=== PATIENT | female | born 1965 | race Hispanic/Latino ===

== ENCOUNTER 2021-05-11 13:05 | Inpatient (IN) | payer SELFPAY ==
[2021-05-11] MEDS ORDERED: SODIUM CHLORIDE 0.9% 1000 ML IV SOLN IV ONE (14:22)
[2021-05-11] MEDS ORDERED: dexAMETHasone 20 MG/5 ML VIAL IV ONE (14:23)
--- NOTE | 2021-05-11 15:07 | XRay Report ---
CHEST 1 VIEW INDICATION / CLINICAL INFORMATION: resp distress. COMPARISON: None available. FINDINGS: SUPPORT DEVICES: None. HEART / MEDIASTINUM: No significant abnormality. LUNGS / PLEURA: Diffuse airspace opacities bilaterally. No significant effusion. No pneumothorax. ADDITIONAL FINDINGS: No significant additional findings. IMPRESSION: Severe multilobar pneumonia. Signer Name: Lg Banks MD Signed: 05/11/2021 3:03 PM Workstation Name: [id number]
--- NOTE | 2021-05-11 15:13 | Emergency Department Report ---
ED Shortness of Breath HPI - General Chief Complaint: Dyspnea/Respdistress Stated Complaint: SOB Time Seen by Provider: 05/11/21 14:13 Source: patient Mode of arrival: Wheelchair Limitations: No Limitations - History of Present Illness Initial Comments: Patient is a 55-year-old female who was previously nonvaccinated against COVID-19 who is presenting in respiratory distress. Patient states that over the last week she has developed cough congestion mild nausea with occasional diarrhea. Patient has shortness of breath especially with exertion in the beginning however shortness of breath was constant throughout the last 2 days. Patient also complaining of body aches and subjective fevers and chills. Patient has had a decrease in her taste and smell as well. Patient denies any neck stiffness or significant headache or sore throat - Related Data Allergies Allergy/AdvReac Type Severity Reaction Status Date / Time azithromycin Allergy Unknown Verified 05/11/21 13:44 morphine Allergy Unknown Verified 05/11/21 13:44 Penicillins Allergy Unknown Verified 05/11/21 13:44 tetracycline Allergy Unknown Verified 05/11/21 13:44 ED Review of Systems ROS: Stated complaint: SOB Other details as noted in HPI Comment: All other systems reviewed and negative ED Past Medical Hx - Past Medical History Previous Medical History?: Yes Hx Hypertension: Yes Hx Asthma: Yes Additional medical history: pos covid - Surgical History Past Surgical History?: No ED Physical Exam - General Limitations: No Limitations General appearance: alert, in no apparent distress - Head Head exam: Present: atraumatic, normocephalic - Eye Eye exam: Present: normal appearance - ENT ENT exam: Present: mucous membranes moist - Neck Neck exam: Present: normal inspection - Respiratory Respiratory exam: Present: respiratory distress, rhonchi. Absent: normal lung sounds bilaterally, wheezes, rales, stridor - Cardiovascular Cardiovascular Exam: Present: regular rate, normal rhythm, normal heart sounds. Absent: systolic murmur, diastolic murmur, rubs, gallop - GI/Abdominal GI/Abdominal exam: Present: soft, normal bowel sounds. Absent: distended, tenderness, guarding, rebound - Extremities Exam Extremities exam: Present: normal inspection - Back Exam Back exam: Present: normal inspection - Neurological Exam Neurological exam: Present: alert, oriented X3 - Psychiatric Psychiatric exam: Present: normal affect, normal mood - Skin Skin exam: Present: warm, dry, intact, normal color. Absent: rash ED Course Vital Signs 05/11/21 13:40 Temperature 98 F Pulse Rate 104 H Respiratory 16 Rate Blood Pressure 137/81 [Left] O2 Sat by Pulse 65 L Oximetry ED Medical Decision Making - Lab Data Result diagrams: 05/11/21 14:33 05/11/21 14:33 Lab Results 05/11/21 05/11/21 05/11/21 Range/Units 14:33 14:33 14:33 WBC 7.8 (4.5-11.0) K/mm3 RBC 4.90 (3.65-5.03) M/mm3 Hgb 14.8 H (10.1-14.3) gm/dl Hct 42.6 (30.3-42.9) % MCV 87 (79-97) fl MCH 30 (28-32) pg MCHC 35 H (30-34) % RDW 12.9 L (13.2-15.2) % Plt Count 235 (140-440) K/mm3 Lymph % (Auto) 8.7 L (13.4-35.0) % Braxton % (Auto) 7.3 (0.0-7.3) % Eos % (Auto) 0.1 (0.0-4.3) % Baso % (Auto) 0.2 (0.0-1.8) % Lymph # (Auto) 0.7 L (1.2-5.4) K/mm3 Braxton # (Auto) 0.6 (0.0-0.8) K/mm3 Eos # (Auto) 0.0 (0.0-0.4) K/mm3 Baso # (Auto) 0.0 (0.0-0.1) K/mm3 Seg Neutrophils % 83.7 H (40.0-70.0) % Seg Neutrophils # 6.5 (1.8-7.7) K/mm3 D-Dimer (0-234) ng/mlDDU Sodium 137 (137-145) mmol/L Potassium 5.2 H (3.6-5.0) mmol/L Chloride 95.0 L (98-107) mmol/L Carbon Dioxide 27 (22-30) mmol/L Anion Gap 20 mmol/L BUN 11 (7-17) mg/dL Creatinine 0.7 (0.6-1.2) mg/dL Estimated GFR > 60 ml/min BUN/Creatinine Ratio 16 % Glucose 125 H (65-100) mg/dL Lactic Acid 1.50 (0.7-2.0) mmol/L Calcium 8.5 (8.4-10.2) mg/dL Ferritin (10.0-200.0) ng/mL Total Bilirubin 0.40 (0.1-1.2) mg/dL AST 38 (5-40) units/L ALT 30 (7-56) units/L Alkaline Phosphatase 64 (35-129) units/L Lactate Dehydrogenase (91-180) units/L C-Reactive Protein (0.00-1.30) mg/dL Total Protein 7.0 (6.3-8.2) g/dL Albumin 3.3 L (3.9-5) g/dL Albumin/Globulin Ratio 0.9 % 05/11/21 05/11/21 05/11/21 Range/Units 15:00 15:00 15:00 WBC (4.5-11.0) K/mm3 RBC (3.65-5.03) M/mm3 Hgb (10.1-14.3) gm/dl Hct (30.3-42.9) % MCV (79-97) fl MCH (28-32) pg MCHC (30-34) % RDW (13.2-15.2) % Plt Count (140-440) K/mm3 Lymph % (Auto) (13.4-35.0) % Braxton % (Auto) (0.0-7.3) % Eos % (Auto) (0.0-4.3) % Baso % (Auto) (0.0-1.8) % Lymph # (Auto) (1.2-5.4) K/mm3 Braxton # (Auto) (0.0-0.8) K/mm3 Eos # (Auto) (0.0-0.4) K/mm3 Baso # (Auto) (0.0-0.1) K/mm3 Seg Neutrophils % (40.0-70.0) % Seg Neutrophils # (1.8-7.7) K/mm3 D-Dimer 331.70 H (0-234) ng/mlDDU Sodium (137-145) mmol/L Potassium (3.6-5.0) mmol/L Chloride (98-107) mmol/L Carbon Dioxide (22-30) mmol/L Anion Gap mmol/L BUN (7-17) mg/dL Creatinine (0.6-1.2) mg/dL Estimated GFR ml/min BUN/Creatinine Ratio % Glucose (65-100) mg/dL Lactic Acid (0.7-2.0) mmol/L Calcium (8.4-10.2) mg/dL Ferritin 471.5 H (10.0-200.0) ng/mL Total Bilirubin (0.1-1.2) mg/dL AST (5-40) units/L ALT (7-56) units/L Alkaline Phosphatase (35-129) units/L Lactate Dehydrogenase 579 H (91-180) units/L C-Reactive Protein 15.80 H (0.00-1.30) mg/dL Total Protein (6.3-8.2) g/dL Albumin (3.9-5) g/dL Albumin/Globulin Ratio % - Radiology Data [facility] [address] [place] [address] XRay Report Signed Patient: JESSIKA NOVOA MR#: [id number] : 1965 Acct:[id number] Age/Sex: 55 / F ADM Date: 05/11/21 Loc: ED Attending Dr: Ordering Physician: TANIKA SCHWARTZ MD Date of Service: 05/11/21 Procedure(s): XR chest 1V ap Accession Number(s): [id number] cc: TANIKA SCHWARTZ MD Fluoro Time In Minutes: CHEST 1 VIEW INDICATION / CLINICAL INFORMATION: resp distress. COMPARISON: None available. FINDINGS: SUPPORT DEVICES: None. HEART / MEDIASTINUM: No significant abnormality. LUNGS / PLEURA: Diffuse airspace opacities bilaterally. No significant effusion. No pneumothorax. ADDITIONAL FINDINGS: No significant additional findings. IMPRESSION: Severe multilobar pneumonia. Signer Name: Lg Banks MD Signed: 05/11/2021 3:03 PM Workstation Name: [id number] - Medical Decision Making On arrival the patient's O2 saturation was in the 60s. She was placed on high flow oxygen and has improved. O2 sats on high flow oxygen are in the low 90s. Patient appears more comfortable. She is able to speak in full sentences. Chest x-ray consistent with multi lobar pneumonia consistent with COVID-19 infection. Patient started on Rocephin azithromycin and given a dose of Decadron. Patient admitted to the hospital service. Critical Care Time: Yes Critical care attestation.: If time is entered above; I have spent that time in minutes in the direct care of this critically ill patient, excluding procedure time. ED Disposition Clinical Impression: Hypoxia, Acute respiratory distress, Multilobar lung infiltrate, Suspected COVID-19 virus infection Disposition: ADMITTED INPATIENT Is pt being admited?: Yes Does the pt Need Aspirin: No Condition: Stable Time of Disposition: 16:25
[2021-05-11 15:19] LABS: Basophils % (Auto) 0.2 % (0.0-1.8); Eosinophils % (Auto) 0.1 % (0.0-4.3); Hematocrit 42.6 % (30.3-42.9); Hemoglobin 14.8 gm/dl (10.1-14.3); Lymphocytes # (Auto) 0.7 K/mm3 (1.2-5.4); Lymphocytes % (Auto) 8.7 % (13.4-35.0); Mean Corpuscular HGB Conc 35 % (30-34); Mean Corpuscular Volume 87 fl (79-97); Monocytes # (Auto) 0.6 K/mm3 (0.0-0.8); Monocytes % (Auto) 7.3 % (0.0-7.3); Platelet Count 235 K/mm3 (140-440); Red Cell Distribution Width 12.9 % (13.2-15.2)
--- NOTE | 2021-05-11 15:21 | History and Physical Report ---
History of Present Illness Chief complaint: It is hard to breathe History of present illness: 55 YO Female with HTN, Mild Intermittent Asthma, Obesity Hypoventilation Syndrome, Coronavirus Infection diagnosed 1 week ago presents to ED for evaluation. Patient reports "it is hard to breathe". Patient states that she h ad experienced shortness of breath, dry cough, fatigue, malaise, subjective fever, body aches, loss of sense of smell, loss of sense of taste, decreased exercise tolerance over the past 1 week with worsening symptoms over the past 2 days. Patient transported to [facility] via private vehicle for further care and evaluation of the aforementioned symptoms. The patient was seen and evaluated in the emergency department. All lab and imaging studies reviewed. Patient was found to have a pulse oximetry of 86% on room air which is consistent with acute hypoxemic respiratory failure. Patient chest x-ray revealed bilateral pneumonia. Patient initiated on high flow supplemental oxygen with mild improve ment in symptoms. Patient admitted to medical floor due to increased risk of worsening symptoms. Patient initiated on pneumonia protocol, coronavirus protocol. Patient denies fever, chills but denies chest pain, palpitation, skin rash, unilateral leg swelling, calf pain, prolonged travel/immobility, individual/family history of DVT/PE/bleeding/blood clotting disorders. No prior admission for review. No medication listed at time of admission for reconciliation. Advanced care planning conducted in ED. Past History Past Medical History: hypertension, other (See HPI) Past Surgical History: No surgical history, Other (Reviewed) Social history: single. denies: smoking, alcohol abuse, prescription drug abuse Family history: hypertension Medications and Allergies Allergies Allergy/AdvReac Type Severity Reaction Status Date / Time azithromycin Allergy Unknown Verified 05/11/21 13:44 morphine Allergy Unknown Verified 05/11/21 13:44 Penicillins Allergy Unknown Verified 05/11/21 13:44 tetracycline Allergy Unknown Verified 05/11/21 13:44 Review of Systems Constitutional: fever, weakness, malaise, lethargy Ears, nose, mouth and throat: other (Loss of sense of smell, loss of sense of taste), no ear pain, no ear discharge, no decreased hearing, no nose pain, no nasal congestion, no sinus pressure Cardiovascular: no chest pain, no orthopnea, no palpitations Respiratory: cough, cough with sputum, shortness of breath, no congestion, no pain on inspiration Gastrointestinal: no abdominal pain, no nausea, no vomiting, no diarrhea, no constipation, no change in bowel habits Genitourinary Female: no pelvic pain, no flank pain, no dysuria, no urinary frequency, no urgency Rectal: no pain, no incontinence, no bleeding Musculoskeletal: no neck stiffness, no shooting arm pain, no low back pain, no shooting leg pain, no leg numbness/tingling Integumentary: no rash, no pruritis, no redness, no sores, no wounds Neurological: no paralysis, no weakness, no parathesias, no numbness, no tingling, no seizures Psychiatric: no anxiety, no memory loss, no change in sleep habits, no insomnia, no change in appetite, no suicidal ideation Endocrine: no cold intolerance, no heat intolerance, no polyphagia, no polyuria, no excessive sweating Hematologic/Lymphatic: no easy bruising, no easy bleeding Allergic/Immunologic: no urticaria, no wheezing Exam - Constitutional Vitals: Temp Pulse Resp BP Pulse Ox 98 F 104 H 16 137/81 65 L 05/11/21 13:40 05/11/21 13:40 05/11/21 13:40 05/11/21 13:40 05/11/21 13:40 General appearance: Present: mild distress, obese - EENT Eyes: Present: PERRL ENT: hearing intact, clear oral mucosa - Neck Neck: Present: supple, normal ROM - Respiratory Respiratory effort: labored, accessory muscle use, stridor Respiratory: bilateral: diminished, rhonchi - Cardiovascular Heart Sounds: Present: S1 & S2. Absent: rub, click - Extremities Extremities: pulses symmetrical, No edema Peripheral Pulses: within normal limits - Abdominal General gastrointestinal: Present: soft, non-tender, non-distended, normal bowel sounds Female genitourinary: Present: normal - Integumentary Integumentary: Present: clear, warm, dry - Musculoskeletal Musculoskeletal: gait normal, strength equal bilaterally - Psychiatric Psychiatric: appropriate mood/affect, intact judgment & insight - Neurologic Neurologic: CNII-XII intact, moves all extremities Results - Labs CBC & Chem 7: 05/11/21 14:33 05/11/21 14:33 Labs: Abnormal lab results 05/11/21 Range/Units 14:33 Hgb 14.8 H (10.1-14.3) gm/dl MCHC 35 H (30-34) % RDW 12.9 L (13.2-15.2) % Lymph % (Auto) 8.7 L (13.4-35.0) % Lymph # (Auto) 0.7 L (1.2-5.4) K/mm3 Seg Neutrophils % 83.7 H (40.0-70.0) % Assessment and Plan - Patient Problems (1) Acute hypoxemic respiratory failure Current Visit: Yes Status: Acute Plan to address problem: Supplemental oxygen, pulse oximetry, nebulizer therapy, high flow supplemental oxygen at this time, will consider noninvasive positive pressure ventilation if patient is unable to main pulse oximetry on high flow supplemental oxygen. Pulmonary toilet, early ambulation. (2) Coronavirus infection Current Visit: Yes Status: Acute Plan to address problem: Coronavirus protocol: IV antibiotic therapy, IV steroid therapy, supplemental oxygen, high flow supplemental oxygen, noninvasive positive pressure ventilation as clinically indicated, proposition while in bed, vitamin C therapy, vitamin D therapy, zinc therapy, prophylactic anticoagulation (3) Pneumonia Current Visit: Yes Status: Acute Plan to address problem: Pneumonia protocol: Chest x-ray, CBC, CMP, supplemental oxygen, pulse oximetry, nebulizer therapy, pulmonary toilet, blood culture. (4) Obesity hypoventilation syndrome Current Visit: Yes Status: Acute Plan to address problem: Balanced diet, increase physical activity discharge, outpatient pulmonary follow-up for sleep study. (5) DVT prophylaxis Current Visit: Yes Status: Acute Plan to address problem: SCD to bilateral lower extremities while in bed, prophylactic anticoagulation (6) Advance care planning Current Visit: Yes Status: Acute Plan to address problem: Disease education conducted, care plan discussed, diagnoses discussed, patient is full code, patient knowledges understanding and agreement with care plan, +20 minutes. (7) COVID-19 vaccination not done Current Visit: Yes Status: Acute Plan to address problem: Patient counseled,
[2021-05-11 15:39] LABS: Alanine Aminotransferase 30 units/L (7-56); Albumin 3.3 g/dL (3.9-5); Blood Urea Nitrogen 11 mg/dL (7-17); Calcium 8.5 mg/dL (8.4-10.2); Hemolysis Index 14
[2021-05-11 15:42] LABS: BUN/Creatinine Ratio 16
[2021-05-11 16:01] LABS: C-Reactive Protein 15.8 mg/dL (0.00-1.30)
[2021-05-12] MEDS ORDERED: NALOXONE 0.4 MG/1 ML INJ IV PRN (09:00)
[2021-05-12] MEDS ORDERED: DEXTROSE 50% IN WATER (25GM) 50 ML SYRINGE IV PRN (09:30)
[2021-05-12 09:47] LABS: C-Reactive Protein 18.4 mg/dL (0.00-1.30)
[2021-05-12] MEDS: ENOXAPARIN 100 MG/1 ML INJ SUB-Q SCH ×2 (11:20→22:12)
[2021-05-12] MEDS: FAMOTIDINE 20 MG TAB PO SCH ×2 (11:21→22:08)
[2021-05-12] MEDS: methylPREDNISolone Sod Succinate 125 MG/2 ML INJ IV SCH ×3 (11:21→22:11)
[2021-05-12] MEDS: FUROSEMIDE 40 MG/4 ML INJ IV SCH (11:21)
[2021-05-12] MEDS: SENNOSIDES 8.6 MG TAB PO SCH ×2 (11:21→22:10)
[2021-05-12] MEDS: INSULIN LISPRO 100 UNIT/ML SUB-Q SCH ×3 (11:41→22:12)
--- NOTE | 2021-05-12 13:30 | Progress Note ---
Assessment and Plan Assessment and plan: 55 YO Female with HTN, Mild Intermittent Asthma, Obesity Hypoventilation Syndrome, Coronavirus Infection diagnosed 1 week ago presents to ED for evaluation. Patient reports "it is hard to breathe". Patient states that she had experienced shortness of breath, dry cough, fatigue, malaise, subjective fever, body aches, loss of sense of smell, loss of sense of taste, decreased exercise tolerance over the past 1 week with worsening symptoms over the past 2 days. Patient transported to [facility] via private vehicle for further care and evaluation of the aforementioned symptoms. The patient was seen and evaluated in the emergency department. All lab and imaging studies reviewed. Patient was found to have a pulse oximetry of 86% on room air which is consistent with acute hypoxemic respiratory failure. Patient chest x-ray revealed bilateral pneumonia. Patient initiated on high flow supplemental oxygen with mild improvement in symptoms. Patient admitted to medical floor due to increased risk of worsening symptoms. Patient initiated on pneumonia protocol, coronavirus protocol. Patient denies fever, chills but denies chest pain, palpitation, skin rash, unilateral leg swelling, calf pain, prolonged travel/immobility, individual/family history of DVT/PE/bleeding/blood clotting disorders. No prior admission for review. No medication listed at time of admission for reconciliation. Advanced care planning conducted in ED. 05/12: Patient currently severely hypoxic on full nonrebreather and also high flow 100%. We will go ahead and consult pulmonary we will start patient on steroids. We will also consult infectious disease anticipate that the patient should be started on remdesivir. Awaiting repeat Covid 19 diagnosis although patient states that she was diagnosed a week ago. She unfortunately is not vaccinated. Condition is pretty guarded. Will also start on Diuresis and Full anticoagulation Encouraged proning Monitor inflammatory markers Patients emergency contacts: Kristen [phone] and Demetria [phone]. I have called both and left a message (1) Acute hypoxemic respiratory failure Current Visit: Yes Status: Acute Plan to address problem: Supplemental oxygen, pulse oximetry, nebulizer therapy, high flow supplemental oxygen at this time, will consider noninvasive positive pressure ventilation if patient is unable to main pulse oximetry on high flow supplemental oxygen. Pulmonary toilet, early ambulation. (2) Coronavirus infection Current Visit: Yes Status: Acute Plan to address problem: Coronavirus protocol: IV antibiotic therapy, IV steroid therapy, supplemental oxygen, high flow supplemental oxygen, noninvasive positive pressure ventilation as clinically indicated, proposition while in bed, vitamin C therapy, vitamin D therapy, zinc therapy, prophylactic anticoagulation (3) Pneumonia Current Visit: Yes Status: Acute Plan to address problem: Pneumonia protocol: Chest x-ray, CBC, CMP, supplemental oxygen, pulse oximetry, nebulizer therapy, pulmonary toilet, blood culture. (4) Obesity hypoventilation syndrome Current Visit: Yes Status: Acute Plan to address problem: Balanced diet, increase physical activity discharge, outpatient pulmonary follow-up for sleep study. (5) DVT prophylaxis Current Visit: Yes Status: Acute Plan to address problem: SCD to bilateral lower extremities while in bed, prophylactic anticoagulation (6) Advance care planning Current Visit: Yes Status: Acute Plan to address problem: Disease education conducted, care plan discussed, diagnoses discussed, patient is full code, patient knowledges understanding and agreement with care plan, +20 minutes. (7) COVID-19 vaccination not done Current Visit: Yes Status: Acute Plan to address problem: Patient counseled, cct 35 mins History Interval history: Patient seen and examined remains in acute respiratory distress. Fortunately did not appear to have gotten medications through the night. This has been rectified Hospitalist Physical - Physical exam Narrative exam: VITAL SIGNS: Reviewed. GENERAL: The patient appears normally developed, morbidly obese vital signs as documented. HEAD: No signs of head trauma. EYES: Pupils are equal. Extraocular motions intact. EARS: Hearing grossly intact. MOUTH: Oropharynx is normal. NECK: No adenopathy, no JVD. CHEST: Chest with diminished breath sounds bilaterally. No wheezes, rales, or rhonchi. CARDIAC: Regular rate and rhythm. S1 and S2, without murmurs, gallops, or rubs. VASCULAR: No Edema. Peripheral pulses normal and equal in all extremities. ABDOMEN: Soft, non tender and non distended. No rebound or guarding, and no masses palpated. Bowel Sounds normal. MUSCULOSKELETAL: Good range of motion of all major joints. Extremities without clubbing, cyanosis or edema. NEUROLOGIC EXAM: Alert and oriented x 3 No focal sensory or strength deficits. Speech normal. Follows commands. PSYCHIATRIC: Mood normal. SKIN: detail exam as documented in skin assessment - Constitutional Vitals: Temp Pulse Resp BP Pulse Ox 97.7 F 101 H 31 H 142/85 86 05/12/21 11:30 05/12/21 11:30 05/12/21 11:30 05/12/21 11:30 05/12/21 11:42 General appearance: Present: mild distress, obese Results - Labs CBC & Chem 7: 05/11/21 14:33 05/12/21 08:46 Labs: Laboratory Last Values WBC 7.8 K/mm3 (4.5-11.0) 05/11/21 14:33 RBC 4.90 M/mm3 (3.65-5.03) 05/11/21 14:33 Hgb 14.8 gm/dl (10.1-14.3) H 05/11/21 14:33 Hct 42.6 % (30.3-42.9) 05/11/21 14:33 MCV 87 fl (79-97) 05/11/21 14:33 MCH 30 pg (28-32) 05/11/21 14:33 MCHC 35 % (30-34) H 05/11/21 14:33 RDW 12.9 % (13.2-15.2) L 05/11/21 14:33 Plt Count 235 K/mm3 (140-440) 05/11/21 14:33 Lymph % (Auto) 8.7 % (13.4-35.0) L 05/11/21 14:33 [place] % (Auto) 7.3 % (0.0-7.3) 05/11/21 14:33 Eos % (Auto) 0.1 % (0.0-4.3) 05/11/21 14:33 Baso % (Auto) 0.2 % (0.0-1.8) 05/11/21 14:33 Lymph # (Auto) 0.7 K/mm3 (1.2-5.4) L 05/11/21 14:33 [place] # (Auto) 0.6 K/mm3 (0.0-0.8) 05/11/21 14:33 Eos # (Auto) 0.0 K/mm3 (0.0-0.4) 05/11/21 14:33 Baso # (Auto) 0.0 K/mm3 (0.0-0.1) 05/11/21 14:33 Seg Neutrophils % 83.7 % (40.0-70.0) H 05/11/21 14:33 Seg Neutrophils # 6.5 K/mm3 (1.8-7.7) 05/11/21 14:33 D-Dimer 345.30 ng/mlDDU (0-234) H 05/12/21 08:46 Sodium 137 mmol/L (137-145) 05/11/21 14:33 Potassium 5.2 mmol/L (3.6-5.0) H 05/11/21 14:33 Chloride 95.0 mmol/L (98-107) L 05/11/21 14:33 Carbon Dioxide 27 mmol/L (22-30) 05/11/21 14:33 Anion Gap 20 mmol/L 05/11/21 14:33 BUN 11 mg/dL (7-17) 05/11/21 14:33 Creatinine 0.7 mg/dL (0.6-1.2) 05/11/21 14:33 Estimated GFR > 60 ml/min 05/11/21 14:33 BUN/Creatinine Ratio 16 % 05/11/21 14:33 Glucose 149 mg/dL (65-100) H 05/12/21 08:46 POC Glucose 141 mg/dL (70-105) H 05/12/21 11:40 Lactic Acid 1.10 mmol/L (0.7-2.0) 05/11/21 18:12 Calcium 8.5 mg/dL (8.4-10.2) 05/11/21 14:33 Ferritin 465.6 ng/mL (10.0-200.0) H 05/12/21 08:46 Total Bilirubin 0.40 mg/dL (0.1-1.2) 05/11/21 14:33 AST 38 units/L (5-40) 05/11/21 14:33 ALT 30 units/L (7-56) 05/11/21 14:33 Alkaline Phosphatase 64 units/L (35-129) 05/11/21 14:33 Lactate Dehydrogenase 574 units/L (91-180) H 05/12/21 08:46 C-Reactive Protein 18.40 mg/dL (0.00-1.30) H 05/12/21 08:46 Total Protein 7.0 g/dL (6.3-8.2) 05/11/21 14:33 Albumin 3.3 g/dL (3.9-5) L 05/11/21 14:33 Albumin/Globulin Ratio 0.9 % 05/11/21 14:33 Procalcitonin 0.06 ng/mL (<0.15) 05/12/21 08:46 Microbiology: Microbiology 05/11/21 15:00 Peripheral/Venous Blood Culture - Preliminary Culture in Progress 05/11/21 15:00 Peripheral/Venous Blood Culture - Preliminary Culture in Progress Active Medications - Current Medications Current Medications: Generic Name Dose Route Start Last Admin Trade Name Freq PRN Reason Stop Dose Admin Acetaminophen 650 mg 05/12/21 10:00 Acetaminophen 325 Mg Tab PO Q4H PRN Pain MILD(1-3)/Fever >100.5/LUX Dextrose 50 ml 05/12/21 09:30 Dextrose 50% In Water (25gm) 50 Ml Syringe IV Q30MIN PRN Hypoglycemia Protocol Enoxaparin Sodium 100 mg 05/12/21 10:00 05/12/21 11:20 Enoxaparin 100 Mg/1 Ml Inj 1 mg/kg (100 mg) 100 mg SUB-Q Administration Q12HR [facility] Protocol Famotidine 20 mg 05/12/21 10:00 05/12/21 11:21 Famotidine 20 Mg Tab PO 20 mg BID YOHANNES Administration Furosemide 40 mg 05/12/21 10:00 05/12/21 11:21 Furosemide 40 Mg/4 Ml Inj IV 05/14/21 10:01 40 mg QDAY YOHANNES Administration Insulin Human Lispro 0 unit 05/12/21 11:30 05/12/21 11:41 Insulin Lispro 100 Unit/Ml SUB-Q Not Given ACHS [facility] Protocol Methylprednisolone Sodium Succinate 80 mg 05/12/21 10:00 05/12/21 11:21 Methylprednisolone Sod Succinate 125 Mg/2 Ml Inj IV 80 mg Q8HR YOHANNES Administration Naloxone HCl 0.1 mg 05/12/21 09:00 Naloxone 0.4 Mg/1 Ml Inj IV Q2MIN PRN Res Rate </= 8 or 02 SAT < 92% Ondansetron HCl 4 mg 05/12/21 10:00 Ondansetron 4 Mg/2 Ml Inj IV Q4H PRN Nausea And Vomiting Oxycodone/Acetaminophen 1 tab 05/12/21 10:00 Oxycodone /Acetaminophen 5-325mg Tab PO Q6H PRN Pain, Moderate (4-6) Senna 8.6 mg 05/12/21 10:00 05/12/21 11:21 Sennosides 8.6 Mg Tab PO 8.6 mg Q12HR YOHANNES Administration Sodium Chloride 10 ml 05/12/21 10:00 05/12/21 11:35 Sodium Chloride 0.9% 10 Ml Flush Syringe IV 10 ml BID YOHANNES Administration Sodium Chloride 10 ml 05/12/21 10:00 Sodium Chloride 0.9% 10 Ml Flush Syringe IV PRN PRN LINE FLUSH Nutrition/Malnutrition Assess - Dietary Evaluation Nutrition/Malnutrition Findings: Nutrition Notes Start: 05/12/21 11:38 Freq: Status: Active Protocol: Document 05/12/21 11:38 ROSANA (Rec: 05/12/21 11:41 ROSANA [id number]) Nutrition Notes Need for Assessment generated from: MD Order,Education Initial or Follow up Brief Note Current Diagnosis Hypertension,Respiratory Failure Other Pertinent Diagnosis COVID-19 (+), pneu Current Diet Consistent CHO Subjective/Other Information RD consulted for diet education. Pt in ED at this time. Minimum of two criteria No Nutrition Intervention Follow-Up By: 05/17/21 Additional Comments F/U: transfer to medical floor ; diet education needs, need for full assessment
--- NOTE | 2021-05-12 13:45 | Consultation ---
History of Present Illness Consult date: 05/12/21 Reason for consult: dyspnea History of present illness: t is hard to breathe History of present illness: 55 YO Female with HTN, Mild Intermittent Asthma, Obesity Hypoventilation Syndrome, Coronavirus Infection diagnosed 1 week ago presents to ED for evaluation. Patient reports "it is hard to breathe". Patient states that she had experienced shortness of breath, dry cough, fatigue, malaise, subjective fever, body aches, loss of sense of smell, loss of sense of taste, decreased exercise tolerance over the past 1 week with worsening symptoms over the past 2 days. Patient transported to [facility] via private vehicle for further care and evaluation of the aforementioned symptoms. The patient was seen and evaluated in the emergency department. All lab and imaging studies reviewed. Patient was found to have a pulse oximetry of 86% on room air which is consistent with acute hypoxemic respiratory failure. Patient chest x-ray revealed bilateral pneumonia. Patient initiated on high flow supplemental oxygen with mild improvement in symptoms. Patient admitted to medical floor due to increased risk of worsening symptoms. Patient initiated on pneumonia protocol, coronavirus protocol. Patient denies fever, chills but denies chest pain, palpitation, skin rash, unilateral leg swelling, calf pain, prolonged zain el/immobility, individual/family history of DVT/PE/bleeding/blood clotting disorders. No prior admission for review. No medication listed at time of admission for reconciliation. Patient reports cough along with shortness of breath but no chest pains. She reports she has been suspected to have obstructive sleep apnea however have not had any sleep studies. Past History Past Medical History: hypertension, other (See HPI) Past Surgical History: No surgical history, Other (Reviewed) Social history: single. denies: smoking, alcohol abuse, prescription drug abuse Family history: hypertension Medications and Allergies Allergies Allergy/AdvReac Type Severity Reaction Status Date / Time azithromycin Allergy Unknown Verified 05/11/21 13:44 morphine Allergy Unknown Verified 05/11/21 13:44 Penicillins Allergy Unknown Verified 05/11/21 13:44 tetracycline Allergy Unknown Verified 05/11/21 13:44 Home Medications Medication Instructions Recorded Confirmed Last Taken Type No Known Home Medications [No 05/11/21 05/11/21 Unknown History Reported Home Medications] Active Meds: Active Medications Acetaminophen (Acetaminophen 325 Mg Tab) 650 mg PO Q4H PRN PRN Reason: Pain MILD(1-3)/Fever >100.5/LUX Ascorbic Acid (Ascorbic Acid 500 Mg Tab) 1,000 mg PO BID [facility] Cholecalciferol (Cholecalciferol (Vit D3) 5,000 Unit Tab) 5,000 unit PO DAILY [facility] Dextrose (Dextrose 50% In Water (25gm) 50 Ml Syringe) 50 ml IV Q30MIN PRN; Protocol PRN Reason: Hypoglycemia Enoxaparin Sodium (Enoxaparin 100 Mg/1 Ml Inj) 100 mg 1 mg/kg (100 mg) SUB-Q Q12HR [facility]; Protocol Last Admin: 05/12/21 11:20 Dose: 100 mg Documented by: Famotidine (Famotidine 20 Mg Tab) 20 mg PO BID [facility] Last Admin: 05/12/21 11:21 Dose: 20 mg Documented by: Furosemide (Furosemide 40 Mg/4 Ml Inj) 40 mg IV QDAY [facility] Stop: 05/14/21 10:01 Last Admin: 05/12/21 11:21 Dose: 40 mg Documented by: REMDESIVIR 200 mg/ Sodium (Chloride) 250 mls @ 500 mls/hr IV ONCE ONE Stop: 05/12/21 14:04 REMDESIVIR 100 mg/ Sodium (Chloride) 250 mls @ 500 mls/hr IV Q24HR@2100 [facility] Stop: 05/16/21 21:29 Insulin Human Lispro (Insulin Lispro 100 Unit/Ml) 0 unit SUB-Q ACHS [facility]; Protocol Last Admin: 05/12/21 11:41 Dose: Not Given Documented by: Methylprednisolone Sodium Succinate (Methylprednisolone Sod Succinate 125 Mg/2 Ml Inj) 80 mg IV Q8HR [facility] Last Admin: 05/12/21 11:21 Dose: 80 mg Documented by: Naloxone HCl (Naloxone 0.4 Mg/1 Ml Inj) 0.1 mg IV Q2MIN PRN PRN Reason: Res Rate </= 8 or 02 SAT < 92% Ondansetron HCl (Ondansetron 4 Mg/2 Ml Inj) 4 mg IV Q4H PRN PRN Reason: Nausea And Vomiting Oxycodone/Acetaminophen (Oxycodone /Acetaminophen 5-325mg Tab) 1 tab PO Q6H PRN PRN Reason: Pain, Moderate (4-6) Senna (Sennosides 8.6 Mg Tab) 8.6 mg PO Q12HR [facility] Last Admin: 05/12/21 11:21 Dose: 8.6 mg Documented by: Sodium Chloride (Sodium Chloride 0.9% 10 Ml Flush Syringe) 10 ml IV BID [facility] Last Admin: 05/12/21 11:35 Dose: 10 ml Documented by: Sodium Chloride (Sodium Chloride 0.9% 10 Ml Flush Syringe) 10 ml IV PRN PRN PRN Reason: LINE FLUSH Sodium Chloride (Sodium Chloride 0.9% 50 Ml Ivpb) 50 ml IV Q24HR@2100 [facility] Stop: 05/16/21 21:01 Zinc Sulfate (Zinc Sulfate 220 Mg Cap) 220 mg PO QDAY [facility] Review of Systems All systems: negative Constitutional: chills, sweats, weakness, malaise Ears, nose, mouth and throat: other (Loss of taste and smell) Breasts: deferred Cardiovascular: shortness of breath Respiratory: cough with sputum Integumentary: deferred Physical Examination Vital signs: Vital Signs Temp Pulse Resp BP Pulse Ox 98 F 104 H 16 137/81 65 L 05/11/21 13:40 05/11/21 13:40 05/11/21 13:40 05/11/21 13:40 05/11/21 13:40 General appearance: appears uncomfortable, other (Dyspneic at rest with oxygen) Eyes: non-icteric ENT: oropharynx dry, other (Crowded oropharynx) Neck: supple, no JVD Effort: mildly labored Ascultation: Bilateral: rhonchi Cardiovascular: regular rate and rhythm Gastrointestinal: normoactive bowel sounds, soft, non-tender, other (Obese) Integumentary: normal Extremities: no cyanosis, no edema, pink and warm Musculoskeletal: no deformities Gait: other (Not examined) normal mental status, non-focal exam mood appropriate Results - Laboratory Findings CBC and BMP: 05/11/21 14:33 05/12/21 08:46 PT/INR, D-dimer D-Dimer 345.30 ng/mlDDU (0-234) H 05/12/21 08:46 Abnormal lab findings: Abnormal Labs 05/11/21 05/11/21 05/11/21 14:33 14:33 15:00 Hgb 14.8 H MCHC 35 H RDW 12.9 L Lymph % (Auto) 8.7 L Lymph # (Auto) 0.7 L Seg Neutrophils % 83.7 H D-Dimer 331.70 H Potassium 5.2 H Chloride 95.0 L Glucose 125 H POC Glucose Ferritin Lactate Dehydrogenase C-Reactive Protein Albumin 3.3 L 05/11/21 05/11/21 05/12/21 15:00 15:00 08:46 Hgb MCHC RDW Lymph % (Auto) Lymph # (Auto) Seg Neutrophils % D-Dimer 345.30 H Potassium Chloride Glucose POC Glucose Ferritin 471.5 H Lactate Dehydrogenase 579 H C-Reactive Protein 15.80 H Albumin 05/12/21 05/12/21 05/12/21 08:46 08:46 11:40 Hgb MCHC RDW Lymph % (Auto) Lymph # (Auto) Seg Neutrophils % D-Dimer Potassium Chloride Glucose 149 H POC Glucose 141 H Ferritin 465.6 H Lactate Dehydrogenase 574 H C-Reactive Protein 18.40 H Albumin - Diagnostic Findings Chest x-ray: image reviewed (Bilateral patchy infiltrate) Assessment and Plan Impression: Acute hypoxic respiratory failure Bilateral COVID-19 pneumonia Morbid obesity Suspect underlying obstructive sleep apnea Hypertension. Recommendations: Continue with the supplemental oxygen currently on high flow. Continue with IV steroids Consider remdesivir for Covid pneumonia. Agree with DVT and GI prophylaxis. Consider sleep study as outpatient when recovered from Covid pneumonia Given obesity, underlying health problems and extensive pneumonia with severe hypoxemia, consider prognosis to be guarded
[2021-05-12] MEDS ORDERED: REMDESIVIR 200 MG in SODIUM CHLORIDE 0.9% 250ML 250 ML IV ONE (14:35)
[2021-05-12] MEDS: ZINC SULFATE 220 MG CAP PO SCH (15:34)
[2021-05-12] MEDS: SODIUM CHLORIDE 0.9% 50 ML IVPB IV SCH (16:25)
--- NOTE | 2021-05-12 17:15 | Vascular Lab Report ---
DUPLEX DOPPLER LOWER EXTREMITY VEINS, BILATERAL INDICATION / CLINICAL INFORMATION: DVT. TECHNIQUE: Duplex doppler imaging was performed through the veins of both lower extremities using ba ous compression and other maneuvers. COMPARISON: None available. FINDINGS: RIGHT COMMON FEMORAL VEIN: Negative. RIGHT FEMORAL VEIN: Negative. RIGHT POPLITEAL VEIN: Negative. RIGHT CALF VEINS: Negative. LEFT COMMON FEMORAL VEIN: Negative. LEFT FEMORAL VEIN: Negative. LEFT POPLITEAL VEIN: Negative. LEFT CALF VEINS: Negative. ADDITIONAL FINDINGS: None. IMPRESSION: 1. No sonographic evidence for DVT in either lower extremity. Signer Name: Moreno Roberson MD Signed: 05/12/2021 5:11 PM Workstation Name: [id number]
[2021-05-12] MEDS: CHOLECALCIFEROL (VIT D3) 5,000 UNIT TAB PO SCH (17:53)
[2021-05-12] MEDS: ASCORBIC ACID 500 MG TAB PO SCH (22:09)
[2021-05-13 04:57] LABS: Basophils % (Auto) 0.3 % (0.0-1.8); Hematocrit 42.8 % (30.3-42.9); Hemoglobin 14.6 gm/dl (10.1-14.3); Lymphocytes # (Auto) 0.5 K/mm3 (1.2-5.4); Lymphocytes % (Auto) 3.5 % (13.4-35.0); Mean Corpuscular HGB Conc 34 % (30-34); Mean Corpuscular Volume 88 fl (79-97); Monocytes # (Auto) 0.9 K/mm3 (0.0-0.8); Monocytes % (Auto) 6.8 % (0.0-7.3); Platelet Count 366 K/mm3 (140-440); Red Blood Count 4.85 M/mm3 (3.65-5.03); Red Cell Distribution Width 12.9 % (13.2-15.2)
[2021-05-13 05:16] LABS: Alanine Aminotransferase 23 units/L (7-56); Albumin 3.2 g/dL (3.9-5); BUN/Creatinine Ratio 39; Blood Urea Nitrogen 31 mg/dL (7-17); Calcium 8.7 mg/dL (8.4-10.2); Hemolysis Index 7
[2021-05-13] MEDS: methylPREDNISolone Sod Succinate 125 MG/2 ML INJ IV SCH ×3 (06:22→23:31)
[2021-05-13] MEDS: INSULIN LISPRO 100 UNIT/ML SUB-Q SCH ×4 (07:48→23:30)
--- NOTE | 2021-05-13 10:46 | Progress Note ---
Assessment and Plan Assessment and plan: 55 YO Female with HTN, Mild Intermittent Asthma, Obesity Hypoventilation Syndrome, Coronavirus Infection diagnosed 1 week ago presents to ED for evaluation. Patient reports "it is hard to breathe". Patient states that she had experienced shortness of breath, dry cough, fatigue, malaise, subjective fever, body aches, loss of sense of smell, loss of sense of taste, decreased exercise tolerance over the past 1 week with worsening symptoms over the past 2 days. Patient transported to [facility] via private vehicle for further care and evaluation of the aforementioned symptoms. The patient was seen and evaluated in the emergency department. All lab and imaging studies reviewed. Patient was found to have a pulse oximetry of 86% on room air which is consistent with acute hypoxemic respiratory failure. Patient chest x-ray revealed bilateral pneumonia. Patient initiated on high flow supplemental oxygen with mild improvement in symptoms. Patient admitted to medical floor due to increased risk of worsening symptoms. Patient initiated on pneumonia protocol, coronavirus protocol. Patient denies fever, chills but denies chest pain, palpitation, skin rash, unilateral leg swelling, calf pain, prolonged travel/immobility, individual/family history of DVT/PE/bleeding/blood clotting disorders. No prior admission for review. No medication listed at time of admission for reconciliation. Advanced care planning conducted in ED. 05/12: Patient currently severely hypoxic on full nonrebreather and also high flow 100%. We will go ahead and consult pulmonary we will start patient on steroids. We will also consult infectious disease anticipate that the patient should be started on remdesivir. Awaiting repeat Covid 19 diagnosis although patient states that she was diagnosed a week ago. She unfortunately is not vaccinated. Condition is pretty guarded. Will also start on Diuresis and Full anticoagulation Encouraged proning Monitor inflammatory markers Patients emergency contacts: Kristen [phone] and Demetria [phone]. I have called both and left a message 05/13: Patient seen and examined, continue supportive care, continue oxygen therapy, PRONE TOLERATED. Continue anticoagulation and lasix, including Remdesivir. (1) Acute hypoxemic respiratory failure Current Visit: Yes Status: Acute Plan to address problem: Supplemental oxygen, pulse oximetry, nebulizer therapy, high flow supplemental oxygen at this time, will consider noninvasive positive pressure ventilation if patient is unable to main pulse oximetry on high flow supplemental oxygen. Pulmonary toilet, early ambulation. (2) Coronavirus infection Current Visit: Yes Status: Acute Plan to address problem: Coronavirus protocol: IV antibiotic therapy, IV steroid therapy, supplemental oxygen, high flow supplemental oxygen, noninvasive positive pressure ventilation as clinically indicated, proposition while in bed, vitamin C therapy, vitamin D therapy, zinc therapy, prophylactic anticoagulation (3) Pneumonia Current Visit: Yes Status: Acute Plan to address problem: Pneumonia protocol: Chest x-ray, CBC, CMP, supplemental oxygen, pulse oximetry, nebulizer therapy, pulmonary toilet, blood culture. (4) Obesity hypoventilation syndrome Current Visit: Yes Status: Acute Plan to address problem: Balanced diet, increase physical activity discharge, outpatient pulmonary follow-up for sleep study. (5) DVT prophylaxis Current Visit: Yes Status: Acute Plan to address problem: SCD to bilateral lower extremities while in bed, prophylactic anticoagulation (6) Advance care planning Current Visit: Yes Status: Acute Plan to address problem: Disease education conducted, care plan discussed, diagnoses discussed, patient is full code, patient knowledges understanding and agreement with care plan, +20 minutes. (7) COVID-19 vaccination not done Current Visit: Yes Status: Acute Plan to address problem: Patient counseled, cct 35 mins History Interval history: Patient seen and examined remains in acute respiratory distress. Continue supportive care Hospitalist Physical - Physical exam Narrative exam: VITAL SIGNS: Reviewed. GENERAL: The patient appears normally developed, still in acute distress on NRM and HIFLO morbidly obese, vital signs as documented. HEAD: No signs of head trauma. EYES: Pupils are equal. Extraocular motions intact. EARS: Hearing grossly intact. MOUTH: Oropharynx is normal. NECK: No adenopathy, no JVD. CHEST: Chest with diminished breath sounds bilaterally. No wheezes, rales, or rhonchi. CARDIAC: Regular rate and rhythm. S1 and S2, without murmurs, gallops, or rubs. VASCULAR: No Edema. Peripheral pulses normal and equal in all extremities. ABDOMEN: Soft, non tender and non distended. No rebound or guarding, and no masses palpated. Bowel Sounds normal. MUSCULOSKELETAL: Good range of motion of all major joints. Extremities without clubbing, cyanosis or edema. NEUROLOGIC EXAM: Alert and oriented x 3 No focal sensory or strength deficits. Speech normal. Follows commands. PSYCHIATRIC: Mood normal. SKIN: detail exam as documented in skin assessment - Constitutional Vitals: Temp Pulse Resp BP Pulse Ox 99.0 F 96 H 24 149/91 91 05/12/21 20:20 05/13/21 07:45 05/13/21 07:45 05/13/21 07:45 05/13/21 08:00 General appearance: Present: mild distress, obese Results - Labs CBC & Chem 7: 05/13/21 03:51 05/13/21 03:51 Labs: Laboratory Last Values WBC 13.6 K/mm3 (4.5-11.0) H 05/13/21 03:51 RBC 4.85 M/mm3 (3.65-5.03) 05/13/21 03:51 Hgb 14.6 gm/dl (10.1-14.3) H 05/13/21 03:51 Hct 42.8 % (30.3-42.9) 05/13/21 03:51 MCV 88 fl (79-97) 05/13/21 03:51 MCH 30 pg (28-32) 05/13/21 03:51 MCHC 34 % (30-34) 05/13/21 03:51 RDW 12.9 % (13.2-15.2) L 05/13/21 03:51 Plt Count 366 K/mm3 (140-440) 05/13/21 03:51 Lymph % (Auto) 3.5 % (13.4-35.0) L 05/13/21 03:51 [place] % (Auto) 6.8 % (0.0-7.3) 05/13/21 03:51 Eos % (Auto) 0.0 % (0.0-4.3) 05/13/21 03:51 Baso % (Auto) 0.3 % (0.0-1.8) 05/13/21 03:51 Lymph # (Auto) 0.5 K/mm3 (1.2-5.4) L 05/13/21 03:51 [place] # (Auto) 0.9 K/mm3 (0.0-0.8) H 05/13/21 03:51 Eos # (Auto) 0.0 K/mm3 (0.0-0.4) 05/13/21 03:51 Baso # (Auto) 0.0 K/mm3 (0.0-0.1) 05/13/21 03:51 Seg Neutrophils % 89.4 % (40.0-70.0) H 05/13/21 03:51 Seg Neutrophils # 12.1 K/mm3 (1.8-7.7) H 05/13/21 03:51 D-Dimer 345.30 ng/mlDDU (0-234) H 05/12/21 08:46 Sodium 140 mmol/L (137-145) 05/13/21 03:51 Potassium 4.4 mmol/L (3.6-5.0) 05/13/21 03:51 Chloride 98.9 mmol/L (98-107) 05/13/21 03:51 Carbon Dioxide 28 mmol/L (22-30) 05/13/21 03:51 Anion Gap 18 mmol/L 05/13/21 03:51 BUN 31 mg/dL (7-17) H 05/13/21 03:51 Creatinine 0.8 mg/dL (0.6-1.2) 05/13/21 03:51 Estimated GFR > 60 ml/min 05/13/21 03:51 BUN/Creatinine Ratio 39 % 05/13/21 03:51 Glucose 152 mg/dL (65-100) H 05/13/21 03:51 POC Glucose 160 mg/dL (70-105) H 05/13/21 07:32 Lactic Acid 1.10 mmol/L (0.7-2.0) 05/11/21 18:12 Calcium 8.7 mg/dL (8.4-10.2) 05/13/21 03:51 Ferritin 465.6 ng/mL (10.0-200.0) H 05/12/21 08:46 Total Bilirubin 0.30 mg/dL (0.1-1.2) 05/13/21 03:51 AST 20 units/L (5-40) 05/13/21 03:51 ALT 23 units/L (7-56) 05/13/21 03:51 Alkaline Phosphatase 67 units/L (35-129) 05/13/21 03:51 Lactate Dehydrogenase 574 units/L (91-180) H 05/12/21 08:46 C-Reactive Protein 18.40 mg/dL (0.00-1.30) H 05/12/21 08:46 Total Protein 6.9 g/dL (6.3-8.2) 05/13/21 03:51 Albumin 3.2 g/dL (3.9-5) L 05/13/21 03:51 Albumin/Globulin Ratio 0.9 % 05/13/21 03:51 Procalcitonin 0.06 ng/mL (<0.15) 05/12/21 08:46 Coronavirus (PCR) Positive (Negative) A 05/12/21 09:00 Microbiology: Microbiology 05/11/21 15:00 Peripheral/Venous Blood Culture - Preliminary NO GROWTH AFTER 24 HOURS 05/11/21 15:00 Peripheral/Venous Blood Culture - Preliminary NO GROWTH AFTER 24 HOURS Active Medications - Current Medications Current Medications: Generic Name Dose Route Start Last Admin Trade Name Freq PRN Reason Stop Dose Admin Acetaminophen 650 mg 05/12/21 10:00 Acetaminophen 325 Mg Tab PO Q4H PRN Pain MILD(1-3)/Fever >100.5/LUX Ascorbic Acid 1,000 mg 05/12/21 22:00 05/12/21 22:09 Ascorbic Acid 500 Mg Tab PO 1,000 mg BID [facility] Administration Cholecalciferol 5,000 unit 05/12/21 14:00 05/12/21 17:53 Cholecalciferol (Vit D3) 5,000 Unit Tab PO Not Given DAILY [facility] Dextrose 50 ml 05/12/21 09:30 Dextrose 50% In Water (25gm) 50 Ml Syringe IV Q30MIN PRN Hypoglycemia Protocol Enoxaparin Sodium 100 mg 05/12/21 10:00 05/12/21 22:12 Enoxaparin 100 Mg/1 Ml Inj 1 mg/kg (100 mg) 100 mg SUB-Q Administration Q12HR [facility] Protocol Famotidine 20 mg 05/12/21 10:00 05/12/21 22:08 Famotidine 20 Mg Tab PO 20 mg BID [facility] Administration Furosemide 40 mg 05/12/21 10:00 05/12/21 11:21 Furosemide 40 Mg/4 Ml Inj IV 05/14/21 10:01 40 mg QDAY [facility] Administration REMDESIVIR 100 mg/ Sodium 250 mls @ 500 mls/hr 05/13/21 21:00 Chloride IV 05/16/21 21:29 Q24HR@2100 [facility] Insulin Human Lispro 0 unit 05/12/21 11:30 05/13/21 07:48 Insulin Lispro 100 Unit/Ml SUB-Q Not Given ACHS [facility] Protocol Methylprednisolone Sodium Succinate 80 mg 05/12/21 10:00 05/13/21 06:22 Methylprednisolone Sod Succinate 125 Mg/2 Ml Inj IV 80 mg Q8HR [facility] Administration Naloxone HCl 0.1 mg 05/12/21 09:00 Naloxone 0.4 Mg/1 Ml Inj IV Q2MIN PRN Res Rate </= 8 or 02 SAT < 92% Ondansetron HCl 4 mg 05/12/21 10:00 Ondansetron 4 Mg/2 Ml Inj IV Q4H PRN Nausea And Vomiting Oxycodone/Acetaminophen 1 tab 05/12/21 10:00 Oxycodone /Acetaminophen 5-325mg Tab PO Q6H PRN Pain, Moderate (4-6) Senna 8.6 mg 05/12/21 10:00 05/12/21 22:10 Sennosides 8.6 Mg Tab PO 8.6 mg Q12HR [facility] Administration Sodium Chloride 10 ml 05/12/21 10:00 05/12/21 22:18 Sodium Chloride 0.9% 10 Ml Flush Syringe IV 10 ml BID [facility] Administration Sodium Chloride 10 ml 05/12/21 10:00 Sodium Chloride 0.9% 10 Ml Flush Syringe IV PRN PRN LINE FLUSH Sodium Chloride 50 ml 05/12/21 15:00 05/12/21 16:25 Sodium Chloride 0.9% 50 Ml Ivpb IV 05/16/21 21:01 50 ml Q24HR@2100 [facility] Administration Zinc Sulfate 220 mg 05/12/21 14:00 05/12/21 15:34 Zinc Sulfate 220 Mg Cap PO 220 mg QDAY [facility] Administration Nutrition/Malnutrition Assess - Dietary Evaluation Nutrition/Malnutrition Findings: Nutrition Notes Start: 05/12/21 11:38 Freq: Status: Active Protocol: Document 05/12/21 11:38 ROSANA (Rec: 05/12/21 11:41 ROSANA [id number]) Nutrition Notes Need for Assessment generated from: MD Order,Education Initial or Follow up Brief Note Current Diagnosis Hypertension,Respiratory Failure Other Pertinent Diagnosis COVID-19 (+), pneu Current Diet Consistent CHO Subjective/Other Information RD consulted for diet education. Pt in ED at this time. Minimum of two criteria No Nutrition Intervention Follow-Up By: 05/17/21 Additional Comments F/U: transfer to medical floor ; diet education needs, need for full assessment
[2021-05-13] MEDS: FAMOTIDINE 20 MG TAB PO SCH ×2 (10:50→23:31)
[2021-05-13] MEDS: ZINC SULFATE 220 MG CAP PO SCH (10:50)
[2021-05-13] MEDS: SENNOSIDES 8.6 MG TAB PO SCH ×2 (10:50→23:31)
[2021-05-13] MEDS: ASCORBIC ACID 500 MG TAB PO SCH ×2 (10:50→23:31)
[2021-05-13] MEDS: FUROSEMIDE 40 MG/4 ML INJ IV SCH (10:50)
[2021-05-13] MEDS: ENOXAPARIN 100 MG/1 ML INJ SUB-Q SCH ×2 (11:04→23:30)
--- NOTE | 2021-05-13 14:02 | Progress Note ---
Assessment and Plan Impression: Acute hypoxic respiratory failure Bilateral COVID-19 pneumonia Morbid obesity Suspect underlying obstructive sleep apnea Hypertension. Recommendations: Continue with the supplemental oxygen currently on high flow. Continue with IV steroids Cont. remdesivir for Covid pneumonia. Agree with DVT and GI prophylaxis. Consider sleep study as outpatient when recovered from Covid pneumonia Given obesity, underlying health problems and extensive pneumonia with severe hypoxemia, consider prognosis to be guarded Subjective Date of service: 05/13/21 Interval history: Patient remained mildly short of breath. Remain hypoxic. 100% high flow nasal cannula and nonrebreather mask saturation in mid 90s. Voices no new complaints Objective - Exam Narrative Exam: VITAL SIGNS: Reviewed. GENERAL: The patient appears normally developed, still in acute distress on NRM and HIFLO morbidly obese, vital signs as documented. HEAD: No signs of head trauma. EYES: Pupils are equal. Extraocular motions intact. EARS: Hearing grossly intact. MOUTH: Oropharynx is normal. NECK: No adenopathy, no JVD. CHEST: Chest with diminished breath sounds bilaterally. No wheezes, rales, or rhonchi. CARDIAC: Regular rate and rhythm. S1 and S2, without murmurs, gallops, or rubs. VASCULAR: No Edema. Peripheral pulses normal and equal in all extremities. ABDOMEN: Soft, non tender and non distended. No rebound or guarding, and no masses palpated. Bowel Sounds normal. MUSCULOSKELETAL: Good range of motion of all major joints. Extremities without clubbing, cyanosis or edema. NEUROLOGIC EXAM: Alert and oriented x 3 No focal sensory or strength deficits. Speech normal. Follows commands. PSYCHIATRIC: Mood normal. SKIN: detail exam as documented in skin assessment Vital Signs - 12hr 05/13/21 05/13/21 05/13/21 02:01 03:05 03:31 Temperature Pulse Rate 92 H 98 H Respiratory 33 H 33 H Rate Blood Pressure 141/81 131/85 Blood Pressure [Left] O2 Sat by Pulse 91 91 92 Oximetry 05/13/21 05/13/21 05/13/21 04:01 04:31 05:01 Temperature Pulse Rate 94 H 92 H 89 Respiratory 23 33 H 32 H Rate Blood Pressure 140/90 140/90 117/69 Blood Pressure [Left] O2 Sat by Pulse 94 89 87 Oximetry 05/13/21 05/13/21 05/13/21 05:31 06:01 07:45 Temperature Pulse Rate 97 H 97 H 96 H Respiratory 26 H 29 H 24 Rate Blood Pressure 117/69 132/85 Blood Pressure 149/91 [Left] O2 Sat by Pulse 91 90 92 Oximetry 05/13/21 05/13/21 05/13/21 08:00 09:00 10:00 Temperature 98.1 F Pulse Rate 94 H 99 H Respiratory 24 24 Rate Blood Pressure Blood Pressure 131/81 139/93 [Left] O2 Sat by Pulse 91 100 92 Oximetry 05/13/21 05/13/21 05/13/21 11:00 13:04 13:23 Temperature Pulse Rate 103 H 100 H Respiratory 25 H 32 H Rate Blood Pressure Blood Pressure 126/84 145/89 [Left] O2 Sat by Pulse 92 90 Oximetry Constitutional: appears uncomfortable, other (Dyspneic at rest with oxygen) Eyes: non-icteric ENT: oropharynx dry, other (Crowded oropharynx) Neck: supple, no JVD Effort: mildly labored Ascultation: Bilateral: rhonchi Cardiovascular: regular rate and rhythm Gastrointestinal: normoactive bowel sounds, soft, non-tender, other (Obese) Integumentary: normal Extremities: no cyanosis, no edema, pink and warm Neurologic: normal mental status, non-focal exam Psychiatric: mood appropriate CBC and BMP: 05/13/21 03:51 05/13/21 03:51 ABG, PT/INR, D-dimer: PT/INR, D-dimer D-Dimer 345.30 ng/mlDDU (0-234) H 05/12/21 08:46 Abnormal lab findings: Abnormal Labs 05/11/21 05/11/21 05/11/21 14:33 14:33 15:00 WBC Hgb 14.8 H MCHC 35 H RDW 12.9 L Lymph % (Auto) 8.7 L Lymph # (Auto) 0.7 L [place] # (Auto) Seg Neutrophils % 83.7 H Seg Neutrophils # D-Dimer 331.70 H Potassium 5.2 H Chloride 95.0 L BUN Glucose 125 H POC Glucose Ferritin Lactate Dehydrogenase C-Reactive Protein Albumin 3.3 L Coronavirus (PCR) 05/11/21 05/11/21 05/12/21 15:00 15:00 08:46 WBC Hgb MCHC RDW Lymph % (Auto) Lymph # (Auto) [place] # (Auto) Seg Neutrophils % Seg Neutrophils # D-Dimer 345.30 H Potassium Chloride BUN Glucose POC Glucose Ferritin 471.5 H Lactate Dehydrogenase 579 H C-Reactive Protein 15.80 H Albumin Coronavirus (PCR) 05/12/21 05/12/21 05/12/21 08:46 08:46 09:00 WBC Hgb MCHC RDW Lymph % (Auto) Lymph # (Auto) [place] # (Auto) Seg Neutrophils % Seg Neutrophils # D-Dimer Potassium Chloride BUN Glucose 149 H POC Glucose Ferritin 465.6 H Lactate Dehydrogenase 574 H C-Reactive Protein 18.40 H Albumin Coronavirus (PCR) Positive A 05/12/21 05/12/21 05/12/21 11:40 16:14 18:01 WBC Hgb MCHC RDW Lymph % (Auto) Lymph # (Auto) [place] # (Auto) Seg Neutrophils % Seg Neutrophils # D-Dimer Potassium Chloride BUN Glucose POC Glucose 141 H 140 H 159 H Ferritin Lactate Dehydrogenase C-Reactive Protein Albumin Coronavirus (PCR) 05/12/21 05/13/21 05/13/21 22:01 03:51 03:51 WBC 13.6 H Hgb 14.6 H MCHC RDW 12.9 L Lymph % (Auto) 3.5 L Lymph # (Auto) 0.5 L [place] # (Auto) 0.9 H Seg Neutrophils % 89.4 H Seg Neutrophils # 12.1 H D-Dimer Potassium Chloride BUN 31 H Glucose 152 H POC Glucose 152 H Ferritin Lactate Dehydrogenase C-Reactive Protein Albumin 3.2 L Coronavirus (PCR) 05/13/21 07:32 WBC Hgb MCHC RDW Lymph % (Auto) Lymph # (Auto) [place] # (Auto) Seg Neutrophils % Seg Neutrophils # D-Dimer Potassium Chloride BUN Glucose POC Glucose 160 H Ferritin Lactate Dehydrogenase C-Reactive Protein Albumin Coronavirus (PCR)
[2021-05-13] MEDS: CHOLECALCIFEROL (VIT D3) 5,000 UNIT TAB PO SCH (15:26)
--- NOTE | 2021-05-13 16:31 | Consultation ---
History of Present Illness - Reason for Consult Consult date: 05/13/21 - History of Present Illness 55-year-old female past medical history hypertension, asthma, obesity, obesity hypoventilation presented to hospital complaining shortness of breath. Of note she was diagnosed with COVID-19 approximately 1 week prior to admission. Her symptoms have progressed since onset. She also notes associated cough, fatigue, myalgias. Afebrile since admission with a white count of 13.6. Covid positive. Normal renal function. Procalcitonin normal. Elevated CRP. Currently on methylprednisolone and remdesivir. Requiring high flow nasal cannula. Imaging personally reviewed: Chest x-ray: Severe multi lobar pneumonia. Review of systems: Deferred to reduce to the risk of transmission of COVID-19 Past History Past Medical History: hypertension, other (See HPI) Past Surgical History: No surgical history, Other (Reviewed) Social history: single. denies: smoking, alcohol abuse, prescription drug abuse Family history: hypertension Medications and Allergies Allergies Allergy/AdvReac Type Severity Reaction Status Date / Time azithromycin Allergy Unknown Verified 05/11/21 13:44 morphine Allergy Unknown Verified 05/11/21 13:44 Penicillins Allergy Unknown Verified 05/11/21 13:44 tetracycline Allergy Unknown Verified 05/11/21 13:44 Home Medications Medication Instructions Recorded Confirmed Last Taken Type No Known Home Medications [No 05/11/21 05/11/21 Unknown History Reported Home Medications] Active Meds: Active Medications Acetaminophen (Acetaminophen 325 Mg Tab) 650 mg PO Q4H PRN PRN Reason: Pain MILD(1-3)/Fever >100.5/LUX Ascorbic Acid (Ascorbic Acid 500 Mg Tab) 1,000 mg PO BID YOHANNES Last Admin: 05/13/21 10:50 Dose: 1,000 mg Documented by: Cholecalciferol (Cholecalciferol (Vit D3) 5,000 Unit Tab) 5,000 unit PO DAILY YOHANNES Last Admin: 05/13/21 15:26 Dose: Not Given Documented by: Dextrose (Dextrose 50% In Water (25gm) 50 Ml Syringe) 50 ml IV Q30MIN PRN; Protocol PRN Reason: Hypoglycemia Enoxaparin Sodium (Enoxaparin 100 Mg/1 Ml Inj) 100 mg 1 mg/kg (100 mg) SUB-Q Q12HR YOHANNES; Protocol Last Admin: 05/13/21 11:04 Dose: 100 mg Documented by: Famotidine (Famotidine 20 Mg Tab) 20 mg PO BID [facility] Last Admin: 05/13/21 10:50 Dose: 20 mg Documented by: Furosemide (Furosemide 40 Mg/4 Ml Inj) 40 mg IV QDAY [facility] Stop: 05/14/21 10:01 Last Admin: 05/13/21 10:50 Dose: 40 mg Documented by: REMDESIVIR 100 mg/ Sodium (Chloride) 250 mls @ 500 mls/hr IV Q24HR@2100 [facility] Stop: 05/16/21 21:29 Insulin Human Lispro (Insulin Lispro 100 Unit/Ml) 0 unit SUB-Q ACHS [facility]; Protocol Last Admin: 05/13/21 16:10 Dose: Not Given Documented by: Methylprednisolone Sodium Succinate (Methylprednisolone Sod Succinate 125 Mg/2 M l Inj) 80 mg IV Q8HR [facility] Last Admin: 05/13/21 14:44 Dose: 80 mg Documented by: Naloxone HCl (Naloxone 0.4 Mg/1 Ml Inj) 0.1 mg IV Q2MIN PRN PRN Reason: Res Rate </= 8 or 02 SAT < 92% Ondansetron HCl (Ondansetron 4 Mg/2 Ml Inj) 4 mg IV Q4H PRN PRN Reason: Nausea And Vomiting Oxycodone/Acetaminophen (Oxycodone /Acetaminophen 5-325mg Tab) 1 tab PO Q6H PRN PRN Reason: Pain, Moderate (4-6) Senna (Sennosides 8.6 Mg Tab) 8.6 mg PO Q12HR [facility] Last Admin: 05/13/21 10:50 Dose: 8.6 mg Documented by: Sodium Chloride (Sodium Chloride 0.9% 10 Ml Flush Syringe) 10 ml IV BID [facility] Last Admin: 05/13/21 10:50 Dose: 10 ml Documented by: Sodium Chloride (Sodium Chloride 0.9% 10 Ml Flush Syringe) 10 ml IV PRN PRN PRN Reason: LINE FLUSH Sodium Chloride (Sodium Chloride 0.9% 50 Ml Ivpb) 50 ml IV Q24HR@2100 [facility] Stop: 05/16/21 21:01 Last Admin: 05/12/21 16:25 Dose: 50 ml Documented by: Zinc Sulfate (Zinc Sulfate 220 Mg Cap) 220 mg PO QDAY [facility] Last Admin: 05/13/21 10:50 Dose: 220 mg Documented by: Physical Examination - Physical Exam Narrative exam: Physical exam deferred to reduce risk of transmission of COVID-19. Please refer to primary team's note. - Constitutional Vitals: Vital Signs Temp Pulse Resp BP Pulse Ox 98.1 F 94 H 16 130/82 94 05/13/21 09:00 05/13/21 16:21 05/13/21 16:21 05/13/21 16:21 05/13/21 16:21 Temperature -Last 24 Hours Temperature 98.1 F Temperature 99.0 F Temperature 97.5 F Temperature 98.7 F Results - Labs CBC & Chem 7: 05/13/21 03:51 05/13/21 03:51 Labs: Abnormal lab results 05/12/21 05/12/21 05/13/21 Range/Units 18:01 22:01 03:51 WBC 13.6 H (4.5-11.0) K/mm3 Hgb 14.6 H (10.1-14.3) gm/dl RDW 12.9 L (13.2-15.2) % Lymph % (Auto) 3.5 L (13.4-35.0) % Lymph # (Auto) 0.5 L (1.2-5.4) K/mm3 [place] # (Auto) 0.9 H (0.0-0.8) K/mm3 Seg Neutrophils % 89.4 H (40.0-70.0) % Seg Neutrophils # 12.1 H (1.8-7.7) K/mm3 BUN (7-17) mg/dL Glucose (65-100) mg/dL POC Glucose 159 H 152 H (70-105) mg/dL Albumin (3.9-5) g/dL 05/13/21 05/13/21 05/13/21 Range/Units 03:51 07:32 16:04 WBC (4.5-11.0) K/mm3 Hgb (10.1-14.3) gm/dl RDW (13.2-15.2) % Lymph % (Auto) (13.4-35.0) % Lymph # (Auto) (1.2-5.4) K/mm3 [place] # (Auto) (0.0-0.8) K/mm3 Seg Neutrophils % (40.0-70.0) % Seg Neutrophils # (1.8-7.7) K/mm3 BUN 31 H (7-17) mg/dL Glucose 152 H (65-100) mg/dL POC Glucose 160 H 146 H (70-105) mg/dL Albumin 3.2 L (3.9-5) g/dL Assessment and Plan Cultures: Blood culture no growth so far Covid PCR: Positive A/P: 55-year-old female past medical history obesity admitted with Covid pneumonia #Severe COVID-19 pneumonia: Patient presented with a week of symptoms, chest x- ray with diffuse bilateral infiltrates. Inflammatory markers elevated #Acute hypoxemic respiratory failure: Likely secondary to COVID-19 infection. Currently on HFNC #Obesity Recommendations: -Steroids per pulmonary for 10 days -Remdesivir 200 mg IV q day x 1 followed by 100 mg IV q day x 4 days -Obtain q48-72h inflammatory markers - ferritin, Ddimer, CRP, LDH -No need for antibiotics due to normal procalcitonin. -On HFNC and CRP greater than 7.5, patient is candidate for Actemra. Will order today 800 mg. -Anticoagulation per hospital protocol -Proning as able Thank you for the consult, we will continue to follow. MD Shanda [facility]arr[facility] ([facility] O: [phone] F: [phone]
[2021-05-13] MEDS ORDERED: TOCILIZUMAB 800 MG in SODIUM CHLORIDE 0.9% 100 ML IV ONE (17:20)
[2021-05-13] MEDS: SODIUM CHLORIDE 0.9% 50 ML IVPB IV SCH (21:15)
[2021-05-13] MEDS: REMDESIVIR 100 MG in SODIUM CHLORIDE 0.9% 250ML 250 ML IV SCH (21:15)
[2021-05-14 05:53] LABS: Alanine Aminotransferase 20 units/L (7-56); Albumin 3.4 g/dL (3.9-5); BUN/Creatinine Ratio 51; Blood Urea Nitrogen 41 mg/dL (7-17); Calcium 8.4 mg/dL (8.4-10.2); Hemolysis Index 4
[2021-05-14] MEDS: methylPREDNISolone Sod Succinate 40 MG/1 ML INJ IV SCH ×3 (06:38→21:56)
[2021-05-14] MEDS: INSULIN LISPRO 100 UNIT/ML SUB-Q SCH ×4 (08:09→22:38)
[2021-05-14] MEDS: ENOXAPARIN 100 MG/1 ML INJ SUB-Q SCH ×2 (10:29→21:57)
[2021-05-14] MEDS: SENNOSIDES 8.6 MG TAB PO SCH ×2 (10:29→21:56)
[2021-05-14] MEDS: FAMOTIDINE 20 MG TAB PO SCH ×2 (10:29→21:56)
[2021-05-14] MEDS: FUROSEMIDE 40 MG/4 ML INJ IV SCH (10:29)
[2021-05-14] MEDS: CHOLECALCIFEROL (VIT D3) 5,000 UNIT TAB PO SCH (10:30)
[2021-05-14] MEDS: ASCORBIC ACID 500 MG TAB PO SCH ×2 (10:30→21:55)
[2021-05-14] MEDS: ZINC SULFATE 220 MG CAP PO SCH (10:31)
--- NOTE | 2021-05-14 11:48 | Progress Note ---
Assessment and Plan Cultures: Blood culture no growth COVID-19 PCR: Positive A/P: 55-year-old female past medical history obesity admitted with COVID-19 pneumonia #Severe COVID-19 pneumonia: Patient presented with a week of symptoms, chest x- ray with diffuse bilateral infiltrates. Inflammatory markers elevated #Acute hypoxemic respiratory failure: Likely secondary to COVID-19 infection. Currently on HFNC. #Obesity Recommendations: -Steroids per pulmonary for 10 days -Complete 5 days of remdesivir -Received Actemra on 05/13/2021, confirmed with pharmacy -Obtain q48-72h inflammatory markers - Ddimer, CRP -No need for antibiotics due to normal procalcitonin. -Anticoagulation per hospital protocol Phan Bianchi MD, FACP [facility] ([facility] O: [phone] F: [phone] Subjective Date of service: 05/14/21 Interval history: No fever. Remains on HFNC/NRB. Objective - Exam Narrative Exam: Physical Exam (reviewed in chart to minimize risk of transmission) Constitutional: deferred Head, Ears, Nose: deferred Eyes: deferred Neck: deferred Oral: deferred Cardiovascular: deferred Respiratory: deferred GI: deferred Musculoskeletal: deferred Skin: deferred Hem/Lymphatic: deferred Psych: deferred Neurological: deferred - Constitutional Vitals: Vital Signs Temp Pulse Resp BP Pulse Ox 98.1 F 93 H 28 H 143/86 85 05/13/21 09:00 05/14/21 10:00 05/14/21 10:00 05/14/21 10:31 05/14/21 10:31 - Labs CBC & Chem 7: 05/13/21 03:51 05/14/21 04:49 Labs: Abnormal lab results 05/13/21 05/13/21 05/14/21 Range/Units 16:04 22:48 04:49 BUN 41 H (7-17) mg/dL Glucose 169 H (65-100) mg/dL POC Glucose 146 H 175 H (70-105) mg/dL Albumin 3.4 L (3.9-5) g/dL 05/14/21 Range/Units 07:18 BUN (7-17) mg/dL Glucose (65-100) mg/dL POC Glucose 160 H (70-105) mg/dL Albumin (3.9-5) g/dL
--- NOTE | 2021-05-14 12:01 | Progress Note ---
Assessment and Plan 55 y/o female, obese, with acute respiratory failure secondary to COVID pneumonia 1. lasix 40mg IV today 2. Remedsivir 3. Agree with High dose steroids 4. Prone 5. Guarded prognosis. Subjective Date of service: 05/14/21 Interval history: No acute events. Still on HFNC and NRB. BP elevated. Objective Vital Signs - 12hr 05/14/21 05/14/21 05/14/21 00:01 01:01 02:01 Pulse Rate 99 H 102 H 93 H Respiratory 18 32 H 21 Rate Blood Pressure 141/90 150/95 134/72 O2 Sat by Pulse 92 89 91 Oximetry 05/14/21 05/14/21 05/14/21 03:01 04:01 05:01 Pulse Rate 89 92 H 92 H Respiratory 24 23 17 Rate Blood Pressure 149/90 149/90 132/84 O2 Sat by Pulse 89 92 94 Oximetry 05/14/21 05/14/21 05/14/21 05:11 06:01 06:31 Pulse Rate Respiratory Rate Blood Pressure 132/84 132/84 O2 Sat by Pulse 94 95 93 Oximetry 05/14/21 05/14/21 05/14/21 07:01 07:31 08:01 Pulse Rate 89 85 Respiratory 28 H 20 Rate Blood Pressure 127/71 136/77 131/81 O2 Sat by Pulse 94 94 92 Oximetry 05/14/21 05/14/21 05/14/21 08:10 08:31 09:01 Pulse Rate 97 H 89 Respiratory 26 H 24 Rate Blood Pressure 148/94 124/85 O2 Sat by Pulse 95 89 90 Oximetry 05/14/21 05/14/21 05/14/21 09:31 10:00 10:31 Pulse Rate 93 H 93 H Respiratory 31 H 28 H Rate Blood Pressure 143/94 143/94 143/86 O2 Sat by Pulse 87 91 85 Oximetry Constitutional: appears uncomfortable, other (Dyspneic at rest with oxygen) Eyes: non-icteric ENT: oropharynx dry, other (Crowded oropharynx) Neck: supple, no JVD Effort: mildly labored Ascultation: Bilateral: rhonchi Cardiovascular: regular rate and rhythm Gastrointestinal: normoactive bowel sounds, soft, non-tender, other (Obese) Integumentary: normal Extremities: no cyanosis, no edema, pink and warm Neurologic: normal mental status, non-focal exam Psychiatric: mood appropriate CBC and BMP: 05/13/21 03:51 05/14/21 04:49 ABG, PT/INR, D-dimer: PT/INR, D-dimer D-Dimer 345.30 ng/mlDDU (0-234) H 05/12/21 08:46 Abnormal lab findings: Abnormal Labs 05/11/21 05/11/21 05/11/21 14:33 14:33 15:00 WBC Hgb 14.8 H MCHC 35 H RDW 12.9 L Lymph % (Auto) 8.7 L Lymph # (Auto) 0.7 L [place] # (Auto) Seg Neutrophils % 83.7 H Seg Neutrophils # D-Dimer 331.70 H Potassium 5.2 H Chloride 95.0 L BUN Glucose 125 H POC Glucose Ferritin Lactate Dehydrogenase C-Reactive Protein Albumin 3.3 L Coronavirus (PCR) 05/11/21 05/11/21 05/12/21 15:00 15:00 08:46 WBC Hgb MCHC RDW Lymph % (Auto) Lymph # (Auto) [place] # (Auto) Seg Neutrophils % Seg Neutrophils # D-Dimer 345.30 H Potassium Chloride BUN Glucose POC Glucose Ferritin 471.5 H Lactate Dehydrogenase 579 H C-Reactive Protein 15.80 H Albumin Coronavirus (PCR) 05/12/21 05/12/21 05/12/21 08:46 08:46 09:00 WBC Hgb MCHC RDW Lymph % (Auto) Lymph # (Auto) [place] # (Auto) Seg Neutrophils % Seg Neutrophils # D-Dimer Potassium Chloride BUN Glucose 149 H POC Glucose Ferritin 465.6 H Lactate Dehydrogenase 574 H C-Reactive Protein 18.40 H Albumin Coronavirus (PCR) Positive A 05/12/21 05/12/21 05/12/21 11:40 16:14 18:01 WBC Hgb MCHC RDW Lymph % (Auto) Lymph # (Auto) [place] # (Auto) Seg Neutrophils % Seg Neutrophils # D-Dimer Potassium Chloride BUN Glucose POC Glucose 141 H 140 H 159 H Ferritin Lactate Dehydrogenase C-Reactive Protein Albumin Coronavirus (PCR) 05/12/21 05/13/21 05/13/21 22:01 03:51 03:51 WBC 13.6 H Hgb 14.6 H MCHC RDW 12.9 L Lymph % (Auto) 3.5 L Lymph # (Auto) 0.5 L [place] # (Auto) 0.9 H Seg Neutrophils % 89.4 H Seg Neutrophils # 12.1 H D-Dimer Potassium Chloride BUN 31 H Glucose 152 H POC Glucose 152 H Ferritin Lactate Dehydrogenase C-Reactive Protein Albumin 3.2 L Coronavirus (PCR) 05/13/21 05/13/21 05/13/21 07:32 16:04 22:48 WBC Hgb MCHC RDW Lymph % (Auto) Lymph # (Auto) [place] # (Auto) Seg Neutrophils % Seg Neutrophils # D-Dimer Potassium Chloride BUN Glucose POC Glucose 160 H 146 H 175 H Ferritin Lactate Dehydrogenase C-Reactive Protein Albumin Coronavirus (PCR) 05/14/21 05/14/21 04:49 07:18 WBC Hgb MCHC RDW Lymph % (Auto) Lymph # (Auto) [place] # (Auto) Seg Neutrophils % Seg Neutrophils # D-Dimer Potassium Chloride BUN 41 H Glucose 169 H POC Glucose 160 H Ferritin Lactate Dehydrogenase C-Reactive Protein Albumin 3.4 L Coronavirus (PCR)
[2021-05-14] MEDS ORDERED: FUROSEMIDE 40 MG/4 ML INJ IV SCH (12:45)
--- NOTE | 2021-05-14 14:04 | Progress Note ---
Assessment and Plan Assessment and plan: 55 YO Female with HTN, Mild Intermittent Asthma, Obesity Hypoventilation Syndrome, Coronavirus Infection diagnosed 1 week ago presents to ED for evaluation. Patient reports "it is hard to breathe". Patient states that she had experienced shortness of breath, dry cough, fatigue, malaise, subjective fever, body aches, loss of sense of smell, loss of sense of taste, decreased exercise tolerance over the past 1 week with worsening symptoms over the past 2 days. Patient transported to [facility] via private vehicle for further care and evaluation of the aforementioned symptoms. The patient was seen and evaluated in the emergency department. All lab and imaging studies reviewed. Patient was found to have a pulse oximetry of 86% on room air which is consistent with acute hypoxemic respiratory failure. Patient chest x-ray revealed bilateral pneumonia. Patient initiated on high flow supplemental oxygen with mild improvement in symptoms. Patient admitted to medical floor due to increased risk of worsening symptoms. Patient initiated on pneumonia protocol, coronavirus protocol. Patient denies fever, chills but denies chest pain, palpitation, skin rash, unilateral leg swelling, calf pain, prolonged travel/immobility, individual/family history of DVT/PE/bleeding/blood clotting disorders. No prior admission for review. No medication listed at time of admission for reconciliation. Advanced care planning conducted in ED. 05/12: Patient currently severely hypoxic on full nonrebreather and also high flow 100%. We will go ahead and consult pulmonary we will start patient on steroids. We will also consult infectious disease anticipate that the patient should be started on remdesivir. Awaiting repeat Covid 19 diagnosis although patient states that she was diagnosed a week ago. She unfortunately is not vaccinated. Condition is pretty guarded. Will also start on Diuresis and Full anticoagulation Encouraged proning Monitor inflammatory markers Patients emergency contacts: Kristen [phone] and Demetria [phone]. I have called both and left a message 05/13: Patient seen and examined, continue supportive care, continue oxygen therapy, PRONE TOLERATED. Continue anticoagulation and lasix, including Remdesivir. 05/14: Patient remains on full dose anticoagulation with, Remedesivir and Steroids. Continue to encourage proning. Continue lasix for negative fluid balance. REMAINS CRITICALLY ILL. (1) Acute hypoxemic respiratory failure Current Visit: Yes Status: Acute Plan to address problem: Supplemental oxygen, pulse oximetry, nebulizer therapy, high flow supplemental oxygen at this time, will consider noninvasive positive pressure ventilation if patient is unable to main pulse oximetry on high flow supplemental oxygen. Pulmonary toilet, early ambulation. (2) Coronavirus infection Current Visit: Yes Status: Acute Plan to address problem: Coronavirus protocol: IV antibiotic therapy, IV steroid therapy, supplemental oxygen, high flow supplemental oxygen, noninvasive positive pressure ventilation as clinically indicated, proposition while in bed, vitamin C therapy, vitamin D therapy, zinc therapy, prophylactic anticoagulation (3) Pneumonia Current Visit: Yes Status: Acute Plan to address problem: Pneumonia protocol: Chest x-ray, CBC, CMP, supplemental oxygen, pulse oximetry, nebulizer therapy, pulmonary toilet, blood culture. (4) Obesity hypoventilation syndrome Current Visit: Yes Status: Acute Plan to address problem: Balanced diet, increase physical activity discharge, outpatient pulmonary follow-up for sleep study. (5) DVT prophylaxis Current Visit: Yes Status: Acute Plan to address problem: SCD to bilateral lower extremities while in bed, prophylactic anticoagulation (6) Advance care planning Current Visit: Yes Status: Acute Plan to address problem: Disease education conducted, care plan discussed, diagnoses discussed, patient is full code, patient knowledges understanding and agreement with care plan, +20 minutes. (7) COVID-19 vaccination not done Current Visit: Yes Status: Acute Plan to address problem: Patient counseled, cct 35 mins History Interval history: Patient seen and examined remains in acute respiratory distress. Continue supportive care, did not prone overnight, continue to encourage Prone Hospitalist Physical - Physical exam Narrative exam: VITAL SIGNS: Reviewed. GENERAL: The patient appears normally developed, still in acute distress on NRM and HIFLO morbidly obese, vital signs as documented. HEAD: No signs of head trauma. EYES: Pupils are equal. Extraocular motions intact. EARS: Hearing grossly intact. MOUTH: Oropharynx is normal. NECK: No adenopathy, no JVD. CHEST: Chest with diminished breath sounds bilaterally. No wheezes, rales, or rhonchi. CARDIAC: Regular rate and rhythm. S1 and S2, without murmurs, gallops, or rubs. VASCULAR: No Edema. Peripheral pulses normal and equal in all extremities. ABDOMEN: Soft, non tender and non distended. No rebound or guarding, and no masses palpated. Bowel Sounds normal. MUSCULOSKELETAL: Good range of motion of all major joints. Extremities without clubbing, cyanosis or edema. NEUROLOGIC EXAM: Alert and oriented x 3 No focal sensory or strength deficits. Speech normal. Follows commands. PSYCHIATRIC: Mood normal. SKIN: detail exam as documented in skin assessment - Constitutional Vitals: Temp Pulse Resp BP Pulse Ox 98.1 F 93 H 28 H 143/86 94 05/13/21 09:00 05/14/21 10:00 05/14/21 10:00 05/14/21 10:31 05/14/21 12:10 General appearance: Present: mild distress, obese Results - Labs CBC & Chem 7: 05/13/21 03:51 05/14/21 04:49 Labs: Laboratory Last Values WBC 13.6 K/mm3 (4.5-11.0) H 05/13/21 03:51 RBC 4.85 M/mm3 (3.65-5.03) 05/13/21 03:51 Hgb 14.6 gm/dl (10.1-14.3) H 05/13/21 03:51 Hct 42.8 % (30.3-42.9) 05/13/21 03:51 MCV 88 fl (79-97) 05/13/21 03:51 MCH 30 pg (28-32) 05/13/21 03:51 MCHC 34 % (30-34) 05/13/21 03:51 RDW 12.9 % (13.2-15.2) L 05/13/21 03:51 Plt Count 366 K/mm3 (140-440) 05/13/21 03:51 Lymph % (Auto) 3.5 % (13.4-35.0) L 05/13/21 03:51 Branch % (Auto) 6.8 % (0.0-7.3) 05/13/21 03:51 Eos % (Auto) 0.0 % (0.0-4.3) 05/13/21 03:51 Baso % (Auto) 0.3 % (0.0-1.8) 05/13/21 03:51 Lymph # (Auto) 0.5 K/mm3 (1.2-5.4) L 05/13/21 03:51 [place] # (Auto) 0.9 K/mm3 (0.0-0.8) H 05/13/21 03:51 Eos # (Auto) 0.0 K/mm3 (0.0-0.4) 05/13/21 03:51 Baso # (Auto) 0.0 K/mm3 (0.0-0.1) 05/13/21 03:51 Seg Neutrophils % 89.4 % (40.0-70.0) H 05/13/21 03:51 Seg Neutrophils # 12.1 K/mm3 (1.8-7.7) H 05/13/21 03:51 D-Dimer 345.30 ng/mlDDU (0-234) H 05/12/21 08:46 Sodium 145 mmol/L (137-145) 05/14/21 04:49 Potassium 4.3 mmol/L (3.6-5.0) 05/14/21 04:49 Chloride 102.5 mmol/L (98-107) 05/14/21 04:49 Carbon Dioxide 29 mmol/L (22-30) 05/14/21 04:49 Anion Gap 18 mmol/L 05/14/21 04:49 BUN 41 mg/dL (7-17) H 05/14/21 04:49 Creatinine 0.8 mg/dL (0.6-1.2) 05/14/21 04:49 Estimated GFR > 60 ml/min 05/14/21 04:49 BUN/Creatinine Ratio 51 % 05/14/21 04:49 Glucose 169 mg/dL (65-100) H 05/14/21 04:49 POC Glucose 146 mg/dL (70-105) H 05/14/21 13:24 Lactic Acid 1.10 mmol/L (0.7-2.0) 05/11/21 18:12 Calcium 8.4 mg/dL (8.4-10.2) 05/14/21 04:49 Ferritin 465.6 ng/mL (10.0-200.0) H 05/12/21 08:46 Total Bilirubin 0.30 mg/dL (0.1-1.2) 05/14/21 04:49 AST 14 units/L (5-40) 05/14/21 04:49 ALT 20 units/L (7-56) 05/14/21 04:49 Alkaline Phosphatase 63 units/L (35-129) 05/14/21 04:49 Lactate Dehydrogenase 574 units/L (91-180) H 05/12/21 08:46 C-Reactive Protein 18.40 mg/dL (0.00-1.30) H 05/12/21 08:46 Total Protein 7.0 g/dL (6.3-8.2) 05/14/21 04:49 Albumin 3.4 g/dL (3.9-5) L 05/14/21 04:49 Albumin/Globulin Ratio 0.9 % 05/14/21 04:49 Procalcitonin 0.06 ng/mL (<0.15) 05/12/21 08:46 Coronavirus (PCR) Positive (Negative) A 05/12/21 09:00 Microbiology: Microbiology 05/11/21 15:00 Peripheral/Venous Blood Culture - Preliminary NO GROWTH AFTER 48 HOURS 05/11/21 15:00 Peripheral/Venous Blood Culture - Preliminary NO GROWTH AFTER 48 HOURS Active Medications - Current Medications Current Medications: Generic Name Dose Route Start Last Admin Trade Name Freq PRN Reason Stop Dose Admin Acetaminophen 650 mg 05/12/21 10:00 Acetaminophen 325 Mg Tab PO Q4H PRN Pain MILD(1-3)/Fever >100.5/LUX Ascorbic Acid 1,000 mg 05/12/21 22:00 05/14/21 10:30 Ascorbic Acid 500 Mg Tab PO 1,000 mg BID YOHANNES Administration Cholecalciferol 5,000 unit 05/12/21 14:00 05/14/21 10:30 Cholecalciferol (Vit D3) 5,000 Unit Tab PO 5,000 unit DAILY YOHANNES Administration Dextrose 50 ml 05/12/21 09:30 Dextrose 50% In Water (25gm) 50 Ml Syringe IV Q30MIN PRN Hypoglycemia Protocol Enoxaparin Sodium 100 mg 05/12/21 10:00 05/14/21 10:29 Enoxaparin 100 Mg/1 Ml Inj 1 mg/kg (100 mg) 100 mg SUB-Q Administration Q12HR YOHANNES Protocol Famotidine 20 mg 05/12/21 10:00 05/14/21 10:29 Famotidine 20 Mg Tab PO 20 mg BID YOHANNES Administration Furosemide 40 mg 05/14/21 12:45 Furosemide 40 Mg/4 Ml Inj IV 05/14/21 16:45 ONCE@1245 YOHANNES REMDESIVIR 100 mg/ Sodium 250 mls @ 500 mls/hr 05/13/21 21:00 05/13/21 21:15 Chloride IV 05/16/21 21:29 500 mls/hr Q24HR@2100 YOHANNES Administration Insulin Human Lispro 0 unit 05/12/21 11:30 05/14/21 08:09 Insulin Lispro 100 Unit/Ml SUB-Q 1 unit ACHS YOHANNES Administration Protocol Methylprednisolone Sodium Succinate 80 mg 05/14/21 06:00 05/14/21 06:38 Methylprednisolone Sod Succinate 40 Mg/1 Ml Inj IV 05/23/21 22:01 80 mg Q8HR YOHANNES Administration Naloxone HCl 0.1 mg 05/12/21 09:00 Naloxone 0.4 Mg/1 Ml Inj IV Q2MIN PRN Res Rate </= 8 or 02 SAT < 92% Ondansetron HCl 4 mg 05/12/21 10:00 Ondansetron 4 Mg/2 Ml Inj IV Q4H PRN Nausea And Vomiting Oxycodone/Acetaminophen 1 tab 05/12/21 10:00 Oxycodone /Acetaminophen 5-325mg Tab PO Q6H PRN Pain, Moderate (4-6) Senna 8.6 mg 05/12/21 10:00 05/14/21 10:29 Sennosides 8.6 Mg Tab PO 8.6 mg Q12HR YOHANNES Administration Sodium Chloride 10 ml 05/12/21 10:00 05/14/21 10:30 Sodium Chloride 0.9% 10 Ml Flush Syringe IV 10 ml BID YOHANNES Administration Sodium Chloride 10 ml 05/12/21 10:00 Sodium Chloride 0.9% 10 Ml Flush Syringe IV PRN PRN LINE FLUSH Sodium Chloride 50 ml 05/12/21 15:00 05/13/21 21:15 Sodium Chloride 0.9% 50 Ml Ivpb IV 05/16/21 21:01 50 ml Q24HR@2100 YOHANNES Administration Zinc Sulfate 220 mg 05/12/21 14:00 05/14/21 10:31 Zinc Sulfate 220 Mg Cap PO 220 mg QDAY YOHANNES Administration Nutrition/Malnutrition Assess - Dietary Evaluation Nutrition/Malnutrition Findings: Nutrition Notes Start: 05/12/21 11:38 Freq: Status: Active Protocol: Document 05/12/21 11:38 ROSANA (Rec: 05/12/21 11:41 ROSANA [email or web address]) Nutrition Notes Need for Assessment generated from: MD Order,Education Initial or Follow up Brief Note Current Diagnosis Hypertension,Respiratory Failure Other Pertinent Diagnosis COVID-19 (+), pneu Current Diet Consistent CHO Subjective/Other Information RD consulted for diet education. Pt in ED at this time. Minimum of two criteria No Nutrition Intervention Follow-Up By: 05/17/21 Additional Comments F/U: transfer to medical floor ; diet education needs, need for full assessment
[2021-05-14] MEDS: REMDESIVIR 100 MG in SODIUM CHLORIDE 0.9% 250ML 250 ML IV SCH (21:55)
[2021-05-14] MEDS: SODIUM CHLORIDE 0.9% 50 ML IVPB IV SCH (22:38)
[2021-05-15 05:04] LABS: Alanine Aminotransferase 22 units/L (7-56); Albumin 3.3 g/dL (3.9-5); BUN/Creatinine Ratio 56; Blood Urea Nitrogen 45 mg/dL (7-17); Calcium 8.9 mg/dL (8.4-10.2); Hemolysis Index 24
[2021-05-15] MEDS: methylPREDNISolone Sod Succinate 40 MG/1 ML INJ IV SCH ×3 (05:51→21:43)
[2021-05-15] MEDS: INSULIN LISPRO 100 UNIT/ML SUB-Q SCH ×4 (07:43→21:44)
[2021-05-15] MEDS: ENOXAPARIN 100 MG/1 ML INJ SUB-Q SCH ×2 (09:54→21:44)
[2021-05-15] MEDS: SENNOSIDES 8.6 MG TAB PO SCH ×2 (09:54→21:45)
[2021-05-15] MEDS: FAMOTIDINE 20 MG TAB PO SCH ×2 (09:55→21:44)
[2021-05-15] MEDS: ASCORBIC ACID 500 MG TAB PO SCH ×2 (09:55→21:45)
[2021-05-15] MEDS: ZINC SULFATE 220 MG CAP PO SCH (09:55)
--- NOTE | 2021-05-15 11:04 | Progress Note ---
Assessment and Plan 55 y/o female, obese, with acute respiratory failure secondary to COVID pneumonia 05/15/21: Hold on lasix today. Continue remdesivir and high dose steroids. Prone as tolerated for as long as possible. Guarded prognosis. 1. lasix 40mg IV today 2. Remedsivir 3. Agree with High dose steroids 4. Prone 5. Guarded prognosis. Subjective Date of service: 05/15/21 Interval history: Lasix given yesterday but no output documented so unknown response. Clinically does not appear to have helped as patient is still on 40/100% Objective Vital Signs - 12hr 05/15/21 05/15/21 05/15/21 00:01 00:31 00:45 Pulse Rate 75 73 80 Respiratory 23 23 20 Rate Blood Pressure 134/66 125/75 125/75 Blood Pressure [Left] O2 Sat by Pulse 93 87 85 Oximetry 05/15/21 05/15/21 05/15/21 01:01 01:15 01:31 Pulse Rate 75 70 74 Respiratory 21 24 23 Rate Blood Pressure 133/79 133/79 113/67 Blood Pressure [Left] O2 Sat by Pulse 88 88 86 Oximetry 05/15/21 05/15/21 05/15/21 01:45 02:01 02:15 Pulse Rate 82 65 65 Respiratory 20 24 24 Rate Blood Pressure 133/79 108/61 108/61 Blood Pressure [Left] O2 Sat by Pulse 92 99 98 Oximetry 05/15/21 05/15/21 05/15/21 02:31 02:45 03:01 Pulse Rate 66 80 80 Respiratory 22 27 H 30 H Rate Blood Pressure 119/60 119/60 117/73 Blood Pressure [Left] O2 Sat by Pulse 95 91 96 Oximetry 05/15/21 05/15/21 05/15/21 03:15 03:31 03:46 Pulse Rate 76 79 87 Respiratory 26 H 27 H 30 H Rate Blood Pressure 117/73 117/57 117/73 Blood Pressure [Left] O2 Sat by Pulse 98 88 95 Oximetry 05/15/21 05/15/21 05/15/21 04:00 04:16 04:19 Pulse Rate 82 80 Respiratory 21 22 Rate Blood Pressure 117/73 117/57 Blood Pressure [Left] O2 Sat by Pulse 96 95 93 Oximetry 05/15/21 05/15/21 05/15/21 04:30 04:46 05:00 Pulse Rate 86 80 82 Respiratory 22 31 H 26 H Rate Blood Pressure 125/60 125/60 138/83 Blood Pressure [Left] O2 Sat by Pulse 94 94 95 Oximetry 05/15/21 05/15/21 05/15/21 05:16 05:30 05:46 Pulse Rate 82 87 81 Respiratory 33 H 21 17 Rate Blood Pressure 138/83 137/82 137/82 Blood Pressure [Left] O2 Sat by Pulse 92 91 93 Oximetry 05/15/21 05/15/21 05/15/21 06:00 06:30 06:46 Pulse Rate 76 73 88 Respiratory 32 H 31 H 16 Rate Blood Pressure 137/82 138/84 138/84 Blood Pressure [Left] O2 Sat by Pulse 95 92 93 Oximetry 05/15/21 05/15/21 05/15/21 07:30 07:56 08:00 Pulse Rate 79 82 Respiratory 17 24 Rate Blood Pressure 140/93 137/77 Blood Pressure [Left] O2 Sat by Pulse 96 94 94 Oximetry 05/15/21 05/15/21 09:30 09:59 Pulse Rate 97 H 85 Respiratory 15 28 H Rate Blood Pressure 151/97 Blood Pressure 118/53 [Left] O2 Sat by Pulse 96 96 Oximetry Constitutional: appears uncomfortable, other (Dyspneic at rest with oxygen) Eyes: non-icteric ENT: oropharynx dry, other (Crowded oropharynx) Neck: supple, no JVD Effort: mildly labored Ascultation: Bilateral: rhonchi Cardiovascular: regular rate and rhythm Gastrointestinal: normoactive bowel sounds, soft, non-tender, other (Obese) Integumentary: normal Extremities: no cyanosis, no edema, pink and warm Neurologic: normal mental status, non-focal exam Psychiatric: mood appropriate CBC and BMP: 05/13/21 03:51 05/15/21 04:05 ABG, PT/INR, D-dimer: PT/INR, D-dimer D-Dimer 345.30 ng/mlDDU (0-234) H 05/12/21 08:46 Abnormal lab findings: Abnormal Labs 05/11/21 05/11/21 05/11/21 14:33 14:33 15:00 WBC Hgb 14.8 H MCHC 35 H RDW 12.9 L Lymph % (Auto) 8.7 L Lymph # (Auto) 0.7 L [place] # (Auto) Seg Neutrophils % 83.7 H Seg Neutrophils # D-Dimer 331.70 H Potassium 5.2 H Chloride 95.0 L Carbon Dioxide BUN Glucose 125 H POC Glucose Ferritin Lactate Dehydrogenase C-Reactive Protein Albumin 3.3 L Coronavirus (PCR) 05/11/21 05/11/21 05/12/21 15:00 15:00 08:46 WBC Hgb MCHC RDW Lymph % (Auto) Lymph # (Auto) [place] # (Auto) Seg Neutrophils % Seg Neutrophils # D-Dimer 345.30 H Potassium Chloride Carbon Dioxide BUN Glucose POC Glucose Ferritin 471.5 H Lactate Dehydrogenase 579 H C-Reactive Protein 15.80 H Albumin Coronavirus (PCR) 05/12/21 05/12/21 05/12/21 08:46 08:46 09:00 WBC Hgb MCHC RDW Lymph % (Auto) Lymph # (Auto) [place] # (Auto) Seg Neutrophils % Seg Neutrophils # D-Dimer Potassium Chloride Carbon Dioxide BUN Glucose 149 H POC Glucose Ferritin 465.6 H Lactate Dehydrogenase 574 H C-Reactive Protein 18.40 H Albumin Coronavirus (PCR) Positive A 05/12/21 05/12/21 05/12/21 11:40 16:14 18:01 WBC Hgb MCHC RDW Lymph % (Auto) Lymph # (Auto) [place] # (Auto) Seg Neutrophils % Seg Neutrophils # D-Dimer Potassium Chloride Carbon Dioxide BUN Glucose POC Glucose 141 H 140 H 159 H Ferritin Lactate Dehydrogenase C-Reactive Protein Albumin Coronavirus (PCR) 05/12/21 05/13/21 05/13/21 22:01 03:51 03:51 WBC 13.6 H Hgb 14.6 H MCHC RDW 12.9 L Lymph % (Auto) 3.5 L Lymph # (Auto) 0.5 L [place] # (Auto) 0.9 H Seg Neutrophils % 89.4 H Seg Neutrophils # 12.1 H D-Dimer Potassium Chloride Carbon Dioxide BUN 31 H Glucose 152 H POC Glucose 152 H Ferritin Lactate Dehydrogenase C-Reactive Protein Albumin 3.2 L Coronavirus (PCR) 05/13/21 05/13/21 05/13/21 07:32 16:04 22:48 WBC Hgb MCHC RDW Lymph % (Auto) Lymph # (Auto) [place] # (Auto) Seg Neutrophils % Seg Neutrophils # D-Dimer Potassium Chloride Carbon Dioxide BUN Glucose POC Glucose 160 H 146 H 175 H Ferritin Lactate Dehydrogenase C-Reactive Protein Albumin Coronavirus (PCR) 05/14/21 05/14/21 05/14/21 04:49 07:18 13:24 WBC Hgb MCHC RDW Lymph % (Auto) Lymph # (Auto) [place] # (Auto) Seg Neutrophils % Seg Neutrophils # D-Dimer Potassium Chloride Carbon Dioxide BUN 41 H Glucose 169 H POC Glucose 160 H 146 H Ferritin Lactate Dehydrogenase C-Reactive Protein Albumin 3.4 L Coronavirus (PCR) 05/14/21 05/14/21 05/15/21 17:36 21:54 04:05 WBC Hgb MCHC RDW Lymph % (Auto) Lymph # (Auto) [place] # (Auto) Seg Neutrophils % Seg Neutrophils # D-Dimer Potassium Chloride Carbon Dioxide 33 H BUN 45 H Glucose 177 H POC Glucose 181 H 169 H Ferritin Lactate Dehydrogenase C-Reactive Protein Albumin 3.3 L Coronavirus (PCR) 05/15/21 07:18 WBC Hgb MCHC RDW Lymph % (Auto) Lymph # (Auto) [place] # (Auto) Seg Neutrophils % Seg Neutrophils # D-Dimer Potassium Chloride Carbon Dioxide BUN Glucose POC Glucose 166 H Ferritin Lactate Dehydrogenase C-Reactive Protein Albumin Coronavirus (PCR)
--- NOTE | 2021-05-15 12:37 | Progress Note ---
Assessment and Plan Cultures: Blood culture no growth COVID-19 PCR: Positive A/P: 55-year-old female past medical history obesity admitted with COVID-19 pneumonia #Severe COVID-19 pneumonia: Patient presented with a week of symptoms, chest x- ray with diffuse bilateral infiltrates. Inflammatory markers elevated. No need for antibiotics due to normal procalcitonin. #Acute hypoxemic respiratory failure: Likely secondary to COVID-19 infection. Currently on HFNC. #Obesity Recommendations: -Steroids per pulmonary for 10 days -Complete 5 days of remdesivir -s/p Actemra on 05/13/2021 -ordered for AM: Ddimer, CRP -Anticoagulation per hospital protocol based on d-dimer Phan Bianchi MD, FACP [facility] ([facility] O: [phone] F: [phone] Subjective Date of service: 05/15/21 Interval history: No fever. Remains on HFNC. Objective - Exam Narrative Exam: Physical Exam (reviewed in chart to minimize risk of transmission) Constitutional: deferred Head, Ears, Nose: deferred Eyes: deferred Neck: deferred Oral: deferred Cardiovascular: deferred Respiratory: deferred GI: deferred Musculoskeletal: deferred Skin: deferred Hem/Lymphatic: deferred Psych: deferred Neurological: deferred - Constitutional Vitals: Vital Signs Temp Pulse Resp BP Pulse Ox 97.9 F 87 29 H 119/98 94 05/14/21 19:50 05/15/21 10:00 05/15/21 10:00 05/15/21 11:00 05/15/21 11:00 Temperature -Last 24 Hours Temperature 97.9 F - Labs CBC & Chem 7: 05/13/21 03:51 05/15/21 04:05 Labs: Abnormal lab results 05/14/21 05/14/21 05/14/21 Range/Units 13:24 17:36 21:54 Carbon Dioxide (22-30) mmol/L BUN (7-17) mg/dL Glucose (65-100) mg/dL POC Glucose 146 H 181 H 169 H (70-105) mg/dL Albumin (3.9-5) g/dL 05/15/21 05/15/21 05/15/21 Range/Units 04:05 07:18 12:09 Carbon Dioxide 33 H (22-30) mmol/L BUN 45 H (7-17) mg/dL Glucose 177 H (65-100) mg/dL POC Glucose 166 H 160 H (70-105) mg/dL Albumin 3.3 L (3.9-5) g/dL
--- NOTE | 2021-05-15 13:34 | Progress Note ---
Assessment and Plan Assessment and plan: -- Acute hypoxemic respiratory failure Current Visit: Yes Status: Acute Plan to address problem: Supplemental oxygen, pulse oximetry, nebulizer therapy, high flow supplemental oxygen at this time, will consider noninvasive positive pressure ventilation if patient is unable to main pulse oximetry on high flow supplemental oxygen. Pulmonary toilet, early ambulation. --Coronavirus infection Current Visit: Yes Status: Acute Plan to address problem: Coronavirus protocol: IV antibiotic therapy, IV steroid therapy, supplemental oxygen, high flow supplemental oxygen, noninvasive positive pressure ventilation as clinically indicated, proposition while in bed, vitamin C therapy, vitamin D therapy, zinc therapy, prophylactic anticoagulation --Pneumonia Current Visit: Yes Status: Acute Plan to address problem: Pneumonia protocol: Chest x-ray, CBC, CMP, supplemental oxygen, pulse oximetry, nebulizer therapy, pulmonary toilet, blood culture. --Obesity hypoventilation syndrome Current Visit: Yes Status: Acute Plan to address problem: Balanced diet, increase physical activity discharge, outpatient pulmonary follow-up for sleep study. --moderate malnutrition; hypoalbuminemia Current Visit: Yes Status: Chronic Nutrition supplements, supportive care, nutrition consult -- DVT prophylaxis Current Visit: Yes Status: Acute Plan to address problem: SCD to bilateral lower extremities while in bed, prophylactic anticoagulation --Advance care planning Current Visit: Yes Status: Acute Plan to address problem: Disease education conducted, care plan discussed, diagnoses discussed, patient is full code, patient knowledges understanding and agreement with care plan, +20 minutes. --COVID-19 vaccination not done Current Visit: Yes Status: Acute Plan to address problem: Patient counseled, cct 35 mins 55 YO Female with HTN, Mild Intermittent Asthma, Obesity Hypoventilation Syndrome, Coronavirus Infection diagnosed 1 week ago presents to ED for evaluation. Patient reports "it is hard to breathe". Patient states that she had experienced shortness of breath, dry cough, fatigue, malaise, subjective fever, body aches, loss of sense of smell, loss of sense of taste, decreased exercise tolerance over the past 1 week with worsening symptoms over the past 2 days. Patient transported to [facility] via private vehicle for further care and evaluation of the aforementioned symptoms. The patient was seen and evaluated in the emergency department. All lab and imaging studies reviewed. Patient was found to have a pulse oximetry of 86% on room air which is consistent with acute hypoxemic respiratory failure. Patient chest x-ray revealed bilateral pneumonia. Patient initiated on high flow supplemental oxygen with mild improvement in symptoms. Patient admitted to medical floor due to increased risk of worsening symptoms. Patient initiated on pneumonia protocol, coronavirus protocol. Patient denies fever, chills but denies chest pain, palpitation, skin rash, unilateral leg swelling, calf pain, prolonged travel/immobility, individual/family history of DVT/PE/bleeding/blood clotting disorders. No prior admission for review. No medication listed at time of admission for reconciliation. Advanced care planning conducted in ED. 05/12: Patient currently severely hypoxic on full nonrebreather and also high flow 100%. We will go ahead and consult pulmonary we will start patient on steroids. We will also consult infectious disease anticipate that the patient should be started on remdesivir. Awaiting repeat Covid 19 diagnosis although patient states that she was diagnosed a week ago. She unfortunately is not vaccinated. Condition is pretty guarded. Will also start on Diuresis and Full anticoagulation Encouraged proning Monitor inflammatory markers Patients emergency contacts: Kristen [phone] and Demetria [phone]. I have called both and left a message 05/13: Patient seen and examined, continue supportive care, continue oxygen therapy, PRONE TOLERATED. Continue anticoagulation and lasix, including Remdesivir. 05/14: Patient remains on full dose anticoagulation with, Remedesivir and Steroids. Continue to encourage proning. Continue lasix for negative fluid balance. REMAINS CRITICALLY ILL. 05/15/2021; patient remains on high flow nasal cannula oxygen 40 L/100%/93% History Interval history: I seen and examined the patient at the bedside in ER awaiting bed assignment Patient's chart and medications reviewed Patient remains on high flow nasal cannula oxygen 40 L/100% 93% O2 sats, in mild distress Complains of severe cough with expectoration Denies chest pain or shortness of breath Hospitalist Physical - Constitutional Vitals: Temp Pulse Resp BP Pulse Ox 97.9 F 87 29 H 119/98 94 05/14/21 19:50 05/15/21 10:00 05/15/21 10:00 05/15/21 11:00 05/15/21 11:00 General appearance: Present: mild distress, well-nourished, obese, disheveled - EENT Eyes: Present: PERRL, EOM intact - Neck Neck: Present: supple, normal ROM - Respiratory Respiratory effort: normal Respiratory: bilateral: diminished, rhonchi, negative: rales, wheezing - Cardiovascular Rhythm: regular Heart Sounds: Present: S1 & S2 (Tachycardia) - Extremities Extremities: no ischemia, No edema - Abdominal General gastrointestinal: soft, non-tender, non-distended, normal bowel sounds - Integumentary Integumentary: Present: clear, warm - Psychiatric Psychiatric: appropriate mood/affect, cooperative - Neurologic Neurologic: CNII-XII intact, moves all extremities Results - Labs CBC & Chem 7: 05/13/21 03:51 05/15/21 04:05 Labs: Laboratory Last Values WBC 13.6 K/mm3 (4.5-11.0) H 05/13/21 03:51 RBC 4.85 M/mm3 (3.65-5.03) 05/13/21 03:51 Hgb 14.6 gm/dl (10.1-14.3) H 05/13/21 03:51 Hct 42.8 % (30.3-42.9) 05/13/21 03:51 MCV 88 fl (79-97) 05/13/21 03:51 MCH 30 pg (28-32) 05/13/21 03:51 MCHC 34 % (30-34) 05/13/21 03:51 RDW 12.9 % (13.2-15.2) L 05/13/21 03:51 Plt Count 366 K/mm3 (140-440) 05/13/21 03:51 Lymph % (Auto) 3.5 % (13.4-35.0) L 05/13/21 03:51 [place] % (Auto) 6.8 % (0.0-7.3) 05/13/21 03:51 Eos % (Auto) 0.0 % (0.0-4.3) 05/13/21 03:51 Baso % (Auto) 0.3 % (0.0-1.8) 05/13/21 03:51 Lymph # (Auto) 0.5 K/mm3 (1.2-5.4) L 05/13/21 03:51 [place] # (Auto) 0.9 K/mm3 (0.0-0.8) H 05/13/21 03:51 Eos # (Auto) 0.0 K/mm3 (0.0-0.4) 05/13/21 03:51 Baso # (Auto) 0.0 K/mm3 (0.0-0.1) 05/13/21 03:51 Seg Neutrophils % 89.4 % (40.0-70.0) H 05/13/21 03:51 Seg Neutrophils # 12.1 K/mm3 (1.8-7.7) H 05/13/21 03:51 D-Dimer 345.30 ng/mlDDU (0-234) H 05/12/21 08:46 Sodium 143 mmol/L (137-145) 05/15/21 04:05 Potassium 4.8 mmol/L (3.6-5.0) 05/15/21 04:05 Chloride 100.4 mmol/L (98-107) 05/15/21 04:05 Carbon Dioxide 33 mmol/L (22-30) H 05/15/21 04:05 Anion Gap 14 mmol/L 05/15/21 04:05 BUN 45 mg/dL (7-17) H 05/15/21 04:05 Creatinine 0.8 mg/dL (0.6-1.2) 05/15/21 04:05 Estimated GFR > 60 ml/min 05/15/21 04:05 BUN/Creatinine Ratio 56 % 05/15/21 04:05 Glucose 177 mg/dL (65-100) H 05/15/21 04:05 POC Glucose 160 mg/dL (70-105) H 05/15/21 12:09 Lactic Acid 1.10 mmol/L (0.7-2.0) 05/11/21 18:12 Calcium 8.9 mg/dL (8.4-10.2) 05/15/21 04:05 Ferritin 465.6 ng/mL (10.0-200.0) H 05/12/21 08:46 Total Bilirubin 0.40 mg/dL (0.1-1.2) 05/15/21 04:05 AST 20 units/L (5-40) 05/15/21 04:05 ALT 22 units/L (7-56) 05/15/21 04:05 Alkaline Phosphatase 61 units/L (35-129) 05/15/21 04:05 Lactate Dehydrogenase 574 units/L (91-180) H 05/12/21 08:46 C-Reactive Protein 18.40 mg/dL (0.00-1.30) H 05/12/21 08:46 Total Protein 6.7 g/dL (6.3-8.2) 05/15/21 04:05 Albumin 3.3 g/dL (3.9-5) L 05/15/21 04:05 Albumin/Globulin Ratio 1.0 % 05/15/21 04:05 Procalcitonin 0.06 ng/mL (<0.15) 05/12/21 08:46 Coronavirus (PCR) Positive (Negative) A 05/12/21 09:00 Microbiology: Microbiology 05/11/21 15:00 Peripheral/Venous Blood Culture - Preliminary NO GROWTH AFTER 72 HOURS 05/11/21 15:00 Peripheral/Venous Blood Culture - Preliminary NO GROWTH AFTER 72 HOURS Active Medications - Current Medications Current Medications: Generic Name Dose Route Start Last Admin Trade Name Freq PRN Reason Stop Dose Admin Acetaminophen 650 mg 05/12/21 10:00 Acetaminophen 325 Mg Tab PO Q4H PRN Pain MILD(1-3)/Fever >100.5/LUX Ascorbic Acid 1,000 mg 05/12/21 22:00 05/15/21 09:55 Ascorbic Acid 500 Mg Tab PO 1,000 mg BID YOHANNES Administration Cholecalciferol 5,000 unit 05/12/21 14:00 05/14/21 10:30 Cholecalciferol (Vit D3) 5,000 Unit Tab PO 5,000 unit DAILY YOHANNES Administration Dextrose 50 ml 05/12/21 09:30 Dextrose 50% In Water (25gm) 50 Ml Syringe IV Q30MIN PRN Hypoglycemia Protocol Enoxaparin Sodium 100 mg 05/12/21 10:00 05/15/21 09:54 Enoxaparin 100 Mg/1 Ml Inj 1 mg/kg (100 mg) 100 mg SUB-Q Administration Q12HR [facility] Protocol Famotidine 20 mg 05/12/21 10:00 05/15/21 09:55 Famotidine 20 Mg Tab PO 20 mg BID YOHANNES Administration REMDESIVIR 100 mg/ Sodium 250 mls @ 500 mls/hr 05/13/21 21:00 05/14/21 21:55 Chloride IV 05/16/21 21:29 500 mls/hr Q24HR@2100 YOHANNES Administration Insulin Human Lispro 0 unit 05/12/21 11:30 05/15/21 12:13 Insulin Lispro 100 Unit/Ml SUB-Q 1 unit ACHS YOHANNES Administration Protocol Methylprednisolone Sodium Succinate 80 mg 05/14/21 06:00 05/15/21 05:51 Methylprednisolone Sod Succinate 40 Mg/1 Ml Inj IV 05/23/21 22:01 80 mg Q8HR YOHANNES Administration Naloxone HCl 0.1 mg 05/12/21 09:00 Naloxone 0.4 Mg/1 Ml Inj IV Q2MIN PRN Res Rate </= 8 or 02 SAT < 92% Ondansetron HCl 4 mg 05/12/21 10:00 Ondansetron 4 Mg/2 Ml Inj IV Q4H PRN Nausea And Vomiting Oxycodone/Acetaminophen 1 tab 05/12/21 10:00 Oxycodone /Acetaminophen 5-325mg Tab PO Q6H PRN Pain, Moderate (4-6) Senna 8.6 mg 05/12/21 10:00 05/15/21 09:54 Sennosides 8.6 Mg Tab PO 8.6 mg Q12HR YOHANNES Administration Sodium Chloride 10 ml 05/12/21 10:00 05/15/21 09:55 Sodium Chloride 0.9% 10 Ml Flush Syringe IV 10 ml BID YOHANNES Administration Sodium Chloride 10 ml 05/12/21 10:00 Sodium Chloride 0.9% 10 Ml Flush Syringe IV PRN PRN LINE FLUSH Sodium Chloride 50 ml 05/12/21 15:00 05/14/21 22:38 Sodium Chloride 0.9% 50 Ml Ivpb IV 05/16/21 21:01 50 ml Q24HR@2100 YOHANNES Administration Zinc Sulfate 220 mg 05/12/21 14:00 05/15/21 09:55 Zinc Sulfate 220 Mg Cap PO 220 mg QDAY YOHANNES Administration Nutrition/Malnutrition Assess - Dietary Evaluation Nutrition/Malnutrition Findings: Nutrition Notes Start: 05/12/21 11:38 Freq: Status: Active Protocol: Document 05/12/21 11:38 ROSANA (Rec: 05/12/21 11:41 ROSANA [id number]) Nutrition Notes Need for Assessment generated from: MD Order,Education Initial or Follow up Brief Note Current Diagnosis Hypertension,Respiratory Failure Other Pertinent Diagnosis COVID-19 (+), pneu Current Diet Consistent CHO Subjective/Other Information RD consulted for diet education. Pt in ED at this time. Minimum of two criteria No Nutrition Intervention Follow-Up By: 05/17/21 Additional Comments F/U: transfer to medical floor ; diet education needs, need for full assessment
[2021-05-15] MEDS: CHOLECALCIFEROL (VIT D3) 5,000 UNIT TAB PO SCH (15:06)
[2021-05-15] MEDS: REMDESIVIR 100 MG in SODIUM CHLORIDE 0.9% 250ML 250 ML IV SCH (22:08)
[2021-05-15] MEDS: SODIUM CHLORIDE 0.9% 50 ML IVPB IV SCH (23:22)
[2021-05-16 05:40] LABS: Basophils # (Auto) 0.1 K/mm3 (0.0-0.1); Basophils % (Auto) 0.4 % (0.0-1.8); Hematocrit 47.4 % (30.3-42.9); Hemoglobin 14.9 gm/dl (10.1-14.3); Lymphocytes # (Auto) 0.5 K/mm3 (1.2-5.4); Lymphocytes % (Auto) 3.8 % (13.4-35.0); Mean Corpuscular HGB Conc 32 % (30-34); Mean Corpuscular Volume 88 fl (79-97); Monocytes # (Auto) 0.8 K/mm3 (0.0-0.8); Monocytes % (Auto) 6.4 % (0.0-7.3); Platelet Count 356 K/mm3 (140-440); Red Blood Count 5.39 M/mm3 (3.65-5.03); Red Cell Distribution Width 12.7 % (13.2-15.2)
[2021-05-16] MEDS: methylPREDNISolone Sod Succinate 40 MG/1 ML INJ IV SCH ×3 (07:04→22:31)
[2021-05-16] MEDS: ZINC SULFATE 220 MG CAP PO SCH (10:12)
[2021-05-16] MEDS: INSULIN LISPRO 100 UNIT/ML SUB-Q SCH ×4 (10:13→22:31)
[2021-05-16] MEDS: SENNOSIDES 8.6 MG TAB PO SCH ×2 (10:13→22:40)
[2021-05-16] MEDS: ASCORBIC ACID 500 MG TAB PO SCH ×2 (10:13→22:30)
[2021-05-16] MEDS: FAMOTIDINE 20 MG TAB PO SCH ×2 (10:13→22:31)
[2021-05-16] MEDS: ENOXAPARIN 100 MG/1 ML INJ SUB-Q SCH ×2 (10:13→22:30)
[2021-05-16] MEDS: CHOLECALCIFEROL (VIT D3) 5,000 UNIT TAB PO SCH (10:13)
--- NOTE | 2021-05-16 12:14 | Progress Note ---
Assessment and Plan Assessment and plan: -- Acute hypoxemic respiratory failure Current Visit: Yes Status: Acute On high flow nasal cannula oxygen Wean as tolerated, supportive care --Coronavirus infection Current Visit: Yes Status: Acute Solu-Medrol 80 mg IV every 8 hr total 10 days per pulmonary Complete 5 days of remdesivir / today s/p Actemra on 05/13/2021 ordered for AM: Ddimer, CRP Check inflammatory markers Home O2 evaluation at discharge Isolation precautions --Pneumonia Current Visit: Yes Status: Acute Empiric antibiotics discontinued as procalcitonin is normal --Obesity hypoventilation syndrome Current Visit: Yes Status: Acute Balanced diet, increase physical activity discharge, outpatient pulmonary follow-up for sleep study. --moderate malnutrition; hypoalbuminemia Current Visit: Yes Status: Chronic Diet modification exercise as tolerated and weight reduction When medically stable -- DVT prophylaxis Current Visit: Yes Status: Acute SCD to bilateral lower extremities while in bed, prophylactic anticoagulation --Advance care planning Current Visit: Yes Status: Acute Disease education conducted, care plan discussed, diagnoses discussed, patient is full code, patient knowledges understanding and agreement with care plan, +20 minutes. --COVID-19 vaccination not done Current Visit: Yes Status: Acute Patient counseled, Critical care time 40 minutes The high probability of a clinically significant, sudden or life threatening deterioration of the system(s) required my full and direct attention, intervention and personal management. The aggregate critical care time was [40] minutes. This time is in addition to time spent performing reported procedures but includes the following: [x] Data Review and interpretation [x] Patient assessment and monitoring of vital signs [x] Documentation [x] Medication orders and management Brief history and Hospital course; 55 YO Female with HTN, Mild Intermittent Asthma, Obesity Hypoventilation Syndrome, Coronavirus Infection diagnosed 1 week ago presents to ED for evaluation. Patient reports "it is hard to breathe". Patient states that she had experienced shortness of breath, dry cough, fatigue, malaise, subjective fever, body aches, loss of sense of smell, loss of sense of taste, decreased exercise tolerance over the past 1 week with worsening symptoms over the past 2 days. Work-up in the emergency room is consistent with PUI/high suspicion for COVID-19, hypoxia requiring supplemental oxygen and pneumonia Admitted PCR test was positive for COVID-19, is in isolation evaluated by ID and pulmonary patient required high flow nasal cannula oxygen times intermittent BiPAP patient is critically ill admitted to [facility], continues to be on high flow nasal cannula oxygen at 40 L/100% nonrebreather/93% O2 , 05/12: Patient currently severely hypoxic on full nonrebreather and also high flow 100%. We will go ahead and consult pulmonary we will start patient on steroids. We will also consult infectious disease anticipate that the patient should be started on remdesivir. Awaiting repeat Covid 19 diagnosis although patient states that she was diagnosed a week ago. She unfortunately is not vaccinated. Condition is pretty guarded. Will also start on Diuresis and Full anticoagulation Encouraged proning Monitor inflammatory markers Patients emergency contacts: Kristen [phone] and Demetria [phone]. I have called both and left a message 05/13: Patient seen and examined, continue supportive care, continue oxygen therapy, PRONE TOLERATED. Continue anticoagulation and lasix, including Remdesivir. 05/14: Patient remains on full dose anticoagulation with, Remedesivir and Steroids. Continue to encourage proning. Continue lasix for negative fluid balance. REMAINS CRITICALLY ILL. 05/15/2021; patient remains on high flow nasal cannula oxygen 40 L/100%/93% 05/16/2021; patient remains on high flow oxygen 40 L/100% FiO2/95% O2 sat Unable to wean, very poor prognosis History Interval history: Patient remains on high flow nasal cannula oxygen 40 L/100% FiO2/95% O2 sats In mild distress, complains of mild shortness of breath Hospitalist Physical - Constitutional Vitals: Temp Pulse Resp BP Pulse Ox 97.5 F L 77 26 H 165/96 95 05/16/21 07:00 05/16/21 00:00 05/16/21 03:54 05/16/21 00:00 05/16/21 08:33 General appearance: Present: mild distress, well-nourished, obese, disheveled, other (On high flow nasal cannula oxygen) - EENT Eyes: Present: PERRL, EOM intact - Neck Neck: Present: supple, normal ROM - Respiratory Respiratory effort: normal Respiratory: bilateral: diminished, rhonchi, negative: rales, wheezing - Cardiovascular Rhythm: regular Heart Sounds: Present: S1 & S2 - Extremities Extremities: no ischemia, No edema - Abdominal General gastrointestinal: soft, non-tender, non-distended, normal bowel sounds - Integumentary Integumentary: Present: clear, warm - Psychiatric Psychiatric: appropriate mood/affect, cooperative - Neurologic Neurologic: moves all extremities Results - Labs CBC & Chem 7: 05/16/21 05:00 05/15/21 04:05 Labs: Laboratory Last Values WBC 12.5 K/mm3 (4.5-11.0) H 05/16/21 05:00 RBC 5.39 M/mm3 (3.65-5.03) H 05/16/21 05:00 Hgb 14.9 gm/dl (10.1-14.3) H 05/16/21 05:00 Hct 47.4 % (30.3-42.9) H 05/16/21 05:00 MCV 88 fl (79-97) 05/16/21 05:00 MCH 28 pg (28-32) 05/16/21 05:00 MCHC 32 % (30-34) 05/16/21 05:00 RDW 12.7 % (13.2-15.2) L 05/16/21 05:00 Plt Count 356 K/mm3 (140-440) 05/16/21 05:00 Lymph % (Auto) 3.8 % (13.4-35.0) L 05/16/21 05:00 [place] % (Auto) 6.4 % (0.0-7.3) 05/16/21 05:00 Eos % (Auto) 0.0 % (0.0-4.3) 05/16/21 05:00 Baso % (Auto) 0.4 % (0.0-1.8) 05/16/21 05:00 Lymph # (Auto) 0.5 K/mm3 (1.2-5.4) L 05/16/21 05:00 [place] # (Auto) 0.8 K/mm3 (0.0-0.8) 05/16/21 05:00 Eos # (Auto) 0.0 K/mm3 (0.0-0.4) 05/16/21 05:00 Baso # (Auto) 0.1 K/mm3 (0.0-0.1) 05/16/21 05:00 Seg Neutrophils % 89.4 % (40.0-70.0) H 05/16/21 05:00 Seg Neutrophils # 11.2 K/mm3 (1.8-7.7) H 05/16/21 05:00 D-Dimer 452.36 ng/mlDDU (0-234) H 05/16/21 05:00 Sodium 143 mmol/L (137-145) 05/15/21 04:05 Potassium 4.8 mmol/L (3.6-5.0) 05/15/21 04:05 Chloride 100.4 mmol/L (98-107) 05/15/21 04:05 Carbon Dioxide 33 mmol/L (22-30) H 05/15/21 04:05 Anion Gap 14 mmol/L 05/15/21 04:05 BUN 45 mg/dL (7-17) H 05/15/21 04:05 Creatinine 0.8 mg/dL (0.6-1.2) 05/15/21 04:05 Estimated GFR > 60 ml/min 05/15/21 04:05 BUN/Creatinine Ratio 56 % 05/15/21 04:05 Glucose 177 mg/dL (65-100) H 05/15/21 04:05 POC Glucose 148 mg/dL (70-105) H 05/16/21 11:40 Lactic Acid 1.10 mmol/L (0.7-2.0) 05/11/21 18:12 Calcium 8.9 mg/dL (8.4-10.2) 05/15/21 04:05 Ferritin 465.6 ng/mL (10.0-200.0) H 05/12/21 08:46 Total Bilirubin 0.40 mg/dL (0.1-1.2) 05/15/21 04:05 AST 20 units/L (5-40) 05/15/21 04:05 ALT 22 units/L (7-56) 05/15/21 04:05 Alkaline Phosphatase 61 units/L (35-129) 05/15/21 04:05 Lactate Dehydrogenase 574 units/L (91-180) H 05/12/21 08:46 C-Reactive Protein 0.90 mg/dL (0.00-1.30) 05/16/21 05:00 Total Protein 6.7 g/dL (6.3-8.2) 05/15/21 04:05 Albumin 3.3 g/dL (3.9-5) L 05/15/21 04:05 Albumin/Globulin Ratio 1.0 % 05/15/21 04:05 Procalcitonin 0.06 ng/mL (<0.15) 05/12/21 08:46 Coronavirus (PCR) Positive (Negative) A 05/12/21 09:00 Microbiology: Microbiology 05/11/21 15:00 Peripheral/Venous Blood Culture - Preliminary NO GROWTH AFTER 4 DAYS 05/11/21 15:00 Peripheral/Venous Blood Culture - Preliminary NO GROWTH AFTER 4 DAYS Active Medications - Current Medications Current Medications: Generic Name Dose Route Start Last Admin Trade Name Freq PRN Reason Stop Dose Admin Acetaminophen 650 mg 05/12/21 10:00 Acetaminophen 325 Mg Tab PO Q4H PRN Pain MILD(1-3)/Fever >100.5/LUX Ascorbic Acid 1,000 mg 05/12/21 22:00 05/16/21 10:13 Ascorbic Acid 500 Mg Tab PO 1,000 mg BID YOHANNES Administration Cholecalciferol 5,000 unit 05/12/21 14:00 05/16/21 10:13 Cholecalciferol (Vit D3) 5,000 Unit Tab PO 5,000 unit DAILY YOHANNES Administration Dextrose 50 ml 05/12/21 09:30 Dextrose 50% In Water (25gm) 50 Ml Syringe IV Q30MIN PRN Hypoglycemia Protocol Enoxaparin Sodium 100 mg 05/12/21 10:00 05/16/21 10:13 Enoxaparin 100 Mg/1 Ml Inj 1 mg/kg (100 mg) 100 mg SUB-Q Administration Q12HR [facility] Protocol Famotidine 20 mg 05/12/21 10:00 05/16/21 10:13 Famotidine 20 Mg Tab PO 20 mg BID YOHANNES Administration REMDESIVIR 100 mg/ Sodium 250 mls @ 500 mls/hr 05/13/21 21:00 05/15/21 22:08 Chloride IV 05/16/21 21:29 500 mls/hr Q24HR@2100 YOHANNES Administration Insulin Human Lispro 0 unit 05/12/21 11:30 05/16/21 12:09 Insulin Lispro 100 Unit/Ml SUB-Q 1 unit ACHS YOHANNES Administration Protocol Methylprednisolone Sodium Succinate 80 mg 05/14/21 06:00 05/16/21 07:04 Methylprednisolone Sod Succinate 40 Mg/1 Ml Inj IV 05/23/21 22:01 80 mg Q8HR YOHANNES Administration Naloxone HCl 0.1 mg 05/12/21 09:00 Naloxone 0.4 Mg/1 Ml Inj IV Q2MIN PRN Res Rate </= 8 or 02 SAT < 92% Ondansetron HCl 4 mg 05/12/21 10:00 Ondansetron 4 Mg/2 Ml Inj IV Q4H PRN Nausea And Vomiting Oxycodone/Acetaminophen 1 tab 05/12/21 10:00 Oxycodone /Acetaminophen 5-325mg Tab PO Q6H PRN Pain, Moderate (4-6) Pseudoephedrine/Acetam/Chlorphenir 10 ml 05/15/21 14:03 Guaifenesin/Codeine 100-10mg Oral Liqd 5 Ml PO Q4H PRN Cough Senna 8.6 mg 05/12/21 10:00 05/16/21 10:13 Sennosides 8.6 Mg Tab PO 8.6 mg Q12HR YOHANNES Administration Sodium Chloride 10 ml 05/12/21 10:00 05/16/21 10:13 Sodium Chloride 0.9% 10 Ml Flush Syringe IV 10 ml BID YOHANNES Administration Sodium Chloride 10 ml 05/12/21 10:00 Sodium Chloride 0.9% 10 Ml Flush Syringe IV PRN PRN LINE FLUSH Sodium Chloride 50 ml 05/12/21 15:00 05/15/21 23:22 Sodium Chloride 0.9% 50 Ml Ivpb IV 05/16/21 21:01 50 ml Q24HR@2100 YOHANNES Administration Zinc Sulfate 220 mg 05/12/21 14:00 05/16/21 10:12 Zinc Sulfate 220 Mg Cap PO 220 mg QDAY YOHANNES Administration Nutrition/Malnutrition Assess - Dietary Evaluation Nutrition/Malnutrition Findings: Nutrition Notes Start: 05/12/21 11:38 Freq: Status: Active Protocol: Document 05/12/21 11:38 ROSANA (Rec: 05/12/21 11:41 ROSANA [id number]) Nutrition Notes Need for Assessment generated from: MD Order,Education Initial or Follow up Brief Note Current Diagnosis Hypertension,Respiratory Failure Other Pertinent Diagnosis COVID-19 (+), pneu Current Diet Consistent CHO Subjective/Other Information RD consulted for diet education. Pt in ED at this time. Minimum of two criteria No Nutrition Intervention Follow-Up By: 05/17/21 Additional Comments F/U: transfer to medical floor ; diet education needs, need for full assessment
--- NOTE | 2021-05-16 12:31 | Progress Note ---
Assessment and Plan Cultures: Blood culture no growth COVID-19 PCR: Positive A/P: 55-year-old female past medical history obesity admitted with COVID-19 pneumonia #Severe COVID-19 pneumonia: Patient presented with a week of symptoms, chest x- ray with diffuse bilateral infiltrates. Inflammatory markers elevated. No need for antibiotics due to normal procalcitonin. #Acute hypoxemic respiratory failure: Likely secondary to COVID-19 infection. On HFNC. #Obesity Recommendations: -Steroids per pulmonary for 10 days -Complete 5 days of remdesivir -s/p Actemra on 05/13/2021 -D-dimer stable, CRP normal -Anticoagulation per hospital protocol based on d-dimer Phan Bianchi MD, FACP [facility] ([facility] O: [phone] F: [phone] Subjective Date of service: 05/16/21 Interval history: No fever. Remains on HFNC. Objective - Exam Narrative Exam: Physical Exam (reviewed in chart to minimize risk of transmission) Constitutional: deferred Head, Ears, Nose: deferred Eyes: deferred Neck: deferred Oral: deferred Cardiovascular: deferred Respiratory: deferred GI: deferred Musculoskeletal: deferred Skin: deferred Hem/Lymphatic: deferred Psych: deferred Neurological: deferred - Constitutional Vitals: Vital Signs Temp Pulse Resp BP Pulse Ox 98.2 F 77 26 H 165/96 95 05/16/21 12:00 05/16/21 00:00 05/16/21 03:54 05/16/21 00:00 05/16/21 08:33 Temperature -Last 24 Hours Temperature 98.2 F Temperature 97.5 F Temperature 98.6 F Temperature 98.1 F Temperature 97.9 F - Labs CBC & Chem 7: 05/16/21 05:00 05/15/21 04:05 Labs: Abnormal lab results 05/15/21 05/15/21 05/16/21 Range/Units 17:16 21:17 01:17 WBC (4.5-11.0) K/mm3 RBC (3.65-5.03) M/mm3 Hgb (10.1-14.3) gm/dl Hct (30.3-42.9) % RDW (13.2-15.2) % Lymph % (Auto) (13.4-35.0) % Lymph # (Auto) (1.2-5.4) K/mm3 Seg Neutrophils % (40.0-70.0) % Seg Neutrophils # (1.8-7.7) K/mm3 D-Dimer (0-234) ng/mlDDU POC Glucose 127 H 161 H 161 H (70-105) mg/dL 05/16/21 05/16/21 05/16/21 Range/Units 05:00 05:00 08:06 WBC 12.5 H (4.5-11.0) K/mm3 RBC 5.39 H (3.65-5.03) M/mm3 Hgb 14.9 H (10.1-14.3) gm/dl Hct 47.4 H (30.3-42.9) % RDW 12.7 L (13.2-15.2) % Lymph % (Auto) 3.8 L (13.4-35.0) % Lymph # (Auto) 0.5 L (1.2-5.4) K/mm3 Seg Neutrophils % 89.4 H (40.0-70.0) % Seg Neutrophils # 11.2 H (1.8-7.7) K/mm3 D-Dimer 452.36 H (0-234) ng/mlDDU POC Glucose 140 H (70-105) mg/dL 05/16/21 Range/Units 11:40 WBC (4.5-11.0) K/mm3 RBC (3.65-5.03) M/mm3 Hgb (10.1-14.3) gm/dl Hct (30.3-42.9) % RDW (13.2-15.2) % Lymph % (Auto) (13.4-35.0) % Lymph # (Auto) (1.2-5.4) K/mm3 Seg Neutrophils % (40.0-70.0) % Seg Neutrophils # (1.8-7.7) K/mm3 D-Dimer (0-234) ng/mlDDU POC Glucose 148 H (70-105) mg/dL
--- NOTE | 2021-05-16 12:57 | Progress Note ---
Assessment and Plan 55 y/o female, obese, with acute respiratory failure secondary to COVID pneumonia 05/16/21: Will give lasix today. needs to prone more. Remdesivir and steroids. Guarded prognosis. 05/15/21: Hold on lasix today. Continue remdesivir and high dose steroids. Prone as tolerated for as long as possible. Guarded prognosis. 1. lasix 40mg IV today 2. Remedsivir 3. Agree with High dose steroids 4. Prone 5. Guarded prognosis. Subjective Date of service: 05/16/21 Interval history: No acute events. STill on HFNC at 40and 100. Sitting up in bed on her phone. Objective Vital Signs - 12hr 05/16/21 05/16/21 05/16/21 01:05 01:32 02:05 Temperature 98.1 F Respiratory 24 Rate O2 Sat by Pulse 93 95 Oximetry 05/16/21 05/16/21 05/16/21 03:45 03:54 07:00 Temperature 98.6 F 97.5 F L Respiratory 26 H Rate O2 Sat by Pulse 95 Oximetry 05/16/21 05/16/21 08:33 12:00 Temperature 98.2 F Respiratory Rate O2 Sat by Pulse 95 Oximetry Constitutional: appears uncomfortable, other (Dyspneic at rest with oxygen) Eyes: non-icteric ENT: oropharynx dry, other (Crowded oropharynx) Neck: supple, no JVD Effort: mildly labored Ascultation: Bilateral: rhonchi Cardiovascular: regular rate and rhythm Gastrointestinal: normoactive bowel sounds, soft, non-tender, other (Obese) Integumentary: normal Extremities: no cyanosis, no edema, pink and warm Neurologic: normal mental status, non-focal exam Psychiatric: mood appropriate CBC and BMP: 05/16/21 05:00 05/15/21 04:05 ABG, PT/INR, D-dimer: PT/INR, D-dimer D-Dimer 452.36 ng/mlDDU (0-234) H 05/16/21 05:00 Abnormal lab findings: Abnormal Labs 05/11/21 05/11/21 05/11/21 14:33 14:33 15:00 WBC RBC Hgb 14.8 H Hct MCHC 35 H RDW 12.9 L Lymph % (Auto) 8.7 L Lymph # (Auto) 0.7 L [place] # (Auto) Seg Neutrophils % 83.7 H Seg Neutrophils # D-Dimer 331.70 H Potassium 5.2 H Chloride 95.0 L Carbon Dioxide BUN Glucose 125 H POC Glucose Ferritin Lactate Dehydrogenase C-Reactive Protein Albumin 3.3 L Coronavirus (PCR) 05/11/21 05/11/21 05/12/21 15:00 15:00 08:46 WBC RBC Hgb Hct MCHC RDW Lymph % (Auto) Lymph # (Auto) [place] # (Auto) Seg Neutrophils % Seg Neutrophils # D-Dimer 345.30 H Potassium Chloride Carbon Dioxide BUN Glucose POC Glucose Ferritin 471.5 H Lactate Dehydrogenase 579 H C-Reactive Protein 15.80 H Albumin Coronavirus (PCR) 05/12/21 05/12/21 05/12/21 08:46 08:46 09:00 WBC RBC Hgb Hct MCHC RDW Lymph % (Auto) Lymph # (Auto) [place] # (Auto) Seg Neutrophils % Seg Neutrophils # D-Dimer Potassium Chloride Carbon Dioxide BUN Glucose 149 H POC Glucose Ferritin 465.6 H Lactate Dehydrogenase 574 H C-Reactive Protein 18.40 H Albumin Coronavirus (PCR) Positive A 05/12/21 05/12/21 05/12/21 11:40 16:14 18:01 WBC RBC Hgb Hct MCHC RDW Lymph % (Auto) Lymph # (Auto) [place] # (Auto) Seg Neutrophils % Seg Neutrophils # D-Dimer Potassium Chloride Carbon Dioxide BUN Glucose POC Glucose 141 H 140 H 159 H Ferritin Lactate Dehydrogenase C-Reactive Protein Albumin Coronavirus (PCR) 05/12/21 05/13/21 05/13/21 22:01 03:51 03:51 WBC 13.6 H RBC Hgb 14.6 H Hct MCHC RDW 12.9 L Lymph % (Auto) 3.5 L Lymph # (Auto) 0.5 L [place] # (Auto) 0.9 H Seg Neutrophils % 89.4 H Seg Neutrophils # 12.1 H D-Dimer Potassium Chloride Carbon Dioxide BUN 31 H Glucose 152 H POC Glucose 152 H Ferritin Lactate Dehydrogenase C-Reactive Protein Albumin 3.2 L Coronavirus (PCR) 05/13/21 05/13/21 05/13/21 07:32 16:04 22:48 WBC RBC Hgb Hct MCHC RDW Lymph % (Auto) Lymph # (Auto) [place] # (Auto) Seg Neutrophils % Seg Neutrophils # D-Dimer Potassium Chloride Carbon Dioxide BUN Glucose POC Glucose 160 H 146 H 175 H Ferritin Lactate Dehydrogenase C-Reactive Protein Albumin Coronavirus (PCR) 05/14/21 05/14/21 05/14/21 04:49 07:18 13:24 WBC RBC Hgb Hct MCHC RDW Lymph % (Auto) Lymph # (Auto) [place] # (Auto) Seg Neutrophils % Seg Neutrophils # D-Dimer Potassium Chloride Carbon Dioxide BUN 41 H Glucose 169 H POC Glucose 160 H 146 H Ferritin Lactate Dehydrogenase C-Reactive Protein Albumin 3.4 L Coronavirus (PCR) 05/14/21 05/14/21 05/15/21 17:36 21:54 04:05 WBC RBC Hgb Hct MCHC RDW Lymph % (Auto) Lymph # (Auto) [place] # (Auto) Seg Neutrophils % Seg Neutrophils # D-Dimer Potassium Chloride Carbon Dioxide 33 H BUN 45 H Glucose 177 H POC Glucose 181 H 169 H Ferritin Lactate Dehydrogenase C-Reactive Protein Albumin 3.3 L Coronavirus (PCR) 05/15/21 05/15/21 05/15/21 07:18 12:09 17:16 WBC RBC Hgb Hct MCHC RDW Lymph % (Auto) Lymph # (Auto) [place] # (Auto) Seg Neutrophils % Seg Neutrophils # D-Dimer Potassium Chloride Carbon Dioxide BUN Glucose POC Glucose 166 H 160 H 127 H Ferritin Lactate Dehydrogenase C-Reactive Protein Albumin Coronavirus (PCR) 05/15/21 05/16/21 05/16/21 21:17 01:17 05:00 WBC RBC Hgb Hct MCHC RDW Lymph % (Auto) Lymph # (Auto) [place] # (Auto) Seg Neutrophils % Seg Neutrophils # D-Dimer 452.36 H Potassium Chloride Carbon Dioxide BUN Glucose POC Glucose 161 H 161 H Ferritin Lactate Dehydrogenase C-Reactive Protein Albumin Coronavirus (PCR) 05/16/21 05/16/21 05/16/21 05:00 08:06 11:40 WBC 12.5 H RBC 5.39 H Hgb 14.9 H Hct 47.4 H MCHC RDW 12.7 L Lymph % (Auto) 3.8 L Lymph # (Auto) 0.5 L [place] # (Auto) Seg Neutrophils % 89.4 H Seg Neutrophils # 11.2 H D-Dimer Potassium Chloride Carbon Dioxide BUN Glucose POC Glucose 140 H 148 H Ferritin Lactate Dehydrogenase C-Reactive Protein Albumin Coronavirus (PCR)
[2021-05-16] MEDS: SODIUM CHLORIDE 0.9% 50 ML IVPB IV SCH (22:02)
[2021-05-16] MEDS: REMDESIVIR 100 MG in SODIUM CHLORIDE 0.9% 250ML 250 ML IV SCH (22:02)
--- NOTE | 2021-05-17 06:24 | Progress Note ---
Assessment and Plan Assessment and plan: Patient continues to require high flow nasal cannula oxygen 35 L 80% FiO2 94% O2 sats patient is in mild distress complains of tiredness -- Acute hypoxemic respiratory failure Current Visit: Yes Status: Acute On high flow nasal cannula oxygen Wean as tolerated, supportive care --Coronavirus infection Current Visit: Yes Status: Acute Solu-Medrol 80 mg IV every 8 hr total 10 days per pulmonary Completed 5 days of remdesivir s/p Actemra on 05/13/2021 ordered for AM: Ddimer, CRP Check inflammatory markers Home O2 evaluation at discharge Isolation precautions --Pneumonia Current Visit: Yes Status: Acute Empiric antibiotics discontinued as procalcitonin is normal --Obesity hypoventilation syndrome Current Visit: Yes Status: Acute Balanced diet, increase physical activity discharge, outpatient pulmonary follow-up for sleep study. --moderate malnutrition; hypoalbuminemia Current Visit: Yes Status: Chronic Diet modification exercise as tolerated and weight reduction When medically stable -- DVT prophylaxis Current Visit: Yes Status: Acute SCD to bilateral lower extremities while in bed, prophylactic anticoagulation --Advance care planning Current Visit: Yes Status: Acute Disease education conducted, care plan discussed, diagnoses discussed, patient is full code, patient knowledges understanding and agreement with care plan, +20 minutes. --COVID-19 vaccination not done Current Visit: Yes Status: Acute Patient counseled, Critical care time 42 minutes The high probability of a clinically significant, sudden or life threatening deterioration of the system(s) required my full and direct attention, intervention and personal management. The aggregate critical care time was [42] minutes. This time is in addition to time spent performing reported procedures but includes the following: [x] Data Review and interpretation [x] Patient assessment and monitoring of vital signs [x] Documentation [x] Medication orders and management Brief history and Hospital course; 55 YO Female with HTN, Mild Intermittent Asthma, Obesity Hypoventilation Syndrome, Coronavirus Infection diagnosed 1 week ago presents to ED for evaluation. Patient reports "it is hard to breathe". Patient states that she had experienced shortness of breath, dry cough, fatigue, malaise, subjective fever, body aches, loss of sense of smell, loss of sense of taste, decreased exercise tolerance over the past 1 week with worsening symptoms over the past 2 days. Work-up in the emergency room is consistent with PUI/high suspicion for COVID-19, hypoxia requiring supplemental oxygen and pneumonia Admitted PCR test was positive for COVID-19, is in isolation evaluated by ID and pulmonary patient required high flow nasal cannula oxygen times intermittent BiPAP patient is critically ill admitted to [facility], continues to be on high flow nasal cannula oxygen at 40 L/100% nonrebreather/93% O2 , 05/12: Patient currently severely hypoxic on full nonrebreather and also high flow 100%. We will go ahead and consult pulmonary we will start patient on steroids. We will also consult infectious disease anticipate that the patient should be started on remdesivir. Awaiting repeat Covid 19 diagnosis although patient states that she was diagnosed a week ago. She unfortunately is not vaccinated. Condition is pretty guarded. Will also start on Diuresis and Full anticoagulation Encouraged proning Monitor inflammatory markers Patients emergency contacts: Kristen [phone] and Demetria [phone]. I have called both and left a message 05/13: Patient seen and examined, continue supportive care, continue oxygen therapy, PRONE TOLERATED. Continue anticoagulation and lasix, including Remdesivir. 05/14: Patient remains on full dose anticoagulation with, Remedesivir and Steroids. Continue to encourage proning. Continue lasix for negative fluid balance. REMAINS CRITICALLY ILL. 05/15: Severely hypoxemic on high flow nasal cannula oxygen, encouraged prone positioning as tolerated 05/16/2021; patient remains on high flow nasal cannula oxygen, will wean as tolerated Poor prognosis 05/15/2021; patient remains on high flow nasal cannula oxygen 40 L/100%/93% 05/16/2021; patient remains on high flow oxygen 40 L/100% FiO2/95% O2 sat Unable to wean, very poor prognosis 05/17/2021: On high flow nasal cannula oxygen Patient remains on high flow nasal cannula oxygen 30 L 80% FiO2 90% O2 sats patient is in mild distress complains of tiredn Stable to be discharged out of [facility] to medical floor History Interval history: I have seen and examined the patient at the bedside this morning [facility] Patient is sitting in the chair, on 35 L high flow nasal cannula last night, improved to 30 L this morning Patient has no new complaints Hospitalist Physical - Constitutional Vitals: Temp Pulse Resp BP Pulse Ox 97.1 F L 82 28 H 127/84 93 05/17/21 04:00 05/17/21 04:00 05/17/21 04:00 05/17/21 04:00 05/17/21 04:00 General appearance: Present: no acute distress, well-nourished, obese, other (On high flow nasal cannula oxygen) - EENT Eyes: Present: PERRL, EOM intact - Neck Neck: Present: supple, normal ROM - Respiratory Respiratory effort: normal Respiratory: bilateral: diminished, rhonchi, negative: rales, wheezing - Cardiovascular Rhythm: regular Heart Sounds: Present: S1 & S2 - Extremities Extremities: no ischemia, No edema - Abdominal General gastrointestinal: soft, non-tender, non-distended, normal bowel sounds - Integumentary Integumentary: Present: clear, warm - Psychiatric Psychiatric: appropriate mood/affect, cooperative - Neurologic Neurologic: CNII-XII intact, moves all extremities Results - Labs CBC & Chem 7: 05/16/21 05:00 05/15/21 04:05 Labs: Laboratory Last Values WBC 12.5 K/mm3 (4.5-11.0) H 05/16/21 05:00 RBC 5.39 M/mm3 (3.65-5.03) H 05/16/21 05:00 Hgb 14.9 gm/dl (10.1-14.3) H 05/16/21 05:00 Hct 47.4 % (30.3-42.9) H 05/16/21 05:00 MCV 88 fl (79-97) 05/16/21 05:00 MCH 28 pg (28-32) 05/16/21 05:00 MCHC 32 % (30-34) 05/16/21 05:00 RDW 12.7 % (13.2-15.2) L 05/16/21 05:00 Plt Count 356 K/mm3 (140-440) 05/16/21 05:00 Lymph % (Auto) 3.8 % (13.4-35.0) L 05/16/21 05:00 [place] % (Auto) 6.4 % (0.0-7.3) 05/16/21 05:00 Eos % (Auto) 0.0 % (0.0-4.3) 05/16/21 05:00 Baso % (Auto) 0.4 % (0.0-1.8) 05/16/21 05:00 Lymph # (Auto) 0.5 K/mm3 (1.2-5.4) L 05/16/21 05:00 [place] # (Auto) 0.8 K/mm3 (0.0-0.8) 05/16/21 05:00 Eos # (Auto) 0.0 K/mm3 (0.0-0.4) 05/16/21 05:00 Baso # (Auto) 0.1 K/mm3 (0.0-0.1) 05/16/21 05:00 Seg Neutrophils % 89.4 % (40.0-70.0) H 05/16/21 05:00 Seg Neutrophils # 11.2 K/mm3 (1.8-7.7) H 05/16/21 05:00 D-Dimer 452.36 ng/mlDDU (0-234) H 05/16/21 05:00 Sodium 143 mmol/L (137-145) 05/15/21 04:05 Potassium 4.8 mmol/L (3.6-5.0) 05/15/21 04:05 Chloride 100.4 mmol/L (98-107) 05/15/21 04:05 Carbon Dioxide 33 mmol/L (22-30) H 05/15/21 04:05 Anion Gap 14 mmol/L 05/15/21 04:05 BUN 45 mg/dL (7-17) H 05/15/21 04:05 Creatinine 0.8 mg/dL (0.6-1.2) 05/15/21 04:05 Estimated GFR > 60 ml/min 05/15/21 04:05 BUN/Creatinine Ratio 56 % 05/15/21 04:05 Glucose 177 mg/dL (65-100) H 05/15/21 04:05 POC Glucose 176 mg/dL (70-105) H 05/16/21 21:38 Lactic Acid 1.10 mmol/L (0.7-2.0) 05/11/21 18:12 Calcium 8.9 mg/dL (8.4-10.2) 05/15/21 04:05 Ferritin 465.6 ng/mL (10.0-200.0) H 05/12/21 08:46 Total Bilirubin 0.40 mg/dL (0.1-1.2) 05/15/21 04:05 AST 20 units/L (5-40) 05/15/21 04:05 ALT 22 units/L (7-56) 05/15/21 04:05 Alkaline Phosphatase 61 units/L (35-129) 05/15/21 04:05 Lactate Dehydrogenase 574 units/L (91-180) H 05/12/21 08:46 C-Reactive Protein 0.90 mg/dL (0.00-1.30) 05/16/21 05:00 Total Protein 6.7 g/dL (6.3-8.2) 05/15/21 04:05 Albumin 3.3 g/dL (3.9-5) L 05/15/21 04:05 Albumin/Globulin Ratio 1.0 % 05/15/21 04:05 Procalcitonin 0.06 ng/mL (<0.15) 05/12/21 08:46 Coronavirus (PCR) Positive (Negative) A 05/12/21 09:00 Microbiology: Microbiology 05/11/21 15:00 Peripheral/Venous Blood Culture - Final NO GROWTH AFTER 5 DAYS 05/11/21 15:00 Peripheral/Venous Blood Culture - Final NO GROWTH AFTER 5 DAYS Active Medications - Current Medications Current Medications: Generic Name Dose Route Start Last Admin Trade Name Freq PRN Reason Stop Dose Admin Acetaminophen 650 mg 05/12/21 10:00 Acetaminophen 325 Mg Tab PO Q4H PRN Pain MILD(1-3)/Fever >100.5/LUX Ascorbic Acid 1,000 mg 05/12/21 22:00 05/16/21 22:30 Ascorbic Acid 500 Mg Tab PO 1,000 mg BID YOHANNES Administration Cholecalciferol 5,000 unit 05/12/21 14:00 05/16/21 10:13 Cholecalciferol (Vit D3) 5,000 Unit Tab PO 5,000 unit DAILY YOHANNES Administration Dextrose 50 ml 05/12/21 09:30 Dextrose 50% In Water (25gm) 50 Ml Syringe IV Q30MIN PRN Hypoglycemia Protocol Enoxaparin Sodium 100 mg 05/12/21 10:00 05/16/21 22:30 Enoxaparin 100 Mg/1 Ml Inj 1 mg/kg (100 mg) 100 mg SUB-Q Administration Q12HR YOHANNES Protocol Famotidine 20 mg 05/12/21 10:00 05/16/21 22:31 Famotidine 20 Mg Tab PO 20 mg BID YOHANNES Administration Insulin Human Lispro 0 unit 05/12/21 11:30 05/16/21 22:31 Insulin Lispro 100 Unit/Ml SUB-Q 1 unit ACHS YOHANNES Administration Protocol Methylprednisolone Sodium Succinate 80 mg 05/14/21 06:00 05/16/21 22:31 Methylprednisolone Sod Succinate 40 Mg/1 Ml Inj IV 05/23/21 22:01 80 mg Q8HR YOHANNES Administration Naloxone HCl 0.1 mg 05/12/21 09:00 Naloxone 0.4 Mg/1 Ml Inj IV Q2MIN PRN Res Rate </= 8 or 02 SAT < 92% Ondansetron HCl 4 mg 05/12/21 10:00 Ondansetron 4 Mg/2 Ml Inj IV Q4H PRN Nausea And Vomiting Oxycodone/Acetaminophen 1 tab 05/12/21 10:00 Oxycodone /Acetaminophen 5-325mg Tab PO Q6H PRN Pain, Moderate (4-6) Pseudoephedrine/Acetam/Chlorphenir 10 ml 05/15/21 14:03 Guaifenesin/Codeine 100-10mg Oral Liqd 5 Ml PO Q4H PRN Cough Senna 8.6 mg 05/12/21 10:00 05/16/21 22:40 Sennosides 8.6 Mg Tab PO 8.6 mg Q12HR YOHANNES Administration Sodium Chloride 10 ml 05/12/21 10:00 05/16/21 22:40 Sodium Chloride 0.9% 10 Ml Flush Syringe IV 10 ml BID YOHANNES Administration Sodium Chloride 10 ml 05/12/21 10:00 Sodium Chloride 0.9% 10 Ml Flush Syringe IV PRN PRN LINE FLUSH Zinc Sulfate 220 mg 05/12/21 14:00 05/16/21 10:12 Zinc Sulfate 220 Mg Cap PO 220 mg QDAY YOHANNES Administration Nutrition/Malnutrition Assess - Dietary Evaluation Nutrition/Malnutrition Findings: Nutrition Notes Start: 05/12/21 11:38 Freq: Status: Active Protocol: Document 05/16/21 15:31 GB (Rec: 05/16/21 15:49 GB [id number]) Nutrition Notes Need for Assessment generated from: admissions rn Initial or Follow up Assessment Current Diagnosis Hypertension,Respiratory Failure Other Pertinent Diagnosis COVID-19 (+), pneu Current Diet Consistent CHO Labs/Tests 05/15: BUN 45, glucose 177 Pertinent Medications Vit C, Vit D3, Remdesivir/NaCl , Zn Sulfate Height 5 ft 8 in Weight 113 kg [place] Body Weight (kg) 63.63 BMI 37.8 Weight change and time frame 05/11: 99.79kg 05/16: 113kg change of +13.21kg for +13.2% gain possibly r/t IV fluids Weight Status Obese 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 pt to receive lasix today PO: unable to assess, no intakes reported, just meal tray provided to pt. No records of poor intake or decrease in appetite. Percent of energy/protein needs met: unable to assess. Burn Absent Trauma Absent GI Symptoms None Skin Integrity/Comment No skin complications reported Current % PO Other Minimum of two criteria No #1 Nutrition Diagnosis Predicted suboptimal energy intake Comments: Expect decreased PO r/t difficulty of breathing Recommend starting nutritional supplement beverage BID Etiology COVID+ As Evidenced by Signs and Symptoms on high flow nasal cannula ( non-rebreather), unable to wean Is patient on ventilator? No Is Patient Ambulatory and/or Out of Bed Yes REE-([facility]-ambulatory/OOB) [ 2318.550 [id number]] Kcal/Kg value to use for calculation 17 Approximate Energy Requirements Using 1921 kcal/Kg Calculation Used for Recommendations Kcal/kg Additional Notes Protein 0.8-1g/kg @ 113k- 113g Fluids: 1ml/kcal or per MD Nutrition Intervention Change Diet Order: continue consistent carbohydrate Nutrition Support: n/a Add Supplement/Snack (indicate name/kcal ensure enlive BID /protein ) Provides kCal: 700 Provides Protein (gm) 40 Goal #1 PO intake of meals to be 50% or greater daily for LOS Goal #2 PO intake of nutritional supplement beverage to be 50% or greater BID daily for LOS Follow-Up By: 05/22/21 Additional Comments f/u: po intake meals and supplements, HFNC status
[2021-05-17] MEDS: methylPREDNISolone Sod Succinate 40 MG/1 ML INJ IV SCH ×3 (06:45→22:04)
[2021-05-17] MEDS: ASCORBIC ACID 500 MG TAB PO SCH ×2 (09:28→22:03)
[2021-05-17] MEDS: CHOLECALCIFEROL (VIT D3) 5,000 UNIT TAB PO SCH (09:28)
[2021-05-17] MEDS: SENNOSIDES 8.6 MG TAB PO SCH ×2 (09:28→22:04)
[2021-05-17] MEDS: FAMOTIDINE 20 MG TAB PO SCH ×2 (09:28→22:03)
[2021-05-17] MEDS: ZINC SULFATE 220 MG CAP PO SCH (09:28)
[2021-05-17] MEDS: ENOXAPARIN 100 MG/1 ML INJ SUB-Q SCH ×2 (09:29→22:03)
[2021-05-17] MEDS: INSULIN LISPRO 100 UNIT/ML SUB-Q SCH ×4 (09:29→22:04)
--- NOTE | 2021-05-17 11:44 | Progress Note ---
Assessment and Plan 55 y/o female, obese, with acute respiratory failure secondary to COVID pneumonia 05/17/21: Prone. Continue steroids and remdesivir. No lasix today. Guarded prognosis. Consider floor transfer. 05/16/21: Will give lasix today. needs to prone more. Remdesivir and steroids. Guarded prognosis. 05/15/21: Hold on lasix today. Continue remdesivir and high dose steroids. Prone as tolerated for as long as possible. Guarded prognosis. 1. lasix 40mg IV today 2. Remedsivir 3. Agree with High dose steroids 4. Prone 5. Guarded prognosis. Subjective Date of service: 05/17/21 Interval history: No acute events. on 30 and 80. Sat last documented was 89. Objective Vital Signs - 12hr 05/17/21 05/17/21 05/17/21 00:00 01:00 02:00 Temperature 97.6 F Pulse Rate 85 76 Pulse Rate [ From Monitor] Pulse Rate [ 77 None] Respiratory 21 29 H 22 Rate Blood Pressure 136/93 135/94 127/73 O2 Sat by Pulse 91 90 91 Oximetry 05/17/21 05/17/21 05/17/21 02:10 03:00 04:00 Temperature 97.1 F L Pulse Rate 73 82 Pulse Rate [ 76 From Monitor] Pulse Rate [ None] Respiratory 22 28 H Rate Blood Pressure 131/75 127/84 O2 Sat by Pulse 94 90 93 Oximetry 05/17/21 05/17/21 05/17/21 05:00 06:00 07:20 Temperature 99.7 F H Pulse Rate 78 71 Pulse Rate [ From Monitor] Pulse Rate [ None] Respiratory 22 24 Rate Blood Pressure 119/81 131/80 O2 Sat by Pulse 92 91 Oximetry 05/17/21 08:00 Temperature Pulse Rate Pulse Rate [ From Monitor] Pulse Rate [ None] Respiratory Rate Blood Pressure O2 Sat by Pulse 89 Oximetry Constitutional: appears uncomfortable, other (Dyspneic at rest with oxygen) Eyes: non-icteric ENT: oropharynx dry, other (Crowded oropharynx) Neck: supple, no JVD Effort: mildly labored Ascultation: Bilateral: rhonchi Cardiovascular: regular rate and rhythm Gastrointestinal: normoactive bowel sounds, soft, non-tender, other (Obese) Integumentary: normal Extremities: no cyanosis, no edema, pink and warm Neurologic: normal mental status, non-focal exam Psychiatric: mood appropriate CBC and BMP: 05/16/21 05:00 05/15/21 04:05 ABG, PT/INR, D-dimer: PT/INR, D-dimer D-Dimer 452.36 ng/mlDDU (0-234) H 05/16/21 05:00 Abnormal lab findings: Abnormal Labs 05/11/21 05/11/21 05/11/21 14:33 14:33 15:00 WBC RBC Hgb 14.8 H Hct MCHC 35 H RDW 12.9 L Lymph % (Auto) 8.7 L Lymph # (Auto) 0.7 L [place] # (Auto) Seg Neutrophils % 83.7 H Seg Neutrophils # D-Dimer 331.70 H Potassium 5.2 H Chloride 95.0 L Carbon Dioxide BUN Glucose 125 H POC Glucose Ferritin Lactate Dehydrogenase C-Reactive Protein Albumin 3.3 L Coronavirus (PCR) 05/11/21 05/11/21 05/12/21 15:00 15:00 08:46 WBC RBC Hgb Hct MCHC RDW Lymph % (Auto) Lymph # (Auto) [place] # (Auto) Seg Neutrophils % Seg Neutrophils # D-Dimer 345.30 H Potassium Chloride Carbon Dioxide BUN Glucose POC Glucose Ferritin 471.5 H Lactate Dehydrogenase 579 H C-Reactive Protein 15.80 H Albumin Coronavirus (PCR) 05/12/21 05/12/21 05/12/21 08:46 08:46 09:00 WBC RBC Hgb Hct MCHC RDW Lymph % (Auto) Lymph # (Auto) [place] # (Auto) Seg Neutrophils % Seg Neutrophils # D-Dimer Potassium Chloride Carbon Dioxide BUN Glucose 149 H POC Glucose Ferritin 465.6 H Lactate Dehydrogenase 574 H C-Reactive Protein 18.40 H Albumin Coronavirus (PCR) Positive A 05/12/21 05/12/21 05/12/21 11:40 16:14 18:01 WBC RBC Hgb Hct MCHC RDW Lymph % (Auto) Lymph # (Auto) [place] # (Auto) Seg Neutrophils % Seg Neutrophils # D-Dimer Potassium Chloride Carbon Dioxide BUN Glucose POC Glucose 141 H 140 H 159 H Ferritin Lactate Dehydrogenase C-Reactive Protein Albumin Coronavirus (PCR) 05/12/21 05/13/21 05/13/21 22:01 03:51 03:51 WBC 13.6 H RBC Hgb 14.6 H Hct MCHC RDW 12.9 L Lymph % (Auto) 3.5 L Lymph # (Auto) 0.5 L [place] # (Auto) 0.9 H Seg Neutrophils % 89.4 H Seg Neutrophils # 12.1 H D-Dimer Potassium Chloride Carbon Dioxide BUN 31 H Glucose 152 H POC Glucose 152 H Ferritin Lactate Dehydrogenase C-Reactive Protein Albumin 3.2 L Coronavirus (PCR) 05/13/21 05/13/21 05/13/21 07:32 16:04 22:48 WBC RBC Hgb Hct MCHC RDW Lymph % (Auto) Lymph # (Auto) [place] # (Auto) Seg Neutrophils % Seg Neutrophils # D-Dimer Potassium Chloride Carbon Dioxide BUN Glucose POC Glucose 160 H 146 H 175 H Ferritin Lactate Dehydrogenase C-Reactive Protein Albumin Coronavirus (PCR) 05/14/21 05/14/21 05/14/21 04:49 07:18 13:24 WBC RBC Hgb Hct MCHC RDW Lymph % (Auto) Lymph # (Auto) [place] # (Auto) Seg Neutrophils % Seg Neutrophils # D-Dimer Potassium Chloride Carbon Dioxide BUN 41 H Glucose 169 H POC Glucose 160 H 146 H Ferritin Lactate Dehydrogenase C-Reactive Protein Albumin 3.4 L Coronavirus (PCR) 05/14/21 05/14/21 05/15/21 17:36 21:54 04:05 WBC RBC Hgb Hct MCHC RDW Lymph % (Auto) Lymph # (Auto) [place] # (Auto) Seg Neutrophils % Seg Neutrophils # D-Dimer Potassium Chloride Carbon Dioxide 33 H BUN 45 H Glucose 177 H POC Glucose 181 H 169 H Ferritin Lactate Dehydrogenase C-Reactive Protein Albumin 3.3 L Coronavirus (PCR) 05/15/21 05/15/21 05/15/21 07:18 12:09 17:16 WBC RBC Hgb Hct MCHC RDW Lymph % (Auto) Lymph # (Auto) [place] # (Auto) Seg Neutrophils % Seg Neutrophils # D-Dimer Potassium Chloride Carbon Dioxide BUN Glucose POC Glucose 166 H 160 H 127 H Ferritin Lactate Dehydrogenase C-Reactive Protein Albumin Coronavirus (PCR) 05/15/21 05/16/21 05/16/21 21:17 01:17 05:00 WBC RBC Hgb Hct MCHC RDW Lymph % (Auto) Lymph # (Auto) [place] # (Auto) Seg Neutrophils % Seg Neutrophils # D-Dimer 452.36 H Potassium Chloride Carbon Dioxide BUN Glucose POC Glucose 161 H 161 H Ferritin Lactate Dehydrogenase C-Reactive Protein Albumin Coronavirus (PCR) 05/16/21 05/16/21 05/16/21 05:00 08:06 11:40 WBC 12.5 H RBC 5.39 H Hgb 14.9 H Hct 47.4 H MCHC RDW 12.7 L Lymph % (Auto) 3.8 L Lymph # (Auto) 0.5 L [place] # (Auto) Seg Neutrophils % 89.4 H Seg Neutrophils # 11.2 H D-Dimer Potassium Chloride Carbon Dioxide BUN Glucose POC Glucose 140 H 148 H Ferritin Lactate Dehydrogenase C-Reactive Protein Albumin Coronavirus (PCR) 05/16/21 05/16/21 05/17/21 15:44 21:38 07:08 WBC RBC Hgb Hct MCHC RDW Lymph % (Auto) Lymph # (Auto) [place] # (Auto) Seg Neutrophils % Seg Neutrophils # D-Dimer Potassium Chloride Carbon Dioxide BUN Glucose POC Glucose 127 H 176 H 166 H Ferritin Lactate Dehydrogenase C-Reactive Protein Albumin Coronavirus (PCR)
--- NOTE | 2021-05-17 11:58 | Progress Note ---
Assessment and Plan Cultures: Blood culture no growth COVID-19 PCR: Positive A/P: 55-year-old female past medical history obesity admitted with COVID-19 pneumonia #Severe COVID-19 pneumonia: Patient presented with a week of symptoms, chest x- ray with diffuse bilateral infiltrates. Inflammatory markers elevated. No need for antibiotics due to normal procalcitonin. #Acute hypoxemic respiratory failure: Likely secondary to COVID-19 infection. On HFNC. #Obesity Recommendations: -Steroids per pulmonary for 10 days -Completed 5 days of remdesivir -s/p Actemra on 05/13/2021 -Anticoagulation per hospital protocol based on d-dimer -guarded prognosis Phan Bianchi MD, FACP [facility] ([facility] O: [phone] F: [phone] Subjective Date of service: 05/17/21 Interval history: No fever. Remains on high flow nasal cannula. Objective - Exam Narrative Exam: Physical Exam (reviewed in chart to minimize risk of transmission) Constitutional: deferred Head, Ears, Nose: deferred Eyes: deferred Neck: deferred Oral: deferred Cardiovascular: deferred Respiratory: deferred GI: deferred Musculoskeletal: deferred Skin: deferred Hem/Lymphatic: deferred Psych: deferred Neurological: deferred - Constitutional Vitals: Vital Signs Temp Pulse Resp BP Pulse Ox 99.7 F H 71 24 131/80 89 05/17/21 07:20 05/17/21 06:00 05/17/21 06:00 05/17/21 06:00 05/17/21 08:00 Temperature -Last 24 Hours Temperature 99.7 F Temperature 97.1 F Temperature 97.6 F Temperature 97.8 F Temperature 98.0 F Temperature 98.2 F - Labs CBC & Chem 7: 05/16/21 05:00 05/15/21 04:05 Labs: Abnormal lab results 05/16/21 05/16/21 05/17/21 Range/Units 15:44 21:38 07:08 POC Glucose 127 H 176 H 166 H (70-105) mg/dL 05/17/21 Range/Units 11:48 POC Glucose 138 H (70-105) mg/dL
[2021-05-18] MEDS: methylPREDNISolone Sod Succinate 40 MG/1 ML INJ IV SCH ×3 (05:49→22:52)
[2021-05-18] MEDS: ENOXAPARIN 100 MG/1 ML INJ SUB-Q SCH ×2 (09:21→22:52)
[2021-05-18] MEDS: SENNOSIDES 8.6 MG TAB PO SCH ×2 (09:21→22:53)
[2021-05-18] MEDS: ASCORBIC ACID 500 MG TAB PO SCH ×2 (09:22→22:53)
[2021-05-18] MEDS: CHOLECALCIFEROL (VIT D3) 5,000 UNIT TAB PO SCH (09:22)
[2021-05-18] MEDS: FAMOTIDINE 20 MG TAB PO SCH ×2 (09:22→22:52)
[2021-05-18] MEDS: ZINC SULFATE 220 MG CAP PO SCH (09:22)
[2021-05-18] MEDS: INSULIN LISPRO 100 UNIT/ML SUB-Q SCH ×4 (09:24→23:00)
--- NOTE | 2021-05-18 11:01 | Progress Note ---
Subjective Date of service: 05/18/21 Objective Vital Signs - 12hr 05/18/21 05/18/21 02:00 05:55 Temperature 98.6 F Pulse Rate 86 Respiratory 20 Rate Blood Pressure 134/92 O2 Sat by Pulse 94 93 Oximetry Constitutional: appears uncomfortable, other (Dyspneic at rest with oxygen) Eyes: non-icteric ENT: oropharynx dry, other (Crowded oropharynx) Neck: supple, no JVD Effort: mildly labored Ascultation: Bilateral: rhonchi Cardiovascular: regular rate and rhythm Gastrointestinal: normoactive bowel sounds, soft, non-tender, other (Obese) Integumentary: normal Extremities: no cyanosis, no edema, pink and warm Neurologic: normal mental status, non-focal exam Psychiatric: mood appropriate CBC and BMP: 05/16/21 05:00 05/15/21 04:05 ABG, PT/INR, D-dimer: PT/INR, D-dimer D-Dimer 452.36 ng/mlDDU (0-234) H 05/16/21 05:00 Abnormal lab findings: Abnormal Labs 05/11/21 05/11/21 05/11/21 14:33 14:33 15:00 WBC RBC Hgb 14.8 H Hct MCHC 35 H RDW 12.9 L Lymph % (Auto) 8.7 L Lymph # (Auto) 0.7 L [place] # (Auto) Seg Neutrophils % 83.7 H Seg Neutrophils # D-Dimer 331.70 H Potassium 5.2 H Chloride 95.0 L Carbon Dioxide BUN Glucose 125 H POC Glucose Ferritin Lactate Dehydrogenase C-Reactive Protein Albumin 3.3 L Coronavirus (PCR) 05/11/21 05/11/21 05/12/21 15:00 15:00 08:46 WBC RBC Hgb Hct MCHC RDW Lymph % (Auto) Lymph # (Auto) [place] # (Auto) Seg Neutrophils % Seg Neutrophils # D-Dimer 345.30 H Potassium Chloride Carbon Dioxide BUN Glucose POC Glucose Ferritin 471.5 H Lactate Dehydrogenase 579 H C-Reactive Protein 15.80 H Albumin Coronavirus (PCR) 05/12/21 05/12/21 05/12/21 08:46 08:46 09:00 WBC RBC Hgb Hct MCHC RDW Lymph % (Auto) Lymph # (Auto) [place] # (Auto) Seg Neutrophils % Seg Neutrophils # D-Dimer Potassium Chloride Carbon Dioxide BUN Glucose 149 H POC Glucose Ferritin 465.6 H Lactate Dehydrogenase 574 H C-Reactive Protein 18.40 H Albumin Coronavirus (PCR) Positive A 05/12/21 05/12/21 05/12/21 11:40 16:14 18:01 WBC RBC Hgb Hct MCHC RDW Lymph % (Auto) Lymph # (Auto) [place] # (Auto) Seg Neutrophils % Seg Neutrophils # D-Dimer Potassium Chloride Carbon Dioxide BUN Glucose POC Glucose 141 H 140 H 159 H Ferritin Lactate Dehydrogenase C-Reactive Protein Albumin Coronavirus (PCR) 05/12/21 05/13/21 05/13/21 22:01 03:51 03:51 WBC 13.6 H RBC Hgb 14.6 H Hct MCHC RDW 12.9 L Lymph % (Auto) 3.5 L Lymph # (Auto) 0.5 L [place] # (Auto) 0.9 H Seg Neutrophils % 89.4 H Seg Neutrophils # 12.1 H D-Dimer Potassium Chloride Carbon Dioxide BUN 31 H Glucose 152 H POC Glucose 152 H Ferritin Lactate Dehydrogenase C-Reactive Protein Albumin 3.2 L Coronavirus (PCR) 05/13/21 05/13/21 05/13/21 07:32 16:04 22:48 WBC RBC Hgb Hct MCHC RDW Lymph % (Auto) Lymph # (Auto) [place] # (Auto) Seg Neutrophils % Seg Neutrophils # D-Dimer Potassium Chloride Carbon Dioxide BUN Glucose POC Glucose 160 H 146 H 175 H Ferritin Lactate Dehydrogenase C-Reactive Protein Albumin Coronavirus (PCR) 05/14/21 05/14/21 05/14/21 04:49 07:18 13:24 WBC RBC Hgb Hct MCHC RDW Lymph % (Auto) Lymph # (Auto) [place] # (Auto) Seg Neutrophils % Seg Neutrophils # D-Dimer Potassium Chloride Carbon Dioxide BUN 41 H Glucose 169 H POC Glucose 160 H 146 H Ferritin Lactate Dehydrogenase C-Reactive Protein Albumin 3.4 L Coronavirus (PCR) 05/14/21 05/14/21 05/15/21 17:36 21:54 04:05 WBC RBC Hgb Hct MCHC RDW Lymph % (Auto) Lymph # (Auto) [place] # (Auto) Seg Neutrophils % Seg Neutrophils # D-Dimer Potassium Chloride Carbon Dioxide 33 H BUN 45 H Glucose 177 H POC Glucose 181 H 169 H Ferritin Lactate Dehydrogenase C-Reactive Protein Albumin 3.3 L Coronavirus (PCR) 05/15/21 05/15/21 05/15/21 07:18 12:09 17:16 WBC RBC Hgb Hct MCHC RDW Lymph % (Auto) Lymph # (Auto) [place] # (Auto) Seg Neutrophils % Seg Neutrophils # D-Dimer Potassium Chloride Carbon Dioxide BUN Glucose POC Glucose 166 H 160 H 127 H Ferritin Lactate Dehydrogenase C-Reactive Protein Albumin Coronavirus (PCR) 05/15/21 05/16/21 05/16/21 21:17 01:17 05:00 WBC RBC Hgb Hct MCHC RDW Lymph % (Auto) Lymph # (Auto) [place] # (Auto) Seg Neutrophils % Seg Neutrophils # D-Dimer 452.36 H Potassium Chloride Carbon Dioxide BUN Glucose POC Glucose 161 H 161 H Ferritin Lactate Dehydrogenase C-Reactive Protein Albumin Coronavirus (PCR) 05/16/21 05/16/21 05/16/21 05:00 08:06 11:40 WBC 12.5 H RBC 5.39 H Hgb 14.9 H Hct 47.4 H MCHC RDW 12.7 L Lymph % (Auto) 3.8 L Lymph # (Auto) 0.5 L [place] # (Auto) Seg Neutrophils % 89.4 H Seg Neutrophils # 11.2 H D-Dimer Potassium Chloride Carbon Dioxide BUN Glucose POC Glucose 140 H 148 H Ferritin Lactate Dehydrogenase C-Reactive Protein Albumin Coronavirus (PCR) 05/16/21 05/16/21 05/17/21 15:44 21:38 07:08 WBC RBC Hgb Hct MCHC RDW Lymph % (Auto) Lymph # (Auto) [place] # (Auto) Seg Neutrophils % Seg Neutrophils # D-Dimer Potassium Chloride Carbon Dioxide BUN Glucose POC Glucose 127 H 176 H 166 H Ferritin Lactate Dehydrogenase C-Reactive Protein Albumin Coronavirus (PCR) 05/17/21 05/17/21 05/17/21 11:48 16:29 21:12 WBC RBC Hgb Hct MCHC RDW Lymph % (Auto) Lymph # (Auto) [place] # (Auto) Seg Neutrophils % Seg Neutrophils # D-Dimer Potassium Chloride Carbon Dioxide BUN Glucose POC Glucose 138 H 149 H 178 H Ferritin Lactate Dehydrogenase C-Reactive Protein Albumin Coronavirus (PCR) 05/18/21 07:49 WBC RBC Hgb Hct MCHC RDW Lymph % (Auto) Lymph # (Auto) [place] # (Auto) Seg Neutrophils % Seg Neutrophils # D-Dimer Potassium Chloride Carbon Dioxide BUN Glucose POC Glucose 176 H Ferritin Lactate Dehydrogenase C-Reactive Protein Albumin Coronavirus (PCR)
--- NOTE | 2021-05-18 11:08 | Progress Note ---
Assessment and Plan Cultures: Blood culture no growth COVID-19 PCR: Positive A/P: 55-year-old female past medical history obesity admitted with COVID-19 pneumonia #Severe COVID-19 pneumonia: Patient presented with a week of symptoms, chest x- ray with diffuse bilateral infiltrates. Inflammatory markers elevated. No need for antibiotics due to normal procalcitonin. #Acute hypoxemic respiratory failure: Likely secondary to COVID-19 infection. On HFNC. #Obesity Recommendations: -Steroids per pulmonary for 10 days -Completed 5 days of remdesivir -s/p Actemra on 05/13/2021 -Anticoagulation per hospital protocol based on d-dimer ID will sign off. Please reconsult as needed. Phan Bianchi MD, FACP [facility] ([facility] O: [phone] F: [phone] Subjective Date of service: 05/18/21 Interval history: No fever. Remains on high flow nasal cannula. Objective - Exam Narrative Exam: Physical Exam (reviewed in chart to minimize risk of transmission) Constitutional: deferred Head, Ears, Nose: deferred Eyes: deferred Neck: deferred Oral: deferred Cardiovascular: deferred Respiratory: deferred GI: deferred Musculoskeletal: deferred Skin: deferred Hem/Lymphatic: deferred Psych: deferred Neurological: deferred - Constitutional Vitals: Vital Signs Temp Pulse Resp BP Pulse Ox 98.6 F 86 20 134/92 93 05/18/21 05:55 05/18/21 05:55 05/18/21 05:55 05/18/21 05:55 05/18/21 05:55 Temperature -Last 24 Hours Temperature 98.6 F Temperature 99.0 F Temperature 99.5 F Temperature 98.1 F Temperature 98.8 F - Labs CBC & Chem 7: 05/16/21 05:00 05/15/21 04:05 Labs: Abnormal lab results 05/17/21 05/17/21 05/17/21 Range/Units 11:48 16:29 21:12 POC Glucose 138 H 149 H 178 H (70-105) mg/dL 05/18/21 Range/Units 07:49 POC Glucose 176 H (70-105) mg/dL
--- NOTE | 2021-05-18 11:41 | Progress Note ---
Assessment and Plan 55 y/o female, obese, with acute respiratory failure secondary to COVID pneumonia 05/18/21: Continue to prone at night and during the day as tolerated if possible. Will give some lasix today. Continue steroids and remdesivir 05/17/21: Prone. Continue steroids and remdesivir. No lasix today. Guarded prognosis. Consider floor transfer. 05/16/21: Will give lasix today. needs to prone more. Remdesivir and steroids. Guarded prognosis. 05/15/21: Hold on lasix today. Continue remdesivir and high dose steroids. Prone as tolerated for as long as possible. Guarded prognosis. 1. lasix 40mg IV today 2. Remedsivir 3. Agree with High dose steroids 4. Prone 5. Guarded prognosis. Subjective Date of service: 05/18/21 Interval history: Patient slept prone last night. Still on HFNC. Objective Vital Signs - 12hr 05/18/21 05/18/21 02:00 05:55 Temperature 98.6 F Pulse Rate 86 Respiratory 20 Rate Blood Pressure 134/92 O2 Sat by Pulse 94 93 Oximetry Constitutional: appears uncomfortable, other (Dyspneic at rest with oxygen) Eyes: non-icteric ENT: oropharynx dry, other (Crowded oropharynx) Neck: supple, no JVD Effort: mildly labored Ascultation: Bilateral: rhonchi Cardiovascular: regular rate and rhythm Gastrointestinal: normoactive bowel sounds, soft, non-tender, other (Obese) Integumentary: normal Extremities: no cyanosis, no edema, pink and warm Neurologic: normal mental status, non-focal exam Psychiatric: mood appropriate CBC and BMP: 05/16/21 05:00 05/15/21 04:05 ABG, PT/INR, D-dimer: PT/INR, D-dimer D-Dimer 452.36 ng/mlDDU (0-234) H 05/16/21 05:00 Abnormal lab findings: Abnormal Labs 05/11/21 05/11/21 05/11/21 14:33 14:33 15:00 WBC RBC Hgb 14.8 H Hct MCHC 35 H RDW 12.9 L Lymph % (Auto) 8.7 L Lymph # (Auto) 0.7 L [place] # (Auto) Seg Neutrophils % 83.7 H Seg Neutrophils # D-Dimer 331.70 H Potassium 5.2 H Chloride 95.0 L Carbon Dioxide BUN Glucose 125 H POC Glucose Ferritin Lactate Dehydrogenase C-Reactive Protein Albumin 3.3 L Coronavirus (PCR) 05/11/21 05/11/21 05/12/21 15:00 15:00 08:46 WBC RBC Hgb Hct MCHC RDW Lymph % (Auto) Lymph # (Auto) [place] # (Auto) Seg Neutrophils % Seg Neutrophils # D-Dimer 345.30 H Potassium Chloride Carbon Dioxide BUN Glucose POC Glucose Ferritin 471.5 H Lactate Dehydrogenase 579 H C-Reactive Protein 15.80 H Albumin Coronavirus (PCR) 05/12/21 05/12/21 05/12/21 08:46 08:46 09:00 WBC RBC Hgb Hct MCHC RDW Lymph % (Auto) Lymph # (Auto) [place] # (Auto) Seg Neutrophils % Seg Neutrophils # D-Dimer Potassium Chloride Carbon Dioxide BUN Glucose 149 H POC Glucose Ferritin 465.6 H Lactate Dehydrogenase 574 H C-Reactive Protein 18.40 H Albumin Coronavirus (PCR) Positive A 05/12/21 05/12/21 05/12/21 11:40 16:14 18:01 WBC RBC Hgb Hct MCHC RDW Lymph % (Auto) Lymph # (Auto) [place] # (Auto) Seg Neutrophils % Seg Neutrophils # D-Dimer Potassium Chloride Carbon Dioxide BUN Glucose POC Glucose 141 H 140 H 159 H Ferritin Lactate Dehydrogenase C-Reactive Protein Albumin Coronavirus (PCR) 05/12/21 05/13/21 05/13/21 22:01 03:51 03:51 WBC 13.6 H RBC Hgb 14.6 H Hct MCHC RDW 12.9 L Lymph % (Auto) 3.5 L Lymph # (Auto) 0.5 L [place] # (Auto) 0.9 H Seg Neutrophils % 89.4 H Seg Neutrophils # 12.1 H D-Dimer Potassium Chloride Carbon Dioxide BUN 31 H Glucose 152 H POC Glucose 152 H Ferritin Lactate Dehydrogenase C-Reactive Protein Albumin 3.2 L Coronavirus (PCR) 05/13/21 05/13/21 05/13/21 07:32 16:04 22:48 WBC RBC Hgb Hct MCHC RDW Lymph % (Auto) Lymph # (Auto) [place] # (Auto) Seg Neutrophils % Seg Neutrophils # D-Dimer Potassium Chloride Carbon Dioxide BUN Glucose POC Glucose 160 H 146 H 175 H Ferritin Lactate Dehydrogenase C-Reactive Protein Albumin Coronavirus (PCR) 05/14/21 05/14/21 05/14/21 04:49 07:18 13:24 WBC RBC Hgb Hct MCHC RDW Lymph % (Auto) Lymph # (Auto) [place] # (Auto) Seg Neutrophils % Seg Neutrophils # D-Dimer Potassium Chloride Carbon Dioxide BUN 41 H Glucose 169 H POC Glucose 160 H 146 H Ferritin Lactate Dehydrogenase C-Reactive Protein Albumin 3.4 L Coronavirus (PCR) 05/14/21 05/14/21 05/15/21 17:36 21:54 04:05 WBC RBC Hgb Hct MCHC RDW Lymph % (Auto) Lymph # (Auto) [place] # (Auto) Seg Neutrophils % Seg Neutrophils # D-Dimer Potassium Chloride Carbon Dioxide 33 H BUN 45 H Glucose 177 H POC Glucose 181 H 169 H Ferritin Lactate Dehydrogenase C-Reactive Protein Albumin 3.3 L Coronavirus (PCR) 05/15/21 05/15/21 05/15/21 07:18 12:09 17:16 WBC RBC Hgb Hct MCHC RDW Lymph % (Auto) Lymph # (Auto) [place] # (Auto) Seg Neutrophils % Seg Neutrophils # D-Dimer Potassium Chloride Carbon Dioxide BUN Glucose POC Glucose 166 H 160 H 127 H Ferritin Lactate Dehydrogenase C-Reactive Protein Albumin Coronavirus (PCR) 05/15/21 05/16/21 05/16/21 21:17 01:17 05:00 WBC RBC Hgb Hct MCHC RDW Lymph % (Auto) Lymph # (Auto) [place] # (Auto) Seg Neutrophils % Seg Neutrophils # D-Dimer 452.36 H Potassium Chloride Carbon Dioxide BUN Glucose POC Glucose 161 H 161 H Ferritin Lactate Dehydrogenase C-Reactive Protein Albumin Coronavirus (PCR) 05/16/21 05/16/21 05/16/21 05:00 08:06 11:40 WBC 12.5 H RBC 5.39 H Hgb 14.9 H Hct 47.4 H MCHC RDW 12.7 L Lymph % (Auto) 3.8 L Lymph # (Auto) 0.5 L [place] # (Auto) Seg Neutrophils % 89.4 H Seg Neutrophils # 11.2 H D-Dimer Potassium Chloride Carbon Dioxide BUN Glucose POC Glucose 140 H 148 H Ferritin Lactate Dehydrogenase C-Reactive Protein Albumin Coronavirus (PCR) 05/16/21 05/16/21 05/17/21 15:44 21:38 07:08 WBC RBC Hgb Hct MCHC RDW Lymph % (Auto) Lymph # (Auto) [place] # (Auto) Seg Neutrophils % Seg Neutrophils # D-Dimer Potassium Chloride Carbon Dioxide BUN Glucose POC Glucose 127 H 176 H 166 H Ferritin Lactate Dehydrogenase C-Reactive Protein Albumin Coronavirus (PCR) 05/17/21 05/17/21 05/17/21 11:48 16:29 21:12 WBC RBC Hgb Hct MCHC RDW Lymph % (Auto) Lymph # (Auto) [place] # (Auto) Seg Neutrophils % Seg Neutrophils # D-Dimer Potassium Chloride Carbon Dioxide BUN Glucose POC Glucose 138 H 149 H 178 H Ferritin Lactate Dehydrogenase C-Reactive Protein Albumin Coronavirus (PCR) 05/18/21 07:49 WBC RBC Hgb Hct MCHC RDW Lymph % (Auto) Lymph # (Auto) [place] # (Auto) Seg Neutrophils % Seg Neutrophils # D-Dimer Potassium Chloride Carbon Dioxide BUN Glucose POC Glucose 176 H Ferritin Lactate Dehydrogenase C-Reactive Protein Albumin Coronavirus (PCR)
[2021-05-18] MEDS ORDERED: FUROSEMIDE 20 MG/2 ML INJ IV NR (12:00)
--- NOTE | 2021-05-18 14:44 | Progress Note ---
Assessment and Plan Assessment and plan: Patient continues to require high flow nasal cannula oxygen 35 L 80% FiO2 94% O2 sats patient is in mild distress complains of tiredness -- Acute hypoxemic respiratory failure Current Visit: Yes Status: Acute On high flow nasal cannula oxygen Wean as tolerated, supportive care --Coronavirus infection Current Visit: Yes Status: Acute Solu-Medrol 80 mg IV every 8 hr total 10 days per pulmonary Completed 5 days of remdesivir s/p Actemra on 05/13/2021 ordered for AM: Ddimer, CRP Check inflammatory markers Home O2 evaluation at discharge Isolation precautions --Pneumonia Current Visit: Yes Status: Acute Empiric antibiotics discontinued as procalcitonin is normal --Obesity hypoventilation syndrome Current Visit: Yes Status: Acute Balanced diet, increase physical activity discharge, outpatient pulmonary follow-up for sleep study. --moderate malnutrition; hypoalbuminemia Current Visit: Yes Status: Chronic Diet modification exercise as tolerated and weight reduction When medically stable -- DVT prophylaxis Current Visit: Yes Status: Acute SCD to bilateral lower extremities while in bed, prophylactic anticoagulation --Advance care planning Current Visit: Yes Status: Acute Disease education conducted, care plan discussed, diagnoses discussed, patient is full code, patient knowledges understanding and agreement with care plan, +20 minutes. --COVID-19 vaccination not done Current Visit: Yes Status: Acute Patient counseled, Critical care time 42 minutes The high probability of a clinically significant, sudden or life threatening deterioration of the system(s) required my full and direct attention, intervention and personal management. The aggregate critical care time was [42] minutes. This time is in addition to time spent performing reported procedures but includes the following: [x] Data Review and interpretation [x] Patient assessment and monitoring of vital signs [x] Documentation [x] Medication orders and management Brief history and Hospital course; 55 YO Female with HTN, Mild Intermittent Asthma, Obesity Hypoventilation Syndrome, Coronavirus Infection diagnosed 1 week ago presents to ED for evaluation. Patient reports "it is hard to breathe". Patient states that she had experienced shortness of breath, dry cough, fatigue, malaise, subjective fever, body aches, loss of sense of smell, loss of sense of taste, decreased exercise tolerance over the past 1 week with worsening symptoms over the past 2 days. Work-up in the emergency room is consistent with PUI/high suspicion for COVID-19, hypoxia requiring supplemental oxygen and pneumonia Admitted PCR test was positive for COVID-19, is in isolation evaluated by ID and pulmonary patient required high flow nasal cannula oxygen times intermittent BiPAP patient is critically ill admitted to [facility], continues to be on high flow nasal cannula oxygen at 40 L/100% nonrebreather/93% O2 , 05/12: Patient currently severely hypoxic on full nonrebreather and also high flow 100%. We will go ahead and consult pulmonary we will start patient on steroids. We will also consult infectious disease anticipate that the patient should be started on remdesivir. Awaiting repeat Covid 19 diagnosis although patient states that she was diagnosed a week ago. She unfortunately is not vaccinated. Condition is pretty guarded. Will also start on Diuresis and Full anticoagulation Encouraged proning Monitor inflammatory markers Patients emergency contacts: Kristen [phone] and Demetria [phone]. I have called both and left a message 05/13: Patient seen and examined, continue supportive care, continue oxygen therapy, PRONE TOLERATED. Continue anticoagulation and lasix, including Remdesivir. 05/14: Patient remains on full dose anticoagulation with, Remedesivir and Steroids. Continue to encourage proning. Continue lasix for negative fluid balance. REMAINS CRITICALLY ILL. 05/15: Severely hypoxemic on high flow nasal cannula oxygen, encouraged prone positioning as tolerated 05/16/2021; patient remains on high flow nasal cannula oxygen, will wean as tolerated Poor prognosis 05/15/2021; patient remains on high flow nasal cannula oxygen 40 L/100%/93% 05/16/2021; patient remains on high flow oxygen 40 L/100% FiO2/95% O2 sat Unable to wean, very poor prognosis 05/17/2021: On high flow nasal cannula oxygen Patient remains on high flow nasal cannula oxygen 30 L 80% FiO2 90% O2 sats patient is in mild distress complains of tiredn Stable to be discharged out of [facility] to medical floor 05/18/21 Patient with Covid-19 infection with acute resp failure. Transferred to [facility] from [facility]. Cont Oxygen by HFNC 30 l/min History Interval history: Shortness of breath Hospitalist Physical - Physical exam Narrative exam: Gen: Not in acute distress, obese, on HFNC HEENT:Normocephalic,atraumatic Neck:supple, No JVD Lungs: Bilateral rales, no wheeze Heart:S1 and S2 reg, no murmurs, rubs or gallop Abd:soft, non tender, non distended, normal bowel sounds Ext; No edema, no clubbing, no cyanosis Neuro:Awake,alert, moves all ext, - Constitutional Vitals: Temp Pulse Resp BP Pulse Ox 98.6 F 86 24 127/69 95 05/18/21 11:48 05/18/21 11:48 05/18/21 11:48 05/18/21 11:48 05/18/21 11:48 General appearance: Present: no acute distress, well-nourished, obese, other (On high flow nasal cannula oxygen) Results - Labs CBC & Chem 7: 05/16/21 05:00 05/15/21 04:05 Labs: Laboratory Last Values WBC 12.5 K/mm3 (4.5-11.0) H 05/16/21 05:00 RBC 5.39 M/mm3 (3.65-5.03) H 05/16/21 05:00 Hgb 14.9 gm/dl (10.1-14.3) H 05/16/21 05:00 Hct 47.4 % (30.3-42.9) H 05/16/21 05:00 MCV 88 fl (79-97) 05/16/21 05:00 MCH 28 pg (28-32) 05/16/21 05:00 MCHC 32 % (30-34) 05/16/21 05:00 RDW 12.7 % (13.2-15.2) L 05/16/21 05:00 Plt Count 356 K/mm3 (140-440) 05/16/21 05:00 Lymph % (Auto) 3.8 % (13.4-35.0) L 05/16/21 05:00 [place] % (Auto) 6.4 % (0.0-7.3) 05/16/21 05:00 Eos % (Auto) 0.0 % (0.0-4.3) 05/16/21 05:00 Baso % (Auto) 0.4 % (0.0-1.8) 05/16/21 05:00 Lymph # (Auto) 0.5 K/mm3 (1.2-5.4) L 05/16/21 05:00 [place] # (Auto) 0.8 K/mm3 (0.0-0.8) 05/16/21 05:00 Eos # (Auto) 0.0 K/mm3 (0.0-0.4) 05/16/21 05:00 Baso # (Auto) 0.1 K/mm3 (0.0-0.1) 05/16/21 05:00 Seg Neutrophils % 89.4 % (40.0-70.0) H 05/16/21 05:00 Seg Neutrophils # 11.2 K/mm3 (1.8-7.7) H 05/16/21 05:00 D-Dimer 452.36 ng/mlDDU (0-234) H 05/16/21 05:00 Sodium 143 mmol/L (137-145) 05/15/21 04:05 Potassium 4.8 mmol/L (3.6-5.0) 05/15/21 04:05 Chloride 100.4 mmol/L (98-107) 05/15/21 04:05 Carbon Dioxide 33 mmol/L (22-30) H 05/15/21 04:05 Anion Gap 14 mmol/L 05/15/21 04:05 BUN 45 mg/dL (7-17) H 05/15/21 04:05 Creatinine 0.8 mg/dL (0.6-1.2) 05/15/21 04:05 Estimated GFR > 60 ml/min 05/15/21 04:05 BUN/Creatinine Ratio 56 % 05/15/21 04:05 Glucose 177 mg/dL (65-100) H 05/15/21 04:05 POC Glucose 144 mg/dL (70-105) H 05/18/21 11:48 Lactic Acid 1.10 mmol/L (0.7-2.0) 05/11/21 18:12 Calcium 8.9 mg/dL (8.4-10.2) 05/15/21 04:05 Ferritin 465.6 ng/mL (10.0-200.0) H 05/12/21 08:46 Total Bilirubin 0.40 mg/dL (0.1-1.2) 05/15/21 04:05 AST 20 units/L (5-40) 05/15/21 04:05 ALT 22 units/L (7-56) 05/15/21 04:05 Alkaline Phosphatase 61 units/L (35-129) 05/15/21 04:05 Lactate Dehydrogenase 574 units/L (91-180) H 05/12/21 08:46 C-Reactive Protein 0.90 mg/dL (0.00-1.30) 05/16/21 05:00 Total Protein 6.7 g/dL (6.3-8.2) 05/15/21 04:05 Albumin 3.3 g/dL (3.9-5) L 05/15/21 04:05 Albumin/Globulin Ratio 1.0 % 05/15/21 04:05 Procalcitonin 0.06 ng/mL (<0.15) 05/12/21 08:46 Coronavirus (PCR) Positive (Negative) A 05/12/21 09:00 Spann/IV: Voiding Method Toilet Active Medications - Current Medications Current Medications: Generic Name Dose Route Start Last Admin Trade Name Freq PRN Reason Stop Dose Admin Acetaminophen 650 mg 05/12/21 10:00 Acetaminophen 325 Mg Tab PO Q4H PRN Pain MILD(1-3)/Fever >100.5/LUX Ascorbic Acid 1,000 mg 05/12/21 22:00 05/18/21 09:22 Ascorbic Acid 500 Mg Tab PO 1,000 mg BID YOHANNES Administration Cholecalciferol 5,000 unit 05/12/21 14:00 05/18/21 09:22 Cholecalciferol (Vit D3) 5,000 Unit Tab PO 5,000 unit DAILY YOHANNES Administration Dextrose 50 ml 05/12/21 09:30 Dextrose 50% In Water (25gm) 50 Ml Syringe IV Q30MIN PRN Hypoglycemia Protocol Enoxaparin Sodium 100 mg 05/12/21 10:00 05/18/21 09:21 Enoxaparin 100 Mg/1 Ml Inj 1 mg/kg (100 mg) 100 mg SUB-Q Administration Q12HR YOHANNES Protocol Famotidine 20 mg 05/12/21 10:00 05/18/21 09:22 Famotidine 20 Mg Tab PO 20 mg BID YOHANNES Administration Furosemide 20 mg 05/18/21 12:00 05/18/21 12:40 Furosemide 20 Mg/2 Ml Inj IV 05/18/21 15:00 20 mg ONCE@1200 NR Administration Insulin Human Lispro 0 unit 05/12/21 11:30 05/18/21 12:36 Insulin Lispro 100 Unit/Ml SUB-Q Not Given ACHS [facility] Protocol Methylprednisolone Sodium Succinate 80 mg 05/14/21 06:00 05/18/21 13:57 Methylprednisolone Sod Succinate 40 Mg/1 Ml Inj IV 05/23/21 22:01 80 mg Q8HR YOHANNES Administration Naloxone HCl 0.1 mg 05/12/21 09:00 Naloxone 0.4 Mg/1 Ml Inj IV Q2MIN PRN Res Rate </= 8 or 02 SAT < 92% Ondansetron HCl 4 mg 05/12/21 10:00 Ondansetron 4 Mg/2 Ml Inj IV Q4H PRN Nausea And Vomiting Oxycodone/Acetaminophen 1 tab 05/12/21 10:00 Oxycodone /Acetaminophen 5-325mg Tab PO Q6H PRN Pain, Moderate (4-6) Pseudoephedrine/Acetam/Chlorphenir 10 ml 05/15/21 14:03 Guaifenesin/Codeine 100-10mg Oral Liqd 5 Ml PO Q4H PRN Cough Senna 8.6 mg 05/12/21 10:00 05/18/21 09:21 Sennosides 8.6 Mg Tab PO 8.6 mg Q12HR YOHANNES Administration Sodium Chloride 10 ml 05/12/21 10:00 05/18/21 09:23 Sodium Chloride 0.9% 10 Ml Flush Syringe IV 10 ml BID YOHANNES Administration Sodium Chloride 10 ml 05/12/21 10:00 Sodium Chloride 0.9% 10 Ml Flush Syringe IV PRN PRN LINE FLUSH Zinc Sulfate 220 mg 05/12/21 14:00 05/18/21 09:22 Zinc Sulfate 220 Mg Cap PO 220 mg QDAY YOHANNES Administration Nutrition/Malnutrition Assess - Dietary Evaluation Nutrition/Malnutrition Findings: Nutrition Notes Start: 05/12/21 11:38 Freq: Status: Active Protocol: Document 05/16/21 15:31 GB (Rec: 05/16/21 15:49 GB [id number]) Nutrition Notes Need for Assessment generated from: steeple jack Initial or Follow up Assessment Current Diagnosis Hypertension,Respiratory Failure Other Pertinent Diagnosis COVID-19 (+), pneu Current Diet Consistent CHO Labs/Tests 05/15: BUN 45, glucose 177 Pertinent Medications Vit C, Vit D3, Remdesivir/NaCl , Zn Sulfate Height 5 ft 8 in Weight 113 kg [place] Body Weight (kg) 63.63 BMI 37.8 Weight change and time frame 05/11: 99.79kg 05/16: 113kg change of +13.21kg for +13.2% gain possibly r/t IV fluids Weight Status Obese Subjective/Other 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 pt to receive lasix today PO: unable to assess, no intakes reported, just meal tray provided to pt. No records of poor intake or decrease in appetite. Percent of energy/protein needs met: unable to assess. Burn Absent Trauma Absent GI Symptoms None Skin Integrity/Comment No skin complications reported Current % PO Other Minimum of two criteria No #1 Nutrition Diagnosis Predicted suboptimal energy intake Comments: Expect decreased PO r/t difficulty of breathing Recommend starting nutritional supplement beverage BID Etiology COVID+ As Evidenced by Signs and Symptoms on high flow nasal cannula ( non-rebreather), unable to wean Is patient on ventilator? No Is Patient Ambulatory and/or Out of Bed Yes REE-([facility]-ambulatory/OOB) [ 2318.550 [id number]] Kcal/Kg value to use for calculation 17 Approximate Energy Requirements Using 1921 kcal/Kg Calculation Used for Recommendations Kcal/kg Additional Notes Protein 0.8-1g/kg @ 113k- 113g Fluids: 1ml/kcal or per MD Nutrition Intervention Change Diet Order: continue consistent carbohydrate Nutrition Support: n/a Add Supplement/Snack (indicate name/kcal ensure enlive BID /protein ) Provides kCal: 700 Provides Protein (gm) 40 Goal #1 PO intake of meals to be 50% or greater daily for LOS Goal #2 PO intake of nutritional supplement beverage to be 50% or greater BID daily for LOS Follow-Up By: 05/22/21 Additional Comments f/u: po intake meals and supplements, HFNC status
[2021-05-19] MEDS: methylPREDNISolone Sod Succinate 40 MG/1 ML INJ IV SCH ×3 (05:47→21:58)
[2021-05-19 07:41] LABS: Hematocrit 43.6 % (30.3-42.9); Hemoglobin 14.7 gm/dl (10.1-14.3); Mean Corpuscular HGB Conc 34 % (30-34); Mean Corpuscular Volume 86 fl (79-97); Platelet Count 239 K/mm3 (140-440); Red Blood Count 5.09 M/mm3 (3.65-5.03); Red Cell Distribution Width 12.5 % (13.2-15.2)
[2021-05-19 08:01] LABS: Blood Urea Nitrogen 31 mg/dL (7-17); Calcium 8.7 mg/dL (8.4-10.2); Hemolysis Index 19
[2021-05-19 08:08] LABS: BUN/Creatinine Ratio 52
[2021-05-19] MEDS: INSULIN LISPRO 100 UNIT/ML SUB-Q SCH ×4 (08:32→21:59)
--- NOTE | 2021-05-19 09:01 | Progress Note ---
Assessment and Plan 55 y/o female, obese, with acute respiratory failure secondary to COVID pneumonia 05/19/21: Prone as much as possible. More lasix again today. Continue steroids. Finished Remdesivir. Guarded Prognosis. 05/18/21: Continue to prone at night and during the day as tolerated if possible. Will give some lasix today. Continue steroids and remdesivir 05/17/21: Prone. Continue steroids and remdesivir. No lasix today. Guarded prognosis. Consider floor transfer. 05/16/21: Will give lasix today. needs to prone more. Remdesivir and steroids. Guarded prognosis. 05/15/21: Hold on lasix today. Continue remdesivir and high dose steroids. Prone as tolerated for as long as possible. Guarded prognosis. 1. lasix 40mg IV today 2. Remedsivir 3. Agree with High dose steroids 4. Prone 5. Guarded prognosis. Subjective Date of service: 05/19/21 Interval history: No acute events. Still on HFNC. Objective Vital Signs - 12hr 05/18/21 05/18/21 05/19/21 22:00 22:04 02:00 Temperature 98.3 F Pulse Rate 81 Respiratory 18 Rate Blood Pressure 110/62 O2 Sat by Pulse 94 97 98 Oximetry 05/19/21 04:42 Temperature 98.6 F Pulse Rate 67 Respiratory 18 Rate Blood Pressure 123/70 O2 Sat by Pulse 97 Oximetry Constitutional: appears uncomfortable, other (Dyspneic at rest with oxygen) Eyes: non-icteric ENT: oropharynx dry, other (Crowded oropharynx) Neck: supple, no JVD Effort: mildly labored Ascultation: Bilateral: rhonchi Cardiovascular: regular rate and rhythm Gastrointestinal: normoactive bowel sounds, soft, non-tender, other (Obese) Integumentary: normal Extremities: no cyanosis, no edema, pink and warm Neurologic: normal mental status, non-focal exam Psychiatric: mood appropriate CBC and BMP: 05/19/21 06:50 05/19/21 06:50 ABG, PT/INR, D-dimer: PT/INR, D-dimer D-Dimer 452.36 ng/mlDDU (0-234) H 05/16/21 05:00 Abnormal lab findings: Abnormal Labs 05/11/21 05/11/21 05/11/21 14:33 14:33 15:00 WBC RBC Hgb 14.8 H Hct MCHC 35 H RDW 12.9 L Lymph % (Auto) 8.7 L Lymph # (Auto) 0.7 L [place] # (Auto) Seg Neutrophils % 83.7 H Seg Neutrophils # D-Dimer 331.70 H Sodium Potassium 5.2 H Chloride 95.0 L Carbon Dioxide BUN Glucose 125 H POC Glucose Ferritin Lactate Dehydrogenase C-Reactive Protein Albumin 3.3 L Coronavirus (PCR) 05/11/21 05/11/21 05/12/21 15:00 15:00 08:46 WBC RBC Hgb Hct MCHC RDW Lymph % (Auto) Lymph # (Auto) [place] # (Auto) Seg Neutrophils % Seg Neutrophils # D-Dimer 345.30 H Sodium Potassium Chloride Carbon Dioxide BUN Glucose POC Glucose Ferritin 471.5 H Lactate Dehydrogenase 579 H C-Reactive Protein 15.80 H Albumin Coronavirus (PCR) 05/12/21 05/12/21 05/12/21 08:46 08:46 09:00 WBC RBC Hgb Hct MCHC RDW Lymph % (Auto) Lymph # (Auto) [place] # (Auto) Seg Neutrophils % Seg Neutrophils # D-Dimer Sodium Potassium Chloride Carbon Dioxide BUN Glucose 149 H POC Glucose Ferritin 465.6 H Lactate Dehydrogenase 574 H C-Reactive Protein 18.40 H Albumin Coronavirus (PCR) Positive A 05/12/21 05/12/21 05/12/21 11:40 16:14 18:01 WBC RBC Hgb Hct MCHC RDW Lymph % (Auto) Lymph # (Auto) [place] # (Auto) Seg Neutrophils % Seg Neutrophils # D-Dimer Sodium Potassium Chloride Carbon Dioxide BUN Glucose POC Glucose 141 H 140 H 159 H Ferritin Lactate Dehydrogenase C-Reactive Protein Albumin Coronavirus (PCR) 05/12/21 05/13/21 05/13/21 22:01 03:51 03:51 WBC 13.6 H RBC Hgb 14.6 H Hct MCHC RDW 12.9 L Lymph % (Auto) 3.5 L Lymph # (Auto) 0.5 L [place] # (Auto) 0.9 H Seg Neutrophils % 89.4 H Seg Neutrophils # 12.1 H D-Dimer Sodium Potassium Chloride Carbon Dioxide BUN 31 H Glucose 152 H POC Glucose 152 H Ferritin Lactate Dehydrogenase C-Reactive Protein Albumin 3.2 L Coronavirus (PCR) 05/13/21 05/13/21 05/13/21 07:32 16:04 22:48 WBC RBC Hgb Hct MCHC RDW Lymph % (Auto) Lymph # (Auto) [place] # (Auto) Seg Neutrophils % Seg Neutrophils # D-Dimer Sodium Potassium Chloride Carbon Dioxide BUN Glucose POC Glucose 160 H 146 H 175 H Ferritin Lactate Dehydrogenase C-Reactive Protein Albumin Coronavirus (PCR) 05/14/21 05/14/21 05/14/21 04:49 07:18 13:24 WBC RBC Hgb Hct MCHC RDW Lymph % (Auto) Lymph # (Auto) [place] # (Auto) Seg Neutrophils % Seg Neutrophils # D-Dimer Sodium Potassium Chloride Carbon Dioxide BUN 41 H Glucose 169 H POC Glucose 160 H 146 H Ferritin Lactate Dehydrogenase C-Reactive Protein Albumin 3.4 L Coronavirus (PCR) 05/14/21 05/14/21 05/15/21 17:36 21:54 04:05 WBC RBC Hgb Hct MCHC RDW Lymph % (Auto) Lymph # (Auto) [place] # (Auto) Seg Neutrophils % Seg Neutrophils # D-Dimer Sodium Potassium Chloride Carbon Dioxide 33 H BUN 45 H Glucose 177 H POC Glucose 181 H 169 H Ferritin Lactate Dehydrogenase C-Reactive Protein Albumin 3.3 L Coronavirus (PCR) 05/15/21 05/15/21 05/15/21 07:18 12:09 17:16 WBC RBC Hgb Hct MCHC RDW Lymph % (Auto) Lymph # (Auto) [place] # (Auto) Seg Neutrophils % Seg Neutrophils # D-Dimer Sodium Potassium Chloride Carbon Dioxide BUN Glucose POC Glucose 166 H 160 H 127 H Ferritin Lactate Dehydrogenase C-Reactive Protein Albumin Coronavirus (PCR) 05/15/21 05/16/21 05/16/21 21:17 01:17 05:00 WBC RBC Hgb Hct MCHC RDW Lymph % (Auto) Lymph # (Auto) [place] # (Auto) Seg Neutrophils % Seg Neutrophils # D-Dimer 452.36 H Sodium Potassium Chloride Carbon Dioxide BUN Glucose POC Glucose 161 H 161 H Ferritin Lactate Dehydrogenase C-Reactive Protein Albumin Coronavirus (PCR) 05/16/21 05/16/21 05/16/21 05:00 08:06 11:40 WBC 12.5 H RBC 5.39 H Hgb 14.9 H Hct 47.4 H MCHC RDW 12.7 L Lymph % (Auto) 3.8 L Lymph # (Auto) 0.5 L [place] # (Auto) Seg Neutrophils % 89.4 H Seg Neutrophils # 11.2 H D-Dimer Sodium Potassium Chloride Carbon Dioxide BUN Glucose POC Glucose 140 H 148 H Ferritin Lactate Dehydrogenase C-Reactive Protein Albumin Coronavirus (PCR) 05/16/21 05/16/21 05/17/21 15:44 21:38 07:08 WBC RBC Hgb Hct MCHC RDW Lymph % (Auto) Lymph # (Auto) [place] # (Auto) Seg Neutrophils % Seg Neutrophils # D-Dimer Sodium Potassium Chloride Carbon Dioxide BUN Glucose POC Glucose 127 H 176 H 166 H Ferritin Lactate Dehydrogenase C-Reactive Protein Albumin Coronavirus (PCR) 05/17/21 05/17/21 05/17/21 11:48 16:29 21:12 WBC RBC Hgb Hct MCHC RDW Lymph % (Auto) Lymph # (Auto) [place] # (Auto) Seg Neutrophils % Seg Neutrophils # D-Dimer Sodium Potassium Chloride Carbon Dioxide BUN Glucose POC Glucose 138 H 149 H 178 H Ferritin Lactate Dehydrogenase C-Reactive Protein Albumin Coronavirus (PCR) 05/18/21 05/18/21 05/18/21 07:49 11:48 17:26 WBC RBC Hgb Hct MCHC RDW Lymph % (Auto) Lymph # (Auto) [place] # (Auto) Seg Neutrophils % Seg Neutrophils # D-Dimer Sodium Potassium Chloride Carbon Dioxide BUN Glucose POC Glucose 176 H 144 H 151 H Ferritin Lactate Dehydrogenase C-Reactive Protein Albumin Coronavirus (PCR) 05/18/21 05/19/21 05/19/21 22:54 06:50 06:50 WBC 15.6 H RBC 5.09 H Hgb 14.7 H Hct 43.6 H MCHC RDW 12.5 L Lymph % (Auto) Lymph # (Auto) [place] # (Auto) Seg Neutrophils % Seg Neutrophils # D-Dimer Sodium 135 L D Potassium Chloride Carbon Dioxide BUN 31 H Glucose 179 H POC Glucose 212 H Ferritin Lactate Dehydrogenase C-Reactive Protein Albumin Coronavirus (PCR) 05/19/21 07:39 WBC RBC Hgb Hct MCHC RDW Lymph % (Auto) Lymph # (Auto) [place] # (Auto) Seg Neutrophils % Seg Neutrophils # D-Dimer Sodium Potassium Chloride Carbon Dioxide BUN Glucose POC Glucose 203 H Ferritin Lactate Dehydrogenase C-Reactive Protein Albumin Coronavirus (PCR)
[2021-05-19] MEDS: FAMOTIDINE 20 MG TAB PO SCH ×2 (09:15→21:58)
[2021-05-19] MEDS: ASCORBIC ACID 500 MG TAB PO SCH ×2 (09:15→21:58)
[2021-05-19] MEDS: ENOXAPARIN 100 MG/1 ML INJ SUB-Q SCH ×2 (09:15→21:58)
[2021-05-19] MEDS: CHOLECALCIFEROL (VIT D3) 5,000 UNIT TAB PO SCH (09:15)
[2021-05-19] MEDS: ZINC SULFATE 220 MG CAP PO SCH (09:15)
[2021-05-19] MEDS: SENNOSIDES 8.6 MG TAB PO SCH ×2 (09:15→22:01)
[2021-05-19] MEDS ORDERED: FUROSEMIDE 20 MG/2 ML INJ IV ONE (10:00)
--- NOTE | 2021-05-19 10:58 | Progress Note ---
Assessment and Plan Assessment and plan: Patient continues to require high flow nasal cannula oxygen 35 L 80% FiO2 94% O2 sats patient is in mild distress complains of tiredness -- Acute hypoxemic respiratory failure Current Visit: Yes Status: Acute On high flow nasal cannula oxygen Wean as tolerated, supportive care --Coronavirus infection Current Visit: Yes Status: Acute Solu-Medrol 80 mg IV every 8 hr total 10 days per pulmonary Completed 5 days of remdesivir s/p Actemra on 05/13/2021 ordered for AM: Ddimer, CRP Check inflammatory markers Home O2 evaluation at discharge Isolation precautions --Pneumonia Current Visit: Yes Status: Acute Empiric antibiotics discontinued as procalcitonin is normal --Obesity hypoventilation syndrome Current Visit: Yes Status: Acute Balanced diet, increase physical activity discharge, outpatient pulmonary follow-up for sleep study. --moderate malnutrition; hypoalbuminemia Current Visit: Yes Status: Chronic Diet modification exercise as tolerated and weight reduction When medically stable -- DVT prophylaxis Current Visit: Yes Status: Acute SCD to bilateral lower extremities while in bed, prophylactic anticoagulation --Advance care planning Current Visit: Yes Status: Acute Disease education conducted, care plan discussed, diagnoses discussed, patient is full code, patient knowledges understanding and agreement with care plan, +20 minutes. --COVID-19 vaccination not done Current Visit: Yes Status: Acute Patient counseled, Critical care time 42 minutes The high probability of a clinically significant, sudden or life threatening deterioration of the system(s) required my full and direct attention, intervention and personal management. The aggregate critical care time was [42] minutes. This time is in addition to time spent performing reported procedures but includes the following: [x] Data Review and interpretation [x] Patient assessment and monitoring of vital signs [x] Documentation [x] Medication orders and management Brief history and Hospital course; 55 YO Female with HTN, Mild Intermittent Asthma, Obesity Hypoventilation Syndrome, Coronavirus Infection diagnosed 1 week ago presents to ED for evaluation. Patient reports "it is hard to breathe". Patient states that she had experienced shortness of breath, dry cough, fatigue, malaise, subjective fever, body aches, loss of sense of smell, loss of sense of taste, decreased exercise tolerance over the past 1 week with worsening symptoms over the past 2 days. Work-up in the emergency room is consistent with PUI/high suspicion for COVID-19, hypoxia requiring supplemental oxygen and pneumonia Admitted PCR test was positive for COVID-19, is in isolation evaluated by ID and pulmonary patient required high flow nasal cannula oxygen times intermittent BiPAP patient is critically ill admitted to [facility], continues to be on high flow nasal cannula oxygen at 40 L/100% nonrebreather/93% O2 , 05/12: Patient currently severely hypoxic on full nonrebreather and also high flow 100%. We will go ahead and consult pulmonary we will start patient on steroids. We will also consult infectious disease anticipate that the patient should be started on remdesivir. Awaiting repeat Covid 19 diagnosis although patient states that she was diagnosed a week ago. She unfortunately is not vaccinated. Condition is pretty guarded. Will also start on Diuresis and Full anticoagulation Encouraged proning Monitor inflammatory markers Patients emergency contacts: Kristen [phone] and Demetria [phone]. I have called both and left a message 05/13: Patient seen and examined, continue supportive care, continue oxygen therapy, PRONE TOLERATED. Continue anticoagulation and lasix, including Remdesivir. 05/14: Patient remains on full dose anticoagulation with, Remedesivir and Steroids. Continue to encourage proning. Continue lasix for negative fluid balance. REMAINS CRITICALLY ILL. 05/15: Severely hypoxemic on high flow nasal cannula oxygen, encouraged prone positioning as tolerated 05/16/2021; patient remains on high flow nasal cannula oxygen, will wean as tolerated Poor prognosis 05/15/2021; patient remains on high flow nasal cannula oxygen 40 L/100%/93% 05/16/2021; patient remains on high flow oxygen 40 L/100% FiO2/95% O2 sat Unable to wean, very poor prognosis 05/17/2021: On high flow nasal cannula oxygen Patient remains on high flow nasal cannula oxygen 30 L 80% FiO2 90% O2 sats patient is in mild distress complains of tiredn Stable to be discharged out of [facility] to medical floor 05/18/21 Patient with Covid-19 infection with acute resp failure. Transferred to [facility] from [facility]. Cont Oxygen by HFNC 30 l/min 05/19/21 Patient with Covid-19 infection and acute respiratory failure. HFNC weaned down to 25 l/min History Interval history: Shortness of breath Hospitalist Physical - Physical exam Narrative exam: Gen: Not in acute distress, obese, sitting up in chair, on HFNC HEENT:Normocephalic,atraumatic Neck:supple, No JVD Lungs: Bilateral rales, no wheeze Heart:S1 and S2 reg, no murmurs, rubs or gallop Abd:soft, non tender, non distended, normal bowel sounds Ext; No edema, no clubbing, no cyanosis Neuro:Awake,alert, moves all ext, - Constitutional Vitals: Temp Pulse Resp BP Pulse Ox 98.6 F 67 18 123/70 96 05/19/21 04:42 05/19/21 04:42 05/19/21 04:42 05/19/21 04:42 05/19/21 09:33 General appearance: Present: no acute distress, well-nourished, obese, other (On high flow nasal cannula oxygen) Results - Labs CBC & Chem 7: 05/19/21 06:50 05/19/21 06:50 Labs: Laboratory Last Values WBC 15.6 K/mm3 (4.5-11.0) H 05/19/21 06:50 RBC 5.09 M/mm3 (3.65-5.03) H 05/19/21 06:50 Hgb 14.7 gm/dl (10.1-14.3) H 05/19/21 06:50 Hct 43.6 % (30.3-42.9) H 05/19/21 06:50 MCV 86 fl (79-97) 05/19/21 06:50 MCH 29 pg (28-32) 05/19/21 06:50 MCHC 34 % (30-34) 05/19/21 06:50 RDW 12.5 % (13.2-15.2) L 05/19/21 06:50 Plt Count 239 K/mm3 (140-440) 05/19/21 06:50 Lymph % (Auto) 3.8 % (13.4-35.0) L 05/16/21 05:00 [place] % (Auto) 6.4 % (0.0-7.3) 05/16/21 05:00 Eos % (Auto) 0.0 % (0.0-4.3) 05/16/21 05:00 Baso % (Auto) 0.4 % (0.0-1.8) 05/16/21 05:00 Lymph # (Auto) 0.5 K/mm3 (1.2-5.4) L 05/16/21 05:00 [place] # (Auto) 0.8 K/mm3 (0.0-0.8) 05/16/21 05:00 Eos # (Auto) 0.0 K/mm3 (0.0-0.4) 05/16/21 05:00 Baso # (Auto) 0.1 K/mm3 (0.0-0.1) 05/16/21 05:00 Seg Neutrophils % 89.4 % (40.0-70.0) H 05/16/21 05:00 Seg Neutrophils # 11.2 K/mm3 (1.8-7.7) H 05/16/21 05:00 D-Dimer 452.36 ng/mlDDU (0-234) H 05/16/21 05:00 Sodium 135 mmol/L (137-145) L D 05/19/21 06:50 Potassium 5.0 mmol/L (3.6-5.0) 05/19/21 06:50 Chloride 98.1 mmol/L (98-107) 05/19/21 06:50 Carbon Dioxide 25 mmol/L (22-30) D 05/19/21 06:50 Anion Gap 17 mmol/L 05/19/21 06:50 BUN 31 mg/dL (7-17) H 05/19/21 06:50 Creatinine 0.6 mg/dL (0.6-1.2) 05/19/21 06:50 Estimated GFR > 60 ml/min 05/19/21 06:50 BUN/Creatinine Ratio 52 % 05/19/21 06:50 Glucose 179 mg/dL (65-100) H 05/19/21 06:50 POC Glucose 203 mg/dL (70-105) H 05/19/21 07:39 Lactic Acid 1.10 mmol/L (0.7-2.0) 05/11/21 18:12 Calcium 8.7 mg/dL (8.4-10.2) 05/19/21 06:50 Ferritin 465.6 ng/mL (10.0-200.0) H 05/12/21 08:46 Total Bilirubin 0.40 mg/dL (0.1-1.2) 05/15/21 04:05 AST 20 units/L (5-40) 05/15/21 04:05 ALT 22 units/L (7-56) 05/15/21 04:05 Alkaline Phosphatase 61 units/L (35-129) 05/15/21 04:05 Lactate Dehydrogenase 574 units/L (91-180) H 05/12/21 08:46 C-Reactive Protein 0.90 mg/dL (0.00-1.30) 05/16/21 05:00 Total Protein 6.7 g/dL (6.3-8.2) 05/15/21 04:05 Albumin 3.3 g/dL (3.9-5) L 05/15/21 04:05 Albumin/Globulin Ratio 1.0 % 05/15/21 04:05 Procalcitonin 0.06 ng/mL (<0.15) 05/12/21 08:46 Coronavirus (PCR) Positive (Negative) A 05/12/21 09:00 Spann/IV: Voiding Method Toilet Active Medications - Current Medications Current Medications: Generic Name Dose Route Start Last Admin Trade Name Freq PRN Reason Stop Dose Admin Acetaminophen 650 mg 05/12/21 10:00 Acetaminophen 325 Mg Tab PO Q4H PRN Pain MILD(1-3)/Fever >100.5/LUX Ascorbic Acid 1,000 mg 05/12/21 22:00 05/19/21 09:15 Ascorbic Acid 500 Mg Tab PO 1,000 mg BID YOHANNES Administration Cholecalciferol 5,000 unit 05/12/21 14:00 05/19/21 09:15 Cholecalciferol (Vit D3) 5,000 Unit Tab PO 5,000 unit DAILY YOHANNES Administration Dextrose 50 ml 05/12/21 09:30 Dextrose 50% In Water (25gm) 50 Ml Syringe IV Q30MIN PRN Hypoglycemia Protocol Enoxaparin Sodium 100 mg 05/12/21 10:00 05/19/21 09:15 Enoxaparin 100 Mg/1 Ml Inj 1 mg/kg (100 mg) 100 mg SUB-Q Administration Q12HR YOHANNES Protocol Famotidine 20 mg 05/12/21 10:00 05/19/21 09:15 Famotidine 20 Mg Tab PO 20 mg BID YOHANNES Administration Insulin Human Lispro 0 unit 05/12/21 11:30 05/19/21 08:32 Insulin Lispro 100 Unit/Ml SUB-Q 2 unit ACHS YOHANNES Administration Protocol Methylprednisolone Sodium Succinate 80 mg 05/14/21 06:00 05/19/21 05:47 Methylprednisolone Sod Succinate 40 Mg/1 Ml Inj IV 05/23/21 22:01 80 mg Q8HR YOHANNES Administration Naloxone HCl 0.1 mg 05/12/21 09:00 Naloxone 0.4 Mg/1 Ml Inj IV Q2MIN PRN Res Rate </= 8 or 02 SAT < 92% Ondansetron HCl 4 mg 05/12/21 10:00 Ondansetron 4 Mg/2 Ml Inj IV Q4H PRN Nausea And Vomiting Oxycodone/Acetaminophen 1 tab 05/12/21 10:00 Oxycodone /Acetaminophen 5-325mg Tab PO Q6H PRN Pain, Moderate (4-6) Pseudoephedrine/Acetam/Chlorphenir 10 ml 05/15/21 14:03 Guaifenesin/Codeine 100-10mg Oral Liqd 5 Ml PO Q4H PRN Cough Senna 8.6 mg 05/12/21 10:00 05/19/21 09:15 Sennosides 8.6 Mg Tab PO 8.6 mg Q12HR YOHANNES Administration Sodium Chloride 10 ml 05/12/21 10:00 05/19/21 09:15 Sodium Chloride 0.9% 10 Ml Flush Syringe IV 10 ml BID YOHANNES Administration Sodium Chloride 10 ml 05/12/21 10:00 Sodium Chloride 0.9% 10 Ml Flush Syringe IV PRN PRN LINE FLUSH Zinc Sulfate 220 mg 05/12/21 14:00 05/19/21 09:15 Zinc Sulfate 220 Mg Cap PO 220 mg QDAY YOHANNES Administration Nutrition/Malnutrition Assess - Dietary Evaluation Nutrition/Malnutrition Findings: Nutrition Notes Start: 05/12/21 11:38 Freq: Status: Active Protocol: Document 05/16/21 15:31 GB (Rec: 05/16/21 15:49 GB [id number]) Nutrition Notes Need for Assessment generated from: coding analyst Initial or Follow up Assessment Current Diagnosis Hypertension,Respiratory Failure Other Pertinent Diagnosis COVID-19 (+), pneu Current Diet Consistent CHO Labs/Tests 05/15: BUN 45, glucose 177 Pertinent Medications Vit C, Vit D3, Remdesivir/NaCl , Zn Sulfate Height 5 ft 8 in Weight 113 kg [place] Body Weight (kg) 63.63 BMI 37.8 Weight change and time frame 05/11: 99.79kg 05/16: 113kg change of +13.21kg for +13.2% gain possibly r/t IV fluids Weight Status Obese 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 pt to receive lasix today PO: unable to assess, no intakes reported, just meal tray provided to pt. No records of poor intake or decrease in appetite. Percent of energy/protein needs met: unable to assess. Burn Absent Trauma Absent GI Symptoms None Skin Integrity/Comment No skin complications reported Current % PO Other Minimum of two criteria No #1 Nutrition Diagnosis Predicted suboptimal energy intake Comments: Expect decreased PO r/t difficulty of breathing Recommend starting nutritional supplement beverage BID Etiology COVID+ As Evidenced by Signs and Symptoms on high flow nasal cannula ( non-rebreather), unable to wean Is patient on ventilator? No Is Patient Ambulatory and/or Out of Bed Yes REE-([facility]-ambulatory/OOB) [ 2318.550 [id number]] Kcal/Kg value to use for calculation 17 Approximate Energy Requirements Using 1921 kcal/Kg Calculation Used for Recommendations Kcal/kg Additional Notes Protein 0.8-1g/kg @ 113k- 113g Fluids: 1ml/kcal or per MD Nutrition Intervention Change Diet Order: continue consistent carbohydrate Nutrition Support: n/a Add Supplement/Snack (indicate name/kcal ensure enlive BID /protein ) Provides kCal: 700 Provides Protein (gm) 40 Goal #1 PO intake of meals to be 50% or greater daily for LOS Goal #2 PO intake of nutritional supplement beverage to be 50% or greater BID daily for LOS Follow-Up By: 05/22/21 Additional Comments f/u: po intake meals and supplements, HFNC status
[2021-05-20 06:12] LABS: BUN/Creatinine Ratio 45; Blood Urea Nitrogen 27 mg/dL (7-17); Calcium 8.6 mg/dL (8.4-10.2); Hemolysis Index 9
[2021-05-20] MEDS: methylPREDNISolone Sod Succinate 40 MG/1 ML INJ IV SCH ×3 (06:32→22:38)
--- NOTE | 2021-05-20 09:22 | Progress Note ---
Assessment and Plan 55 y/o female, obese, with acute respiratory failure secondary to COVID pneumonia 05/20/21: No new recs for today, please see below 05/19/21: Prone as much as possible. More lasix again today. Continue steroids. Finished Remdesivir. Guarded Prognosis. 05/18/21: Continue to prone at night and during the day as tolerated if pos sible. Will give some lasix today. Continue steroids and remdesivir 05/17/21: Prone. Continue steroids and remdesivir. No lasix today. Guarded prognosis. Consider floor transfer. 05/16/21: Will give lasix today. needs to prone more. Remdesivir and steroids. Guarded prognosis. 05/15/21: Hold on lasix today. Continue remdesivir and high dose steroids. Prone as tolerated for as long as possible. Guarded prognosis. 1. lasix 40mg IV today 2. Remedsivir 3. Agree with High dose steroids 4. Prone 5. Guarded prognosis. Subjective Date of service: 05/20/21 Interval history: No acute events. REmains on HFNC Objective Vital Signs - 12hr 05/19/21 05/19/21 05/20/21: 22:00 02:00 Temperature 98.2 F Pulse Rate 85 85 Respiratory 18 Rate Blood Pressure 125/86 O2 Sat by Pulse 94 94 95 Oximetry 05/20/21 08:32 Temperature Pulse Rate Respiratory Rate Blood Pressure O2 Sat by Pulse 96 Oximetry Constitutional: appears uncomfortable, other (Dyspneic at rest with oxygen) Eyes: non-icteric ENT: oropharynx dry, other (Crowded oropharynx) Neck: supple, no JVD Effort: mildly labored Ascultation: Bilateral: rhonchi Cardiovascular: regular rate and rhythm Gastrointestinal: normoactive bowel sounds, soft, non-tender, other (Obese) Integumentary: normal Extremities: no cyanosis, no edema, pink and warm Neurologic: normal mental status, non-focal exam Psychiatric: mood appropriate CBC and BMP: 05/19/21 06:50 05/20/21 05:00 ABG, PT/INR, D-dimer: PT/INR, D-dimer D-Dimer 452.36 ng/mlDDU (0-234) H 05/16/21 05:00 Abnormal lab findings: Abnormal Labs 05/11/21 05/11/21 05/11/21 14:33 14:33 15:00 WBC RBC Hgb 14.8 H Hct MCHC 35 H RDW 12.9 L Lymph % (Auto) 8.7 L Lymph # (Auto) 0.7 L [place] # (Auto) Seg Neutrophils % 83.7 H Seg Neutrophils # D-Dimer 331.70 H Sodium Potassium 5.2 H Chloride 95.0 L Carbon Dioxide BUN Glucose 125 H POC Glucose Ferritin Lactate Dehydrogenase C-Reactive Protein Albumin 3.3 L Coronavirus (PCR) 05/11/21 05/11/21 05/12/21 15:00 15:00 08:46 WBC RBC Hgb Hct MCHC RDW Lymph % (Auto) Lymph # (Auto) [place] # (Auto) Seg Neutrophils % Seg Neutrophils # D-Dimer 345.30 H Sodium Potassium Chloride Carbon Dioxide BUN Glucose POC Glucose Ferritin 471.5 H Lactate Dehydrogenase 579 H C-Reactive Protein 15.80 H Albumin Coronavirus (PCR) 05/12/21 05/12/21 05/12/21 08:46 08:46 09:00 WBC RBC Hgb Hct MCHC RDW Lymph % (Auto) Lymph # (Auto) [place] # (Auto) Seg Neutrophils % Seg Neutrophils # D-Dimer Sodium Potassium Chloride Carbon Dioxide BUN Glucose 149 H POC Glucose Ferritin 465.6 H Lactate Dehydrogenase 574 H C-Reactive Protein 18.40 H Albumin Coronavirus (PCR) Positive A 05/12/21 05/12/21 05/12/21 11:40 16:14 18:01 WBC RBC Hgb Hct MCHC RDW Lymph % (Auto) Lymph # (Auto) [place] # (Auto) Seg Neutrophils % Seg Neutrophils # D-Dimer Sodium Potassium Chloride Carbon Dioxide BUN Glucose POC Glucose 141 H 140 H 159 H Ferritin Lactate Dehydrogenase C-Reactive Protein Albumin Coronavirus (PCR) 05/12/21 05/13/21 05/13/21 22:01 03:51 03:51 WBC 13.6 H RBC Hgb 14.6 H Hct MCHC RDW 12.9 L Lymph % (Auto) 3.5 L Lymph # (Auto) 0.5 L [place] # (Auto) 0.9 H Seg Neutrophils % 89.4 H Seg Neutrophils # 12.1 H D-Dimer Sodium Potassium Chloride Carbon Dioxide BUN 31 H Glucose 152 H POC Glucose 152 H Ferritin Lactate Dehydrogenase C-Reactive Protein Albumin 3.2 L Coronavirus (PCR) 05/13/21 05/13/21 05/13/21 07:32 16:04 22:48 WBC RBC Hgb Hct MCHC RDW Lymph % (Auto) Lymph # (Auto) [place] # (Auto) Seg Neutrophils % Seg Neutrophils # D-Dimer Sodium Potassium Chloride Carbon Dioxide BUN Glucose POC Glucose 160 H 146 H 175 H Ferritin Lactate Dehydrogenase C-Reactive Protein Albumin Coronavirus (PCR) 05/14/21 05/14/21 05/14/21 04:49 07:18 13:24 WBC RBC Hgb Hct MCHC RDW Lymph % (Auto) Lymph # (Auto) [place] # (Auto) Seg Neutrophils % Seg Neutrophils # D-Dimer Sodium Potassium Chloride Carbon Dioxide BUN 41 H Glucose 169 H POC Glucose 160 H 146 H Ferritin Lactate Dehydrogenase C-Reactive Protein Albumin 3.4 L Coronavirus (PCR) 05/14/21 05/14/21 05/15/21 17:36 21:54 04:05 WBC RBC Hgb Hct MCHC RDW Lymph % (Auto) Lymph # (Auto) [place] # (Auto) Seg Neutrophils % Seg Neutrophils # D-Dimer Sodium Potassium Chloride Carbon Dioxide 33 H BUN 45 H Glucose 177 H POC Glucose 181 H 169 H Ferritin Lactate Dehydrogenase C-Reactive Protein Albumin 3.3 L Coronavirus (PCR) 05/15/21 05/15/21 05/15/21 07:18 12:09 17:16 WBC RBC Hgb Hct MCHC RDW Lymph % (Auto) Lymph # (Auto) [place] # (Auto) Seg Neutrophils % Seg Neutrophils # D-Dimer Sodium Potassium Chloride Carbon Dioxide BUN Glucose POC Glucose 166 H 160 H 127 H Ferritin Lactate Dehydrogenase C-Reactive Protein Albumin Coronavirus (PCR) 05/15/21 05/16/21 05/16/21 21:17 01:17 05:00 WBC RBC Hgb Hct MCHC RDW Lymph % (Auto) Lymph # (Auto) [place] # (Auto) Seg Neutrophils % Seg Neutrophils # D-Dimer 452.36 H Sodium Potassium Chloride Carbon Dioxide BUN Glucose POC Glucose 161 H 161 H Ferritin Lactate Dehydrogenase C-Reactive Protein Albumin Coronavirus (PCR) 05/16/21 05/16/21 05/16/21 05:00 08:06 11:40 WBC 12.5 H RBC 5.39 H Hgb 14.9 H Hct 47.4 H MCHC RDW 12.7 L Lymph % (Auto) 3.8 L Lymph # (Auto) 0.5 L [place] # (Auto) Seg Neutrophils % 89.4 H Seg Neutrophils # 11.2 H D-Dimer Sodium Potassium Chloride Carbon Dioxide BUN Glucose POC Glucose 140 H 148 H Ferritin Lactate Dehydrogenase C-Reactive Protein Albumin Coronavirus (PCR) 05/16/21 05/16/21 05/17/21 15:44 21:38 07:08 WBC RBC Hgb Hct MCHC RDW Lymph % (Auto) Lymph # (Auto) [place] # (Auto) Seg Neutrophils % Seg Neutrophils # D-Dimer Sodium Potassium Chloride Carbon Dioxide BUN Glucose POC Glucose 127 H 176 H 166 H Ferritin Lactate Dehydrogenase C-Reactive Protein Albumin Coronavirus (PCR) 05/17/21 05/17/21 05/17/21 11:48 16:29 21:12 WBC RBC Hgb Hct MCHC RDW Lymph % (Auto) Lymph # (Auto) [place] # (Auto) Seg Neutrophils % Seg Neutrophils # D-Dimer Sodium Potassium Chloride Carbon Dioxide BUN Glucose POC Glucose 138 H 149 H 178 H Ferritin Lactate Dehydrogenase C-Reactive Protein Albumin Coronavirus (PCR) 05/18/21 05/18/21 05/18/21 07:49 11:48 17:26 WBC RBC Hgb Hct MCHC RDW Lymph % (Auto) Lymph # (Auto) [place] # (Auto) Seg Neutrophils % Seg Neutrophils # D-Dimer Sodium Potassium Chloride Carbon Dioxide BUN Glucose POC Glucose 176 H 144 H 151 H Ferritin Lactate Dehydrogenase C-Reactive Protein Albumin Coronavirus (PCR) 05/18/21 05/19/21 05/19/21 22:54 06:50 06:50 WBC 15.6 H RBC 5.09 H Hgb 14.7 H Hct 43.6 H MCHC RDW 12.5 L Lymph % (Auto) Lymph # (Auto) [place] # (Auto) Seg Neutrophils % Seg Neutrophils # D-Dimer Sodium 135 L D Potassium Chloride Carbon Dioxide BUN 31 H Glucose 179 H POC Glucose 212 H Ferritin Lactate Dehydrogenase C-Reactive Protein Albumin Coronavirus (PCR) 05/19/21 05/19/21 05/19/21 07:39 11:35 15:59 WBC RBC Hgb Hct MCHC RDW Lymph % (Auto) Lymph # (Auto) [place] # (Auto) Seg Neutrophils % Seg Neutrophils # D-Dimer Sodium Potassium Chloride Carbon Dioxide BUN Glucose POC Glucose 203 H 177 H 135 H Ferritin Lactate Dehydrogenase C-Reactive Protein Albumin Coronavirus (PCR) 05/19/21 05/20/21 05/20/21 21:23 05:00 07:33 WBC RBC Hgb Hct MCHC RDW Lymph % (Auto) Lymph # (Auto) [place] # (Auto) Seg Neutrophils % Seg Neutrophils # D-Dimer Sodium 134 L Potassium Chloride Carbon Dioxide BUN 27 H Glucose 181 H POC Glucose 143 H 145 H Ferritin Lactate Dehydrogenase C-Reactive Protein Albumin Coronavirus (PCR)
[2021-05-20] MEDS: FAMOTIDINE 20 MG TAB PO SCH ×2 (10:10→22:38)
[2021-05-20] MEDS: CHOLECALCIFEROL (VIT D3) 5,000 UNIT TAB PO SCH (10:10)
[2021-05-20] MEDS: SENNOSIDES 8.6 MG TAB PO SCH ×2 (10:10→22:39)
[2021-05-20] MEDS: ENOXAPARIN 100 MG/1 ML INJ SUB-Q SCH ×2 (10:10→22:40)
[2021-05-20] MEDS: ASCORBIC ACID 500 MG TAB PO SCH ×2 (10:10→22:39)
[2021-05-20] MEDS: ZINC SULFATE 220 MG CAP PO SCH (10:10)
[2021-05-20] MEDS: INSULIN LISPRO 100 UNIT/ML SUB-Q SCH ×4 (10:11→22:40)
--- NOTE | 2021-05-20 10:55 | Progress Note ---
Assessment and Plan Assessment and plan: Patient continues to require high flow nasal cannula oxygen 35 L 80% FiO2 94% O2 sats patient is in mild distress complains of tiredness -- Acute hypoxemic respiratory failure Current Visit: Yes Status: Acute On high flow nasal cannula oxygen Wean as tolerated, supportive care --Coronavirus infection Current Visit: Yes Status: Acute Solu-Medrol 80 mg IV every 8 hr total 10 days per pulmonary Completed 5 days of remdesivir s/p Actemra on 05/13/2021 ordered for AM: Ddimer, CRP Check inflammatory markers Home O2 evaluation at discharge Isolation precautions --Pneumonia Current Visit: Yes Status: Acute Empiric antibiotics discontinued as procalcitonin is normal --Obesity hypoventilation syndrome Current Visit: Yes Status: Acute Balanced diet, increase physical activity discharge, outpatient pulmonary follow-up for sleep study. --moderate malnutrition; hypoalbuminemia Current Visit: Yes Status: Chronic Diet modification exercise as tolerated and weight reduction When medically stable -- DVT prophylaxis Current Visit: Yes Status: Acute SCD to bilateral lower extremities while in bed, prophylactic anticoagulation --Advance care planning Current Visit: Yes Status: Acute Disease education conducted, care plan discussed, diagnoses discussed, patient is full code, patient knowledges understanding and agreement with care plan, +20 minutes. --COVID-19 vaccination not done Current Visit: Yes Status: Acute Patient counseled, Critical care time 42 minutes The high probability of a clinically significant, sudden or life threatening deterioration of the system(s) required my full and direct attention, intervention and personal management. The aggregate critical care time was [42] minutes. This time is in addition to time spent performing reported procedures but includes the following: [x] Data Review and interpretation [x] Patient assessment and monitoring of vital signs [x] Documentation [x] Medication orders and management Brief history and Hospital course; 55 YO Female with HTN, Mild Intermittent Asthma, Obesity Hypoventilation Syndrome, Coronavirus Infection diagnosed 1 week ago presents to ED for evaluation. Patient reports "it is hard to breathe". Patient states that she had experienced shortness of breath, dry cough, fatigue, malaise, subjective fever, body aches, loss of sense of smell, loss of sense of taste, decreased exercise tolerance over the past 1 week with worsening symptoms over the past 2 days. Work-up in the emergency room is consistent with PUI/high suspicion for COVID-19, hypoxia requiring supplemental oxygen and pneumonia Admitted PCR test was positive for COVID-19, is in isolation evaluated by ID and pulmonary patient required high flow nasal cannula oxygen times intermittent BiPAP patient is critically ill admitted to [facility], continues to be on high flow nasal cannula oxygen at 40 L/100% nonrebreather/93% O2 , 05/12: Patient currently severely hypoxic on full nonrebreather and also high flow 100%. We will go ahead and consult pulmonary we will start patient on steroids. We will also consult infectious disease anticipate that the patient should be started on remdesivir. Awaiting repeat Covid 19 diagnosis although patient states that she was diagnosed a week ago. She unfortunately is not vaccinated. Condition is pretty guarded. Will also start on Diuresis and Full anticoagulation Encouraged proning Monitor inflammatory markers Patients emergency contacts: Kristen [phone] and Demetria [phone]. I have called both and left a message 05/13: Patient seen and examined, continue supportive care, continue oxygen therapy, PRONE TOLERATED. Continue anticoagulation and lasix, including Remdesivir. 05/14: Patient remains on full dose anticoagulation with, Remedesivir and Steroids. Continue to encourage proning. Continue lasix for negative fluid balance. REMAINS CRITICALLY ILL. 05/15: Severely hypoxemic on high flow nasal cannula oxygen, encouraged prone positioning as tolerated 05/16/2021; patient remains on high flow nasal cannula oxygen, will wean as tolerated Poor prognosis 05/15/2021; patient remains on high flow nasal cannula oxygen 40 L/100%/93% 05/16/2021; patient remains on high flow oxygen 40 L/100% FiO2/95% O2 sat Unable to wean, very poor prognosis 05/17/2021: On high flow nasal cannula oxygen Patient remains on high flow nasal cannula oxygen 30 L 80% FiO2 90% O2 sats patient is in mild distress complains of tiredn Stable to be discharged out of [facility] to medical floor 05/18/21 Patient with Covid-19 infection with acute resp failure. Transferred to [facility] from [facility]. Cont Oxygen by HFNC 30 l/min 05/19/21 Patient with Covid-19 infection and acute respiratory failure. HFNC weaned down to 25 l/min 05/20/21 Patient with Covid-19 pneumonia with acute resp failure. Still on HFNC at 25 l/min History Interval history: Shortness of breath improving still on high flow Hospitalist Physical - Physical exam Narrative exam: Gen: Not in acute distress, obese, sitting up in chair, on HFNC HEENT:Normocephalic,atraumatic Neck:supple, No JVD Lungs: Bilateral rales, no wheeze Heart:S1 and S2 reg, no murmurs, rubs or gallop Abd:soft, non tender, non distended, normal bowel sounds Ext; No edema, no clubbing, no cyanosis Neuro:Awake,alert, moves all ext, - Constitutional Vitals: Temp Pulse Resp BP Pulse Ox 98.2 F 85 18 125/86 96 05/19/21 21:23 05/19/21 22:00 05/19/21 21:23 05/19/21 21:05/20/21 08:32 General appearance: Present: no acute distress, well-nourished, obese, other (On high flow nasal cannula oxygen) Results - Labs CBC & Chem 7: 05/19/21 06:50 05/20/21 05:00 Labs: Laboratory Last Values WBC 15.6 K/mm3 (4.5-11.0) H 05/19/21 06:50 RBC 5.09 M/mm3 (3.65-5.03) H 05/19/21 06:50 Hgb 14.7 gm/dl (10.1-14.3) H 05/19/21 06:50 Hct 43.6 % (30.3-42.9) H 05/19/21 06:50 MCV 86 fl (79-97) 05/19/21 06:50 MCH 29 pg (28-32) 05/19/21 06:50 MCHC 34 % (30-34) 05/19/21 06:50 RDW 12.5 % (13.2-15.2) L 05/19/21 06:50 Plt Count 239 K/mm3 (140-440) 05/19/21 06:50 Lymph % (Auto) 3.8 % (13.4-35.0) L 05/16/21 05:00 [place] % (Auto) 6.4 % (0.0-7.3) 05/16/21 05:00 Eos % (Auto) 0.0 % (0.0-4.3) 05/16/21 05:00 Baso % (Auto) 0.4 % (0.0-1.8) 05/16/21 05:00 Lymph # (Auto) 0.5 K/mm3 (1.2-5.4) L 05/16/21 05:00 [place] # (Auto) 0.8 K/mm3 (0.0-0.8) 05/16/21 05:00 Eos # (Auto) 0.0 K/mm3 (0.0-0.4) 05/16/21 05:00 Baso # (Auto) 0.1 K/mm3 (0.0-0.1) 05/16/21 05:00 Seg Neutrophils % 89.4 % (40.0-70.0) H 05/16/21 05:00 Seg Neutrophils # 11.2 K/mm3 (1.8-7.7) H 05/16/21 05:00 D-Dimer 452.36 ng/mlDDU (0-234) H 05/16/21 05:00 Sodium 134 mmol/L (137-145) L 05/20/21 05:00 Potassium 4.5 mmol/L (3.6-5.0) 05/20/21 05:00 Chloride 98.3 mmol/L (98-107) 05/20/21 05:00 Carbon Dioxide 26 mmol/L (22-30) 05/20/21 05:00 Anion Gap 14 mmol/L 05/20/21 05:00 BUN 27 mg/dL (7-17) H 05/20/21 05:00 Creatinine 0.6 mg/dL (0.6-1.2) 05/20/21 05:00 Estimated GFR > 60 ml/min 05/20/21 05:00 BUN/Creatinine Ratio 45 % 05/20/21 05:00 Glucose 181 mg/dL (65-100) H 05/20/21 05:00 POC Glucose 145 mg/dL (70-105) H 05/20/21 07:33 Lactic Acid 1.10 mmol/L (0.7-2.0) 05/11/21 18:12 Calcium 8.6 mg/dL (8.4-10.2) 05/20/21 05:00 Ferritin 465.6 ng/mL (10.0-200.0) H 05/12/21 08:46 Total Bilirubin 0.40 mg/dL (0.1-1.2) 05/15/21 04:05 AST 20 units/L (5-40) 05/15/21 04:05 ALT 22 units/L (7-56) 05/15/21 04:05 Alkaline Phosphatase 61 units/L (35-129) 05/15/21 04:05 Lactate Dehydrogenase 574 units/L (91-180) H 05/12/21 08:46 C-Reactive Protein 0.90 mg/dL (0.00-1.30) 05/16/21 05:00 Total Protein 6.7 g/dL (6.3-8.2) 05/15/21 04:05 Albumin 3.3 g/dL (3.9-5) L 05/15/21 04:05 Albumin/Globulin Ratio 1.0 % 05/15/21 04:05 Procalcitonin 0.06 ng/mL (<0.15) 05/12/21 08:46 Coronavirus (PCR) Positive (Negative) A 05/12/21 09:00 Spann/IV: Voiding Method Toilet Active Medications - Current Medications Current Medications: Generic Name Dose Route Start Last Admin Trade Name Freq PRN Reason Stop Dose Admin Acetaminophen 650 mg 05/12/21 10:00 Acetaminophen 325 Mg Tab PO Q4H PRN Pain MILD(1-3)/Fever >100.5/LUX Ascorbic Acid 1,000 mg 05/12/21 22:00 05/20/21 10:10 Ascorbic Acid 500 Mg Tab PO 1,000 mg BID YOHANNES Administration Cholecalciferol 5,000 unit 05/12/21 14:00 05/20/21 10:10 Cholecalciferol (Vit D3) 5,000 Unit Tab PO 5,000 unit DAILY YOHANNES Administration Dextrose 50 ml 05/12/21 09:30 Dextrose 50% In Water (25gm) 50 Ml Syringe IV Q30MIN PRN Hypoglycemia Protocol Enoxaparin Sodium 100 mg 05/12/21 10:00 05/20/21 10:10 Enoxaparin 100 Mg/1 Ml Inj 1 mg/kg (100 mg) 100 mg SUB-Q Administration Q12HR YOHANNES Protocol Famotidine 20 mg 05/12/21 10:00 05/20/21 10:10 Famotidine 20 Mg Tab PO 20 mg BID YOHANNES Administration Insulin Human Lispro 0 unit 05/12/21 11:30 05/20/21 10:11 Insulin Lispro 100 Unit/Ml SUB-Q Not Given ACHS [facility] Protocol Methylprednisolone Sodium Succinate 80 mg 05/14/21 06:00 05/20/21 06:32 Methylprednisolone Sod Succinate 40 Mg/1 Ml Inj IV 05/23/21 22:01 80 mg Q8HR YOHANNES Administration Naloxone HCl 0.1 mg 05/12/21 09:00 Naloxone 0.4 Mg/1 Ml Inj IV Q2MIN PRN Res Rate </= 8 or 02 SAT < 92% Ondansetron HCl 4 mg 05/12/21 10:00 Ondansetron 4 Mg/2 Ml Inj IV Q4H PRN Nausea And Vomiting Oxycodone/Acetaminophen 1 tab 05/12/21 10:00 Oxycodone /Acetaminophen 5-325mg Tab PO Q6H PRN Pain, Moderate (4-6) Pseudoephedrine/Acetam/Chlorphenir 10 ml 05/15/21 14:03 Guaifenesin/Codeine 100-10mg Oral Liqd 5 Ml PO Q4H PRN Cough Senna 8.6 mg 05/12/21 10:00 05/20/21 10:10 Sennosides 8.6 Mg Tab PO 8.6 mg Q12HR YOHANNES Administration Sodium Chloride 10 ml 05/12/21 10:00 05/20/21 10:10 Sodium Chloride 0.9% 10 Ml Flush Syringe IV 10 ml BID YOHANNES Administration Sodium Chloride 10 ml 05/12/21 10:00 Sodium Chloride 0.9% 10 Ml Flush Syringe IV PRN PRN LINE FLUSH Zinc Sulfate 220 mg 05/12/21 14:00 05/20/21 10:10 Zinc Sulfate 220 Mg Cap PO 220 mg QDAY YOHANNES Administration Nutrition/Malnutrition Assess - Dietary Evaluation Nutrition/Malnutrition Findings: Nutrition Notes Start: 05/12/21 11:38 Freq: Status: Active Protocol: Document 05/16/21 15:31 GB (Rec: 05/16/21 15:49 GB [id number]) Nutrition Notes 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 Initial or Follow up Assessment Current Diagnosis Hypertension,Respiratory Failure Other Pertinent Diagnosis COVID-19 (+), pneu Current Diet Consistent CHO Labs/Tests 05/15: BUN 45, glucose 177 Pertinent Medications Vit C, Vit D3, Remdesivir/NaCl , Zn Sulfate Height 5 ft 8 in Weight 113 kg [place] Body Weight (kg) 63.63 BMI 37.8 Weight change and time frame 05/11: 99.79kg 05/16: 113kg change of +13.21kg for +13.2% gain possibly r/t IV fluids Weight Status Obese Subjective/Other Information 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 pt to receive lasix today PO: unable to assess, no intakes reported, just meal tray provided to pt. No records of poor intake or decrease in appetite. Percent of energy/protein needs met: unable to assess. Burn Absent Trauma Absent GI Symptoms None Skin Integrity/Comment No skin complications reported Current % PO Other Minimum of two criteria No #1 Nutrition Diagnosis Predicted suboptimal energy intake Comments: Expect decreased PO r/t difficulty of breathing Recommend starting nutritional supplement beverage BID Etiology COVID+ As Evidenced by Signs and Symptoms on high flow nasal cannula ( non-rebreather), unable to wean Is patient on ventilator? No Is Patient Ambulatory and/or Out of Bed Yes REE-([facility]-ambulatory/OOB) [ 2318.550 [id number]] Kcal/Kg value to use for calculation 17 Approximate Energy Requirements Using 1921 kcal/Kg Calculation Used for Recommendations Kcal/kg Additional Notes Protein 0.8-1g/kg @ 113k- 113g Fluids: 1ml/kcal or per MD Nutrition Intervention Change Diet Order: continue consistent carbohydrate Nutrition Support: n/a Add Supplement/Snack (indicate name/kcal ensure enlive BID /protein ) Provides kCal: 700 Provides Protein (gm) 40 Goal #1 PO intake of meals to be 50% or greater daily for LOS Goal #2 PO intake of nutritional supplement beverage to be 50% or greater BID daily for LOS Follow-Up By: 05/22/21 Additional Comments f/u: po intake meals and supplements, HFNC status
[2021-05-21] MEDS: methylPREDNISolone Sod Succinate 40 MG/1 ML INJ IV SCH ×3 (05:59→22:57)
[2021-05-21 08:37] LABS: Blood Urea Nitrogen 27 mg/dL (7-17); Calcium 8.5 mg/dL (8.4-10.2); Hemolysis Index 19
[2021-05-21 08:38] LABS: BUN/Creatinine Ratio 45
[2021-05-21] MEDS: INSULIN LISPRO 100 UNIT/ML SUB-Q SCH ×4 (08:46→23:09)
[2021-05-21 08:50] LABS: Hematocrit 45.2 % (30.3-42.9); Hemoglobin 15.2 gm/dl (10.1-14.3); Mean Corpuscular HGB Conc 34 % (30-34); Mean Corpuscular Volume 85 fl (79-97); Platelet Count 212 K/mm3 (140-440); Red Blood Count 5.29 M/mm3 (3.65-5.03); Red Cell Distribution Width 12.7 % (13.2-15.2)
--- NOTE | 2021-05-21 09:16 | Progress Note ---
Assessment and Plan 55 y/o female, obese, with acute respiratory failure secondary to COVID pneumonia 05/21/21: Continue to wean FiO2 as tolerated for sats >88%. Continue steroids. Will give lasix today. 05/20/21: No new recs for today, please see below 05/19/21: Prone as much as possible. More lasix again today. Continue steroids. Finished Remdesivir. Guarded Prognosis. 05/18/21: Continue to prone at night and during the day as tolerated if possible. Will give some lasix today. Continue steroids and remdesivir 05/17/21: Prone. Continue steroids and remdesivir. No lasix today. Guarded prognosis. Consider floor transfer. 05/16/21: Will give lasix today. needs to prone more. Remdesivir and steroids. Guarded prognosis. 05/15/21: Hold on lasix today. Continue remdesivir and high dose steroids. Prone as tolerated for as long as possible. Guarded prognosis. 1. lasix 40mg IV today 2. Remedsivir 3. Agree with High dose steroids 4. Prone 5. Guarded prognosis. Subjective Date of service: 05/21/21 Interval history: Down to 20 and 60. Proning. Objective Vital Signs - 12hr 05/20/21 05/20/21 05/21/21 22:00 22:41 02:00 Temperature 98.0 F Pulse Rate 80 80 Respiratory Rate Blood Pressure 122/76 O2 Sat by Pulse 94 95 94 Oximetry 05/21/21 05/21/21 05:19 08:51 Temperature 98.2 F Pulse Rate 83 Respiratory 20 Rate Blood Pressure 122/80 O2 Sat by Pulse 94 99 Oximetry Constitutional: appears uncomfortable, other (Dyspneic at rest with oxygen) Eyes: non-icteric ENT: oropharynx dry, other (Crowded oropharynx) Neck: supple, no JVD Effort: mildly labored Ascultation: Bilateral: rhonchi Cardiovascular: regular rate and rhythm Gastrointestinal: normoactive bowel sounds, soft, non-tender, other (Obese) Integumentary: normal Extremities: no cyanosis, no edema, pink and warm Neurologic: normal mental status, non-focal exam Psychiatric: mood appropriate CBC and BMP: 05/21/21 07:14 05/21/21 07:14 ABG, PT/INR, D-dimer: PT/INR, D-dimer D-Dimer 452.36 ng/mlDDU (0-234) H 05/16/21 05:00 Abnormal lab findings: Abnormal Labs 05/11/21 05/11/21 05/11/21 14:33 14:33 15:00 WBC RBC Hgb 14.8 H Hct MCHC 35 H RDW 12.9 L Lymph % (Auto) 8.7 L Lymph # (Auto) 0.7 L [place] # (Auto) Seg Neutrophils % 83.7 H Seg Neutrophils # D-Dimer 331.70 H Sodium Potassium 5.2 H Chloride 95.0 L Carbon Dioxide BUN Glucose 125 H POC Glucose Ferritin Lactate Dehydrogenase C-Reactive Protein Albumin 3.3 L Coronavirus (PCR) 05/11/21 05/11/21 05/12/21 15:00 15:00 08:46 WBC RBC Hgb Hct MCHC RDW Lymph % (Auto) Lymph # (Auto) [place] # (Auto) Seg Neutrophils % Seg Neutrophils # D-Dimer 345.30 H Sodium Potassium Chloride Carbon Dioxide BUN Glucose POC Glucose Ferritin 471.5 H Lactate Dehydrogenase 579 H C-Reactive Protein 15.80 H Albumin Coronavirus (PCR) 05/12/21 05/12/21 05/12/21 08:46 08:46 09:00 WBC RBC Hgb Hct MCHC RDW Lymph % (Auto) Lymph # (Auto) [place] # (Auto) Seg Neutrophils % Seg Neutrophils # D-Dimer Sodium Potassium Chloride Carbon Dioxide BUN Glucose 149 H POC Glucose Ferritin 465.6 H Lactate Dehydrogenase 574 H C-Reactive Protein 18.40 H Albumin Coronavirus (PCR) Positive A 05/12/21 05/12/21 05/12/21 11:40 16:14 18:01 WBC RBC Hgb Hct MCHC RDW Lymph % (Auto) Lymph # (Auto) [place] # (Auto) Seg Neutrophils % Seg Neutrophils # D-Dimer Sodium Potassium Chloride Carbon Dioxide BUN Glucose POC Glucose 141 H 140 H 159 H Ferritin Lactate Dehydrogenase C-Reactive Protein Albumin Coronavirus (PCR) 05/12/21 05/13/21 05/13/21 22:01 03:51 03:51 WBC 13.6 H RBC Hgb 14.6 H Hct MCHC RDW 12.9 L Lymph % (Auto) 3.5 L Lymph # (Auto) 0.5 L [place] # (Auto) 0.9 H Seg Neutrophils % 89.4 H Seg Neutrophils # 12.1 H D-Dimer Sodium Potassium Chloride Carbon Dioxide BUN 31 H Glucose 152 H POC Glucose 152 H Ferritin Lactate Dehydrogenase C-Reactive Protein Albumin 3.2 L Coronavirus (PCR) 05/13/21 05/13/21 05/13/21 07:32 16:04 22:48 WBC RBC Hgb Hct MCHC RDW Lymph % (Auto) Lymph # (Auto) [place] # (Auto) Seg Neutrophils % Seg Neutrophils # D-Dimer Sodium Potassium Chloride Carbon Dioxide BUN Glucose POC Glucose 160 H 146 H 175 H Ferritin Lactate Dehydrogenase C-Reactive Protein Albumin Coronavirus (PCR) 05/14/21 05/14/21 05/14/21 04:49 07:18 13:24 WBC RBC Hgb Hct MCHC RDW Lymph % (Auto) Lymph # (Auto) [place] # (Auto) Seg Neutrophils % Seg Neutrophils # D-Dimer Sodium Potassium Chloride Carbon Dioxide BUN 41 H Glucose 169 H POC Glucose 160 H 146 H Ferritin Lactate Dehydrogenase C-Reactive Protein Albumin 3.4 L Coronavirus (PCR) 05/14/21 05/14/21 05/15/21 17:36 21:54 04:05 WBC RBC Hgb Hct MCHC RDW Lymph % (Auto) Lymph # (Auto) [place] # (Auto) Seg Neutrophils % Seg Neutrophils # D-Dimer Sodium Potassium Chloride Carbon Dioxide 33 H BUN 45 H Glucose 177 H POC Glucose 181 H 169 H Ferritin Lactate Dehydrogenase C-Reactive Protein Albumin 3.3 L Coronavirus (PCR) 05/15/21 05/15/21 05/15/21 07:18 12:09 17:16 WBC RBC Hgb Hct MCHC RDW Lymph % (Auto) Lymph # (Auto) [place] # (Auto) Seg Neutrophils % Seg Neutrophils # D-Dimer Sodium Potassium Chloride Carbon Dioxide BUN Glucose POC Glucose 166 H 160 H 127 H Ferritin Lactate Dehydrogenase C-Reactive Protein Albumin Coronavirus (PCR) 05/15/21 05/16/21 05/16/21 21:17 01:17 05:00 WBC RBC Hgb Hct MCHC RDW Lymph % (Auto) Lymph # (Auto) [place] # (Auto) Seg Neutrophils % Seg Neutrophils # D-Dimer 452.36 H Sodium Potassium Chloride Carbon Dioxide BUN Glucose POC Glucose 161 H 161 H Ferritin Lactate Dehydrogenase C-Reactive Protein Albumin Coronavirus (PCR) 05/16/21 05/16/21 05/16/21 05:00 08:06 11:40 WBC 12.5 H RBC 5.39 H Hgb 14.9 H Hct 47.4 H MCHC RDW 12.7 L Lymph % (Auto) 3.8 L Lymph # (Auto) 0.5 L [place] # (Auto) Seg Neutrophils % 89.4 H Seg Neutrophils # 11.2 H D-Dimer Sodium Potassium Chloride Carbon Dioxide BUN Glucose POC Glucose 140 H 148 H Ferritin Lactate Dehydrogenase C-Reactive Protein Albumin Coronavirus (PCR) 05/16/21 05/16/21 05/17/21 15:44 21:38 07:08 WBC RBC Hgb Hct MCHC RDW Lymph % (Auto) Lymph # (Auto) [place] # (Auto) Seg Neutrophils % Seg Neutrophils # D-Dimer Sodium Potassium Chloride Carbon Dioxide BUN Glucose POC Glucose 127 H 176 H 166 H Ferritin Lactate Dehydrogenase C-Reactive Protein Albumin Coronavirus (PCR) 05/17/21 05/17/21 05/17/21 11:48 16:29 21:12 WBC RBC Hgb Hct MCHC RDW Lymph % (Auto) Lymph # (Auto) [place] # (Auto) Seg Neutrophils % Seg Neutrophils # D-Dimer Sodium Potassium Chloride Carbon Dioxide BUN Glucose POC Glucose 138 H 149 H 178 H Ferritin Lactate Dehydrogenase C-Reactive Protein Albumin Coronavirus (PCR) 05/18/21 05/18/21 05/18/21 07:49 11:48 17:26 WBC RBC Hgb Hct MCHC RDW Lymph % (Auto) Lymph # (Auto) [place] # (Auto) Seg Neutrophils % Seg Neutrophils # D-Dimer Sodium Potassium Chloride Carbon Dioxide BUN Glucose POC Glucose 176 H 144 H 151 H Ferritin Lactate Dehydrogenase C-Reactive Protein Albumin Coronavirus (PCR) 05/18/21 05/19/21 05/19/21 22:54 06:50 06:50 WBC 15.6 H RBC 5.09 H Hgb 14.7 H Hct 43.6 H MCHC RDW 12.5 L Lymph % (Auto) Lymph # (Auto) [place] # (Auto) Seg Neutrophils % Seg Neutrophils # D-Dimer Sodium 135 L D Potassium Chloride Carbon Dioxide BUN 31 H Glucose 179 H POC Glucose 212 H Ferritin Lactate Dehydrogenase C-Reactive Protein Albumin Coronavirus (PCR) 05/19/21 05/19/21 05/19/21 07:39 11:35 15:59 WBC RBC Hgb Hct MCHC RDW Lymph % (Auto) Lymph # (Auto) [place] # (Auto) Seg Neutrophils % Seg Neutrophils # D-Dimer Sodium Potassium Chloride Carbon Dioxide BUN Glucose POC Glucose 203 H 177 H 135 H Ferritin Lactate Dehydrogenase C-Reactive Protein Albumin Coronavirus (PCR) 05/19/21 05/20/21 05/20/21 21:23 05:00 07:33 WBC RBC Hgb Hct MCHC RDW Lymph % (Auto) Lymph # (Auto) [place] # (Auto) Seg Neutrophils % Seg Neutrophils # D-Dimer Sodium 134 L Potassium Chloride Carbon Dioxide BUN 27 H Glucose 181 H POC Glucose 143 H 145 H Ferritin Lactate Dehydrogenase C-Reactive Protein Albumin Coronavirus (PCR) 05/20/21 05/20/21 05/20/21 11:16 15:09 16:28 WBC RBC Hgb Hct MCHC RDW Lymph % (Auto) Lymph # (Auto) [place] # (Auto) Seg Neutrophils % Seg Neutrophils # D-Dimer Sodium Potassium Chloride Carbon Dioxide BUN Glucose POC Glucose 186 H 130 H 139 H Ferritin Lactate Dehydrogenase C-Reactive Protein Albumin Coronavirus (PCR) 05/20/21 05/21/21 05/21/21 22:40 07:14 07:14 WBC 17.9 H RBC 5.29 H Hgb 15.2 H Hct 45.2 H MCHC RDW 12.7 L Lymph % (Auto) Lymph # (Auto) [place] # (Auto) Seg Neutrophils % Seg Neutrophils # D-Dimer Sodium 136 L Potassium Chloride Carbon Dioxide BUN 27 H Glucose 185 H POC Glucose 151 H Ferritin Lactate Dehydrogenase C-Reactive Protein Albumin Coronavirus (PCR)
--- NOTE | 2021-05-21 09:24 | Progress Note ---
Assessment and Plan Assessment and plan: Patient continues to require high flow nasal cannula oxygen 35 L 80% FiO2 94% O2 sats patient is in mild distress complains of tiredness -- Acute hypoxemic respiratory failure Current Visit: Yes Status: Acute On high flow nasal cannula oxygen Wean as tolerated, supportive care --Coronavirus infection Current Visit: Yes Status: Acute Solu-Medrol 80 mg IV every 8 hr total 10 days per pulmonary Completed 5 days of remdesivir s/p Actemra on 05/13/2021 ordered for AM: Ddimer, CRP Check inflammatory markers Home O2 evaluation at discharge Isolation precautions --Pneumonia Current Visit: Yes Status: Acute Empiric antibiotics discontinued as procalcitonin is normal --Obesity hypoventilation syndrome Current Visit: Yes Status: Acute Balanced diet, increase physical activity discharge, outpatient pulmonary follow-up for sleep study. --moderate malnutrition; hypoalbuminemia Current Visit: Yes Status: Chronic Diet modification exercise as tolerated and weight reduction When medically stable -- DVT prophylaxis Current Visit: Yes Status: Acute SCD to bilateral lower extremities while in bed, prophylactic anticoagulation --Advance care planning Current Visit: Yes Status: Acute Disease education conducted, care plan discussed, diagnoses discussed, patient is full code, patient knowledges understanding and agreement with care plan, +20 minutes. --COVID-19 vaccination not done Current Visit: Yes Status: Acute Patient counseled, Critical care time 42 minutes The high probability of a clinically significant, sudden or life threatening deterioration of the system(s) required my full and direct attention, intervention and personal management. The aggregate critical care time was [42] minutes. This time is in addition to time spent performing reported procedures but includes the following: [x] Data Review and interpretation [x] Patient assessment and monitoring of vital signs [x] Documentation [x] Medication orders and management Brief history and Hospital course; 55 YO Female with HTN, Mild Intermittent Asthma, Obesity Hypoventilation Syndrome, Coronavirus Infection diagnosed 1 week ago presents to ED for evaluation. Patient reports "it is hard to breathe". Patient states that she had experienced shortness of breath, dry cough, fatigue, malaise, subjective fever, body aches, loss of sense of smell, loss of sense of taste, decreased exercise tolerance over the past 1 week with worsening symptoms over the past 2 days. Work-up in the emergency room is consistent with PUI/high suspicion for COVID-19, hypoxia requiring supplemental oxygen and pneumonia Admitted PCR test was positive for COVID-19, is in isolation evaluated by ID and pulmonary patient required high flow nasal cannula oxygen times intermittent BiPAP patient is critically ill admitted to [facility], continues to be on high flow nasal cannula oxygen at 40 L/100% nonrebreather/93% O2 , 05/12: Patient currently severely hypoxic on full nonrebreather and also high flow 100%. We will go ahead and consult pulmonary we will start patient on steroids. We will also consult infectious disease anticipate that the patient should be started on remdesivir. Awaiting repeat Covid 19 diagnosis although patient states that she was diagnosed a week ago. She unfortunately is not vaccinated. Condition is pretty guarded. Will also start on Diuresis and Full anticoagulation Encouraged proning Monitor inflammatory markers Patients emergency contacts: Kristen [phone] and Demetria [phone]. I have called both and left a message 05/13: Patient seen and examined, continue supportive care, continue oxygen therapy, PRONE TOLERATED. Continue anticoagulation and lasix, including Remdesivir. 05/14: Patient remains on full dose anticoagulation with, Remedesivir and Steroids. Continue to encourage proning. Continue lasix for negative fluid balance. REMAINS CRITICALLY ILL. 05/15: Severely hypoxemic on high flow nasal cannula oxygen, encouraged prone positioning as tolerated 05/16/2021; patient remains on high flow nasal cannula oxygen, will wean as tolerated Poor prognosis 05/15/2021; patient remains on high flow nasal cannula oxygen 40 L/100%/93% 05/16/2021; patient remains on high flow oxygen 40 L/100% FiO2/95% O2 sat Unable to wean, very poor prognosis 05/17/2021: On high flow nasal cannula oxygen Patient remains on high flow nasal cannula oxygen 30 L 80% FiO2 90% O2 sats patient is in mild distress complains of tiredn Stable to be discharged out of [facility] to medical floor 05/18/21 Patient with Covid-19 infection with acute resp failure. Transferred to [facility] from [facility]. Cont Oxygen by HFNC 30 l/min 05/19/21 Patient with Covid-19 infection and acute respiratory failure. HFNC weaned down to 25 l/min 05/20/21 Patient with Covid-19 pneumonia with acute resp failure. Still on HFNC at 25 l/min 05/21/21 Patient with Covid-19 pneumonia with acute resp failure. On HFNC, now at 20 l/min. Repeat Chest X ray today. History Interval history: Shortness of breath improving c/o pain lower chest posteriorly still on high flow Hospitalist Physical - Constitutional Vitals: Temp Pulse Resp BP Pulse Ox 98.2 F 83 20 122/80 99 05/21/21 05:19 05/21/21 05:19 05/21/21 05:19 05/21/21 05:19 05/21/21 08:51 General appearance: Present: no acute distress, obese, other (On high flow nasal cannula oxygen) Results - Labs CBC & Chem 7: 05/21/21 07:14 05/21/21 07:14 Labs: Laboratory Last Values WBC 17.9 K/mm3 (4.5-11.0) H 05/21/21 07:14 RBC 5.29 M/mm3 (3.65-5.03) H 05/21/21 07:14 Hgb 15.2 gm/dl (10.1-14.3) H 05/21/21 07:14 Hct 45.2 % (30.3-42.9) H 05/21/21 07:14 MCV 85 fl (79-97) 05/21/21 07:14 MCH 29 pg (28-32) 05/21/21 07:14 MCHC 34 % (30-34) 05/21/21 07:14 RDW 12.7 % (13.2-15.2) L 05/21/21 07:14 Plt Count 212 K/mm3 (140-440) 05/21/21 07:14 Lymph % (Auto) 3.8 % (13.4-35.0) L 05/16/21 05:00 [place] % (Auto) 6.4 % (0.0-7.3) 05/16/21 05:00 Eos % (Auto) 0.0 % (0.0-4.3) 05/16/21 05:00 Baso % (Auto) 0.4 % (0.0-1.8) 05/16/21 05:00 Lymph # (Auto) 0.5 K/mm3 (1.2-5.4) L 05/16/21 05:00 [place] # (Auto) 0.8 K/mm3 (0.0-0.8) 05/16/21 05:00 Eos # (Auto) 0.0 K/mm3 (0.0-0.4) 05/16/21 05:00 Baso # (Auto) 0.1 K/mm3 (0.0-0.1) 05/16/21 05:00 Seg Neutrophils % 89.4 % (40.0-70.0) H 05/16/21 05:00 Seg Neutrophils # 11.2 K/mm3 (1.8-7.7) H 05/16/21 05:00 D-Dimer 452.36 ng/mlDDU (0-234) H 05/16/21 05:00 Sodium 136 mmol/L (137-145) L 05/21/21 07:14 Potassium 4.4 mmol/L (3.6-5.0) 05/21/21 07:14 Chloride 99.1 mmol/L (98-107) 05/21/21 07:14 Carbon Dioxide 24 mmol/L (22-30) 05/21/21 07:14 Anion Gap 17 mmol/L 05/21/21 07:14 BUN 27 mg/dL (7-17) H 05/21/21 07:14 Creatinine 0.6 mg/dL (0.6-1.2) 05/21/21 07:14 Estimated GFR > 60 ml/min 05/21/21 07:14 BUN/Creatinine Ratio 45 % 05/21/21 07:14 Glucose 185 mg/dL (65-100) H 05/21/21 07:14 POC Glucose 151 mg/dL (70-105) H 05/20/21 22:40 Lactic Acid 1.10 mmol/L (0.7-2.0) 05/11/21 18:12 Calcium 8.5 mg/dL (8.4-10.2) 05/21/21 07:14 Ferritin 465.6 ng/mL (10.0-200.0) H 05/12/21 08:46 Total Bilirubin 0.40 mg/dL (0.1-1.2) 05/15/21 04:05 AST 20 units/L (5-40) 05/15/21 04:05 ALT 22 units/L (7-56) 05/15/21 04:05 Alkaline Phosphatase 61 units/L (35-129) 05/15/21 04:05 Lactate Dehydrogenase 574 units/L (91-180) H 05/12/21 08:46 C-Reactive Protein 0.90 mg/dL (0.00-1.30) 05/16/21 05:00 Total Protein 6.7 g/dL (6.3-8.2) 05/15/21 04:05 Albumin 3.3 g/dL (3.9-5) L 05/15/21 04:05 Albumin/Globulin Ratio 1.0 % 05/15/21 04:05 Procalcitonin 0.06 ng/mL (<0.15) 05/12/21 08:46 Coronavirus (PCR) Positive (Negative) A 05/12/21 09:00 Spann/IV: Voiding Method Toilet Active Medications - Current Medications Current Medications: Generic Name Dose Route Start Last Admin Trade Name Freq PRN Reason Stop Dose Admin Acetaminophen 650 mg 05/12/21 10:00 Acetaminophen 325 Mg Tab PO Q4H PRN Pain MILD(1-3)/Fever >100.5/LUX Ascorbic Acid 1,000 mg 05/12/21 22:00 05/20/21 22:39 Ascorbic Acid 500 Mg Tab PO 1,000 mg BID YOHANNES Administration Cholecalciferol 5,000 unit 05/12/21 14:00 05/20/21 10:10 Cholecalciferol (Vit D3) 5,000 Unit Tab PO 5,000 unit DAILY YOHANNES Administration Dextrose 50 ml 05/12/21 09:30 Dextrose 50% In Water (25gm) 50 Ml Syringe IV Q30MIN PRN Hypoglycemia Protocol Enoxaparin Sodium 100 mg 05/12/21 10:00 05/20/21 22:40 Enoxaparin 100 Mg/1 Ml Inj 1 mg/kg (100 mg) 100 mg SUB-Q Administration Q12HR YOHANNES Protocol Famotidine 20 mg 05/12/21 10:00 05/20/21 22:38 Famotidine 20 Mg Tab PO 20 mg BID YOHANNES Administration Insulin Human Lispro 0 unit 05/12/21 11:30 05/21/21 08:46 Insulin Lispro 100 Unit/Ml SUB-Q 1 unit ACHS YOHANNES Administration Protocol Methylprednisolone Sodium Succinate 80 mg 05/14/21 06:00 05/21/21 05:59 Methylprednisolone Sod Succinate 40 Mg/1 Ml Inj IV 05/23/21 22:01 80 mg Q8HR YOHANNES Administration Naloxone HCl 0.1 mg 05/12/21 09:00 Naloxone 0.4 Mg/1 Ml Inj IV Q2MIN PRN Res Rate </= 8 or 02 SAT < 92% Ondansetron HCl 4 mg 05/12/21 10:00 Ondansetron 4 Mg/2 Ml Inj IV Q4H PRN Nausea And Vomiting Oxycodone/Acetaminophen 1 tab 05/12/21 10:00 Oxycodone /Acetaminophen 5-325mg Tab PO Q6H PRN Pain, Moderate (4-6) Pseudoephedrine/Acetam/Chlorphenir 10 ml 05/15/21 14:03 Guaifenesin/Codeine 100-10mg Oral Liqd 5 Ml PO Q4H PRN Cough Senna 8.6 mg 05/12/21 10:00 05/20/21 22:39 Sennosides 8.6 Mg Tab PO 8.6 mg Q12HR YOHANNES Administration Sodium Chloride 10 ml 05/12/21 10:00 05/20/21 22:39 Sodium Chloride 0.9% 10 Ml Flush Syringe IV 10 ml BID YOAHNNES Administration Sodium Chloride 10 ml 05/12/21 10:00 Sodium Chloride 0.9% 10 Ml Flush Syringe IV PRN PRN LINE FLUSH Zinc Sulfate 220 mg 05/12/21 14:00 05/20/21 10:10 Zinc Sulfate 220 Mg Cap PO 220 mg QDAY YOHANNES Administration Nutrition/Malnutrition Assess - Dietary Evaluation Nutrition/Malnutrition Findings: Nutrition Notes Start: 05/12/21 11:38 Freq: Status: Active Protocol: Document 05/16/21 15:31 GB (Rec: 05/16/21 15:49 GB [id number]) Nutrition Notes Need for Assessment generated from: screen printing paster Initial or Follow up Assessment Current Diagnosis Hypertension,Respiratory Failure Other Pertinent Diagnosis COVID-19 (+), pneu Current Diet Consistent CHO Labs/Tests 05/15: BUN 45, glucose 177 Pertinent Medications Vit C, Vit D3, Remdesivir/NaCl , Zn Sulfate Height 5 ft 8 in Weight 113 kg [place] Body Weight (kg) 63.63 BMI 37.8 Weight change and time frame 05/11: 99.79kg 05/16: 113kg change of +13.21kg for +13.2% gain possibly r/t IV fluids Weight Status Obese Subjective/Other Information 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 pt to receive lasix today PO: unable to assess, no intakes reported, just meal tray provided to pt. No records of poor intake or decrease in appetite. Percent of energy/protein needs met: unable to assess. Burn Absent Trauma Absent GI Symptoms None Skin Integrity/Comment No skin complications reported Current % PO Other Minimum of two criteria No #1 Nutrition Diagnosis Predicted suboptimal energy intake Comments: Expect decreased PO r/t difficulty of breathing Recommend starting nutritional supplement beverage BID Etiology COVID+ As Evidenced by Signs and Symptoms on high flow nasal cannula ( non-rebreather), unable to wean Is patient on ventilator? No Is Patient Ambulatory and/or Out of Bed Yes [facility]OOB) [ 2318.550 [id number]] Kcal/Kg value to use for calculation 17 Approximate Energy Requirements Using 1921 kcal/Kg Calculation Used for Recommendations Kcal/kg Additional Notes Protein 0.8-1g/kg @ 113k- 113g Fluids: 1ml/kcal or per MD Nutrition Intervention Change Diet Order: continue consistent carbohydrate Nutrition Support: n/a Add Supplement/Snack (indicate name/kcal ensure enlive BID /protein ) Provides kCal: 700 Provides Protein (gm) 40 Goal #1 PO intake of meals to be 50% or greater daily for LOS Goal #2 PO intake of nutritional supplement beverage to be 50% or greater BID daily for LOS Follow-Up By: 05/22/21 Additional Comments f/u: po intake meals and supplements, HFNC status
[2021-05-21] MEDS: ENOXAPARIN 100 MG/1 ML INJ SUB-Q SCH ×2 (10:33→22:54)
[2021-05-21] MEDS: CHOLECALCIFEROL (VIT D3) 5,000 UNIT TAB PO SCH (10:33)
[2021-05-21] MEDS: FAMOTIDINE 20 MG TAB PO SCH ×2 (10:33→22:55)
[2021-05-21] MEDS: ASCORBIC ACID 500 MG TAB PO SCH ×2 (10:33→22:58)
[2021-05-21] MEDS: SENNOSIDES 8.6 MG TAB PO SCH ×2 (10:33→22:56)
[2021-05-21] MEDS: ZINC SULFATE 220 MG CAP PO SCH (10:33)
--- NOTE | 2021-05-21 15:50 | XRay Report ---
CHEST 1 VIEW INDICATION / CLINICAL INFORMATION: lower chest pain STUDY TIME: 1423 COMPARISON: 05/11/2021 FINDINGS: SUPPORT DEVICES: None HEART / MEDIASTINUM: No significant abnormality. LUNGS / PLEURA: Congestive changes and pulmonary edema/infiltrates have significantly improved. No pn eumothorax. ADDITIONAL FINDINGS: No significant additional findings. Signer Name: Reji Fay MD Signed: 05/21/2021 3:46 PM Workstation Name: [id number]
[2021-05-21] MEDS: oxyCODONE /ACETAMINOPHEN 5-325MG TAB PO PRN (23:05)
[2021-05-22] MEDS: methylPREDNISolone Sod Succinate 40 MG/1 ML INJ IV SCH ×3 (05:02→21:49)
[2021-05-22] MEDS: guaiFENesin/CODEINE 100-10MG ORAL LIQD 5 ML PO PRN (05:03)
[2021-05-22 07:42] LABS: Hematocrit 41.8 % (30.3-42.9); Hemoglobin 13.9 gm/dl (10.1-14.3); Mean Corpuscular HGB Conc 33 % (30-34); Mean Corpuscular Volume 87 fl (79-97); Platelet Count 150 K/mm3 (140-440); Red Blood Count 4.84 M/mm3 (3.65-5.03); Red Cell Distribution Width 12.7 % (13.2-15.2)
[2021-05-22] MEDS: INSULIN LISPRO 100 UNIT/ML SUB-Q SCH ×4 (07:47→22:05)
[2021-05-22 08:07] LABS: Blood Urea Nitrogen 32 mg/dL (7-17); Calcium 8.6 mg/dL (8.4-10.2); Hemolysis Index 6
[2021-05-22 08:10] LABS: BUN/Creatinine Ratio 46
[2021-05-22] MEDS: oxyCODONE /ACETAMINOPHEN 5-325MG TAB PO PRN ×2 (11:42→21:46)
[2021-05-22] MEDS: ZINC SULFATE 220 MG CAP PO SCH (11:46)
[2021-05-22] MEDS: SENNOSIDES 8.6 MG TAB PO SCH ×2 (11:46→21:47)
[2021-05-22] MEDS: CHOLECALCIFEROL (VIT D3) 5,000 UNIT TAB PO SCH (11:46)
--- NOTE | 2021-05-22 11:46 | Progress Note ---
Assessment and Plan 55 y/o female, obese, with acute respiratory failure secondary to COVID pneumonia 05/22/21: Prone. Wean FiO2 for sats >88%. Continue steroids. 05/21/21: Continue to wean FiO2 as tolerated for sats >88%. Continue steroids. Will give lasix today. 05/20/21: No new recs for today, please see below 05/19/21: Prone as much as possible. More lasix again today. Continue steroids. Finished Remdesivir. Guarded Prognosis. 05/18/21: Continue to prone at night and during the day as tolerated if possible. Will give some lasix today. Continue steroids and remdesivir 05/17/21: Prone. Continue steroids and remdesivir. No lasix today. Guarded prognosis. Consider floor transfer. 05/16/21: Will give lasix today. needs to prone more. Remdesivir and steroids. Guarded prognosis. 05/15/21: Hold on lasix today. Continue remdesivir and high dose steroids. Prone as tolerated for as long as possible. Guarded prognosis. 1. lasix 40mg IV today 2. Remedsivir 3. Agree with High dose steroids 4. Prone 5. Guarded prognosis. Subjective Date of service: 05/22/21 Interval history: No acute events. Objective Vital Signs - 12hr 05/22/21 05/22/21 05/22/21 05:22 06:00 08:00 Temperature 97.7 F Pulse Rate 84 Respiratory 22 Rate Blood Pressure 145/90 O2 Sat by Pulse 98 97 96 Oximetry Constitutional: appears uncomfortable, other (Dyspneic at rest with oxygen) Eyes: non-icteric ENT: oropharynx dry, other (Crowded oropharynx) Neck: supple, no JVD Effort: mildly labored Ascultation: Bilateral: rhonchi Cardiovascular: regular rate and rhythm Gastrointestinal: normoactive bowel sounds, soft, non-tender, other (Obese) Integumentary: normal Extremities: no cyanosis, no edema, pink and warm Neurologic: normal mental status, non-focal exam Psychiatric: mood appropriate CBC and BMP: 05/22/21 06:45 05/22/21 06:45 ABG, PT/INR, D-dimer: PT/INR, D-dimer D-Dimer 452.36 ng/mlDDU (0-234) H 05/16/21 05:00 Abnormal lab findings: Abnormal Labs 05/11/21 05/11/21 05/11/21 14:33 14:33 15:00 WBC RBC Hgb 14.8 H Hct MCHC 35 H RDW 12.9 L Lymph % (Auto) 8.7 L Lymph # (Auto) 0.7 L [place] # (Auto) Seg Neutrophils % 83.7 H Seg Neutrophils # D-Dimer 331.70 H Sodium Potassium 5.2 H Chloride 95.0 L Carbon Dioxide BUN Glucose 125 H POC Glucose Ferritin Lactate Dehydrogenase C-Reactive Protein Albumin 3.3 L Coronavirus (PCR) 05/11/21 05/11/21 05/12/21 15:00 15:00 08:46 WBC RBC Hgb Hct MCHC RDW Lymph % (Auto) Lymph # (Auto) [place] # (Auto) Seg Neutrophils % Seg Neutrophils # D-Dimer 345.30 H Sodium Potassium Chloride Carbon Dioxide BUN Glucose POC Glucose Ferritin 471.5 H Lactate Dehydrogenase 579 H C-Reactive Protein 15.80 H Albumin Coronavirus (PCR) 05/12/21 05/12/21 05/12/21 08:46 08:46 09:00 WBC RBC Hgb Hct MCHC RDW Lymph % (Auto) Lymph # (Auto) [place] # (Auto) Seg Neutrophils % Seg Neutrophils # D-Dimer Sodium Potassium Chloride Carbon Dioxide BUN Glucose 149 H POC Glucose Ferritin 465.6 H Lactate Dehydrogenase 574 H C-Reactive Protein 18.40 H Albumin Coronavirus (PCR) Positive A 05/12/21 05/12/21 05/12/21 11:40 16:14 18:01 WBC RBC Hgb Hct MCHC RDW Lymph % (Auto) Lymph # (Auto) [place] # (Auto) Seg Neutrophils % Seg Neutrophils # D-Dimer Sodium Potassium Chloride Carbon Dioxide BUN Glucose POC Glucose 141 H 140 H 159 H Ferritin Lactate Dehydrogenase C-Reactive Protein Albumin Coronavirus (PCR) 05/12/21 05/13/21 05/13/21 22:01 03:51 03:51 WBC 13.6 H RBC Hgb 14.6 H Hct MCHC RDW 12.9 L Lymph % (Auto) 3.5 L Lymph # (Auto) 0.5 L [place] # (Auto) 0.9 H Seg Neutrophils % 89.4 H Seg Neutrophils # 12.1 H D-Dimer Sodium Potassium Chloride Carbon Dioxide BUN 31 H Glucose 152 H POC Glucose 152 H Ferritin Lactate Dehydrogenase C-Reactive Protein Albumin 3.2 L Coronavirus (PCR) 05/13/21 05/13/21 05/13/21 07:32 16:04 22:48 WBC RBC Hgb Hct MCHC RDW Lymph % (Auto) Lymph # (Auto) [place] # (Auto) Seg Neutrophils % Seg Neutrophils # D-Dimer Sodium Potassium Chloride Carbon Dioxide BUN Glucose POC Glucose 160 H 146 H 175 H Ferritin Lactate Dehydrogenase C-Reactive Protein Albumin Coronavirus (PCR) 05/14/21 05/14/21 05/14/21 04:49 07:18 13:24 WBC RBC Hgb Hct MCHC RDW Lymph % (Auto) Lymph # (Auto) [place] # (Auto) Seg Neutrophils % Seg Neutrophils # D-Dimer Sodium Potassium Chloride Carbon Dioxide BUN 41 H Glucose 169 H POC Glucose 160 H 146 H Ferritin Lactate Dehydrogenase C-Reactive Protein Albumin 3.4 L Coronavirus (PCR) 05/14/21 05/14/21 05/15/21 17:36 21:54 04:05 WBC RBC Hgb Hct MCHC RDW Lymph % (Auto) Lymph # (Auto) [place] # (Auto) Seg Neutrophils % Seg Neutrophils # D-Dimer Sodium Potassium Chloride Carbon Dioxide 33 H BUN 45 H Glucose 177 H POC Glucose 181 H 169 H Ferritin Lactate Dehydrogenase C-Reactive Protein Albumin 3.3 L Coronavirus (PCR) 05/15/21 05/15/21 05/15/21 07:18 12:09 17:16 WBC RBC Hgb Hct MCHC RDW Lymph % (Auto) Lymph # (Auto) [place] # (Auto) Seg Neutrophils % Seg Neutrophils # D-Dimer Sodium Potassium Chloride Carbon Dioxide BUN Glucose POC Glucose 166 H 160 H 127 H Ferritin Lactate Dehydrogenase C-Reactive Protein Albumin Coronavirus (PCR) 05/15/21 05/16/21 05/16/21 21:17 01:17 05:00 WBC RBC Hgb Hct MCHC RDW Lymph % (Auto) Lymph # (Auto) [place] # (Auto) Seg Neutrophils % Seg Neutrophils # D-Dimer 452.36 H Sodium Potassium Chloride Carbon Dioxide BUN Glucose POC Glucose 161 H 161 H Ferritin Lactate Dehydrogenase C-Reactive Protein Albumin Coronavirus (PCR) 05/16/21 05/16/21 05/16/21 05:00 08:06 11:40 WBC 12.5 H RBC 5.39 H Hgb 14.9 H Hct 47.4 H MCHC RDW 12.7 L Lymph % (Auto) 3.8 L Lymph # (Auto) 0.5 L [place] # (Auto) Seg Neutrophils % 89.4 H Seg Neutrophils # 11.2 H D-Dimer Sodium Potassium Chloride Carbon Dioxide BUN Glucose POC Glucose 140 H 148 H Ferritin Lactate Dehydrogenase C-Reactive Protein Albumin Coronavirus (PCR) 05/16/21 05/16/21 05/17/21 15:44 21:38 07:08 WBC RBC Hgb Hct MCHC RDW Lymph % (Auto) Lymph # (Auto) [place] # (Auto) Seg Neutrophils % Seg Neutrophils # D-Dimer Sodium Potassium Chloride Carbon Dioxide BUN Glucose POC Glucose 127 H 176 H 166 H Ferritin Lactate Dehydrogenase C-Reactive Protein Albumin Coronavirus (PCR) 05/17/21 05/17/21 05/17/21 11:48 16:29 21:12 WBC RBC Hgb Hct MCHC RDW Lymph % (Auto) Lymph # (Auto) [place] # (Auto) Seg Neutrophils % Seg Neutrophils # D-Dimer Sodium Potassium Chloride Carbon Dioxide BUN Glucose POC Glucose 138 H 149 H 178 H Ferritin Lactate Dehydrogenase C-Reactive Protein Albumin Coronavirus (PCR) 05/18/21 05/18/21 05/18/21 07:49 11:48 17:26 WBC RBC Hgb Hct MCHC RDW Lymph % (Auto) Lymph # (Auto) [place] # (Auto) Seg Neutrophils % Seg Neutrophils # D-Dimer Sodium Potassium Chloride Carbon Dioxide BUN Glucose POC Glucose 176 H 144 H 151 H Ferritin Lactate Dehydrogenase C-Reactive Protein Albumin Coronavirus (PCR) 05/18/21 05/19/21 05/19/21 22:54 06:50 06:50 WBC 15.6 H RBC 5.09 H Hgb 14.7 H Hct 43.6 H MCHC RDW 12.5 L Lymph % (Auto) Lymph # (Auto) [place] # (Auto) Seg Neutrophils % Seg Neutrophils # D-Dimer Sodium 135 L D Potassium Chloride Carbon Dioxide BUN 31 H Glucose 179 H POC Glucose 212 H Ferritin Lactate Dehydrogenase C-Reactive Protein Albumin Coronavirus (PCR) 05/19/21 05/19/21 05/19/21 07:39 11:35 15:59 WBC RBC Hgb Hct MCHC RDW Lymph % (Auto) Lymph # (Auto) [place] # (Auto) Seg Neutrophils % Seg Neutrophils # D-Dimer Sodium Potassium Chloride Carbon Dioxide BUN Glucose POC Glucose 203 H 177 H 135 H Ferritin Lactate Dehydrogenase C-Reactive Protein Albumin Coronavirus (PCR) 05/19/21 05/20/21 05/20/21 21:23 05:00 07:33 WBC RBC Hgb Hct MCHC RDW Lymph % (Auto) Lymph # (Auto) [place] # (Auto) Seg Neutrophils % Seg Neutrophils # D-Dimer Sodium 134 L Potassium Chloride Carbon Dioxide BUN 27 H Glucose 181 H POC Glucose 143 H 145 H Ferritin Lactate Dehydrogenase C-Reactive Protein Albumin Coronavirus (PCR) 05/20/21 05/20/21 05/20/21 11:16 15:09 16:28 WBC RBC Hgb Hct MCHC RDW Lymph % (Auto) Lymph # (Auto) [place] # (Auto) Seg Neutrophils % Seg Neutrophils # D-Dimer Sodium Potassium Chloride Carbon Dioxide BUN Glucose POC Glucose 186 H 130 H 139 H Ferritin Lactate Dehydrogenase C-Reactive Protein Albumin Coronavirus (PCR) 05/20/21 05/21/21 05/21/21 22:40 07:14 07:14 WBC 17.9 H RBC 5.29 H Hgb 15.2 H Hct 45.2 H MCHC RDW 12.7 L Lymph % (Auto) Lymph # (Auto) [place] # (Auto) Seg Neutrophils % Seg Neutrophils # D-Dimer Sodium 136 L Potassium Chloride Carbon Dioxide BUN 27 H Glucose 185 H POC Glucose 151 H Ferritin Lactate Dehydrogenase C-Reactive Protein Albumin Coronavirus (PCR) 05/21/21 05/21/21 05/21/21 11:38 16:05 22:21 WBC RBC Hgb Hct MCHC RDW Lymph % (Auto) Lymph # (Auto) [place] # (Auto) Seg Neutrophils % Seg Neutrophils # D-Dimer Sodium Potassium Chloride Carbon Dioxide BUN Glucose POC Glucose 142 H 179 H 133 H Ferritin Lactate Dehydrogenase C-Reactive Protein Albumin Coronavirus (PCR) 05/22/21 05/22/21 05/22/21 05:59 06:45 06:45 WBC 15.5 H RBC Hgb Hct MCHC RDW 12.7 L Lymph % (Auto) Lymph # (Auto) [place] # (Auto) Seg Neutrophils % Seg Neutrophils # D-Dimer Sodium Potassium Chloride Carbon Dioxide BUN 32 H Glucose 167 H POC Glucose 159 H Ferritin Lactate Dehydrogenase C-Reactive Protein Albumin Coronavirus (PCR) 05/22/21 05/22/21 07:56 11:34 WBC RBC Hgb Hct MCHC RDW Lymph % (Auto) Lymph # (Auto) [place] # (Auto) Seg Neutrophils % Seg Neutrophils # D-Dimer Sodium Potassium Chloride Carbon Dioxide BUN Glucose POC Glucose 155 H 174 H Ferritin Lactate Dehydrogenase C-Reactive Protein Albumin Coronavirus (PCR)
[2021-05-22] MEDS: FAMOTIDINE 20 MG TAB PO SCH ×2 (11:47→21:48)
[2021-05-22] MEDS: ASCORBIC ACID 500 MG TAB PO SCH ×2 (11:47→21:48)
[2021-05-22] MEDS: ENOXAPARIN 100 MG/1 ML INJ SUB-Q SCH ×2 (11:47→22:04)
--- NOTE | 2021-05-22 15:05 | Progress Note ---
Assessment and Plan -- Acute hypoxemic respiratory failure On high flow nasal cannula oxygen Wean as tolerated, supportive care --Coronavirus infection Solu-Medrol 80 mg IV every 8 hr total 10 days per pulmonary Completed 5 days of remdesivir s/p Actemra on 05/13/2021 ordered for AM: Ddimer, CRP Check inflammatory markers Home O2 evaluation at discharge Isolation precautions --Pneumonia Empiric antibiotics discontinued as procalcitonin is normal --Obesity hypoventilation syndrome Balanced diet, increase physical activity discharge, outpatient pulmonary follow-up for sleep study. --Moderate malnutrition; hypoalbuminemia Diet modification exercise as tolerated and weight reduction When medically stable --COVID-19 vaccination not done , Patient counseled, -- DVT prophylaxis SCD to bilateral lower extremities while in bed, prophylactic anticoagulation --Full code status -- Critical care time 42 minutes The high probability of a clinically significant, sudden or life threatening deterioration of the system(s) required my full and direct attention, intervention and personal management. The aggregate critical care time was [42] minutes. This time is in addition to time spent performing reported procedures but includes the following: [x] Data Review and interpretation [x] Patient assessment and monitoring of vital signs [x] Documentation [x] Medication orders and management Brief history 55 YO Female with HTN, Mild Intermittent Asthma, Obesity Hypoventilation Syndrome, Coronavirus Infection diagnosed 1 week ago presents to ED for evaluation. Patient reports "it is hard to breathe". Patient states that she had experienced shortness of breath, dry cough, fatigue, malaise, subjective fever, body aches, loss of sense of smell, loss of sense of taste, decreased exercise tolerance over the past 1 week with worsening symptoms over the past 2 days. Work-up in the emergency room is consistent with PUI/high suspicion for COVID-19, hypoxia requiring supplemental oxygen and pneumonia Admitted PCR test was positive for COVID-19, is in isolation evaluated by ID and pulmonary patient required high flow nasal cannula oxygen times intermittent BiPAP patient is critically ill admitted to [facility], continues to be on high flow nasal cannula oxygen. Daily Hospital course; 05/12: Patient currently severely hypoxic on full nonrebreather and also high flow 100%. We will go ahead and consult pulmonary we will start patient on steroids. We will also consult infectious disease anticipate that the patient should be started on remdesivir. Awaiting repeat Covid 19 diagnosis although patient states that she was diagnosed a week ago. She unfortunately is not vaccinated. Condition is pretty guarded. Will also start on Diuresis and Full anticoagulation. Encouraged proning, Monitor inflammatory markers Patients emergency contacts: Kristen [phone] and Demetria [phone]. I have called both and left a message 05/13: Patient seen and examined, continue supportive care, continue oxygen therapy, PRONE TOLERATED. Continue anticoagulation and lasix, including Remdesivir. 05/14: Patient remains on full dose anticoagulation with, Remedesivir and Steroids. Continue to encourage proning. Continue lasix for negative fluid balance. REMAINS CRITICALLY ILL. 05/15: Severely hypoxemic on high flow nasal cannula oxygen, encouraged prone p ositioning as tolerated 05/16/2021; patient remains on high flow nasal cannula oxygen, will wean as tolerated Poor prognosis 05/15/2021; patient remains on high flow nasal cannula oxygen 40 L/100%/93% 05/16/2021; patient remains on high flow oxygen 40 L/100% FiO2/95% O2 sat Unable to wean, very poor prognosis 05/17/2021: On high flow nasal cannula oxygen Patient remains on high flow nasal cannula oxygen 30 L 80% FiO2 90% O2 sats patient is in mild distress complains of tiredn Stable to be discharged out of [facility] to medical floor 05/18/21 Patient with Covid-19 infection with acute resp failure. Transferred to [facility] from [facility]. Cont Oxygen by HFNC 30 l/min 05/19/21 Patient with Covid-19 infection and acute respiratory failure. HFNC weaned down to 25 l/min 05/20/21 Patient with Covid-19 pneumonia with acute resp failure. Still on HFNC at 25 l/min 05/21/21 Patient with Covid-19 pneumonia with acute resp failure. On HFNC, now at 20 l/min. Repeat Chest X ray today. 05/22/21: Patient remains on 20 L high flow nasal cannula O2. Patient does complains of severe left-sided back pain -ordered IV Dilaudid and lumbar x-ray Subjective Date of service: 05/22/21 Interval history: Patient seen and examined. Medical records and medication list reviewed. No acute event overnight noted by the RN. Patient complains of remaining resting difficulty breathing patient complains of lacking appetite. she also c/o back pain Discussed plan of care at bedside with patient. Objective - Exam Narrative Exam: Limited physical exam due to COVID-19 pandemic to minimize transmission of the disease and to preserve PPE. Vital reviewed and stable. GENERAL: well-developed morbidly obese white female lying on bed appeared to be in no discomfort. HEENT: Normocephalic. Atraumatic. NECK: Supple. CHEST/LUNGS: breathing nonlabored. HEART/CARDIOVASCULAR: Heart rate stable on telemetry ABDOMEN: Visibly not distended but obese SKIN: There is no rash NEURO: No focal motor deficit. Follows command. MUSCULOSKELETAL: No joint effusion EXTRIMITY: No swelling, no cyanosis or clubbing. PSYCH: Cooperative. - Constitutional Vitals: Vital Signs - 12hr 05/22/21 05/22/21 05/22/21 05:22 06:00 08:00 Temperature 97.7 F Pulse Rate 84 Respiratory 22 Rate Blood Pressure 145/90 O2 Sat by Pulse 98 97 96 Oximetry - Labs CBC & Chem 7: 05/22/21 06:45 05/22/21 06:45 Labs: Abnormal lab results 05/21/21 05/21/21 05/22/21 Range/Units 16:05 22:21 05:59 WBC (4.5-11.0) K/mm3 RDW (13.2-15.2) % BUN (7-17) mg/dL Glucose (65-100) mg/dL POC Glucose 179 H 133 H 159 H (70-105) mg/dL 05/22/21 05/22/21 05/22/21 Range/Units 06:45 06:45 07:56 WBC 15.5 H (4.5-11.0) K/mm3 RDW 12.7 L (13.2-15.2) % BUN 32 H (7-17) mg/dL Glucose 167 H (65-100) mg/dL POC Glucose 155 H (70-105) mg/dL 05/22/21 Range/Units 11:34 WBC (4.5-11.0) K/mm3 RDW (13.2-15.2) % BUN (7-17) mg/dL Glucose (65-100) mg/dL POC Glucose 174 H (70-105) mg/dL
[2021-05-22] MEDS: HYDROmorphone 1 MG/1 ML INJ IV PRN ×3 (15:14→23:13)
--- NOTE | 2021-05-22 17:32 | XRay Report ---
LUMBAR SPINE 3 VIEWS INDICATION: lumber pain COMPARISON: None. FINDINGS: There is no fracture, subluxation, or other acute radiographic abnormality of the lumbar spine. There is mild disc space narrowing throughout the lumbar spine. There are small anterior osteophytes. Signer Name: Blair Sow MD Signed: 05/22/2021 5:28 PM Workstation Name: [id number]
[2021-05-23] MEDS: HYDROmorphone 1 MG/1 ML INJ IV PRN ×5 (03:00→21:56)
[2021-05-23] MEDS: oxyCODONE /ACETAMINOPHEN 5-325MG TAB PO PRN ×2 (04:53→10:15)
[2021-05-23] MEDS: methylPREDNISolone Sod Succinate 40 MG/1 ML INJ IV SCH ×3 (05:49→21:54)
[2021-05-23] MEDS: INSULIN LISPRO 100 UNIT/ML SUB-Q SCH ×4 (08:46→22:01)
[2021-05-23] MEDS: ENOXAPARIN 100 MG/1 ML INJ SUB-Q SCH ×2 (10:15→21:53)
[2021-05-23] MEDS: ACETAMINOPHEN 325 MG TAB PO PRN (10:15)
[2021-05-23] MEDS: ASCORBIC ACID 500 MG TAB PO SCH ×2 (10:15→21:53)
[2021-05-23] MEDS: CHOLECALCIFEROL (VIT D3) 5,000 UNIT TAB PO SCH (10:15)
[2021-05-23] MEDS: ZINC SULFATE 220 MG CAP PO SCH (10:15)
[2021-05-23] MEDS: SENNOSIDES 8.6 MG TAB PO SCH ×2 (10:15→21:53)
[2021-05-23] MEDS: FAMOTIDINE 20 MG TAB PO SCH ×2 (10:16→21:55)
--- NOTE | 2021-05-23 10:37 | Progress Note ---
Assessment and Plan 55 y/o female, obese, with acute respiratory failure secondary to COVID pneumonia 05/23/21: No new recs for today. Finished remdesivir. Continue steroids. 05/22/21: Prone. Wean FiO2 for sats >88%. Continue steroids. 05/21/21: Continue to wean FiO2 as tolerated for sats >88%. Continue steroids. Will give lasix today. 05/20/21: No new recs for today, please see below 05/19/21: Prone as much as possible. More lasix again today. Continue steroids. Finished Remdesivir. Guarded Prognosis. 05/18/21: Continue to prone at night and during the day as tolerated if possible. Will give some lasix today. Continue steroids and remdesivir 05/17/21: Prone. Continue steroids and remdesivir. No lasix today. Guarded prognosis. Consider floor transfer. 05/16/21: Will give lasix today. needs to prone more. Remdesivir and steroids. Guarded prognosis. 05/15/21: Hold on lasix today. Continue remdesivir and high dose steroids. Prone as tolerated for as long as possible. Guarded prognosis. 1. lasix 40mg IV today 2. Remedsivir 3. Agree with High dose steroids 4. Prone 5. Guarded prognosis. Subjective Date of service: 05/23/21 Interval history: No acute events. Still weaning HFNC Objective Vital Signs - 12hr 05/23/21 05/23/21 05/23/21 04:57 06:12 08:00 Temperature 97.5 F L Pulse Rate 79 Respiratory 20 Rate Blood Pressure 137/93 O2 Sat by Pulse 93 96 95 Oximetry Constitutional: appears uncomfortable, other (Dyspneic at rest with oxygen) Eyes: non-icteric ENT: oropharynx dry, other (Crowded oropharynx) Neck: supple, no JVD Effort: mildly labored Ascultation: Bilateral: rhonchi Cardiovascular: regular rate and rhythm Gastrointestinal: normoactive bowel sounds, soft, non-tender, other (Obese) Integumentary: normal Extremities: no cyanosis, no edema, pink and warm Neurologic: normal mental status, non-focal exam Psychiatric: mood appropriate CBC and BMP: 05/22/21 06:45 05/22/21 06:45 ABG, PT/INR, D-dimer: PT/INR, D-dimer D-Dimer 452.36 ng/mlDDU (0-234) H 05/16/21 05:00 Abnormal lab findings: Abnormal Labs 05/11/21 05/11/21 05/11/21 14:33 14:33 15:00 WBC RBC Hgb 14.8 H Hct MCHC 35 H RDW 12.9 L Lymph % (Auto) 8.7 L Lymph # (Auto) 0.7 L [place] # (Auto) Seg Neutrophils % 83.7 H Seg Neutrophils # D-Dimer 331.70 H Sodium Potassium 5.2 H Chloride 95.0 L Carbon Dioxide BUN Glucose 125 H POC Glucose Ferritin Lactate Dehydrogenase C-Reactive Protein Albumin 3.3 L Coronavirus (PCR) 05/11/21 05/11/21 05/12/21 15:00 15:00 08:46 WBC RBC Hgb Hct MCHC RDW Lymph % (Auto) Lymph # (Auto) [place] # (Auto) Seg Neutrophils % Seg Neutrophils # D-Dimer 345.30 H Sodium Potassium Chloride Carbon Dioxide BUN Glucose POC Glucose Ferritin 471.5 H Lactate Dehydrogenase 579 H C-Reactive Protein 15.80 H Albumin Coronavirus (PCR) 05/12/21 05/12/21 05/12/21 08:46 08:46 09:00 WBC RBC Hgb Hct MCHC RDW Lymph % (Auto) Lymph # (Auto) [place] # (Auto) Seg Neutrophils % Seg Neutrophils # D-Dimer Sodium Potassium Chloride Carbon Dioxide BUN Glucose 149 H POC Glucose Ferritin 465.6 H Lactate Dehydrogenase 574 H C-Reactive Protein 18.40 H Albumin Coronavirus (PCR) Positive A 05/12/21 05/12/21 05/12/21 11:40 16:14 18:01 WBC RBC Hgb Hct MCHC RDW Lymph % (Auto) Lymph # (Auto) [place] # (Auto) Seg Neutrophils % Seg Neutrophils # D-Dimer Sodium Potassium Chloride Carbon Dioxide BUN Glucose POC Glucose 141 H 140 H 159 H Ferritin Lactate Dehydrogenase C-Reactive Protein Albumin Coronavirus (PCR) 05/12/21 05/13/21 05/13/21 22:01 03:51 03:51 WBC 13.6 H RBC Hgb 14.6 H Hct MCHC RDW 12.9 L Lymph % (Auto) 3.5 L Lymph # (Auto) 0.5 L [place] # (Auto) 0.9 H Seg Neutrophils % 89.4 H Seg Neutrophils # 12.1 H D-Dimer Sodium Potassium Chloride Carbon Dioxide BUN 31 H Glucose 152 H POC Glucose 152 H Ferritin Lactate Dehydrogenase C-Reactive Protein Albumin 3.2 L Coronavirus (PCR) 05/13/21 05/13/21 05/13/21 07:32 16:04 22:48 WBC RBC Hgb Hct MCHC RDW Lymph % (Auto) Lymph # (Auto) [place] # (Auto) Seg Neutrophils % Seg Neutrophils # D-Dimer Sodium Potassium Chloride Carbon Dioxide BUN Glucose POC Glucose 160 H 146 H 175 H Ferritin Lactate Dehydrogenase C-Reactive Protein Albumin Coronavirus (PCR) 05/14/21 05/14/21 05/14/21 04:49 07:18 13:24 WBC RBC Hgb Hct MCHC RDW Lymph % (Auto) Lymph # (Auto) [place] # (Auto) Seg Neutrophils % Seg Neutrophils # D-Dimer Sodium Potassium Chloride Carbon Dioxide BUN 41 H Glucose 169 H POC Glucose 160 H 146 H Ferritin Lactate Dehydrogenase C-Reactive Protein Albumin 3.4 L Coronavirus (PCR) 05/14/21 05/14/21 05/15/21 17:36 21:54 04:05 WBC RBC Hgb Hct MCHC RDW Lymph % (Auto) Lymph # (Auto) [place] # (Auto) Seg Neutrophils % Seg Neutrophils # D-Dimer Sodium Potassium Chloride Carbon Dioxide 33 H BUN 45 H Glucose 177 H POC Glucose 181 H 169 H Ferritin Lactate Dehydrogenase C-Reactive Protein Albumin 3.3 L Coronavirus (PCR) 05/15/21 05/15/21 05/15/21 07:18 12:09 17:16 WBC RBC Hgb Hct MCHC RDW Lymph % (Auto) Lymph # (Auto) [place] # (Auto) Seg Neutrophils % Seg Neutrophils # D-Dimer Sodium Potassium Chloride Carbon Dioxide BUN Glucose POC Glucose 166 H 160 H 127 H Ferritin Lactate Dehydrogenase C-Reactive Protein Albumin Coronavirus (PCR) 05/15/21 05/16/21 05/16/21 21:17 01:17 05:00 WBC RBC Hgb Hct MCHC RDW Lymph % (Auto) Lymph # (Auto) [place] # (Auto) Seg Neutrophils % Seg Neutrophils # D-Dimer 452.36 H Sodium Potassium Chloride Carbon Dioxide BUN Glucose POC Glucose 161 H 161 H Ferritin Lactate Dehydrogenase C-Reactive Protein Albumin Coronavirus (PCR) 05/16/21 05/16/21 05/16/21 05:00 08:06 11:40 WBC 12.5 H RBC 5.39 H Hgb 14.9 H Hct 47.4 H MCHC RDW 12.7 L Lymph % (Auto) 3.8 L Lymph # (Auto) 0.5 L [place] # (Auto) Seg Neutrophils % 89.4 H Seg Neutrophils # 11.2 H D-Dimer Sodium Potassium Chloride Carbon Dioxide BUN Glucose POC Glucose 140 H 148 H Ferritin Lactate Dehydrogenase C-Reactive Protein Albumin Coronavirus (PCR) 05/16/21 05/16/21 05/17/21 15:44 21:38 07:08 WBC RBC Hgb Hct MCHC RDW Lymph % (Auto) Lymph # (Auto) [place] # (Auto) Seg Neutrophils % Seg Neutrophils # D-Dimer Sodium Potassium Chloride Carbon Dioxide BUN Glucose POC Glucose 127 H 176 H 166 H Ferritin Lactate Dehydrogenase C-Reactive Protein Albumin Coronavirus (PCR) 05/17/21 05/17/21 05/17/21 11:48 16:29 21:12 WBC RBC Hgb Hct MCHC RDW Lymph % (Auto) Lymph # (Auto) [place] # (Auto) Seg Neutrophils % Seg Neutrophils # D-Dimer Sodium Potassium Chloride Carbon Dioxide BUN Glucose POC Glucose 138 H 149 H 178 H Ferritin Lactate Dehydrogenase C-Reactive Protein Albumin Coronavirus (PCR) 05/18/21 05/18/21 05/18/21 07:49 11:48 17:26 WBC RBC Hgb Hct MCHC RDW Lymph % (Auto) Lymph # (Auto) [place] # (Auto) Seg Neutrophils % Seg Neutrophils # D-Dimer Sodium Potassium Chloride Carbon Dioxide BUN Glucose POC Glucose 176 H 144 H 151 H Ferritin Lactate Dehydrogenase C-Reactive Protein Albumin Coronavirus (PCR) 05/18/21 05/19/21 05/19/21 22:54 06:50 06:50 WBC 15.6 H RBC 5.09 H Hgb 14.7 H Hct 43.6 H MCHC RDW 12.5 L Lymph % (Auto) Lymph # (Auto) [place] # (Auto) Seg Neutrophils % Seg Neutrophils # D-Dimer Sodium 135 L D Potassium Chloride Carbon Dioxide BUN 31 H Glucose 179 H POC Glucose 212 H Ferritin Lactate Dehydrogenase C-Reactive Protein Albumin Coronavirus (PCR) 05/19/21 05/19/21 05/19/21 07:39 11:35 15:59 WBC RBC Hgb Hct MCHC RDW Lymph % (Auto) Lymph # (Auto) [place] # (Auto) Seg Neutrophils % Seg Neutrophils # D-Dimer Sodium Potassium Chloride Carbon Dioxide BUN Glucose POC Glucose 203 H 177 H 135 H Ferritin Lactate Dehydrogenase C-Reactive Protein Albumin Coronavirus (PCR) 05/19/21 05/20/21 05/20/21 21:23 05:00 07:33 WBC RBC Hgb Hct MCHC RDW Lymph % (Auto) Lymph # (Auto) [place] # (Auto) Seg Neutrophils % Seg Neutrophils # D-Dimer Sodium 134 L Potassium Chloride Carbon Dioxide BUN 27 H Glucose 181 H POC Glucose 143 H 145 H Ferritin Lactate Dehydrogenase C-Reactive Protein Albumin Coronavirus (PCR) 05/20/21 05/20/21 05/20/21 11:16 15:09 16:28 WBC RBC Hgb Hct MCHC RDW Lymph % (Auto) Lymph # (Auto) [place] # (Auto) Seg Neutrophils % Seg Neutrophils # D-Dimer Sodium Potassium Chloride Carbon Dioxide BUN Glucose POC Glucose 186 H 130 H 139 H Ferritin Lactate Dehydrogenase C-Reactive Protein Albumin Coronavirus (PCR) 05/20/21 05/21/21 05/21/21 22:40 07:14 07:14 WBC 17.9 H RBC 5.29 H Hgb 15.2 H Hct 45.2 H MCHC RDW 12.7 L Lymph % (Auto) Lymph # (Auto) [place] # (Auto) Seg Neutrophils % Seg Neutrophils # D-Dimer Sodium 136 L Potassium Chloride Carbon Dioxide BUN 27 H Glucose 185 H POC Glucose 151 H Ferritin Lactate Dehydrogenase C-Reactive Protein Albumin Coronavirus (PCR) 05/21/21 05/21/21 05/21/21 11:38 16:05 22:21 WBC RBC Hgb Hct MCHC RDW Lymph % (Auto) Lymph # (Auto) [place] # (Auto) Seg Neutrophils % Seg Neutrophils # D-Dimer Sodium Potassium Chloride Carbon Dioxide BUN Glucose POC Glucose 142 H 179 H 133 H Ferritin Lactate Dehydrogenase C-Reactive Protein Albumin Coronavirus (PCR) 05/22/21 05/22/21 05/22/21 05:59 06:45 06:45 WBC 15.5 H RBC Hgb Hct MCHC RDW 12.7 L Lymph % (Auto) Lymph # (Auto) [place] # (Auto) Seg Neutrophils % Seg Neutrophils # D-Dimer Sodium Potassium Chloride Carbon Dioxide BUN 32 H Glucose 167 H POC Glucose 159 H Ferritin Lactate Dehydrogenase C-Reactive Protein Albumin Coronavirus (PCR) 05/22/21 05/22/21 05/22/21 07:56 11:34 15:26 WBC RBC Hgb Hct MCHC RDW Lymph % (Auto) Lymph # (Auto) [place] # (Auto) Seg Neutrophils % Seg Neutrophils # D-Dimer Sodium Potassium Chloride Carbon Dioxide BUN Glucose POC Glucose 155 H 174 H 175 H Ferritin Lactate Dehydrogenase C-Reactive Protein Albumin Coronavirus (PCR) 05/22/21 05/23/21 21:57 08:02 WBC RBC Hgb Hct MCHC RDW Lymph % (Auto) Lymph # (Auto) [place] # (Auto) Seg Neutrophils % Seg Neutrophils # D-Dimer Sodium Potassium Chloride Carbon Dioxide BUN Glucose POC Glucose 172 H 152 H Ferritin Lactate Dehydrogenase C-Reactive Protein Albumin Coronavirus (PCR)
[2021-05-23 11:41] LABS: Bilirubin,Urine NEG (Negative); Blood,Urine NEG (Negative); Color,Urine Amber (Yellow); Mucus,Urine 1+ /HPF
--- NOTE | 2021-05-23 13:42 | Cat Scan Report ---
CT ABDOMEN AND PELVIS WITHOUT CONTRAST INDICATION / CLINICAL INFORMATION: left lumber pain. TECHNIQUE: Axial CT images were obtained through the abdomen and pelvis without IV contrast. All CT scans at this location are performed using CT dose reduction for ALARA by means of automated exposure control. COMPARISON: None available. FINDINGS: LOWER CHEST: There are patchy airspace opacities and groundglass densities in both lung bases suspici ous for pneumonia including atypical pneumonia. LIVER: There is fatty infiltration of the liver. The liver is enlarged measuring 24 cm in length. GALLBLADDER: No significant abnormality. BILE DUCTS: No significant abnormality. PANCREAS: No significant abnormality. SPLEEN: No significant abnormality. ADRENALS: No significant abnormality. RIGHT KIDNEY / URETER: No significant abnormality. LEFT KIDNEY / URETER: No significant abnormality. STOMACH / SMALL BOWEL: No significant abnormality. COLON: Diverticulosis without acute inflammation. Prior right colectomy APPENDIX: Colectomy. PERITONEUM: No free fluid. No free air. No fluid collection. LYMPH NODES: No significant adenopathy. AORTA / ARTERIES: No significant abnormality. IVC / VEINS: No significant abnormality. URINARY BLADDER: No significant abnormality. REPRODUCTIVE ORGANS: No significant abnormality. ADDITIONAL FINDINGS: None. SKELETAL SYSTEM: No acute abnormality. Degenerative changes are noted in the spine most prominent at T11-T12. There is evidence of posterior disc protrusion at L1-2. IMPRESSION: 1. There is basilar airspace and groundglass density in both lungs suspicious for pneumonia including atypical pneumonia. 2. There is hepatomegaly with fatty infiltration of the liver. 3. There is no obstruction, inflammation, or free air. There are no abnormal fluid collections. 4. Degenerative changes are noted in the spine most prominent at the time 11-12. There is posterior d isc protrusion at L1-L2 Signer Name: Blair Sow MD Signed: 05/23/2021 1:37 PM Workstation Name: [id number]
--- NOTE | 2021-05-23 14:45 | Progress Note ---
Assessment and Plan -- Acute hypoxemic respiratory failure On high flow nasal cannula oxygen Wean as tolerated, supportive care --Coronavirus infection Solu-Medrol 80 mg IV every 8 hr total 10 days per pulmonary Completed 5 days of remdesivir s/p Actemra on 05/13/2021 ordered for AM: Ddimer, CRP Check inflammatory markers Home O2 evaluation at discharge Isolation precautions --Pneumonia Empiric antibiotics discontinued as procalcitonin is normal --Obesity hypoventilation syndrome Balanced diet, increase physical activity discharge, outpatient pulmonary follow-up for sleep study. --Moderate malnutrition; hypoalbuminemia Diet modification exercise as tolerated and weight reduction When medically stable --COVID-19 vaccination not done , Patient counseled, -- DVT prophylaxis SCD to bilateral lower extremities while in bed, prophylactic anticoagulation --Full code status -- Critical care time 42 minutes The high probability of a clinically significant, sudden or life threatening deterioration of the system(s) required my full and direct attention, intervention and personal management. The aggregate critical care time was [42] minutes. This time is in addition to time spent performing reported procedures but includes the following: [x] Data Review and interpretation [x] Patient assessment and monitoring of vital signs [x] Documentation [x] Medication orders and management Brief history 55 YO Female with HTN, Mild Intermittent Asthma, Obesity Hypoventilation Syndrome, Coronavirus Infection diagnosed 1 week ago presents to ED for evaluation. Patient reports "it is hard to breathe". Patient states that she had experienced shortness of breath, dry cough, fatigue, malaise, subjective fever, body aches, loss of sense of smell, loss of sense of taste, decreased exercise tolerance over the past 1 week with worsening symptoms over the past 2 days. Work-up in the emergency room is consistent with PUI/high suspicion for COVID-19, hypoxia requiring supplemental oxygen and pneumonia Admitted PCR test was positive for COVID-19, is in isolation evaluated by ID and pulmonary patient required high flow nasal cannula oxygen times intermittent BiPAP patient is critically ill admitted to [facility], continues to be on high flow nasal cannula oxygen. Daily Hospital course; 05/12: Patient currently severely hypoxic on full nonrebreather and also high flow 100%. We will go ahead and consult pulmonary we will start patient on steroids. We will also consult infectious disease anticipate that the patient should be started on remdesivir. Awaiting repeat Covid 19 diagnosis although patient states that she was diagnosed a week ago. She unfortunately is not vaccinated. Condition is pretty guarded. Will also start on Diuresis and Full anticoagulation. Encouraged proning, Monitor inflammatory markers Patients emergency contacts: Kristen [phone] and Demetria [phone]. I have called both and left a message 05/13: Patient seen and examined, continue supportive care, continue oxygen therapy, PRONE TOLERATED. Continue anticoagulation and lasix, including Remdesivir. 05/14: Patient remains on full dose anticoagulation with, Remedesivir and Steroids. Continue to encourage proning. Continue lasix for negative fluid balance. REMAINS CRITICALLY ILL. 05/15: Severely hypoxemic on high flow nasal cannula oxygen, encouraged prone p ositioning as tolerated 05/16/2021; patient remains on high flow nasal cannula oxygen, will wean as tolerated Poor prognosis 05/15/2021; patient remains on high flow nasal cannula oxygen 40 L/100%/93% 05/16/2021; patient remains on high flow oxygen 40 L/100% FiO2/95% O2 sat Unable to wean, very poor prognosis 05/17/2021: On high flow nasal cannula oxygen Patient remains on high flow nasal cannula oxygen 30 L 80% FiO2 90% O2 sats patient is in mild distress complains of tiredn Stable to be discharged out of [facility] to medical floor 05/18/21 Patient with Covid-19 infection with acute resp failure. Transferred to [facility] from [facility]. Cont Oxygen by HFNC 30 l/min 05/19/21 Patient with Covid-19 infection and acute respiratory failure. HFNC weaned down to 25 l/min 05/20/21 Patient with Covid-19 pneumonia with acute resp failure. Still on HFNC at 25 l/min 05/21/21 Patient with Covid-19 pneumonia with acute resp failure. On HFNC, now at 20 l/min. Repeat Chest X ray today. 05/22/21: Patient remains on 20 L high flow nasal cannula O2. Patient does complains of severe left-sided back pain -ordered IV Dilaudid and lumbar x-ray 05/23/21: Ordered CT abdomen pelvis without contrast as patient complaining of continuous back pain. CT abdomen pelvis showed degenerative changes no other any acute finding. Patient remains on 20 L high flow O2, continue to wean off as tolerated. Subjective Date of service: 05/23/21 Interval history: Patient seen and examined. Medical records and medication list reviewed. No acute event overnight noted by the RN. Patient complains of remaining resting difficulty breathing patient complains of lacking appetite. she also c/o back pain Discussed plan of care at bedside with patient. Objective - Exam Narrative Exam: Limited physical exam due to COVID-19 pandemic to minimize transmission of the disease and to preserve PPE. Vital reviewed and stable. GENERAL: well-developed morbidly obese white female lying on bed appeared to be in no discomfort. HEENT: Normocephalic. Atraumatic. NECK: Supple. CHEST/LUNGS: breathing nonlabored. HEART/CARDIOVASCULAR: Heart rate stable on telemetry ABDOMEN: Visibly not distended but obese SKIN: There is no rash NEURO: No focal motor deficit. Follows command. MUSCULOSKELETAL: No joint effusion EXTRIMITY: No swelling, no cyanosis or clubbing. PSYCH: Cooperative. - Constitutional Vitals: Vital Signs - 12hr 05/23/21 05/23/21 05/23/21 04:57 06:12 08:00 Temperature 97.5 F L Pulse Rate 79 Respiratory 20 Rate Blood Pressure 137/93 O2 Sat by Pulse 93 96 95 Oximetry 05/23/21 10:00 Temperature Pulse Rate Respiratory Rate Blood Pressure O2 Sat by Pulse 96 Oximetry - Labs CBC & Chem 7: 05/22/21 06:45 05/22/21 06:45 Labs: Abnormal lab results 05/22/21 05/22/21 05/23/21 Range/Units 15:26 21:57 08:02 POC Glucose 175 H 172 H 152 H (70-105) mg/dL 05/23/21 Range/Units 11:49 POC Glucose 176 H (70-105) mg/dL
[2021-05-23] MEDS: ONDANSETRON 4 MG/2 ML INJ IV PRN (18:20)
[2021-05-24] MEDS: HYDROmorphone 1 MG/1 ML INJ IV PRN ×3 (01:53→09:12)
[2021-05-24] MEDS: INSULIN LISPRO 100 UNIT/ML SUB-Q SCH ×4 (08:23→22:34)
--- NOTE | 2021-05-24 08:45 | Progress Note ---
Assessment and Plan 55 y/o female, obese, with acute respiratory failure secondary to COVID pneumonia 05/24/21: Suggest attempting salter today. Continue to wean aggressively. Continue steroids. All others per primary team. 05/23/21: No new recs for today. Finished remdesivir. Continue steroids. 05/22/21: Prone. Wean FiO2 for sats >88%. Continue steroids. 05/21/21: Continue to wean FiO2 as tolerated for sats >88%. Continue steroids. Will give lasix today. 05/20/21: No new recs for today, please see below 05/19/21: Prone as much as possible. More lasix again today. Continue steroids. Finished Remdesivir. Guarded Prognosis. 05/18/21: Continue to prone at night and during the day as tolerated if possible. Will give some lasix today. Continue steroids and remdesivir 05/17/21: Prone. Continue steroids and remdesivir. No lasix today. Guarded prognosis. Consider floor transfer. 05/16/21: Will give lasix today. needs to prone more. Remdesivir and steroids. Guarded prognosis. 05/15/21: Hold on lasix today. Continue remdesivir and high dose steroids. Prone as tolerated for as long as possible. Guarded prognosis. 1. lasix 40mg IV today 2. Remedsivir 3. Agree with High dose steroids 4. Prone 5. Guarded prognosis. Subjective Date of service: 05/24/21 Interval history: Down to 15 liters and 45%. Good sats. Patient has a bulging disc at L1L2 Objective Vital Signs - 12hr 05/23/21 05/23/21 05/24/21 21:35 22:00 03:49 O2 Sat by Pulse 92 96 94 Oximetry Constitutional: appears uncomfortable, other (Dyspneic at rest with oxygen) Eyes: non-icteric ENT: oropharynx dry, other (Crowded oropharynx) Neck: supple, no JVD Effort: mildly labored Ascultation: Bilateral: rhonchi Cardiovascular: regular rate and rhythm Gastrointestinal: normoactive bowel sounds, soft, non-tender, other (Obese) Integumentary: normal Extremities: no cyanosis, no edema, pink and warm Neurologic: normal mental status, non-focal exam Psychiatric: mood appropriate CBC and BMP: 05/22/21 06:45 05/22/21 06:45 ABG, PT/INR, D-dimer: PT/INR, D-dimer D-Dimer 452.36 ng/mlDDU (0-234) H 05/16/21 05:00 Abnormal lab findings: Abnormal Labs 05/11/21 05/11/21 05/11/21 14:33 14:33 15:00 WBC RBC Hgb 14.8 H Hct MCHC 35 H RDW 12.9 L Lymph % (Auto) 8.7 L Lymph # (Auto) 0.7 L [place] # (Auto) Seg Neutrophils % 83.7 H Seg Neutrophils # D-Dimer 331.70 H Sodium Potassium 5.2 H Chloride 95.0 L Carbon Dioxide BUN Glucose 125 H POC Glucose Ferritin Lactate Dehydrogenase C-Reactive Protein Albumin 3.3 L Coronavirus (PCR) 05/11/21 05/11/21 05/12/21 15:00 15:00 08:46 WBC RBC Hgb Hct MCHC RDW Lymph % (Auto) Lymph # (Auto) [place] # (Auto) Seg Neutrophils % Seg Neutrophils # D-Dimer 345.30 H Sodium Potassium Chloride Carbon Dioxide BUN Glucose POC Glucose Ferritin 471.5 H Lactate Dehydrogenase 579 H C-Reactive Protein 15.80 H Albumin Coronavirus (PCR) 05/12/21 05/12/21 05/12/21 08:46 08:46 09:00 WBC RBC Hgb Hct MCHC RDW Lymph % (Auto) Lymph # (Auto) [place] # (Auto) Seg Neutrophils % Seg Neutrophils # D-Dimer Sodium Potassium Chloride Carbon Dioxide BUN Glucose 149 H POC Glucose Ferritin 465.6 H Lactate Dehydrogenase 574 H C-Reactive Protein 18.40 H Albumin Coronavirus (PCR) Positive A 05/12/21 05/12/21 05/12/21 11:40 16:14 18:01 WBC RBC Hgb Hct MCHC RDW Lymph % (Auto) Lymph # (Auto) [place] # (Auto) Seg Neutrophils % Seg Neutrophils # D-Dimer Sodium Potassium Chloride Carbon Dioxide BUN Glucose POC Glucose 141 H 140 H 159 H Ferritin Lactate Dehydrogenase C-Reactive Protein Albumin Coronavirus (PCR) 05/12/21 05/13/21 05/13/21 22:01 03:51 03:51 WBC 13.6 H RBC Hgb 14.6 H Hct MCHC RDW 12.9 L Lymph % (Auto) 3.5 L Lymph # (Auto) 0.5 L [place] # (Auto) 0.9 H Seg Neutrophils % 89.4 H Seg Neutrophils # 12.1 H D-Dimer Sodium Potassium Chloride Carbon Dioxide BUN 31 H Glucose 152 H POC Glucose 152 H Ferritin Lactate Dehydrogenase C-Reactive Protein Albumin 3.2 L Coronavirus (PCR) 05/13/21 05/13/21 05/13/21 07:32 16:04 22:48 WBC RBC Hgb Hct MCHC RDW Lymph % (Auto) Lymph # (Auto) [place] # (Auto) Seg Neutrophils % Seg Neutrophils # D-Dimer Sodium Potassium Chloride Carbon Dioxide BUN Glucose POC Glucose 160 H 146 H 175 H Ferritin Lactate Dehydrogenase C-Reactive Protein Albumin Coronavirus (PCR) 05/14/21 05/14/21 05/14/21 04:49 07:18 13:24 WBC RBC Hgb Hct MCHC RDW Lymph % (Auto) Lymph # (Auto) [place] # (Auto) Seg Neutrophils % Seg Neutrophils # D-Dimer Sodium Potassium Chloride Carbon Dioxide BUN 41 H Glucose 169 H POC Glucose 160 H 146 H Ferritin Lactate Dehydrogenase C-Reactive Protein Albumin 3.4 L Coronavirus (PCR) 05/14/21 05/14/21 05/15/21 17:36 21:54 04:05 WBC RBC Hgb Hct MCHC RDW Lymph % (Auto) Lymph # (Auto) [place] # (Auto) Seg Neutrophils % Seg Neutrophils # D-Dimer Sodium Potassium Chloride Carbon Dioxide 33 H BUN 45 H Glucose 177 H POC Glucose 181 H 169 H Ferritin Lactate Dehydrogenase C-Reactive Protein Albumin 3.3 L Coronavirus (PCR) 05/15/21 05/15/21 05/15/21 07:18 12:09 17:16 WBC RBC Hgb Hct MCHC RDW Lymph % (Auto) Lymph # (Auto) [place] # (Auto) Seg Neutrophils % Seg Neutrophils # D-Dimer Sodium Potassium Chloride Carbon Dioxide BUN Glucose POC Glucose 166 H 160 H 127 H Ferritin Lactate Dehydrogenase C-Reactive Protein Albumin Coronavirus (PCR) 05/15/21 05/16/21 05/16/21 21:17 01:17 05:00 WBC RBC Hgb Hct MCHC RDW Lymph % (Auto) Lymph # (Auto) [place] # (Auto) Seg Neutrophils % Seg Neutrophils # D-Dimer 452.36 H Sodium Potassium Chloride Carbon Dioxide BUN Glucose POC Glucose 161 H 161 H Ferritin Lactate Dehydrogenase C-Reactive Protein Albumin Coronavirus (PCR) 05/16/21 05/16/21 05/16/21 05:00 08:06 11:40 WBC 12.5 H RBC 5.39 H Hgb 14.9 H Hct 47.4 H MCHC RDW 12.7 L Lymph % (Auto) 3.8 L Lymph # (Auto) 0.5 L [place] # (Auto) Seg Neutrophils % 89.4 H Seg Neutrophils # 11.2 H D-Dimer Sodium Potassium Chloride Carbon Dioxide BUN Glucose POC Glucose 140 H 148 H Ferritin Lactate Dehydrogenase C-Reactive Protein Albumin Coronavirus (PCR) 05/16/21 05/16/21 05/17/21 15:44 21:38 07:08 WBC RBC Hgb Hct MCHC RDW Lymph % (Auto) Lymph # (Auto) [place] # (Auto) Seg Neutrophils % Seg Neutrophils # D-Dimer Sodium Potassium Chloride Carbon Dioxide BUN Glucose POC Glucose 127 H 176 H 166 H Ferritin Lactate Dehydrogenase C-Reactive Protein Albumin Coronavirus (PCR) 05/17/21 05/17/21 05/17/21 11:48 16:29 21:12 WBC RBC Hgb Hct MCHC RDW Lymph % (Auto) Lymph # (Auto) [place] # (Auto) Seg Neutrophils % Seg Neutrophils # D-Dimer Sodium Potassium Chloride Carbon Dioxide BUN Glucose POC Glucose 138 H 149 H 178 H Ferritin Lactate Dehydrogenase C-Reactive Protein Albumin Coronavirus (PCR) 05/18/21 05/18/21 05/18/21 07:49 11:48 17:26 WBC RBC Hgb Hct MCHC RDW Lymph % (Auto) Lymph # (Auto) [place] # (Auto) Seg Neutrophils % Seg Neutrophils # D-Dimer Sodium Potassium Chloride Carbon Dioxide BUN Glucose POC Glucose 176 H 144 H 151 H Ferritin Lactate Dehydrogenase C-Reactive Protein Albumin Coronavirus (PCR) 05/18/21 05/19/21 05/19/21 22:54 06:50 06:50 WBC 15.6 H RBC 5.09 H Hgb 14.7 H Hct 43.6 H MCHC RDW 12.5 L Lymph % (Auto) Lymph # (Auto) [place] # (Auto) Seg Neutrophils % Seg Neutrophils # D-Dimer Sodium 135 L D Potassium Chloride Carbon Dioxide BUN 31 H Glucose 179 H POC Glucose 212 H Ferritin Lactate Dehydrogenase C-Reactive Protein Albumin Coronavirus (PCR) 05/19/21 05/19/21 05/19/21 07:39 11:35 15:59 WBC RBC Hgb Hct MCHC RDW Lymph % (Auto) Lymph # (Auto) [place] # (Auto) Seg Neutrophils % Seg Neutrophils # D-Dimer Sodium Potassium Chloride Carbon Dioxide BUN Glucose POC Glucose 203 H 177 H 135 H Ferritin Lactate Dehydrogenase C-Reactive Protein Albumin Coronavirus (PCR) 05/19/21 05/20/21 05/20/21 21:23 05:00 07:33 WBC RBC Hgb Hct MCHC RDW Lymph % (Auto) Lymph # (Auto) [place] # (Auto) Seg Neutrophils % Seg Neutrophils # D-Dimer Sodium 134 L Potassium Chloride Carbon Dioxide BUN 27 H Glucose 181 H POC Glucose 143 H 145 H Ferritin Lactate Dehydrogenase C-Reactive Protein Albumin Coronavirus (PCR) 05/20/21 05/20/21 05/20/21 11:16 15:09 16:28 WBC RBC Hgb Hct MCHC RDW Lymph % (Auto) Lymph # (Auto) [place] # (Auto) Seg Neutrophils % Seg Neutrophils # D-Dimer Sodium Potassium Chloride Carbon Dioxide BUN Glucose POC Glucose 186 H 130 H 139 H Ferritin Lactate Dehydrogenase C-Reactive Protein Albumin Coronavirus (PCR) 05/20/21 05/21/21 05/21/21 22:40 07:14 07:14 WBC 17.9 H RBC 5.29 H Hgb 15.2 H Hct 45.2 H MCHC RDW 12.7 L Lymph % (Auto) Lymph # (Auto) [place] # (Auto) Seg Neutrophils % Seg Neutrophils # D-Dimer Sodium 136 L Potassium Chloride Carbon Dioxide BUN 27 H Glucose 185 H POC Glucose 151 H Ferritin Lactate Dehydrogenase C-Reactive Protein Albumin Coronavirus (PCR) 05/21/21 05/21/21 05/21/21 11:38 16:05 22:21 WBC RBC Hgb Hct MCHC RDW Lymph % (Auto) Lymph # (Auto) [place] # (Auto) Seg Neutrophils % Seg Neutrophils # D-Dimer Sodium Potassium Chloride Carbon Dioxide BUN Glucose POC Glucose 142 H 179 H 133 H Ferritin Lactate Dehydrogenase C-Reactive Protein Albumin Coronavirus (PCR) 05/22/21 05/22/21 05/22/21 05:59 06:45 06:45 WBC 15.5 H RBC Hgb Hct MCHC RDW 12.7 L Lymph % (Auto) Lymph # (Auto) [place] # (Auto) Seg Neutrophils % Seg Neutrophils # D-Dimer Sodium Potassium Chloride Carbon Dioxide BUN 32 H Glucose 167 H POC Glucose 159 H Ferritin Lactate Dehydrogenase C-Reactive Protein Albumin Coronavirus (PCR) 05/22/21 05/22/21 05/22/21 07:56 11:34 15:26 WBC RBC Hgb Hct MCHC RDW Lymph % (Auto) Lymph # (Auto) [place] # (Auto) Seg Neutrophils % Seg Neutrophils # D-Dimer Sodium Potassium Chloride Carbon Dioxide BUN Glucose POC Glucose 155 H 174 H 175 H Ferritin Lactate Dehydrogenase C-Reactive Protein Albumin Coronavirus (PCR) 05/22/21 05/23/21 05/23/21 21:57 08:02 11:49 WBC RBC Hgb Hct MCHC RDW Lymph % (Auto) Lymph # (Auto) [place] # (Auto) Seg Neutrophils % Seg Neutrophils # D-Dimer Sodium Potassium Chloride Carbon Dioxide BUN Glucose POC Glucose 172 H 152 H 176 H Ferritin Lactate Dehydrogenase C-Reactive Protein Albumin Coronavirus (PCR) 05/23/21 16:48 WBC RBC Hgb Hct MCHC RDW Lymph % (Auto) Lymph # (Auto) [place] # (Auto) Seg Neutrophils % Seg Neutrophils # D-Dimer Sodium Potassium Chloride Carbon Dioxide BUN Glucose POC Glucose 139 H Ferritin Lactate Dehydrogenase C-Reactive Protein Albumin Coronavirus (PCR)
[2021-05-24] MEDS: ZINC SULFATE 220 MG CAP PO SCH (09:12)
[2021-05-24] MEDS: ENOXAPARIN 100 MG/1 ML INJ SUB-Q SCH ×2 (09:12→21:28)
[2021-05-24] MEDS: FAMOTIDINE 20 MG TAB PO SCH ×2 (09:12→21:28)
[2021-05-24] MEDS: SENNOSIDES 8.6 MG TAB PO SCH ×2 (09:12→21:28)
[2021-05-24] MEDS: ASCORBIC ACID 500 MG TAB PO SCH ×2 (09:12→21:28)
[2021-05-24] MEDS: ONDANSETRON 4 MG/2 ML INJ IV PRN ×3 (09:12→21:27)
[2021-05-24] MEDS: CHOLECALCIFEROL (VIT D3) 5,000 UNIT TAB PO SCH (09:12)
--- NOTE | 2021-05-24 12:30 | Progress Note ---
Assessment and Plan -- Acute hypoxemic respiratory failure On high flow nasal cannula oxygen Wean as tolerated, supportive care --Coronavirus infection Solu-Medrol 80 mg IV every 8 hr total 10 days per pulmonary Completed 5 days of remdesivir s/p Actemra on 05/13/2021 ordered for AM: Ddimer, CRP Check inflammatory markers Home O2 evaluation at discharge Isolation precautions --Pneumonia Empiric antibiotics discontinued as procalcitonin is normal --Obesity hypoventilation syndrome Balanced diet, increase physical activity discharge, outpatient pulmonary follow-up for sleep study. --Moderate malnutrition; hypoalbuminemia Diet modification exercise as tolerated and weight reduction When medically stable --COVID-19 vaccination not done , Patient counseled, -- DVT prophylaxis SCD to bilateral lower extremities while in bed, prophylactic anticoagulation --Full code status -- Critical care time 42 minutes The high probability of a clinically significant, sudden or life threatening deterioration of the system(s) required my full and direct attention, intervention and personal management. The aggregate critical care time was [42] minutes. This time is in addition to time spent performing reported procedures but includes the following: [x] Data Review and interpretation [x] Patient assessment and monitoring of vital signs [x] Documentation [x] Medication orders and management Brief history 55 YO Female with HTN, Mild Intermittent Asthma, Obesity Hypoventilation Syndrome, Coronavirus Infection diagnosed 1 week ago presents to ED for evaluation. Patient reports "it is hard to breathe". Patient states that she had experienced shortness of breath, dry cough, fatigue, malaise, subjective fever, body aches, loss of sense of smell, loss of sense of taste, decreased exercise tolerance over the past 1 week with worsening symptoms over the past 2 days. Work-up in the emergency room is consistent with PUI/high suspicion for COVID-19, hypoxia requiring supplemental oxygen and pneumonia Admitted PCR test was positive for COVID-19, is in isolation evaluated by ID and pulmonary patient required high flow nasal cannula oxygen times intermittent BiPAP patient is critically ill admitted to [facility], continues to be on high flow nasal cannula oxygen. Daily Hospital course; 05/12: Patient currently severely hypoxic on full nonrebreather and also high flow 100%. We will go ahead and consult pulmonary we will start patient on steroids. We will also consult infectious disease anticipate that the patient should be started on remdesivir. Awaiting repeat Covid 19 diagnosis although patient states that she was diagnosed a week ago. She unfortunately is not vaccinated. Condition is pretty guarded. Will also start on Diuresis and Full anticoagulation. Encouraged proning, Monitor inflammatory markers Patients emergency contacts: Kristen [phone] and Demetria [phone]. I have called both and left a message 05/13: Patient seen and examined, continue supportive care, continue oxygen therapy, PRONE TOLERATED. Continue anticoagulation and lasix, including Remdesivir. 05/14: Patient remains on full dose anticoagulation with, Remedesivir and Steroids. Continue to encourage proning. Continue lasix for negative fluid balance. REMAINS CRITICALLY ILL. 05/15: Severely hypoxemic on high flow nasal cannula oxygen, encouraged prone p ositioning as tolerated 05/16/2021; patient remains on high flow nasal cannula oxygen, will wean as tolerated Poor prognosis 05/15/2021; patient remains on high flow nasal cannula oxygen 40 L/100%/93% 05/16/2021; patient remains on high flow oxygen 40 L/100% FiO2/95% O2 sat Unable to wean, very poor prognosis 05/17/2021: On high flow nasal cannula oxygen Patient remains on high flow nasal cannula oxygen 30 L 80% FiO2 90% O2 sats patient is in mild distress complains of tiredn Stable to be discharged out of [facility] to medical floor 05/18/21 Patient with Covid-19 infection with acute resp failure. Transferred to [facility] from [facility]. Cont Oxygen by HFNC 30 l/min 05/19/21 Patient with Covid-19 infection and acute respiratory failure. HFNC weaned down to 25 l/min 05/20/21 Patient with Covid-19 pneumonia with acute resp failure. Still on HFNC at 25 l/min 05/21/21 Patient with Covid-19 pneumonia with acute resp failure. On HFNC, now at 20 l/min. Repeat Chest X ray today. 05/22/21: Patient remains on 20 L high flow nasal cannula O2. Patient does complains of severe left-sided back pain -ordered IV Dilaudid and lumbar x-ray 05/23/21: Ordered CT abdomen pelvis without contrast as patient complaining of continuous back pain. CT abdomen pelvis showed degenerative changes no other any acute finding. Patient remains on 20 L high flow O2, continue to wean off as tolerated. 05/24/21; oxygen requirement slightly decreased to 15 to 18 L high flow. Continue supportive care and wean off O2 as tolerated Subjective Date of service: 05/24/21 Interval history: Patient seen and examined. Medical records and medication list reviewed. No acute event overnight noted by the RN. Patient remains on high flow O2 she also c/o back pain Discussed plan of care at bedside with patient. Objective - Exam Narrative Exam: Limited physical exam due to COVID-19 pandemic to minimize transmission of the disease and to preserve PPE. Vital reviewed and stable. GENERAL: well-developed morbidly obese white female lying on bed appeared to be in no discomfort. HEENT: Normocephalic. Atraumatic. NECK: Supple. CHEST/LUNGS: breathing nonlabored. HEART/CARDIOVASCULAR: Heart rate stable on telemetry ABDOMEN: Visibly not distended but obese SKIN: There is no rash NEURO: No focal motor deficit. Follows command. MUSCULOSKELETAL: No joint effusion EXTRIMITY: No swelling, no cyanosis or clubbing. PSYCH: Cooperative. - Constitutional Vitals: Vital Signs - 12hr 05/24/21 05/24/21 03:49 10:08 O2 Sat by Pulse 94 96 Oximetry - Labs CBC & Chem 7: 05/22/21 06:45 05/22/21 06:45 Labs: Abnormal lab results 05/23/21 05/24/21 Range/Units 16:48 11:02 POC Glucose 139 H 185 H (70-105) mg/dL
[2021-05-24] MEDS: oxyCODONE /ACETAMINOPHEN 5-325MG TAB PO PRN ×2 (13:04→21:27)
[2021-05-24] MEDS: CYCLOBENZAPRINE 10 MG TAB PO PRN (16:19)
[2021-05-25] MEDS: CYCLOBENZAPRINE 10 MG TAB PO PRN ×2 (00:04→16:37)
[2021-05-25] MEDS: INSULIN LISPRO 100 UNIT/ML SUB-Q SCH ×4 (08:16→21:03)
--- NOTE | 2021-05-25 08:55 | Progress Note ---
Assessment and Plan 55 y/o female, obese, with acute respiratory failure secondary to COVID pneumonia 05/25/21: Attempt to wean further again today. Hold on diuretic therapy. Continue steroids. Please encourage patient to prone. 05/24/21: Suggest attempting salter today. Continue to wean aggressively. Continue steroids. All others per primary team. 05/23/21: No new recs for today. Finished remdesivir. Continue steroids. 05/22/21: Prone. Wean FiO2 for sats >88%. Continue steroids. 05/21/21: Continue to wean FiO2 as tolerated for sats >88%. Continue steroids. Will give lasix today. 05/20/21: No new recs for today, please see below 05/19/21: Prone as much as possible. More lasix again today. Continue steroids. Finished Remdesivir. Guarded Prognosis. 05/18/21: Continue to prone at night and during the day as tolerated if possible. Will give some lasix today. Continue steroids and remdesivir 05/17/21: Prone. Continue steroids and remdesivir. No lasix today. Guarded prognosis. Consider floor transfer. 05/16/21: Will give lasix today. needs to prone more. Remdesivir and steroids. Guarded prognosis. 05/15/21: Hold on lasix today. Continue remdesivir and high dose steroids. Prone as tolerated for as long as possible. Guarded prognosis. 1. lasix 40mg IV today 2. Remedsivir 3. Agree with High dose steroids 4. Prone 5. Guarded prognosis. Subjective Date of service: 05/25/21 Interval history: No acute events. Overnight not able to wean further as patient had complaints of not being able to breath but sats were fine. No documentation if patient proned or not. Objective Vital Signs - 12hr 05/24/21 05/24/21 05/24/21 21:27 22:00 22:22 Temperature 98.3 F Pulse Rate 89 89 Respiratory 20 18 Rate Blood Pressure 95/56 O2 Sat by Pulse 96 98 Oximetry 05/24/21 05/25/21 05/25/21 22:27 02:00 04:10 Temperature 97.9 F Pulse Rate 96 H Respiratory 20 18 Rate Blood Pressure 98/64 O2 Sat by Pulse 97 97 Oximetry Constitutional: appears uncomfortable, other (Dyspneic at rest with oxygen) Eyes: non-icteric ENT: oropharynx dry, other (Crowded oropharynx) Neck: supple, no JVD Effort: mildly labored Ascultation: Bilateral: rhonchi Cardiovascular: regular rate and rhythm Gastrointestinal: normoactive bowel sounds, soft, non-tender, other (Obese) Integumentary: normal Extremities: no cyanosis, no edema, pink and warm Neurologic: normal mental status, non-focal exam Psychiatric: mood appropriate CBC and BMP: 05/22/21 06:45 05/22/21 06:45 ABG, PT/INR, D-dimer: PT/INR, D-dimer D-Dimer 452.36 ng/mlDDU (0-234) H 05/16/21 05:00 Abnormal lab findings: Abnormal Labs 05/11/21 05/11/21 05/11/21 14:33 14:33 15:00 WBC RBC Hgb 14.8 H Hct MCHC 35 H RDW 12.9 L Lymph % (Auto) 8.7 L Lymph # (Auto) 0.7 L [place] # (Auto) Seg Neutrophils % 83.7 H Seg Neutrophils # D-Dimer 331.70 H Sodium Potassium 5.2 H Chloride 95.0 L Carbon Dioxide BUN Glucose 125 H POC Glucose Ferritin Lactate Dehydrogenase C-Reactive Protein Albumin 3.3 L Coronavirus (PCR) 05/11/21 05/11/21 05/12/21 15:00 15:00 08:46 WBC RBC Hgb Hct MCHC RDW Lymph % (Auto) Lymph # (Auto) [place] # (Auto) Seg Neutrophils % Seg Neutrophils # D-Dimer 345.30 H Sodium Potassium Chloride Carbon Dioxide BUN Glucose POC Glucose Ferritin 471.5 H Lactate Dehydrogenase 579 H C-Reactive Protein 15.80 H Albumin Coronavirus (PCR) 05/12/21 05/12/21 05/12/21 08:46 08:46 09:00 WBC RBC Hgb Hct MCHC RDW Lymph % (Auto) Lymph # (Auto) [place] # (Auto) Seg Neutrophils % Seg Neutrophils # D-Dimer Sodium Potassium Chloride Carbon Dioxide BUN Glucose 149 H POC Glucose Ferritin 465.6 H Lactate Dehydrogenase 574 H C-Reactive Protein 18.40 H Albumin Coronavirus (PCR) Positive A 05/12/21 05/12/21 05/12/21 11:40 16:14 18:01 WBC RBC Hgb Hct MCHC RDW Lymph % (Auto) Lymph # (Auto) [place] # (Auto) Seg Neutrophils % Seg Neutrophils # D-Dimer Sodium Potassium Chloride Carbon Dioxide BUN Glucose POC Glucose 141 H 140 H 159 H Ferritin Lactate Dehydrogenase C-Reactive Protein Albumin Coronavirus (PCR) 05/12/21 05/13/21 05/13/21 22:01 03:51 03:51 WBC 13.6 H RBC Hgb 14.6 H Hct MCHC RDW 12.9 L Lymph % (Auto) 3.5 L Lymph # (Auto) 0.5 L [place] # (Auto) 0.9 H Seg Neutrophils % 89.4 H Seg Neutrophils # 12.1 H D-Dimer Sodium Potassium Chloride Carbon Dioxide BUN 31 H Glucose 152 H POC Glucose 152 H Ferritin Lactate Dehydrogenase C-Reactive Protein Albumin 3.2 L Coronavirus (PCR) 05/13/21 05/13/21 05/13/21 07:32 16:04 22:48 WBC RBC Hgb Hct MCHC RDW Lymph % (Auto) Lymph # (Auto) [place] # (Auto) Seg Neutrophils % Seg Neutrophils # D-Dimer Sodium Potassium Chloride Carbon Dioxide BUN Glucose POC Glucose 160 H 146 H 175 H Ferritin Lactate Dehydrogenase C-Reactive Protein Albumin Coronavirus (PCR) 05/14/21 05/14/21 05/14/21 04:49 07:18 13:24 WBC RBC Hgb Hct MCHC RDW Lymph % (Auto) Lymph # (Auto) [place] # (Auto) Seg Neutrophils % Seg Neutrophils # D-Dimer Sodium Potassium Chloride Carbon Dioxide BUN 41 H Glucose 169 H POC Glucose 160 H 146 H Ferritin Lactate Dehydrogenase C-Reactive Protein Albumin 3.4 L Coronavirus (PCR) 05/14/21 05/14/21 05/15/21 17:36 21:54 04:05 WBC RBC Hgb Hct MCHC RDW Lymph % (Auto) Lymph # (Auto) [place] # (Auto) Seg Neutrophils % Seg Neutrophils # D-Dimer Sodium Potassium Chloride Carbon Dioxide 33 H BUN 45 H Glucose 177 H POC Glucose 181 H 169 H Ferritin Lactate Dehydrogenase C-Reactive Protein Albumin 3.3 L Coronavirus (PCR) 05/15/21 05/15/21 05/15/21 07:18 12:09 17:16 WBC RBC Hgb Hct MCHC RDW Lymph % (Auto) Lymph # (Auto) [place] # (Auto) Seg Neutrophils % Seg Neutrophils # D-Dimer Sodium Potassium Chloride Carbon Dioxide BUN Glucose POC Glucose 166 H 160 H 127 H Ferritin Lactate Dehydrogenase C-Reactive Protein Albumin Coronavirus (PCR) 05/15/21 05/16/21 05/16/21 21:17 01:17 05:00 WBC RBC Hgb Hct MCHC RDW Lymph % (Auto) Lymph # (Auto) [place] # (Auto) Seg Neutrophils % Seg Neutrophils # D-Dimer 452.36 H Sodium Potassium Chloride Carbon Dioxide BUN Glucose POC Glucose 161 H 161 H Ferritin Lactate Dehydrogenase C-Reactive Protein Albumin Coronavirus (PCR) 05/16/21 05/16/21 05/16/21 05:00 08:06 11:40 WBC 12.5 H RBC 5.39 H Hgb 14.9 H Hct 47.4 H MCHC RDW 12.7 L Lymph % (Auto) 3.8 L Lymph # (Auto) 0.5 L [place] # (Auto) Seg Neutrophils % 89.4 H Seg Neutrophils # 11.2 H D-Dimer Sodium Potassium Chloride Carbon Dioxide BUN Glucose POC Glucose 140 H 148 H Ferritin Lactate Dehydrogenase C-Reactive Protein Albumin Coronavirus (PCR) 05/16/21 05/16/21 05/17/21 15:44 21:38 07:08 WBC RBC Hgb Hct MCHC RDW Lymph % (Auto) Lymph # (Auto) [place] # (Auto) Seg Neutrophils % Seg Neutrophils # D-Dimer Sodium Potassium Chloride Carbon Dioxide BUN Glucose POC Glucose 127 H 176 H 166 H Ferritin Lactate Dehydrogenase C-Reactive Protein Albumin Coronavirus (PCR) 05/17/21 05/17/21 05/17/21 11:48 16:29 21:12 WBC RBC Hgb Hct MCHC RDW Lymph % (Auto) Lymph # (Auto) [place] # (Auto) Seg Neutrophils % Seg Neutrophils # D-Dimer Sodium Potassium Chloride Carbon Dioxide BUN Glucose POC Glucose 138 H 149 H 178 H Ferritin Lactate Dehydrogenase C-Reactive Protein Albumin Coronavirus (PCR) 05/18/21 05/18/21 05/18/21 07:49 11:48 17:26 WBC RBC Hgb Hct MCHC RDW Lymph % (Auto) Lymph # (Auto) [place] # (Auto) Seg Neutrophils % Seg Neutrophils # D-Dimer Sodium Potassium Chloride Carbon Dioxide BUN Glucose POC Glucose 176 H 144 H 151 H Ferritin Lactate Dehydrogenase C-Reactive Protein Albumin Coronavirus (PCR) 05/18/21 05/19/21 05/19/21 22:54 06:50 06:50 WBC 15.6 H RBC 5.09 H Hgb 14.7 H Hct 43.6 H MCHC RDW 12.5 L Lymph % (Auto) Lymph # (Auto) [place] # (Auto) Seg Neutrophils % Seg Neutrophils # D-Dimer Sodium 135 L D Potassium Chloride Carbon Dioxide BUN 31 H Glucose 179 H POC Glucose 212 H Ferritin Lactate Dehydrogenase C-Reactive Protein Albumin Coronavirus (PCR) 05/19/21 05/19/21 05/19/21 07:39 11:35 15:59 WBC RBC Hgb Hct MCHC RDW Lymph % (Auto) Lymph # (Auto) [place] # (Auto) Seg Neutrophils % Seg Neutrophils # D-Dimer Sodium Potassium Chloride Carbon Dioxide BUN Glucose POC Glucose 203 H 177 H 135 H Ferritin Lactate Dehydrogenase C-Reactive Protein Albumin Coronavirus (PCR) 05/19/21 05/20/21 05/20/21 21:23 05:00 07:33 WBC RBC Hgb Hct MCHC RDW Lymph % (Auto) Lymph # (Auto) [place] # (Auto) Seg Neutrophils % Seg Neutrophils # D-Dimer Sodium 134 L Potassium Chloride Carbon Dioxide BUN 27 H Glucose 181 H POC Glucose 143 H 145 H Ferritin Lactate Dehydrogenase C-Reactive Protein Albumin Coronavirus (PCR) 05/20/21 05/20/21 05/20/21 11:16 15:09 16:28 WBC RBC Hgb Hct MCHC RDW Lymph % (Auto) Lymph # (Auto) [place] # (Auto) Seg Neutrophils % Seg Neutrophils # D-Dimer Sodium Potassium Chloride Carbon Dioxide BUN Glucose POC Glucose 186 H 130 H 139 H Ferritin Lactate Dehydrogenase C-Reactive Protein Albumin Coronavirus (PCR) 05/20/21 05/21/21 05/21/21 22:40 07:14 07:14 WBC 17.9 H RBC 5.29 H Hgb 15.2 H Hct 45.2 H MCHC RDW 12.7 L Lymph % (Auto) Lymph # (Auto) [place] # (Auto) Seg Neutrophils % Seg Neutrophils # D-Dimer Sodium 136 L Potassium Chloride Carbon Dioxide BUN 27 H Glucose 185 H POC Glucose 151 H Ferritin Lactate Dehydrogenase C-Reactive Protein Albumin Coronavirus (PCR) 05/21/21 05/21/21 05/21/21 11:38 16:05 22:21 WBC RBC Hgb Hct MCHC RDW Lymph % (Auto) Lymph # (Auto) [place] # (Auto) Seg Neutrophils % Seg Neutrophils # D-Dimer Sodium Potassium Chloride Carbon Dioxide BUN Glucose POC Glucose 142 H 179 H 133 H Ferritin Lactate Dehydrogenase C-Reactive Protein Albumin Coronavirus (PCR) 05/22/21 05/22/21 05/22/21 05:59 06:45 06:45 WBC 15.5 H RBC Hgb Hct MCHC RDW 12.7 L Lymph % (Auto) Lymph # (Auto) [place] # (Auto) Seg Neutrophils % Seg Neutrophils # D-Dimer Sodium Potassium Chloride Carbon Dioxide BUN 32 H Glucose 167 H POC Glucose 159 H Ferritin Lactate Dehydrogenase C-Reactive Protein Albumin Coronavirus (PCR) 05/22/21 05/22/21 05/22/21 07:56 11:34 15:26 WBC RBC Hgb Hct MCHC RDW Lymph % (Auto) Lymph # (Auto) [place] # (Auto) Seg Neutrophils % Seg Neutrophils # D-Dimer Sodium Potassium Chloride Carbon Dioxide BUN Glucose POC Glucose 155 H 174 H 175 H Ferritin Lactate Dehydrogenase C-Reactive Protein Albumin Coronavirus (PCR) 05/22/21 05/23/21 05/23/21 21:57 08:02 11:49 WBC RBC Hgb Hct MCHC RDW Lymph % (Auto) Lymph # (Auto) [place] # (Auto) Seg Neutrophils % Seg Neutrophils # D-Dimer Sodium Potassium Chloride Carbon Dioxide BUN Glucose POC Glucose 172 H 152 H 176 H Ferritin Lactate Dehydrogenase C-Reactive Protein Albumin Coronavirus (PCR) 05/23/21 05/24/21 05/24/21 16:48 11:02 15:56 WBC RBC Hgb Hct MCHC RDW Lymph % (Auto) Lymph # (Auto) [place] # (Auto) Seg Neutrophils % Seg Neutrophils # D-Dimer Sodium Potassium Chloride Carbon Dioxide BUN Glucose POC Glucose 139 H 185 H 124 H Ferritin Lactate Dehydrogenase C-Reactive Protein Albumin Coronavirus (PCR) 05/24/21 05/25/21 22:24 07:23 WBC RBC Hgb Hct MCHC RDW Lymph % (Auto) Lymph # (Auto) [place] # (Auto) Seg Neutrophils % Seg Neutrophils # D-Dimer Sodium Potassium Chloride Carbon Dioxide BUN Glucose POC Glucose 124 H 176 H Ferritin Lactate Dehydrogenase C-Reactive Protein Albumin Coronavirus (PCR)
[2021-05-25] MEDS: ENOXAPARIN 100 MG/1 ML INJ SUB-Q SCH ×2 (09:03→21:02)
[2021-05-25] MEDS: SENNOSIDES 8.6 MG TAB PO SCH ×2 (09:07→21:03)
[2021-05-25] MEDS: CHOLECALCIFEROL (VIT D3) 5,000 UNIT TAB PO SCH (09:07)
[2021-05-25] MEDS: ZINC SULFATE 220 MG CAP PO SCH (09:07)
[2021-05-25] MEDS: ASCORBIC ACID 500 MG TAB PO SCH ×2 (09:08→21:02)
[2021-05-25 09:50] LABS: BUN/Creatinine Ratio 45; Blood Urea Nitrogen 36 mg/dL (7-17); Calcium 7.7 mg/dL (8.4-10.2); Hemolysis Index 14
--- NOTE | 2021-05-25 10:42 | Consultation ---
History of Present Illness - Reason for Consult Consult date: 05/25/21 N/V Requesting physician: FRANCA SOTELO - History of Present Illness Ms. 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 She has completed remdesivir and is on steroids. She continues to require high flow oxygen. She noted onset of left flank/side chest pain starting 5 days ago with a sensation that there was something swelling under her skin and it was about to burst she was given pain medications and notes that the pain medications made her nauseated and sick. Her pain has improved, and she last took a pain pill at 930 last night. She states she is still having nausea which she attributes to the pain medications. Patient was concerned that since she has had a right hemicolectomy in 2005 for a large polyp, that perhaps the colon was strangulated. Patient denies having problems with her colon after her surgery. She does have occasional problems with constipation. This admission, her bowel movements were normal until she started the pain medications. She has not had a bowel movement since Friday. She denies any abdominal pain. There is no GI bleeding. Medications reviewed. Past History Past Medical History: COPD (Quit smoking in 2005), hypertension, liver disease (Fatty liver), other (Possible autoimmune disorder) Past Surgical History: Other (R hemicolectomy - 2005, for a large polyp. Last colonoscopy ~ 2010.) Social history: single. denies: smoking, alcohol abuse, prescription drug abuse Family history: hypertension Medications and Allergies Allergies Allergy/AdvReac Type Severity Reaction Status Date / Time acetaminophen [From Percocet] Allergy Vomiting Verified 05/25/21 09:09 azithromycin Allergy CHEST PAIN Verified 05/22/21 12:26 morphine Allergy Angioedema Verified 05/22/21 12:26 oxycodone [From Percocet] Allergy Vomiting Verified 05/25/21 09:09 Penicillins Allergy Rash Verified 05/22/21 12:26 tetracycline Allergy CHEST PAIN Verified 05/22/21 12:26 AND NAUSEA/VOMITING Home Medications Medication Instructions Recorded Confirmed Last Taken Type Hydrochlorothiazide 12.5 mg PO DAILY 05/16/21 05/16/21 05/11/21 09:00 History Losartan 25 mg PO DAILY 05/16/21 05/16/21 05/11/21 09:00 History Albuterol Mdi (or & Nicu Only) 1 puff IH PRN PRN 05/22/21 05/22/21 Unknown History [ProAir HFA Inhaler] Cyclobenzaprine [Flexeril] 10 mg PO PRN PRN 05/22/21 05/22/21 Unknown History Mv-Min/Iron/Folic/Calcium/Vitk 1 each PO QDAY 05/22/21 05/22/21 Unknown History [Women's Multivitamin Tablet] Tiotropium [place] [Spiriva] 1 puff IH BID 05/22/21 05/22/21 Unknown History Active Meds: Active Medications Acetaminophen (Acetaminophen 325 Mg Tab) 650 mg PO Q4H PRN PRN Reason: Pain MILD(1-3)/Fever >100.5/LUX Last Admin: 05/23/21 10:15 Dose: 650 mg Documented by: Ascorbic Acid (Ascorbic Acid 500 Mg Tab) 1,000 mg PO BID [facility] Last Admin: 05/25/21 09:08 Dose: Not Given Documented by: Cholecalciferol (Cholecalciferol (Vit D3) 5,000 Unit Tab) 5,000 unit PO DAILY [facility] Last Admin: 05/25/21 09:07 Dose: Not Given Documented by: Cyclobenzaprine HCl (Cyclobenzaprine 10 Mg Tab) 10 mg PO Q8H PRN PRN Reason: Muscle Spasm Last Admin: 05/25/21 00:04 Dose: 10 mg Documented by: Dextrose (Dextrose 50% In Water (25gm) 50 Ml Syringe) 50 ml IV Q30MIN PRN; Protocol PRN Reason: Hypoglycemia Enoxaparin Sodium (Enoxaparin 100 Mg/1 Ml Inj) 100 mg 1 mg/kg (100 mg) SUB-Q Q12HR [facility]; Protocol Last Admin: 05/25/21 09:03 Dose: 100 mg Documented by: Insulin Human Lispro (Insulin Lispro 100 Unit/Ml) 0 unit SUB-Q ACHS [facility]; Protocol Last Admin: 05/25/21 08:16 Dose: Not Given Documented by: Metoclopramide HCl (Metoclopramide 10 Mg/2 Ml Inj) 10 mg IV ACHS [facility] Naloxone HCl (Naloxone 0.4 Mg/1 Ml Inj) 0.1 mg IV Q2MIN PRN PRN Reason: Res Rate </= 8 or 02 SAT < 92% Ondansetron HCl (Ondansetron 4 Mg/2 Ml Inj) 4 mg IV Q4H PRN PRN Reason: Nausea And Vomiting Last Admin: 05/24/21 21:27 Dose: 4 mg Documented by: Oxycodone/Acetaminophen (Oxycodone /Acetaminophen 5-325mg Tab) 1 tab PO Q6H PRN PRN Reason: Pain, Moderate (4-6) Last Admin: 05/24/21 21:27 Dose: 1 tab Documented by: Pantoprazole Sodium (Pantoprazole 40 Mg Inj) 40 mg IV BID [facility] Pseudoephedrine/Acetam/Chlorphenir (Guaifenesin/Codeine 100-10mg Oral Liqd 5 Ml) 10 ml PO Q4H PRN PRN Reason: Cough Last Admin: 05/22/21 05:03 Dose: 10 ml Documented by: Senna (Sennosides 8.6 Mg Tab) 8.6 mg PO Q12HR [facility] Last Admin: 05/25/21 09:07 Dose: Not Given Documented by: Sodium Chloride (Sodium Chloride 0.9% 10 Ml Flush Syringe) 10 ml IV BID [facility] Last Admin: 05/25/21 09:07 Dose: 10 ml Documented by: Sodium Chloride (Sodium Chloride 0.9% 10 Ml Flush Syringe) 10 ml IV PRN PRN PRN Reason: LINE FLUSH Sucralfate (Sucralfate 1 Gm/10 Ml Oral Liqd) 1 gm PO Q6HR [facility] Zinc Sulfate (Zinc Sulfate 220 Mg Cap) 220 mg PO QDAY [facility] Last Admin: 05/25/21 09:07 Dose: Not Given Documented by: Review of Systems All systems: negative (as per HPI) Exam - Constitutional Vitals: Temp Pulse Resp BP Pulse Ox 97.9 F 96 H 18 98/64 97 05/25/21 04:10 05/25/21 04:10 05/25/21 04:10 05/25/21 04:10 05/25/21 04:10 General appearance: Present: no acute distress, obese - EENT Eyes: Present: PERRL, EOM intact ENT: hearing intact - Respiratory Respiratory effort: normal Respiratory: bilateral: other (Few crackles bilaterally. Clear anteriorly.) - Cardiovascular Rhythm: regular Heart Sounds: Present: S1 & S2 - Extremities Extremities: No edema - Abdominal General gastrointestinal: Present: soft, non-tender - Musculoskeletal Musculoskeletal: other (L lateral ribs tender to palpation) Results - Labs CBC & Chem 7: 05/22/21 06:45 05/25/21 09:18 Labs: Abnormal lab results 05/24/21 05/24/21 05/24/21 Range/Units 11:02 15:56 22:24 Sodium (137-145) mmol/L Chloride (98-107) mmol/L BUN (7-17) mg/dL Glucose (65-100) mg/dL POC Glucose 185 H 124 H 124 H (70-105) mg/dL Calcium (8.4-10.2) mg/dL 05/25/21 05/25/21 Range/Units 07:23 09:18 Sodium 129 L D (137-145) mmol/L Chloride 96.2 L (98-107) mmol/L BUN 36 H (7-17) mg/dL Glucose 129 H (65-100) mg/dL POC Glucose 176 H (70-105) mg/dL Calcium 7.7 L (8.4-10.2) mg/dL - Imaging and Cardiology CT scan - abdomen: report reviewed (Fatty liver, s/p R hemicolectomy. No acute findings.) Assessment and Plan 1. N/V -based on history, this is likely due to medications patient advised to stop taking pain medications as they're causing side effects, and to use heating pad or Tylenol for the left chest pain which appears to be musculoskeletal in origin. Patient does seem to have a component of anxiety. -Can give low-dose Ativan to see if it helps with symptoms. -Otherwise, if symptoms persist even after discontinuation of the narcotics, would check gallbladder ultrasound. -Empiric proton pump inhibitors. 2. History of large colon polyp-status post right hemicolectomy 15 years ago. Doing well. -Outpatient colonoscopy would be appropriate 3. Constipation -likely due to medications. -We'll give Dulcolax suppository.
[2021-05-25 11:04] LABS: Hemoglobin 9.8 gm/dl (10.1-14.3); Mean Corpuscular HGB Conc 34 % (30-34); Mean Corpuscular Volume 86 fl (79-97); Platelet Count 147 K/mm3 (140-440); Red Blood Count 3.37 M/mm3 (3.65-5.03); Red Cell Distribution Width 12.8 % (13.2-15.2)
[2021-05-25] MEDS: METOCLOPRAMIDE 10 MG/2 ML INJ IV SCH ×3 (12:36→21:03)
[2021-05-25] MEDS: SUCRALFATE 1 GM/10 ML ORAL LIQD PO SCH ×2 (12:37→17:18)
[2021-05-25] MEDS: PANTOPRAZOLE 40 MG INJ IV SCH ×2 (12:37→21:02)
[2021-05-25] MEDS: guaiFENesin/CODEINE 100-10MG ORAL LIQD 5 ML PO PRN (12:37)
[2021-05-25] MEDS: LORazepam 2 MG/ML VIAL IV SCH (12:40)
--- NOTE | 2021-05-25 13:11 | Progress Note ---
Assessment and Plan -- Acute hypoxemic respiratory failure On high flow nasal cannula oxygen Wean as tolerated, supportive care --Coronavirus infection Solu-Medrol 80 mg IV every 8 hr total 10 days per pulmonary Completed 5 days of remdesivir s/p Actemra on 05/13/2021 ordered for AM: Ddimer, CRP Check inflammatory markers Home O2 evaluation at discharge Isolation precautions --Pneumonia Empiric antibiotics discontinued as procalcitonin is normal --Obesity hypoventilation syndrome Balanced diet, increase physical activity discharge, outpatient pulmonary follow-up for sleep study. --Moderate malnutrition; hypoalbuminemia Diet modification exercise as tolerated and weight reduction When medically stable --COVID-19 vaccination not done , Patient counseled, -- N/V CT abdomen w/o any acute pathology ordered gallbladder ultrasound. -Empiric proton pump inhibitors, reglan iv. -- History of large colon polyp-status post right hemicolectomy 15 years ago. Doing well. Outpatient colonoscopy would be appropriate --Constipation -likely due to medications. Stool softener ordered -- DVT prophylaxis SCD to bilateral lower extremities while in bed, prophylactic anticoagulation --Full code status -- Critical care time 42 minutes The high probability of a clinically significant, sudden or life threatening deterioration of the system(s) required my full and direct attention, intervention and personal management. The aggregate critical care time was [42] minutes. This time is in addition to time spent performing reported procedures but includes the following: [x] Data Review and interpretation [x] Patient assessment and monitoring of vital signs [x] Documentation [x] Medication orders and management Brief history 55 YO Female with HTN, Mild Intermittent Asthma, Obesity Hypoventilation Syndrome, Coronavirus Infection diagnosed 1 week ago presents to ED for evaluation. Patient reports "it is hard to breathe". Patient states that she had experienced shortness of breath, dry cough, fatigue, malaise, subjective fever, body aches, loss of sense of smell, loss of sense of taste, decreased exercise tolerance over the past 1 week with worsening symptoms over the past 2 days. Work-up in the emergency room is consistent with PUI/high suspicion for COVID-19, hypoxia requiring supplemental oxygen and pneumonia Admitted PCR test was positive for COVID-19, is in isolation evaluated by ID and pulmonary patient required high flow nasal cannula oxygen times intermittent BiPAP patient is critically ill admitted to [facility], continues to be on high flow nasal cannula oxygen. Daily Hospital course; 05/12: Patient currently severely hypoxic on full nonrebreather and also high flow 100%. We will go ahead and consult pulmonary we will start patient on steroids. We will also consult infectious disease anticipate that the patient should be started on remdesivir. Awaiting repeat Covid 19 diagnosis although patient states that she was diagnosed a week ago. She unfortunately is not vaccinated. Condition is pretty guarded. Will also start on Diuresis and Full anticoagulation. Encouraged proning, Monitor inflammatory markers Patients emergency contacts: Kristen [phone] and Demetria [phone]. I have called both and left a message 05/13: Patient seen and examined, continue supportive care, continue oxygen therapy, PRONE TOLERATED. Continue anticoagulation and lasix, including Remdesivir. 05/14: Patient remains on full dose anticoagulation with, Remedesivir and Steroids. Continue to encourage proning. Continue lasix for negative fluid balance. REMAINS CRITICALLY ILL. 05/15: Severely hypoxemic on high flow nasal cannula oxygen, encouraged prone positioning as tolerated 05/16/2021; patient remains on high flow nasal cannula oxygen, will wean as tolerated Poor prognosis 05/15/2021; patient remains on high flow nasal cannula oxygen 40 L/100%/93% 05/16/2021; patient remains on high flow oxygen 40 L/100% FiO2/95% O2 sat Unable to wean, very poor prognosis 05/17/2021: On high flow nasal cannula oxygen Patient remains on high flow nasal cannula oxygen 30 L 80% FiO2 90% O2 sats patient is in mild distress complains of tiredn Stable to be discharged out of [facility] to medical floor 05/18/21 Patient with Covid-19 infection with acute resp failure. Transferred to [facility] from [facility]. Cont Oxygen by HF[facility] 30 l/min 05/19/21 Patient with Covid-19 infection and acute respiratory failure. HFNC weaned down to 25 l/min 05/20/21 Patient with Covid-19 pneumonia with acute resp failure. Still on HFNC at 25 l/min 05/21/21 Patient with Covid-19 pneumonia with acute resp failure. On HFNC, now at 20 l/min. Repeat Chest X ray today. 05/22/21: Patient remains on 20 L high flow nasal cannula O2. Patient does complains of severe left-sided back pain -ordered IV Dilaudid and lumbar x-ray 05/23/21: Ordered CT abdomen pelvis without contrast as patient complaining of continuous back pain. CT abdomen pelvis showed degenerative changes no other any acute finding. Patient remains on 20 L high flow O2, continue to wean off as tolerated. 05/24/21; oxygen requirement slightly decreased to 15 to 18 L high flow. Continue supportive care and wean off O2 as tolerated 05/25/21: Abdominal pain and back pain much better today. But complains of nausea vomiting and constipation. Ordered for antiemetics and stool softener. Also consulted GI. Oxygen requirement has gone up today -on 30 L high flow O2. Guarded prognosis, follow clinically Subjective Date of service: 05/25/21 Interval history: Patient seen and examined. Medical records and medication list reviewed. No acute event overnight noted by the RN. Patient remains on high flow O2 she c/o nausea and constipation Discussed plan of care at bedside with patient. Objective - Exam Narrative Exam: Limited physical exam due to COVID-19 pandemic to minimize transmission of the disease and to preserve PPE. Vital reviewed and stable. GENERAL: well-developed morbidly obese white female lying on bed appeared to be in no discomfort. HEENT: Normocephalic. Atraumatic. NECK: Supple. CHEST/LUNGS: breathing nonlabored. HEART/CARDIOVASCULAR: Heart rate stable on telemetry ABDOMEN: Visibly not distended but obese SKIN: There is no rash NEURO: No focal motor deficit. Follows command. MUSCULOSKELETAL: No joint effusion EXTRIMITY: No swelling, no cyanosis or clubbing. PSYCH: Cooperative. - Constitutional Vitals: Vital Signs - 12hr 05/25/21 05/25/21 02:00 04:10 Temperature 97.9 F Pulse Rate 96 H Respiratory 18 Rate Blood Pressure 98/64 O2 Sat by Pulse 97 97 Oximetry - Labs CBC & Chem 7: 05/25/21 09:18 05/25/21 09:18 Labs: Abnormal lab results 05/24/21 05/24/21 05/25/21 Range/Units 15:56 22:24 07:23 WBC (4.5-11.0) K/mm3 RBC (3.65-5.03) M/mm3 Hgb (10.1-14.3) gm/dl Hct (30.3-42.9) % RDW (13.2-15.2) % Sodium (137-145) mmol/L Chloride (98-107) mmol/L BUN (7-17) mg/dL Glucose (65-100) mg/dL POC Glucose 124 H 124 H 176 H (70-105) mg/dL Calcium (8.4-10.2) mg/dL 05/25/21 05/25/21 05/25/21 Range/Units 09:18 09:18 10:48 WBC 12.9 H (4.5-11.0) K/mm3 RBC 3.37 L (3.65-5.03) M/mm3 Hgb 9.8 L (10.1-14.3) gm/dl Hct 29.0 L (30.3-42.9) % RDW 12.8 L (13.2-15.2) % Sodium 129 L D (137-145) mmol/L Chloride 96.2 L (98-107) mmol/L BUN 36 H (7-17) mg/dL Glucose 129 H (65-100) mg/dL POC Glucose 126 H (70-105) mg/dL Calcium 7.7 L (8.4-10.2) mg/dL
[2021-05-25] MEDS ORDERED: ALPRAZolam 0.5 MG TAB PO PRN (20:13)
[2021-05-26] MEDS: SUCRALFATE 1 GM/10 ML ORAL LIQD PO SCH ×3 (00:43→23:20)
[2021-05-26] MEDS: LORazepam 2 MG/ML VIAL IV SCH (00:44)
[2021-05-26] MEDS: ONDANSETRON 4 MG/2 ML INJ IV PRN (01:14)
[2021-05-26] MEDS ORDERED: SODIUM CHLORIDE 0.9% 1000 ML 1,000 ML ONE (05:32)
[2021-05-26] MEDS ORDERED: SODIUM CHLORIDE 0.9% 1000 ML 1,000 ML IV ONE ×3 (05:33→17:30)
--- NOTE | 2021-05-26 05:46 | Event Note ---
Date: 05/26/21 . Code met called on patient to start PPN on admission for COVID-19. She was found to be hypotensive. Patient indicates that she has been having some nausea and vomiting but denies any diarrhea. No abdominal pain. No headache but has some dizziness. Denies any diaphoresis. Blood pressure check: 95/44. O2 saturation 98%. patient on Vapotherm 60% Plan: Patient will be given a bolus of IV fluid normal saline 1 L. We will monitor vital signs closely. We will hold any antihypertensive medications.
[2021-05-26] MEDS: METOCLOPRAMIDE 10 MG/2 ML INJ IV SCH ×2 (09:39→21:52)
[2021-05-26] MEDS: ENOXAPARIN 100 MG/1 ML INJ SUB-Q SCH (10:35)
[2021-05-26] MEDS: ASCORBIC ACID 500 MG TAB PO SCH ×2 (10:35→21:52)
[2021-05-26] MEDS: ACETAMINOPHEN 325 MG TAB PO PRN (10:37)
[2021-05-26] MEDS: CHOLECALCIFEROL (VIT D3) 5,000 UNIT TAB PO SCH (10:37)
[2021-05-26] MEDS: ZINC SULFATE 220 MG CAP PO SCH (10:37)
[2021-05-26] MEDS: PANTOPRAZOLE 40 MG INJ IV SCH (10:38)
[2021-05-26] MEDS: SENNOSIDES 8.6 MG TAB PO SCH ×2 (10:40→21:52)
[2021-05-26] MEDS ORDERED: oxyCODONE /ACETAMINOPHEN 5-325MG TAB PO PRN (10:44)
--- NOTE | 2021-05-26 10:49 | Progress Note ---
Assessment and Plan - Patient Problems (1) Nausea & vomiting Current Visit: Yes Status: Acute (2) Acute hypoxemic respiratory failure Current Visit: Yes Status: Acute (3) Acute respiratory distress Current Visit: Yes Status: Acute (4) COVID-19 vaccination not done Current Visit: Yes Status: Acute (5) Constipation Current Visit: Yes Status: Acute (6) Coronavirus infection Current Visit: Yes Status: Acute (7) Hypoxia Current Visit: Yes Status: Acute Subjective Interval history: feels better Objective Vital Signs - 12hr 05/26/21 05/26/21 05/26/21 03:55 05:18 05:52 Temperature 98.2 F 97.6 F Pulse Rate 117 H 108 H Respiratory 18 22 Rate Blood Pressure 73/45 100/43 O2 Sat by Pulse 99 83 L 100 Oximetry 05/26/21 09:02 Temperature Pulse Rate Respiratory Rate Blood Pressure O2 Sat by Pulse 98 Oximetry Constitutional: alert Eyes: non-icteric ENT: oropharynx dry, other (Crowded oropharynx) Neck: supple, no JVD Effort: mildly labored Ascultation: Bilateral: rhonchi Cardiovascular: regular rate and rhythm Gastrointestinal: normoactive bowel sounds, soft, non-tender, other (Obese) Integumentary: normal Extremities: no cyanosis, no edema, pink and warm Neurologic: normal mental status, non-focal exam Psychiatric: mood appropriate CBC and BMP: 05/25/21 09:18 05/25/21 09:18 ABG, PT/INR, D-dimer: PT/INR, D-dimer D-Dimer 452.36 ng/mlDDU (0-234) H 05/16/21 05:00 Abnormal lab findings: Abnormal Labs 05/11/21 05/11/21 05/11/21 14:33 14:33 15:00 WBC RBC Hgb 14.8 H Hct MCHC 35 H RDW 12.9 L Lymph % (Auto) 8.7 L Lymph # (Auto) 0.7 L [place] # (Auto) Seg Neutrophils % 83.7 H Seg Neutrophils # D-Dimer 331.70 H Sodium Potassium 5.2 H Chloride 95.0 L Carbon Dioxide BUN Glucose 125 H POC Glucose Calcium Ferritin Lactate Dehydrogenase C-Reactive Protein Albumin 3.3 L Coronavirus (PCR) 05/11/21 05/11/21 05/12/21 15:00 15:00 08:46 WBC RBC Hgb Hct MCHC RDW Lymph % (Auto) Lymph # (Auto) [place] # (Auto) Seg Neutrophils % Seg Neutrophils # D-Dimer 345.30 H Sodium Potassium Chloride Carbon Dioxide BUN Glucose POC Glucose Calcium Ferritin 471.5 H Lactate Dehydrogenase 579 H C-Reactive Protein 15.80 H Albumin Coronavirus (PCR) 05/12/21 05/12/21 05/12/21 08:46 08:46 09:00 WBC RBC Hgb Hct MCHC RDW Lymph % (Auto) Lymph # (Auto) [place] # (Auto) Seg Neutrophils % Seg Neutrophils # D-Dimer Sodium Potassium Chloride Carbon Dioxide BUN Glucose 149 H POC Glucose Calcium Ferritin 465.6 H Lactate Dehydrogenase 574 H C-Reactive Protein 18.40 H Albumin Coronavirus (PCR) Positive A 05/12/21 05/12/21 05/12/21 11:40 16:14 18:01 WBC RBC Hgb Hct MCHC RDW Lymph % (Auto) Lymph # (Auto) [place] # (Auto) Seg Neutrophils % Seg Neutrophils # D-Dimer Sodium Potassium Chloride Carbon Dioxide BUN Glucose POC Glucose 141 H 140 H 159 H Calcium Ferritin Lactate Dehydrogenase C-Reactive Protein Albumin Coronavirus (PCR) 05/12/21 05/13/21 05/13/21 22:01 03:51 03:51 WBC 13.6 H RBC Hgb 14.6 H Hct MCHC RDW 12.9 L Lymph % (Auto) 3.5 L Lymph # (Auto) 0.5 L [place] # (Auto) 0.9 H Seg Neutrophils % 89.4 H Seg Neutrophils # 12.1 H D-Dimer Sodium Potassium Chloride Carbon Dioxide BUN 31 H Glucose 152 H POC Glucose 152 H Calcium Ferritin Lactate Dehydrogenase C-Reactive Protein Albumin 3.2 L Coronavirus (PCR) 05/13/21 05/13/21 05/13/21 07:32 16:04 22:48 WBC RBC Hgb Hct MCHC RDW Lymph % (Auto) Lymph # (Auto) [place] # (Auto) Seg Neutrophils % Seg Neutrophils # D-Dimer Sodium Potassium Chloride Carbon Dioxide BUN Glucose POC Glucose 160 H 146 H 175 H Calcium Ferritin Lactate Dehydrogenase C-Reactive Protein Albumin Coronavirus (PCR) 05/14/21 05/14/21 05/14/21 04:49 07:18 13:24 WBC RBC Hgb Hct MCHC RDW Lymph % (Auto) Lymph # (Auto) [place] # (Auto) Seg Neutrophils % Seg Neutrophils # D-Dimer Sodium Potassium Chloride Carbon Dioxide BUN 41 H Glucose 169 H POC Glucose 160 H 146 H Calcium Ferritin Lactate Dehydrogenase C-Reactive Protein Albumin 3.4 L Coronavirus (PCR) 05/14/21 05/14/21 05/15/21 17:36 21:54 04:05 WBC RBC Hgb Hct MCHC RDW Lymph % (Auto) Lymph # (Auto) [place] # (Auto) Seg Neutrophils % Seg Neutrophils # D-Dimer Sodium Potassium Chloride Carbon Dioxide 33 H BUN 45 H Glucose 177 H POC Glucose 181 H 169 H Calcium Ferritin Lactate Dehydrogenase C-Reactive Protein Albumin 3.3 L Coronavirus (PCR) 05/15/21 05/15/21 05/15/21 07:18 12:09 17:16 WBC RBC Hgb Hct MCHC RDW Lymph % (Auto) Lymph # (Auto) [place] # (Auto) Seg Neutrophils % Seg Neutrophils # D-Dimer Sodium Potassium Chloride Carbon Dioxide BUN Glucose POC Glucose 166 H 160 H 127 H Calcium Ferritin Lactate Dehydrogenase C-Reactive Protein Albumin Coronavirus (PCR) 05/15/21 05/16/21 05/16/21 21:17 01:17 05:00 WBC RBC Hgb Hct MCHC RDW Lymph % (Auto) Lymph # (Auto) [place] # (Auto) Seg Neutrophils % Seg Neutrophils # D-Dimer 452.36 H Sodium Potassium Chloride Carbon Dioxide BUN Glucose POC Glucose 161 H 161 H Calcium Ferritin Lactate Dehydrogenase C-Reactive Protein Albumin Coronavirus (PCR) 05/16/21 05/16/21 05/16/21 05:00 08:06 11:40 WBC 12.5 H RBC 5.39 H Hgb 14.9 H Hct 47.4 H MCHC RDW 12.7 L Lymph % (Auto) 3.8 L Lymph # (Auto) 0.5 L [place] # (Auto) Seg Neutrophils % 89.4 H Seg Neutrophils # 11.2 H D-Dimer Sodium Potassium Chloride Carbon Dioxide BUN Glucose POC Glucose 140 H 148 H Calcium Ferritin Lactate Dehydrogenase C-Reactive Protein Albumin Coronavirus (PCR) 05/16/21 05/16/21 05/17/21 15:44 21:38 07:08 WBC RBC Hgb Hct MCHC RDW Lymph % (Auto) Lymph # (Auto) [place] # (Auto) Seg Neutrophils % Seg Neutrophils # D-Dimer Sodium Potassium Chloride Carbon Dioxide BUN Glucose POC Glucose 127 H 176 H 166 H Calcium Ferritin Lactate Dehydrogenase C-Reactive Protein Albumin Coronavirus (PCR) 05/17/21 05/17/21 05/17/21 11:48 16:29 21:12 WBC RBC Hgb Hct MCHC RDW Lymph % (Auto) Lymph # (Auto) [place] # (Auto) Seg Neutrophils % Seg Neutrophils # D-Dimer Sodium Potassium Chloride Carbon Dioxide BUN Glucose POC Glucose 138 H 149 H 178 H Calcium Ferritin Lactate Dehydrogenase C-Reactive Protein Albumin Coronavirus (PCR) 05/18/21 05/18/21 05/18/21 07:49 11:48 17:26 WBC RBC Hgb Hct MCHC RDW Lymph % (Auto) Lymph # (Auto) [place] # (Auto) Seg Neutrophils % Seg Neutrophils # D-Dimer Sodium Potassium Chloride Carbon Dioxide BUN Glucose POC Glucose 176 H 144 H 151 H Calcium Ferritin Lactate Dehydrogenase C-Reactive Protein Albumin Coronavirus (PCR) 05/18/21 05/19/21 05/19/21 22:54 06:50 06:50 WBC 15.6 H RBC 5.09 H Hgb 14.7 H Hct 43.6 H MCHC RDW 12.5 L Lymph % (Auto) Lymph # (Auto) [place] # (Auto) Seg Neutrophils % Seg Neutrophils # D-Dimer Sodium 135 L D Potassium Chloride Carbon Dioxide BUN 31 H Glucose 179 H POC Glucose 212 H Calcium Ferritin Lactate Dehydrogenase C-Reactive Protein Albumin Coronavirus (PCR) 05/19/21 05/19/21 05/19/21 07:39 11:35 15:59 WBC RBC Hgb Hct MCHC RDW Lymph % (Auto) Lymph # (Auto) [place] # (Auto) Seg Neutrophils % Seg Neutrophils # D-Dimer Sodium Potassium Chloride Carbon Dioxide BUN Glucose POC Glucose 203 H 177 H 135 H Calcium Ferritin Lactate Dehydrogenase C-Reactive Protein Albumin Coronavirus (PCR) 05/19/21 05/20/21 05/20/21 21:23 05:00 07:33 WBC RBC Hgb Hct MCHC RDW Lymph % (Auto) Lymph # (Auto) [place] # (Auto) Seg Neutrophils % Seg Neutrophils # D-Dimer Sodium 134 L Potassium Chloride Carbon Dioxide BUN 27 H Glucose 181 H POC Glucose 143 H 145 H Calcium Ferritin Lactate Dehydrogenase C-Reactive Protein Albumin Coronavirus (PCR) 05/20/21 05/20/21 05/20/21 11:16 15:09 16:28 WBC RBC Hgb Hct MCHC RDW Lymph % (Auto) Lymph # (Auto) [place] # (Auto) Seg Neutrophils % Seg Neutrophils # D-Dimer Sodium Potassium Chloride Carbon Dioxide BUN Glucose POC Glucose 186 H 130 H 139 H Calcium Ferritin Lactate Dehydrogenase C-Reactive Protein Albumin Coronavirus (PCR) 05/20/21 05/21/21 05/21/21 22:40 07:14 07:14 WBC 17.9 H RBC 5.29 H Hgb 15.2 H Hct 45.2 H MCHC RDW 12.7 L Lymph % (Auto) Lymph # (Auto) [place] # (Auto) Seg Neutrophils % Seg Neutrophils # D-Dimer Sodium 136 L Potassium Chloride Carbon Dioxide BUN 27 H Glucose 185 H POC Glucose 151 H Calcium Ferritin Lactate Dehydrogenase C-Reactive Protein Albumin Coronavirus (PCR) 05/21/21 05/21/21 05/21/21 11:38 16:05 22:21 WBC RBC Hgb Hct MCHC RDW Lymph % (Auto) Lymph # (Auto) [place] # (Auto) Seg Neutrophils % Seg Neutrophils # D-Dimer Sodium Potassium Chloride Carbon Dioxide BUN Glucose POC Glucose 142 H 179 H 133 H Calcium Ferritin Lactate Dehydrogenase C-Reactive Protein Albumin Coronavirus (PCR) 05/22/21 05/22/21 05/22/21 05:59 06:45 06:45 WBC 15.5 H RBC Hgb Hct MCHC RDW 12.7 L Lymph % (Auto) Lymph # (Auto) [place] # (Auto) Seg Neutrophils % Seg Neutrophils # D-Dimer Sodium Potassium Chloride Carbon Dioxide BUN 32 H Glucose 167 H POC Glucose 159 H Calcium Ferritin Lactate Dehydrogenase C-Reactive Protein Albumin Coronavirus (PCR) 05/22/21 05/22/21 05/22/21 07:56 11:34 15:26 WBC RBC Hgb Hct MCHC RDW Lymph % (Auto) Lymph # (Auto) [place] # (Auto) Seg Neutrophils % Seg Neutrophils # D-Dimer Sodium Potassium Chloride Carbon Dioxide BUN Glucose POC Glucose 155 H 174 H 175 H Calcium Ferritin Lactate Dehydrogenase C-Reactive Protein Albumin Coronavirus (PCR) 05/22/21 05/23/21 05/23/21 21:57 08:02 11:49 WBC RBC Hgb Hct MCHC RDW Lymph % (Auto) Lymph # (Auto) [place] # (Auto) Seg Neutrophils % Seg Neutrophils # D-Dimer Sodium Potassium Chloride Carbon Dioxide BUN Glucose POC Glucose 172 H 152 H 176 H Calcium Ferritin Lactate Dehydrogenase C-Reactive Protein Albumin Coronavirus (PCR) 05/23/21 05/24/21 05/24/21 16:48 11:02 15:56 WBC RBC Hgb Hct MCHC RDW Lymph % (Auto) Lymph # (Auto) [place] # (Auto) Seg Neutrophils % Seg Neutrophils # D-Dimer Sodium Potassium Chloride Carbon Dioxide BUN Glucose POC Glucose 139 H 185 H 124 H Calcium Ferritin Lactate Dehydrogenase C-Reactive Protein Albumin Coronavirus (PCR) 05/24/21 05/25/21 05/25/21 22:24 07:23 09:18 WBC 12.9 H RBC 3.37 L Hgb 9.8 L Hct 29.0 L MCHC RDW 12.8 L Lymph % (Auto) Lymph # (Auto) [place] # (Auto) Seg Neutrophils % Seg Neutrophils # D-Dimer Sodium Potassium Chloride Carbon Dioxide BUN Glucose POC Glucose 124 H 176 H Calcium Ferritin Lactate Dehydrogenase C-Reactive Protein Albumin Coronavirus (PCR) 05/25/21 05/25/21 05/25/21 09:18 10:48 15:36 WBC RBC Hgb Hct MCHC RDW Lymph % (Auto) Lymph # (Auto) [place] # (Auto) Seg Neutrophils % Seg Neutrophils # D-Dimer Sodium 129 L D Potassium Chloride 96.2 L Carbon Dioxide BUN 36 H Glucose 129 H POC Glucose 126 H 122 H Calcium 7.7 L Ferritin Lactate Dehydrogenase C-Reactive Protein Albumin Coronavirus (PCR) 05/25/21 05/26/21 05/26/21 20:34 05:27 07:42 WBC RBC Hgb Hct MCHC RDW Lymph % (Auto) Lymph # (Auto) [place] # (Auto) Seg Neutrophils % Seg Neutrophils # D-Dimer Sodium Potassium Chloride Carbon Dioxide BUN Glucose POC Glucose 286 H 220 H 166 H Calcium Ferritin Lactate Dehydrogenase C-Reactive Protein Albumin Coronavirus (PCR)
--- NOTE | 2021-05-26 10:54 | Gastroenterology Progress Note ---
Assessment and Plan - Patient Problems (1) Nausea & vomiting Current Visit: Yes Status: Acute Plan to address problem: - Stable, and possibly related to polypharmacy/COVID. Abd CT A/P this admit not worrisome, and labs OK. - Will continue supportive care at present, and encourage PO intake. - Will continue weaning narcotics (down to Q12 from Q6, and consider d/c tomorrow). - Continue Xanax PRN (hx of anxiety disorder). - Encouraged patient to get out of bed. (2) Constipation Current Visit: Yes Status: Acute Plan to address problem: - Baseline constipation, with worsening from COVID/narcotics. - Will add MOM to Senna since no BM overnight. - Mag citrate if no BM today. (3) Coronavirus infection Current Visit: Yes Status: Acute Subjective Date of service: 05/26/21 Principal diagnosis: N/V, Constipation Interval history: The patient became mildly hypotensive and tachycardic overnight, but no fevers. She is improved today, but still c/o of being unable to breath. She has not had a BM despite Senna. Taking little PO at present, and c/o nausea still. She has no specific/focal abdominal pain. Objective - Constitutional Vitals: Temp Pulse Resp BP Pulse Ox 97.6 F 108 H 22 100/43 98 05/26/21 05:52 05/26/21 05:52 05/26/21 05:52 05/26/21 05:52 05/26/21 09:02 General appearance: mild distress - Respiratory Respiratory effort: labored (Mild) Respiratory: bilateral: diminished - Cardiovascular Heart Rate: 110 Rhythm: regular - Gastrointestinal General gastrointestinal: Present: soft, non-tender, distended (Mild distention without guard), normal bowel sounds - Labs CBC & Chem 7: 05/25/21 09:18 05/25/21 09:18 Labs: Laboratory Results - last 24 hr 05/25/21 05/25/21 05/25/21 09:18 10:48 15:36 WBC 12.9 H RBC 3.37 L Hgb 9.8 L Hct 29.0 L MCV 86 MCH 29 MCHC 34 RDW 12.8 L Plt Count 147 POC Glucose 126 H 122 H 05/25/21 05/26/21 05/26/21 20:34 05:27 07:42 WBC RBC Hgb Hct MCV MCH MCHC RDW Plt Count POC Glucose 286 H 220 H 166 H
[2021-05-26] MEDS ORDERED: SODIUM CHLORIDE 0.9% 1000 ML 500 ML IV ONE (11:56)
[2021-05-26] MEDS ORDERED: MAGNESIUM HYDROXIDE (MOM) ORAL LIQD UDC PO ONE (12:00)
[2021-05-26] MEDS ORDERED: SODIUM CHLORIDE 0.9% 1000 ML 1,000 ML IV SCH (12:00)
[2021-05-26] MEDS ORDERED: SODIUM BICARB 8.4% 50 MEQ/50 ML SYRINGE IV ONE ×2 (13:45→15:00)
[2021-05-26] MEDS ORDERED: EPINEPHrine 30 MG/30 ML INJ IV ONE (13:45)
[2021-05-26] MEDS ORDERED: NORepinephrine/NS 4 MG-250 ML 4 MG/250 ML BAG IV ONE (13:50)
[2021-05-26] MEDS ORDERED: ETOMIDATE 20 MG/10 ML INJ IV ONE ×2 (13:51→13:56)
[2021-05-26] MEDS ORDERED: propofoL 200 MG/20 ML VIAL IV ONE ×2 (13:52→13:57)
--- NOTE | 2021-05-26 13:56 | Progress Note ---
Assessment and Plan -- s/p cardiac arrest Ordered 2D echo, consult cardiology Follow clinically with pressor support --profound hypotension/Shock on pressor, ordered 2d echo --severe anemia, cannot r/o internal bleeding, too unstable for imaging study transfuse, follow h/h, order ffp, stop lovenox --PRICE, likely ATN place on bicarbonate drip, consult renal --severe metabolic acidosis, initiated bicarbonate drip -- Acute hypoxemic respiratory failure s/p high flow nasal cannula oxygen, now intubated Wean as tolerated, supportive care --Coronavirus infection Solu-Medrol 80 mg IV every 8 hr total 10 days per pulmonary Completed 5 days of remdesivir s/p Actemra on 05/13/2021 ordered for AM: Ddimer, CRP Check inflammatory markers Home O2 evaluation at discharge Isolation precautions --Pneumonia Empiric antibiotics discontinued as procalcitonin is normal --Obesity hypoventilation syndrome Balanced diet, increase physical activity on discharge, outpatient pulmonary follow-up for sleep study. --Moderate malnutrition; hypoalbuminemia Diet modification exercise as tolerated and weight reduction When medically stable --COVID-19 vaccination not done , Patient counseled, -- N/V CT abdomen w/o any acute pathology ordered gallbladder ultrasound. -Empiric proton pump inhibitors, reglan iv. -- History of large colon polyp-status post right hemicolectomy 15 years ago. Doing well. Outpatient colonoscopy would be appropriate --Constipation -likely due to medications. Stool softener ordered -- DVT prophylaxis SCD to bilateral lower extremities while in bed, prophylactic anticoagulation discontinued for profound anemia --Full code status -- Critical care time 42 minutes The high probability of a clinically significant, sudden or life threatening deterioration of the system(s) required my full and direct attention, interven tion and personal management. The aggregate critical care time was [42] minutes. This time is in addition to time spent performing reported procedures but includes the following: [x] Data Review and interpretation [x] Patient assessment and monitoring of vital signs [x] Documentation [x] Medication orders and management Brief history 55 YO Female with HTN, Mild Intermittent Asthma, Obesity Hypoventilation Syndrome, Coronavirus Infection diagnosed 1 week ago presents to ED for evaluation. Patient reports "it is hard to breathe". Patient states that she had experienced shortness of breath, dry cough, fatigue, malaise, subjective fever, body aches, loss of sense of smell, loss of sense of taste, decreased exercise tolerance over the past 1 week with worsening symptoms over the past 2 days. Work-up in the emergency room is consistent with PUI/high suspicion for COVID-19, hypoxia requiring supplemental oxygen and pneumonia Admitted PCR test was positive for COVID-19, is in isolation evaluated by ID and pulmonary patient required high flow nasal cannula oxygen times intermittent BiPAP patient is critically ill admitted to [facility], continues to be on high flow nasal cannula oxygen. Daily Hospital course; 05/12: Patient currently severely hypoxic on full nonrebreather and also high flow 100%. We will go ahead and consult pulmonary we will start patient on steroids. We will also consult infectious disease anticipate that the patient should be started on remdesivir. Awaiting repeat Covid 19 diagnosis although patient states that she was diagnosed a week ago. She unfortunately is not vaccinated. Condition is pretty guarded. Will also start on Diuresis and Full anticoagulation. Encouraged proning, Monitor inflammatory markers Patients emergency contacts: Kristen [phone] and Demetria [phone]. I have called both and left a message 05/13: Patient seen and examined, continue supportive care, continue oxygen therapy, PRONE TOLERATED. Continue anticoagulation and lasix, including R emdesivir. 05/14: Patient remains on full dose anticoagulation with, Remedesivir and Steroids. Continue to encourage proning. Continue lasix for negative fluid balance. REMAINS CRITICALLY ILL. 05/15: Severely hypoxemic on high flow nasal cannula oxygen, encouraged prone positioning as tolerated 05/16/2021; patient remains on high flow nasal cannula oxygen, will wean as tolerated Poor prognosis 05/15/2021; patient remains on high flow nasal cannula oxygen 40 L/100%/93% 05/16/2021; patient remains on high flow oxygen 40 L/100% FiO2/95% O2 sat Unable to wean, very poor prognosis 05/17/2021: On high flow nasal cannula oxygen Patient remains on high flow nasal cannula oxygen 30 L 80% FiO2 90% O2 sats patient is in mild distress complains of tiredn Stable to be discharged out of [facility] to medical floor 05/18/21 Patient with Covid-19 infection with acute resp failure. Transferred to [facility] from [facility]. Cont Oxygen by HFNC 30 l/min 05/19/21 Patient with Covid-19 infection and acute respiratory failure. HFNC weaned down to 25 l/min 05/20/21 Patient with Covid-19 pneumonia with acute resp failure. Still on HFNC at 25 l/min 05/21/21 Patient with Covid-19 pneumonia with acute resp failure. On HFNC, now at 20 l/min. Repeat Chest X ray today. 05/22/21: Patient remains on 20 L high flow nasal cannula O2. Patient does complains of severe left-sided back pain -ordered IV Dilaudid and lumbar x-ray 05/23/21: Ordered CT abdomen pelvis without contrast as patient complaining of continuous back pain. CT abdomen pelvis showed degenerative changes no other any acute finding. Patient remains on 20 L high flow O2, continue to wean off as tolerated. 05/24/21; oxygen requirement slightly decreased to 15 to 18 L high flow. Continue supportive care and wean off O2 as tolerated 05/25/21: Abdominal pain and back pain much better today. But complains of nausea vomiting and constipation. Ordered for antiemetics and stool softener. Also consulted GI. Oxygen requirement has gone up today -on 30 L high flow O2. Guarded prognosis, follow clinically 05/26/21: Patient became hypotensive, lathergic. transferred to ICU, planned for intubation. but pt coded and ACLS initiated. ROSC achieved and patient intubated during ACLS. Patient also placed on pressor support. Stat labs ord ered. Patient found to be profoundly anemic with significant drop in H&H, hyperchloremic PRICE. Stat first RBC transfusion ordered, also order for FFP for elevated INR, ordered for hyperkalemia protocol and bicarbonate drip. Called family for update, extremely poor prognosis. Subjective Date of service: 05/26/21 Principal diagnosis: N/V, Constipation Interval history: Patient seen and examined. Medical records and medication list reviewed. transferred to ICU, s/p cardiac arrest, intubated called family for update Objective - Exam Narrative Exam: Limited physical exam due to COVID-19 pandemic to minimize transmission of the disease and to preserve PPE. Vital reviewed and stable. GENERAL: well-developed morbidly obese white female lying on bed intubated and sedated HEENT: Normocephalic. Atraumatic. NECK: Supple. CHEST/LUNGS: breathing on mechanical ventilation HEART/CARDIOVASCULAR: tachycardic ABDOMEN: Visibly not distended but obese SKIN: There is no rash NEURO: lathergic, sedated MUSCULOSKELETAL: No joint effusion EXTRIMITY: No swelling, no cyanosis or clubbing. PSYCH: sedated - Constitutional Vitals: Vital Signs - 12hr 05/26/21 05/26/21 05/26/21 03:55 05:18 05:52 Temperature 98.2 F 97.6 F Pulse Rate 117 H 108 H Respiratory 18 22 Rate Blood Pressure 73/45 100/43 O2 Sat by Pulse 99 83 L 100 Oximetry 05/26/21 09:02 Temperature Pulse Rate Respiratory Rate Blood Pressure O2 Sat by Pulse 98 Oximetry - Labs CBC & Chem 7: 05/28/21 05:05 05/28/21 15:00 Labs: Abnormal lab results 05/25/21 05/25/21 05/26/21 Range/Units 15:36 20:34 05:27 POC Glucose 122 H 286 H 220 H (70-105) mg/dL 05/26/21 05/26/21 05/26/21 Range/Units 07:42 11:07 13:24 POC Glucose 166 H 171 H 138 H (70-105) mg/dL
[2021-05-26] MEDS: NORepinephrine/NS 4 MG-250 ML 4 MG/250 ML BAG IV SCH ×2 (14:02→16:55)
[2021-05-26 14:34] LABS: ABG Methemoglobin 0.5 % (0.0-1.5); ABG Oxygen Saturation 99.5 % (95.0-99.0); ABG PCO2 30.5 mm Hg
[2021-05-26 14:38] LABS: ABG PO2 359.3 mm Hg (80.0-90.0)
--- NOTE | 2021-05-26 14:38 | XRay Report ---
ABDOMEN 1 VIEW 05/26/2021 1:31 PM INDICATION / CLINICAL INFORMATION: Gastric tube. COMPARISON: None available. FINDINGS: TUBES / LINES: There is a nasogastric tube with the tip overlying the gastric body. BOWEL GAS PATTERN: There is mild gaseous distention of the stomach. FREE AIR / EXTRALUMINAL GAS: None. ADDITIONAL FINDINGS: No significant additional findings. IMPRESSION: 1. Nasogastric tube tip overlies the gastric body. 2. Mild gaseous distention of the stomach. Signer Name: Larry Sorenson MD Signed: 05/26/2021 2:34 PM Workstation Name: [id number]
--- NOTE | 2021-05-26 14:40 | XRay Report ---
CHEST 1 VIEW 05/26/2021 1:32 PM INDICATION / CLINICAL INFORMATION: ETT Placement. COMPARISON: 05/21/21. FINDINGS: SUPPORT DEVICES: There is a new endotracheal tube with the tip 3.5 cm above the tanja. There is a ne w nasogastric tube coursing into the stomach with the tip not seen. HEART / MEDIASTINUM: Unchanged. LUNGS / PLEURA: There are mild patchy parenchymal opacities in the right midlung and both upper lung zones, mildly increased. No pleural effusion. No pneumothorax. ADDITIONAL FINDINGS: Mild gaseous distention of the stomach. IMPRESSION: 1. Endotracheal tube in satisfactory position radiographically. 2. Patchy parenchymal opacities bilaterally appear more prominent. Signer Name: Larry Sorenson MD Signed: 05/26/2021 2:36 PM Workstation Name: [id number]
[2021-05-26 14:43] LABS: ABG PH 7.086 pH Units (7.350-7.450)
[2021-05-26] MEDS ORDERED: MINERAL OIL/PETROLATUM, WHITE OPHTH OINT 3.5 GM OU PRN (14:44)
[2021-05-26] MEDS ORDERED: LIP THERAPY VASELINE TP PRN (14:44)
--- NOTE | 2021-05-26 14:54 | Procedure Note ---
Date of procedure: 05/26/21 Pre-op diagnosis: cardiac Arrest Post-op diagnosis: same (with ROSC) Procedure: Rapid Sequence intubation - Etomidate 20 mg & Propofol 50 mg pushed - visualized ETT entering vocal cords with Glideoscope - placement confirmed with capnographjy, auscultation and CXF - secured 24 cm ELYSSA - no immediate procedural complications
[2021-05-26] MEDS ORDERED: NORepinephrine/NS 4 MG-250 ML 4 MG/250 ML BAG IV SCH (15:00)
[2021-05-26] MEDS ORDERED: SODIUM CHLORIDE 0.9% 500 ML 500 ML IV ONE (15:00)
[2021-05-26 15:18] LABS: Bilirubin,Urine NEG (Negative); Blood,Urine NEG (Negative); Color,Urine Amber (Yellow); Mucus,Urine FEW /HPF; WBC,Urine < 1.0 /HPF (0.0-6.0)
[2021-05-26 15:27] LABS: RBC,Urine < 1.0 /HPF (0.0-6.0)
--- NOTE | 2021-05-26 15:53 | Progress Note ---
Assessment and Plan - Patient Problems (1) Nausea & vomiting Current Visit: Yes Status: Acute (2) Acute hypoxemic respiratory failure Current Visit: Yes Status: Acute (3) Acute respiratory distress Current Visit: Yes Status: Acute (4) COVID-19 vaccination not done Current Visit: Yes Status: Acute (5) Constipation Current Visit: Yes Status: Acute (6) Coronavirus infection Current Visit: Yes Status: Acute (7) Hypoxia Current Visit: Yes Status: Acute (8) Anemia Current Visit: Yes Status: Acute Subjective Principal diagnosis: N/V, Constipation Interval history: sp intubation secondary to AMS. now on vent sedated on pressors Objective Vital Signs - 12hr 05/26/21 05/26/21 05/26/21 03:55 05:18 05:52 Temperature 98.2 F 97.6 F Pulse Rate 117 H 108 H Respiratory 18 22 Rate Blood Pressure 73/45 100/43 O2 Sat by Pulse 99 83 L 100 Oximetry 05/26/21 05/26/21 09:02 14:45 Temperature Pulse Rate 105 H Respiratory Rate Blood Pressure 120/101 O2 Sat by Pulse 98 93 Oximetry Constitutional: other (orally intubated) Eyes: non-icteric ENT: oropharynx dry, other (intubated) Neck: supple, no JVD Effort: mildly labored Ascultation: Bilateral: rhonchi Cardiovascular: regular rate and rhythm Gastrointestinal: normoactive bowel sounds, soft, non-tender, other (Obese) Integumentary: normal Extremities: no cyanosis, no edema, pink and warm Neurologic: normal mental status, non-focal exam Psychiatric: mood appropriate CBC and BMP: 05/25/21 09:18 05/25/21 09:18 ABG, PT/INR, D-dimer: ABG ABG pH 7.086 pH Units (7.350-7.450) L* 05/26/21 14:03 ABG pCO2 30.5 mm Hg 05/26/21 14:03 ABG pO2 359.3 mm Hg (80.0-90.0) H 05/26/21 14:03 ABG O2 Saturation 99.5 % (95.0-99.0) H 05/26/21 14:03 PT/INR, D-dimer D-Dimer 452.36 ng/mlDDU (0-234) H 05/16/21 05:00 Abnormal lab findings: Abnormal Labs 05/11/21 05/11/21 05/11/21 14:33 14:33 15:00 WBC RBC Hgb 14.8 H Hct MCHC 35 H RDW 12.9 L Lymph % (Auto) 8.7 L Lymph # (Auto) 0.7 L [place] # (Auto) Seg Neutrophils % 83.7 H Seg Neutrophils # D-Dimer 331.70 H ABG pH ABG pO2 ABG HCO3 ABG O2 Saturation ABG Base Excess Sodium Potassium 5.2 H Chloride 95.0 L Carbon Dioxide BUN Glucose 125 H POC Glucose Calcium Ferritin Lactate Dehydrogenase C-Reactive Protein Albumin 3.3 L Coronavirus (PCR) 05/11/21 05/11/21 05/12/21 15:00 15:00 08:46 WBC RBC Hgb Hct MCHC RDW Lymph % (Auto) Lymph # (Auto) [place] # (Auto) Seg Neutrophils % Seg Neutrophils # D-Dimer 345.30 H ABG pH ABG pO2 ABG HCO3 ABG O2 Saturation ABG Base Excess Sodium Potassium Chloride Carbon Dioxide BUN Glucose POC Glucose Calcium Ferritin 471.5 H Lactate Dehydrogenase 579 H C-Reactive Protein 15.80 H Albumin Coronavirus (PCR) 05/12/21 05/12/21 05/12/21 08:46 08:46 09:00 WBC RBC Hgb Hct MCHC RDW Lymph % (Auto) Lymph # (Auto) [place] # (Auto) Seg Neutrophils % Seg Neutrophils # D-Dimer ABG pH ABG pO2 ABG HCO3 ABG O2 Saturation ABG Base Excess Sodium Potassium Chloride Carbon Dioxide BUN Glucose 149 H POC Glucose Calcium Ferritin 465.6 H Lactate Dehydrogenase 574 H C-Reactive Protein 18.40 H Albumin Coronavirus (PCR) Positive A 05/12/21 05/12/21 05/12/21 11:40 16:14 18:01 WBC RBC Hgb Hct MCHC RDW Lymph % (Auto) Lymph # (Auto) [place] # (Auto) Seg Neutrophils % Seg Neutrophils # D-Dimer ABG pH ABG pO2 ABG HCO3 ABG O2 Saturation ABG Base Excess Sodium Potassium Chloride Carbon Dioxide BUN Glucose POC Glucose 141 H 140 H 159 H Calcium Ferritin Lactate Dehydrogenase C-Reactive Protein Albumin Coronavirus (PCR) 05/12/21 05/13/21 05/13/21 22:01 03:51 03:51 WBC 13.6 H RBC Hgb 14.6 H Hct MCHC RDW 12.9 L Lymph % (Auto) 3.5 L Lymph # (Auto) 0.5 L [place] # (Auto) 0.9 H Seg Neutrophils % 89.4 H Seg Neutrophils # 12.1 H D-Dimer ABG pH ABG pO2 ABG HCO3 ABG O2 Saturation ABG Base Excess Sodium Potassium Chloride Carbon Dioxide BUN 31 H Glucose 152 H POC Glucose 152 H Calcium Ferritin Lactate Dehydrogenase C-Reactive Protein Albumin 3.2 L Coronavirus (PCR) 05/13/21 05/13/21 05/13/21 07:32 16:04 22:48 WBC RBC Hgb Hct MCHC RDW Lymph % (Auto) Lymph # (Auto) [place] # (Auto) Seg Neutrophils % Seg Neutrophils # D-Dimer ABG pH ABG pO2 ABG HCO3 ABG O2 Saturation ABG Base Excess Sodium Potassium Chloride Carbon Dioxide BUN Glucose POC Glucose 160 H 146 H 175 H Calcium Ferritin Lactate Dehydrogenase C-Reactive Protein Albumin Coronavirus (PCR) 05/14/21 05/14/21 05/14/21 04:49 07:18 13:24 WBC RBC Hgb Hct MCHC RDW Lymph % (Auto) Lymph # (Auto) [place] # (Auto) Seg Neutrophils % Seg Neutrophils # D-Dimer ABG pH ABG pO2 ABG HCO3 ABG O2 Saturation ABG Base Excess Sodium Potassium Chloride Carbon Dioxide BUN 41 H Glucose 169 H POC Glucose 160 H 146 H Calcium Ferritin Lactate Dehydrogenase C-Reactive Protein Albumin 3.4 L Coronavirus (PCR) 05/14/21 05/14/21 05/15/21 17:36 21:54 04:05 WBC RBC Hgb Hct MCHC RDW Lymph % (Auto) Lymph # (Auto) [place] # (Auto) Seg Neutrophils % Seg Neutrophils # D-Dimer ABG pH ABG pO2 ABG HCO3 ABG O2 Saturation ABG Base Excess Sodium Potassium Chloride Carbon Dioxide 33 H BUN 45 H Glucose 177 H POC Glucose 181 H 169 H Calcium Ferritin Lactate Dehydrogenase C-Reactive Protein Albumin 3.3 L Coronavirus (PCR) 05/15/21 05/15/21 05/15/21 07:18 12:09 17:16 WBC RBC Hgb Hct MCHC RDW Lymph % (Auto) Lymph # (Auto) [place] # (Auto) Seg Neutrophils % Seg Neutrophils # D-Dimer ABG pH ABG pO2 ABG HCO3 ABG O2 Saturation ABG Base Excess Sodium Potassium Chloride Carbon Dioxide BUN Glucose POC Glucose 166 H 160 H 127 H Calcium Ferritin Lactate Dehydrogenase C-Reactive Protein Albumin Coronavirus (PCR) 05/15/21 05/16/21 05/16/21 21:17 01:17 05:00 WBC RBC Hgb Hct MCHC RDW Lymph % (Auto) Lymph # (Auto) [place] # (Auto) Seg Neutrophils % Seg Neutrophils # D-Dimer 452.36 H ABG pH ABG pO2 ABG HCO3 ABG O2 Saturation ABG Base Excess Sodium Potassium Chloride Carbon Dioxide BUN Glucose POC Glucose 161 H 161 H Calcium Ferritin Lactate Dehydrogenase C-Reactive Protein Albumin Coronavirus (PCR) 05/16/21 05/16/21 05/16/21 05:00 08:06 11:40 WBC 12.5 H RBC 5.39 H Hgb 14.9 H Hct 47.4 H MCHC RDW 12.7 L Lymph % (Auto) 3.8 L Lymph # (Auto) 0.5 L [place] # (Auto) Seg Neutrophils % 89.4 H Seg Neutrophils # 11.2 H D-Dimer ABG pH ABG pO2 ABG HCO3 ABG O2 Saturation ABG Base Excess Sodium Potassium Chloride Carbon Dioxide BUN Glucose POC Glucose 140 H 148 H Calcium Ferritin Lactate Dehydrogenase C-Reactive Protein Albumin Coronavirus (PCR) 05/16/21 05/16/21 05/17/21 15:44 21:38 07:08 WBC RBC Hgb Hct MCHC RDW Lymph % (Auto) Lymph # (Auto) [place] # (Auto) Seg Neutrophils % Seg Neutrophils # D-Dimer ABG pH ABG pO2 ABG HCO3 ABG O2 Saturation ABG Base Excess Sodium Potassium Chloride Carbon Dioxide BUN Glucose POC Glucose 127 H 176 H 166 H Calcium Ferritin Lactate Dehydrogenase C-Reactive Protein Albumin Coronavirus (PCR) 05/17/21 05/17/21 05/17/21 11:48 16:29 21:12 WBC RBC Hgb Hct MCHC RDW Lymph % (Auto) Lymph # (Auto) [place] # (Auto) Seg Neutrophils % Seg Neutrophils # D-Dimer ABG pH ABG pO2 ABG HCO3 ABG O2 Saturation ABG Base Excess Sodium Potassium Chloride Carbon Dioxide BUN Glucose POC Glucose 138 H 149 H 178 H Calcium Ferritin Lactate Dehydrogenase C-Reactive Protein Albumin Coronavirus (PCR) 05/18/21 05/18/21 05/18/21 07:49 11:48 17:26 WBC RBC Hgb Hct MCHC RDW Lymph % (Auto) Lymph # (Auto) [place] # (Auto) Seg Neutrophils % Seg Neutrophils # D-Dimer ABG pH ABG pO2 ABG HCO3 ABG O2 Saturation ABG Base Excess Sodium Potassium Chloride Carbon Dioxide BUN Glucose POC Glucose 176 H 144 H 151 H Calcium Ferritin Lactate Dehydrogenase C-Reactive Protein Albumin Coronavirus (PCR) 05/18/21 05/19/21 05/19/21 22:54 06:50 06:50 WBC 15.6 H RBC 5.09 H Hgb 14.7 H Hct 43.6 H MCHC RDW 12.5 L Lymph % (Auto) Lymph # (Auto) [place] # (Auto) Seg Neutrophils % Seg Neutrophils # D-Dimer ABG pH ABG pO2 ABG HCO3 ABG O2 Saturation ABG Base Excess Sodium 135 L D Potassium Chloride Carbon Dioxide BUN 31 H Glucose 179 H POC Glucose 212 H Calcium Ferritin Lactate Dehydrogenase C-Reactive Protein Albumin Coronavirus (PCR) 05/19/21 05/19/21 05/19/21 07:39 11:35 15:59 WBC RBC Hgb Hct MCHC RDW Lymph % (Auto) Lymph # (Auto) [place] # (Auto) Seg Neutrophils % Seg Neutrophils # D-Dimer ABG pH ABG pO2 ABG HCO3 ABG O2 Saturation ABG Base Excess Sodium Potassium Chloride Carbon Dioxide BUN Glucose POC Glucose 203 H 177 H 135 H Calcium Ferritin Lactate Dehydrogenase C-Reactive Protein Albumin Coronavirus (PCR) 05/19/21 05/20/21 05/20/21 21:23 05:00 07:33 WBC RBC Hgb Hct MCHC RDW Lymph % (Auto) Lymph # (Auto) [place] # (Auto) Seg Neutrophils % Seg Neutrophils # D-Dimer ABG pH ABG pO2 ABG HCO3 ABG O2 Saturation ABG Base Excess Sodium 134 L Potassium Chloride Carbon Dioxide BUN 27 H Glucose 181 H POC Glucose 143 H 145 H Calcium Ferritin Lactate Dehydrogenase C-Reactive Protein Albumin Coronavirus (PCR) 05/20/21 05/20/21 05/20/21 11:16 15:09 16:28 WBC RBC Hgb Hct MCHC RDW Lymph % (Auto) Lymph # (Auto) [place] # (Auto) Seg Neutrophils % Seg Neutrophils # D-Dimer ABG pH ABG pO2 ABG HCO3 ABG O2 Saturation ABG Base Excess Sodium Potassium Chloride Carbon Dioxide BUN Glucose POC Glucose 186 H 130 H 139 H Calcium Ferritin Lactate Dehydrogenase C-Reactive Protein Albumin Coronavirus (PCR) 05/20/21 05/21/21 05/21/21 22:40 07:14 07:14 WBC 17.9 H RBC 5.29 H Hgb 15.2 H Hct 45.2 H MCHC RDW 12.7 L Lymph % (Auto) Lymph # (Auto) [place] # (Auto) Seg Neutrophils % Seg Neutrophils # D-Dimer ABG pH ABG pO2 ABG HCO3 ABG O2 Saturation ABG Base Excess Sodium 136 L Potassium Chloride Carbon Dioxide BUN 27 H Glucose 185 H POC Glucose 151 H Calcium Ferritin Lactate Dehydrogenase C-Reactive Protein Albumin Coronavirus (PCR) 05/21/21 05/21/21 05/21/21 11:38 16:05 22:21 WBC RBC Hgb Hct MCHC RDW Lymph % (Auto) Lymph # (Auto) [place] # (Auto) Seg Neutrophils % Seg Neutrophils # D-Dimer ABG pH ABG pO2 ABG HCO3 ABG O2 Saturation ABG Base Excess Sodium Potassium Chloride Carbon Dioxide BUN Glucose POC Glucose 142 H 179 H 133 H Calcium Ferritin Lactate Dehydrogenase C-Reactive Protein Albumin Coronavirus (PCR) 05/22/21 05/22/21 05/22/21 05:59 06:45 06:45 WBC 15.5 H RBC Hgb Hct MCHC RDW 12.7 L Lymph % (Auto) Lymph # (Auto) [place] # (Auto) Seg Neutrophils % Seg Neutrophils # D-Dimer ABG pH ABG pO2 ABG HCO3 ABG O2 Saturation ABG Base Excess Sodium Potassium Chloride Carbon Dioxide BUN 32 H Glucose 167 H POC Glucose 159 H Calcium Ferritin Lactate Dehydrogenase C-Reactive Protein Albumin Coronavirus (PCR) 05/22/21 05/22/21 05/22/21 07:56 11:34 15:26 WBC RBC Hgb Hct MCHC RDW Lymph % (Auto) Lymph # (Auto) [place] # (Auto) Seg Neutrophils % Seg Neutrophils # D-Dimer ABG pH ABG pO2 ABG HCO3 ABG O2 Saturation ABG Base Excess Sodium Potassium Chloride Carbon Dioxide BUN Glucose POC Glucose 155 H 174 H 175 H Calcium Ferritin Lactate Dehydrogenase C-Reactive Protein Albumin Coronavirus (PCR) 05/22/21 05/23/21 05/23/21 21:57 08:02 11:49 WBC RBC Hgb Hct MCHC RDW Lymph % (Auto) Lymph # (Auto) [place] # (Auto) Seg Neutrophils % Seg Neutrophils # D-Dimer ABG pH ABG pO2 ABG HCO3 ABG O2 Saturation ABG Base Excess Sodium Potassium Chloride Carbon Dioxide BUN Glucose POC Glucose 172 H 152 H 176 H Calcium Ferritin Lactate Dehydrogenase C-Reactive Protein Albumin Coronavirus (PCR) 05/23/21 05/24/21 05/24/21 16:48 11:02 15:56 WBC RBC Hgb Hct MCHC RDW Lymph % (Auto) Lymph # (Auto) [place] # (Auto) Seg Neutrophils % Seg Neutrophils # D-Dimer ABG pH ABG pO2 ABG HCO3 ABG O2 Saturation ABG Base Excess Sodium Potassium Chloride Carbon Dioxide BUN Glucose POC Glucose 139 H 185 H 124 H Calcium Ferritin Lactate Dehydrogenase C-Reactive Protein Albumin Coronavirus (PCR) 05/24/21 05/25/21 05/25/21 22:24 07:23 09:18 WBC 12.9 H RBC 3.37 L Hgb 9.8 L Hct 29.0 L MCHC RDW 12.8 L Lymph % (Auto) Lymph # (Auto) [place] # (Auto) Seg Neutrophils % Seg Neutrophils # D-Dimer ABG pH ABG pO2 ABG HCO3 ABG O2 Saturation ABG Base Excess Sodium Potassium Chloride Carbon Dioxide BUN Glucose POC Glucose 124 H 176 H Calcium Ferritin Lactate Dehydrogenase C-Reactive Protein Albumin Coronavirus (PCR) 05/25/21 05/25/21 05/25/21 09:18 10:48 15:36 WBC RBC Hgb Hct MCHC RDW Lymph % (Auto) Lymph # (Auto) [place] # (Auto) Seg Neutrophils % Seg Neutrophils # D-Dimer ABG pH ABG pO2 ABG HCO3 ABG O2 Saturation ABG Base Excess Sodium 129 L D Potassium Chloride 96.2 L Carbon Dioxide BUN 36 H Glucose 129 H POC Glucose 126 H 122 H Calcium 7.7 L Ferritin Lactate Dehydrogenase C-Reactive Protein Albumin Coronavirus (PCR) 05/25/21 05/26/21 05/26/21 20:34 05:27 07:42 WBC RBC Hgb Hct MCHC RDW Lymph % (Auto) Lymph # (Auto) [place] # (Auto) Seg Neutrophils % Seg Neutrophils # D-Dimer ABG pH ABG pO2 ABG HCO3 ABG O2 Saturation ABG Base Excess Sodium Potassium Chloride Carbon Dioxide BUN Glucose POC Glucose 286 H 220 H 166 H Calcium Ferritin Lactate Dehydrogenase C-Reactive Protein Albumin Coronavirus (PCR) 05/26/21 05/26/21 05/26/21 11:07 13:24 14:03 WBC RBC Hgb Hct MCHC RDW Lymph % (Auto) Lymph # (Auto) [place] # (Auto) Seg Neutrophils % Seg Neutrophils # D-Dimer ABG pH 7.086 L* ABG pO2 359.3 H ABG HCO3 9.0 L ABG O2 Saturation 99.5 H ABG Base Excess -19.0 L Sodium Potassium Chloride Carbon Dioxide BUN Glucose POC Glucose 171 H 138 H Calcium Ferritin Lactate Dehydrogenase C-Reactive Protein Albumin Coronavirus (PCR)
--- NOTE | 2021-05-26 16:26 | XRay Report ---
CHEST 1 VIEW 05/26/2021 3:18 PM INDICATION / CLINICAL INFORMATION: L PICC line placement. COMPARISON: 05/26/2021, 1413 hours FINDINGS: SUPPORT DEVICES: Tip of the PICC line projects the level the superior vena cava. Endotracheal tube a nd nasogastric tube appear unchanged. HEART / MEDIASTINUM: No significant abnormality. LUNGS / PLEURA: Pulmonary opacities appear unchanged. No pneumothorax. ADDITIONAL FINDINGS: No significant additional findings. IMPRESSION: 1. PICC in expected position. No other significant change. Signer Name: Blair Sow MD Signed: 05/26/2021 4:22 PM Workstation Name: [id number]
[2021-05-26 16:32] LABS: Mean Corpuscular HGB Conc 31 % (30-34); Mean Corpuscular Volume 92 fl (79-97); Platelet Count 123 K/mm3 (140-440); Red Blood Count 1.46 M/mm3 (3.65-5.03); Red Cell Distribution Width 12.8 % (13.2-15.2)
[2021-05-26 16:33] LABS: Albumin 2.1 g/dL (3.9-5); Calcium 6.6 mg/dL (8.4-10.2)
[2021-05-26] MEDS: VASOPRESSIN 20 UNIT in SODIUM CHLORIDE 0.9% 100 ML IV SCH ×2 (16:42→22:49)
[2021-05-26 16:52] LABS: INR 6.7 (0.87-1.13); Partial Thromboplastin Time 76.8 Sec. (24.2-36.6)
[2021-05-26 16:53] LABS: Hemoglobin 4.2 gm/dl (10.1-14.3)
[2021-05-26 16:54] LABS: Hematocrit 13.5 % (30.3-42.9)
[2021-05-26] MEDS ORDERED: SODIUM POLYSTYRENE 15 GM/60 ML ORAL LIQD PO STA (17:06)
[2021-05-26] MEDS ORDERED: SODIUM CHLORIDE 0.9% 500 ML 500 ML IV SCH ×2 (17:08→17:15)
[2021-05-26] MEDS ORDERED: INSULIN REGULAR, HUMAN 100 UNITS/1 ML IV STA (17:20)
[2021-05-26] MEDS ORDERED: SODIUM BICARB 8.4% 50 MEQ/50 ML SYRINGE IV STA (17:33)
[2021-05-26 17:51] LABS: RBC Morphology Normal; Total Cells Counted 100
[2021-05-26 17:52] LABS: Large Platelets Few; Platelet Estimate Consistent w Auto
[2021-05-26] MEDS ORDERED: DEXTROSE 50% IN WATER (25GM) 50 ML SYRINGE IV ONE (18:00)
[2021-05-26] MEDS ORDERED: CALCIUM GLUCONATE 2,000 MG in SODIUM CHLORIDE 0.9% 100 ML IV ONE (18:00)
--- NOTE | 2021-05-26 18:02 | Procedure Note ---
Date of procedure: 05/26/21 Pre-op diagnosis: S/p cardiac Arrest Post-op diagnosis: same Procedure: Arterial Line Placement Patient was evaluated and required arterial line placement for Hemodynanic monitoring due to high pressors requirement. This is an emergent procedure, unable to get a manual blood pressure reading on patient at this time. A time-out was completed verifying the right patient, procedure, site, and positioning. Hand hygiene were performed immediately prior to the procedure and sterile technique was used throughout the procedure. The femoral vessel was identify using an ultrasound machine, the right groin was then prepped using chlorhexidine scrub and draped in sterile fashion using a three quarter sheet drape. The femoral artery was then again identified. Anesthesia was achieved using 1% lidocaine.Utilizing the Seldinger technique, a finder needle was inserted into the femoral artery under ultrasound guidance, pulsating arterial blood return was obtained, then a guidewire was advanced easily into the femoral artery. The catheter was then advanced over the wire and then the needle and wire were withdrawn. The catheter was then connected to the environmental monitoring technician and zeroed, appropriate waveform and blood pressure tracing were observed on the monitor. The catheter was sutured in place, a Biopatch was placed at the insertion site and covered with a sterile dressing. The patient tolerated the procedure well and no complications noted. Total Time Spent with Patient (Minutes): 40 minutes Surgeon: JESS WADDELL Estimated blood loss: minimal Condition: stable Disposition: ICU
[2021-05-26 18:07] LABS: ABG Base Excess -23.7 mmol/L (-2.0-3.0); ABG HCO3 4.4 mmol/L (20.0-26.0); ABG Methemoglobin 0.6 % (0.0-1.5); ABG Oxygen Saturation 99.4 % (95.0-99.0); ABG PCO2 16.5 mm Hg
[2021-05-26 18:11] LABS: ABG PO2 316.3 mm Hg (80.0-90.0)
[2021-05-26 18:13] LABS: ABG PH 7.046 pH Units (7.350-7.450)
[2021-05-26] MEDS: SODIUM BICARBONATE 150 MEQ in DEXTROSE 5% IN WATER 1,000 ML IV SCH (19:32)
--- NOTE | 2021-05-26 19:34 | Consultation ---
History of Present Illness - Reason for Consult Consult date: 05/26/21 acute renal failure, hyperkalemia, metabolic acidosis - History of Present Illness The patient is a 55 YO female with history significant for Morbid Obesity, HTN and Intermittent Asthma who presented to [facility] ED 05/11 with sob. She was diagnosed with Covid-19 infection about a week prior. Patient was not able to provide any history and there was no family member at the bedside. Patient was hypoxic on presentation. Patient was maintained on HFNC O2 and was transferred to ICU today. Upon arrival to ICU patient went into cardiac arrest and ROSC was attained. Patient was emergently intubated status-post code, currently on vent. Patient was also started on Levo and Vasopressin for profound hypotension. Labs showed hyperkalemia, elevated lactic and low hemoglobin. Received meds for hyperkalemia, rrders placed to transfuse blood. Nephrology was consulted for further evaluation and treatment of PRICE and hyperkalemia. Past History Past Medical History: COPD (Quit smoking in 2005), hypertension, liver disease (Fatty liver), other (Possible autoimmune disorder) Past Surgical History: Other (R hemicolectomy - 2005, for a large polyp. Last colonoscopy ~ 2010.) Social history: single. denies: smoking, alcohol abuse, prescription drug abuse Family history: hypertension Medications and Allergies Allergies Allergy/AdvReac Type Severity Reaction Status Date / Time acetaminophen [From Percocet] Allergy Vomiting Verified 05/25/21 09:09 azithromycin Allergy CHEST PAIN Verified 05/22/21 12:26 morphine Allergy Angioedema Verified 05/22/21 12:26 oxycodone [From Percocet] Allergy Vomiting Verified 05/25/21 09:09 Penicillins Allergy Rash Verified 05/22/21 12:26 tetracycline Allergy CHEST PAIN Verified 05/22/21 12:26 AND NAUSEA/VOMITING Home Medications Medication Instructions Recorded Confirmed Last Taken Type Hydrochlorothiazide 12.5 mg PO DAILY 05/16/21 05/16/21 05/11/21 09:00 History Losartan 25 mg PO DAILY 05/16/21 05/16/21 05/11/21 09:00 History Albuterol Mdi (or & Nicu Only) 1 puff IH PRN PRN 05/22/21 05/22/21 Unknown History [ProAir HFA Inhaler] Cyclobenzaprine [Flexeril] 10 mg PO PRN PRN 05/22/21 05/22/21 Unknown History Mv-Min/Iron/Folic/Calcium/Vitk 1 each PO QDAY 05/22/21 05/22/21 Unknown History [Women's Multivitamin Tablet] Tiotropium Skipwith [Spiriva] 1 puff IH BID 05/22/21 05/22/21 Unknown History Active Meds: Active Medications Acetaminophen (Acetaminophen 325 Mg Tab) 650 mg PO Q4H PRN PRN Reason: Pain MILD(1-3)/Fever >100.5/LUX Last Admin: 05/26/21 10:37 Dose: 650 mg Documented by: Alprazolam (Alprazolam 0.5 Mg Tab) 0.5 mg PO Q6HR PRN PRN Reason: Anxiety Last Admin: 05/25/21 21:02 Dose: 0.5 mg Documented by: Ascorbic Acid (Ascorbic Acid 500 Mg Tab) 1,000 mg PO BID YOHANNES Last Admin: 05/26/21 10:35 Dose: 1,000 mg Documented by: Cholecalciferol (Cholecalciferol (Vit D3) 5,000 Unit Tab) 5,000 unit PO DAILY YOHANNES Last Admin: 05/26/21 10:37 Dose: 5,000 unit Documented by: Cyclobenzaprine HCl (Cyclobenzaprine 10 Mg Tab) 10 mg PO Q8H PRN PRN Reason: Muscle Spasm Last Admin: 05/25/21 16:37 Dose: 10 mg Documented by: Dextrose (Dextrose 50% In Water (25gm) 50 Ml Syringe) 50 ml IV Q30MIN PRN; Protocol PRN Reason: Hypoglycemia Hydrophilic Ointment (Lip Therapy Vaseline) 1 applic TP Q2H PRN PRN Reason: Dry Lips Sodium Chloride (Nacl 0.9% 1000 Ml) 1,000 mls @ 75 mls/hr IV DIRECT YOHANNES Norepinephrine (Levophed Drip 4 Mg/Ns 250 Ml) 4 mg in 250 mls @ 7.5 mls/hr IV TITR YOHANNES; Protocol Last Titration: 05/26/21 19:26 Dose: 16 mcg/min, 60 mls/hr Documented by: Vasopressin 20 unit/ Sodium (Chloride) 101 mls @ 9.09 mls/hr IV TITR YOHANNES; Protocol Last Admin: 05/26/21 16:42 Dose: 0.03 units/min, 9.09 mls/hr Documented by: Sodium Chloride (Nacl 0.9% 500 Ml) 500 mls @ 0 mls/hr IV ONCE YOHANNES Sodium Chloride (Nacl 0.9% 500 Ml) 500 mls @ 0 mls/hr IV ONCE YOHANNES Sodium Bicarbonate 150 meq/ (Dextrose) 1,150 mls @ 125 mls/hr IV DIRECT YOHANNES NORepinephrine/NS 8 MG-250 ML (Norepinephrine/Ns 8 Mg-250 Ml (Double Conc)) 8 mg in 250 mls @ 3.75 mls/hr IV TITRATE YOHANNES; Protocol Insulin Human Lispro (Insulin Lispro 100 Unit/Ml) 0 unit SUB-Q ACHS YOHANNES; Protocol Last Admin: 05/25/21 21:03 Dose: 3 unit Documented by: Methylprednisolone Sodium Succinate (Methylprednisolone Sod Succinate 40 Mg/1 Ml Inj) 40 mg IV Q8HR YOHANNES Metoclopramide HCl (Metoclopramide 10 Mg/2 Ml Inj) 10 mg IV ACHS YOHANNES Last Admin: 05/26/21 09:39 Dose: 10 mg Documented by: Multi-Ingred Cream/Lotion/Oil/Oint (Mineral Oil/Petrolatum, White Ophth Oint 3.5 Gm) 1 applic OU Q4H PRN PRN Reason: Dry Eye(s) Naloxone HCl (Naloxone 0.4 Mg/1 Ml Inj) 0.1 mg IV Q2MIN PRN PRN Reason: Res Rate </= 8 or 02 SAT < 92% Ondansetron HCl (Ondansetron 4 Mg/2 Ml Inj) 4 mg IV Q4H PRN PRN Reason: Nausea And Vomiting Last Admin: 05/26/21 01:14 Dose: 4 mg Documented by: Oxycodone/Acetaminophen (Oxycodone /Acetaminophen 5-325mg Tab) 1 tab PO BID PRN PRN Reason: Pain, Moderate (4-6) Pantoprazole Sodium (Pantoprazole 40 Mg Inj) 40 mg IV QDAY YOHANNES Pseudoephedrine/Acetam/Chlorphenir (Guaifenesin/Codeine 100-10mg Oral Liqd 5 Ml) 10 ml PO Q4H PRN PRN Reason: Cough Last Admin: 05/25/21 12:37 Dose: 10 ml Documented by: Senna (Sennosides 8.6 Mg Tab) 8.6 mg PO Q12HR YOHANNES Last Admin: 05/26/21 10:40 Dose: 8.6 mg Documented by: Sodium Chloride (Sodium Chloride 0.9% 10 Ml Flush Syringe) 10 ml IV BID [facility] Last Admin: 05/26/21 10:36 Dose: 10 ml Documented by: Sodium Chloride (Sodium Chloride 0.9% 10 Ml Flush Syringe) 10 ml IV PRN PRN PRN Reason: LINE FLUSH Sucralfate (Sucralfate 1 Gm/10 Ml Oral Liqd) 1 gm PO Q6HR [facility] Last Admin: 05/26/21 06:18 Dose: 1 gm Documented by: Zinc Sulfate (Zinc Sulfate 220 Mg Cap) 220 mg PO QDAY [facility] Last Admin: 05/26/21 10:37 Dose: 220 mg Documented by: Review of Systems ROS unobtainable: due to endotracheal tube, due to mental status Exam - Vital Signs Vital signs: Vital Signs Temp Pulse Resp BP Pulse Ox 98 F 104 H 16 137/81 65 L 05/11/21 13:40 05/11/21 13:40 05/11/21 13:40 05/11/21 13:40 05/11/21 13:40 Results - Lab Results 05/26/21 15:50 05/26/21 15:50 Most recent lab results ABG pH 7.046 pH Units (7.350-7.450) L* 05/26/21 17:55 ABG pCO2 16.5 mm Hg 05/26/21 17:55 ABG pO2 316.3 mm Hg (80.0-90.0) H 05/26/21 17:55 ABG HCO3 4.4 mmol/L (20.0-26.0) L 05/26/21 17:55 ABG O2 Saturation 99.4 % (95.0-99.0) H 05/26/21 17:55 Calcium 6.6 mg/dL (8.4-10.2) L 05/26/21 15:50 Assessment and Plan 1. Acute kidney injury: Vasomotor PRICE in the setting of Cardiac arrest and shock. CT abdomen (05/23) was negative for hydro. Urine studies ordered. Started on bciarb drip. Monitor renal function. Renal prognosis is gaurded. Avoid nephrotoxic agents. Meds dosage based on GFR. Monitor for CONTRACT POST OFFICE CLERK needs. Patient is not a candidate for hemodialysis at this time due to profound hypotension, tachycardia and severe anemia. 2. FEN: Hyperkalemia, s/p meds, bicarb drip, monitor. Anion-gap metabolic acidosis, 2/2 Lactic acidosis, Sod bicarb drip, monitor. Monitor lytes and volume status. 3. S/p Cardiac arrest. 4. Acute hypoxic resp failure: Intubated michel-arrest. Admitted with Covid-19 PNA. Followed by Pulmonary. 5. Profound shock: Patient currently on 2 pressors and remain hypotensive. Per RN about to start 3rd pressor. S/p multiple IV fluid boluses. 6. Covid-19 PNA, POA: IV Solu-Medrol. Completed 5 days of Remdesivir. S/p Actemra on 05/13/2021. Follow inflammatory markers. 7. Severe Anemia: PRBC ordered. Monitor. 8. Severe Lactic acidosis. 9. Elevated ALT and AST. 10. DM-2. Prognosis is very poor. Spoke to her and updated. All questions answered. Subjective: Patient was seen and examined at the bedside. Examination: General appearance: well-developed, obese, appears stated age, intubated, on vent HEENT: atraumatic Eyes: Pupils equal Neck: trachea midline Respiratory: coarse breath sounds Heart: S1S2, tachycardia, no murmur Abdomen: soft, obese, bowel sounds heard, NT Integumentary: no obvious rash Neurologic: not responding Ext: no edema
[2021-05-26] MEDS: NORepinephrine/NS 8 MG-250 ML 8 MG/250 ML INFUS..BTL IV SCH (20:05)
[2021-05-26] MEDS: INSULIN LISPRO 100 UNIT/ML SUB-Q SCH (21:30)
[2021-05-26 21:38] LABS: Creatinine,Urine 229.2 mg/dL (0.1-20.0)
[2021-05-26] MEDS: CEFEPIME/NS 1 GM/100 ML 1 GM/100 ML BAG IV SCH (21:51)
[2021-05-26] MEDS: methylPREDNISolone Sod Succinate 40 MG/1 ML INJ IV SCH (21:52)
[2021-05-26] MEDS ORDERED: VANCOMYCIN PHARMACY TO DOSE IV SCH (22:00)
[2021-05-26 23:47] LABS: ABG Base Excess -22.3 mmol/L (-2.0-3.0); ABG HCO3 6.5 mmol/L (20.0-26.0); ABG Methemoglobin 0.7 % (0.0-1.5); ABG Oxygen Saturation 99.3 % (95.0-99.0); ABG PCO2 24.9 mm Hg
[2021-05-26] MEDS ORDERED: VANCOMYCIN 2,000 MG in SODIUM CHLORIDE 0.9% 500 ML 500 ML IV ONE (23:59)
[2021-05-27 00:10] LABS: ABG PH 7.053 pH Units (7.350-7.450)
[2021-05-27] MEDS ORDERED: SODIUM BICARB 8.4% 50 MEQ/50 ML SYRINGE IV ONE (02:12)
[2021-05-27] MEDS: NORepinephrine/NS 8 MG-250 ML 8 MG/250 ML INFUS..BTL IV SCH ×3 (02:49→21:20)
[2021-05-27] MEDS: SODIUM BICARBONATE 150 MEQ in DEXTROSE 5% IN WATER 1,000 ML IV SCH ×3 (03:44→22:57)
[2021-05-27] MEDS: PHENYLEPHRINE 100 MG in SODIUM CHLORIDE 0.9% 90 ML IV SCH ×2 (04:01→15:43)
[2021-05-27] MEDS: SUCRALFATE 1 GM/10 ML ORAL LIQD PO SCH ×3 (05:15→18:09)
[2021-05-27] MEDS: methylPREDNISolone Sod Succinate 40 MG/1 ML INJ IV SCH ×5 (05:15→22:58)
[2021-05-27 05:32] LABS: Hemoglobin 6.9 gm/dl (10.1-14.3); Mean Corpuscular HGB Conc 32 % (30-34); Mean Corpuscular Volume 89 fl (79-97); Red Blood Count 2.46 M/mm3 (3.65-5.03); Red Cell Distribution Width 13.2 % (13.2-15.2)
[2021-05-27 05:35] LABS: Platelet Count 68 K/mm3 (140-440)
[2021-05-27 05:46] LABS: INR 5.62 (0.87-1.13)
[2021-05-27 05:47] LABS: Partial Thromboplastin Time 90.8 Sec. (24.2-36.6)
[2021-05-27 05:58] LABS: Albumin 2.4 g/dL (3.9-5); Calcium 6.9 mg/dL (8.4-10.2)
[2021-05-27] MEDS ORDERED: SODIUM CHLORIDE 0.9% 500 ML 500 ML IV ONE ×2 (06:45→09:14)
[2021-05-27] MEDS ORDERED: CALCIUM GLUCONATE 1,000 MG in SODIUM CHLORIDE 0.9% 100 ML IV ONE (06:47)
[2021-05-27] MEDS ORDERED: DEXTROSE 50% IN WATER (25GM) 50 ML SYRINGE IV ONE (06:50)
[2021-05-27] MEDS ORDERED: INSULIN REGULAR, HUMAN 100 UNITS/1 ML IV ONE (06:50)
[2021-05-27] MEDS ORDERED: SODIUM POLYSTYRENE 15 GM/60 ML ORAL LIQD PO ONE ×2 (06:50→18:00)
[2021-05-27 07:58] LABS: Band Neutrophils # (Manual) 2.9 K/mm3; Monocytes % (Manual) 0.5 % (0.0-7.3); Total Cells Counted 200
[2021-05-27 07:59] LABS: Anisocytosis 1+; Large Platelets Few; Platelet Estimate Consistent w Auto
[2021-05-27] MEDS: INSULIN LISPRO 100 UNIT/ML SUB-Q SCH ×4 (08:00→22:00)
[2021-05-27] MEDS: VASOPRESSIN 20 UNIT in SODIUM CHLORIDE 0.9% 100 ML IV SCH ×2 (09:00→21:15)
[2021-05-27] MEDS ORDERED: fentaNYL 100 MCG/2 ML INJ IV PRN (09:11)
[2021-05-27] MEDS: ZINC SULFATE 220 MG CAP PO SCH (09:38)
[2021-05-27] MEDS: fentaNYL DRIP Premix 2,000 MCG/100 ML BAG IV SCH ×2 (09:44→15:45)
[2021-05-27] MEDS: CEFEPIME/NS 1 GM/100 ML 1 GM/100 ML BAG IV SCH (09:46)
[2021-05-27] MEDS: PANTOPRAZOLE 40 MG INJ IV SCH (09:47)
[2021-05-27] MEDS: METOCLOPRAMIDE 10 MG/2 ML INJ IV SCH ×4 (09:47→22:58)
[2021-05-27] MEDS: CHOLECALCIFEROL (VIT D3) 5,000 UNIT TAB PO SCH (09:48)
[2021-05-27] MEDS: ASCORBIC ACID 500 MG TAB PO SCH ×2 (09:48→22:58)
--- NOTE | 2021-05-27 10:54 | Gastroenterology Progress Note ---
Assessment and Plan - Patient Problems (1) Coronavirus infection Current Visit: Yes Status: Acute (2) Septic shock Current Visit: Yes Status: Acute Plan to address problem: - The markedly abnormal labs (WBC, lactic acid, transaminases, LDH) may indicate acute infarcted bowel (?clot from COVID, but patient was anticoagulated). - CT of A/P has been ordered. - Continue broad spectrum abx. - Patient transfused for severe anemia, but stool is brown (?hemolysis from Gram negative rafael sepsis). Will continue protonix IV. - Supportive care, but prognosis very grave. Subjective Date of service: 05/27/21 Principal diagnosis: N/V, Constipation Interval history: The patient had a Code Blue yesterday, and is in the ICU with 3 pressure shock. Precipitating event has not been found at present, but current WBC is 50K, so possibly septic shock, versus cardiac. She is on broad spectrum abx support, and hypothermic. She had a large brown BM while I was in the room, and has had no N/V around the ET tube. Objective - Constitutional Vitals: Temp Pulse Resp BP Pulse Ox 100.0 F H 120 H 35 H 116/41 100 05/27/21 07:25 05/27/21 08:00 05/27/21 06:00 05/27/21 08:00 05/27/21 08:00 General appearance: other (Vent/sedated) - Respiratory Respiratory effort: normal Respiratory: bilateral: CTA (Vent) - Cardiovascular Heart Rate: 125 Rhythm: regular Heart Sounds: Present: S1 & S2 - Extremities Extremities: no ischemia - Gastrointestinal General gastrointestinal: Present: soft, non-distended, hypoactive bowel sounds Rectal Exam: stool brown - Integumentary Integumentary: Present: clear, warm, dry - Neurologic Neurological: other (Unresponsive to stimuli) - Labs CBC & Chem 7: 05/27/21 04:30 05/27/21 04:30 Labs: Laboratory Results - last 24 hr 05/26/21 05/26/21 05/26/21 11:07 13:24 14:03 WBC RBC Hgb Hct MCV MCH MCHC RDW Plt Count Add Manual Diff Total Counted Seg Neutrophils % Seg Neuts % (Manual) Band Neutrophils % Lymphocytes % (Manual) Monocytes % (Manual) Metamyelocytes % Nucleated RBC % Seg Neutrophils # Man Band Neutrophils # Lymphocytes # (Manual) Abs React Lymphs (Man) Monocytes # (Manual) Eosinophils # (Manual) Basophils # (Manual) Metamyelocytes # Myelocytes # Promyelocytes # Blast Cells # WBC Morphology Hypersegmented Neuts Hyposegmented Neuts Hypogranular Neuts Smudge Cells Toxic Granulation Toxic Vacuolation Dohle Bodies Pelger-Huet Anomaly Keiko Rods Platelet Estimate Clumped Platelets Plt Clumps, EDTA Large Platelets Giant Platelets Platelet Satelliting Plt Morphology Comment RBC Morphology Dimorphic RBCs Polychromasia Hypochromasia Poikilocytosis Anisocytosis Microcytosis Macrocytosis Spherocytes Pappenheimer Bodies Sickle Cells Target Cells Tear Drop Cells Ovalocytes Helmet Cells [place] Bodies [place] Rings Bruno Cells Bite Cells Crenated Cell Elliptocytes Acanthocytes (Spur) Rouleaux Hemoglobin C Crystals Schistocytes Malaria parasites Brannon Bodies Hem Pathologist Commnt PT INR APTT Fibrinogen ABG pH 7.086 L* ABG pCO2 30.5 ABG pO2 359.3 H ABG HCO3 9.0 L ABG O2 Saturation 99.5 H ABG O2 Content 6.7 ABG Base Excess -19.0 L ABG Hemoglobin TNR ABG Carboxyhemoglobin 1.2 ABG Methemoglobin 0.5 Oxyhemoglobin 97.9 FiO2 100 Sodium Potassium Chloride Carbon Dioxide Anion Gap BUN Creatinine Estimated GFR BUN/Creatinine Ratio Glucose POC Glucose 171 H 138 H Lactic Acid Calcium Phosphorus Magnesium Total Bilirubin AST ALT Alkaline Phosphatase Lactate Dehydrogenase Total Protein Albumin Albumin/Globulin Ratio Urine Color Urine Turbidity Urine pH Ur Specific [place] Urine Protein Urine Glucose (UA) Urine Ketones Urine Blood Urine Nitrite Urine Bilirubin Urine Urobilinogen Ur Leukocyte Esterase Urine WBC (Auto) Urine RBC (Auto) U Epithel Cells (Auto) Urine Mucus Urine Creatinine Urine Sodium Blood Type Antibody Screen Crossmatch 05/26/21 05/26/21 05/26/21 14:30 15:50 15:50 WBC 49.8 H* RBC 1.46 L Hgb 4.2 L* D Hct 13.5 L* D MCV 92 MCH 28 MCHC 31 RDW 12.8 L Plt Count 123 L Add Manual Diff Complete Total Counted 100 Seg Neutrophils % [employer] Operator Seg Neuts % (Manual) 85.0 H Band Neutrophils % Lymphocytes % (Manual) 3.0 L Monocytes % (Manual) 10.0 H Metamyelocytes % 2.0 Nucleated RBC % Not Reportable Seg Neutrophils # Man 42.3 H Band Neutrophils # 0.0 Lymphocytes # (Manual) 1.5 Abs React Lymphs (Man) 0.0 Monocytes # (Manual) 5.0 H Eosinophils # (Manual) 0.0 Basophils # (Manual) 0.0 Metamyelocytes # 1.0 Myelocytes # 0.0 Promyelocytes # 0.0 Blast Cells # 0.0 WBC Morphology Not Reportable Hypersegmented Neuts Not Reportable Hyposegmented Neuts Not Reportable Hypogranular Neuts Not Reportable Smudge Cells Not Reportable Toxic Granulation Not Reportable Toxic Vacuolation Not Reportable Dohle Bodies Not Reportable Pelger-Huet Anomaly Not Reportable Keiko Rods Not Reportable Platelet Estimate Consistent w auto Clumped Platelets Not Reportable Plt Clumps, EDTA Not Reportable Large Platelets Few Giant Platelets Not Reportable Platelet Satelliting Not Reportable Plt Morphology Comment Not Reportable RBC Morphology Normal Dimorphic RBCs Not Reportable Polychromasia Not Reportable Hypochromasia Not Reportable Poikilocytosis Not Reportable Anisocytosis Not Reportable Microcytosis Not Reportable Macrocytosis Not Reportable Spherocytes Not Reportable Pappenheimer Bodies Not Reportable Sickle Cells Not Reportable Target Cells Not Reportable Tear Drop Cells Not Reportable Ovalocytes Not Reportable Helmet Cells Not Reportable [place] Bodies Not Reportable [place] Rings Not Reportable Korina Cells Not Reportable Bite Cells Not Reportable Crenated Cell Not Reportable Elliptocytes Not Reportable Acanthocytes (Spur) Not Reportable Rouleaux Not Reportable Hemoglobin C Crystals Not Reportable Schistocytes Not Reportable Malaria parasites Not Reportable Brannon Bodies Not Reportable Hem Pathologist Commnt No PT 63.3 H INR 6.70 H* APTT 76.8 H* Fibrinogen ABG pH ABG pCO2 ABG pO2 ABG HCO3 ABG O2 Saturation ABG O2 Content ABG Base Excess ABG Hemoglobin ABG Carboxyhemoglobin ABG Methemoglobin Oxyhemoglobin FiO2 Sodium Potassium Chloride Carbon Dioxide Anion Gap BUN Creatinine Estimated GFR BUN/Creatinine Ratio Glucose POC Glucose Lactic Acid Calcium Phosphorus Magnesium Total Bilirubin AST ALT Alkaline Phosphatase Lactate Dehydrogenase Total Protein Albumin Albumin/Globulin Ratio Urine Color Christelle Urine Turbidity Clear Urine pH 5.0 Ur Specific [place] 1.017 Urine Protein 100 mg/dl Urine Glucose (UA) 50 Urine Ketones Neg Urine Blood Neg Urine Nitrite Neg Urine Bilirubin Neg Urine Urobilinogen 4.0 Ur Leukocyte Esterase Neg Urine WBC (Auto) < 1.0 Urine RBC (Auto) < 1.0 U Epithel Cells (Auto) < 1.0 Urine Mucus Few Urine Creatinine Urine Sodium Blood Type Antibody Screen Crossmatch 05/26/21 05/26/21 05/26/21 15:50 15:50 15:50 WBC RBC Hgb Hct MCV MCH MCHC RDW Plt Count Add Manual Diff Total Counted Seg Neutrophils % Seg Neuts % (Manual) Band Neutrophils % Lymphocytes % (Manual) Monocytes % (Manual) Metamyelocytes % Nucleated RBC % Seg Neutrophils # Man Band Neutrophils # Lymphocytes # (Manual) Abs React Lymphs (Man) Monocytes # (Manual) Eosinophils # (Manual) Basophils # (Manual) Metamyelocytes # Myelocytes # Promyelocytes # Blast Cells # WBC Morphology TNR Hypersegmented Neuts Hyposegmented Neuts Hypogranular Neuts Smudge Cells Toxic Granulation Toxic Vacuolation Dohle Bodies Pelger-Huet Anomaly Keiko Rods Platelet Estimate Clumped Platelets Plt Clumps, EDTA Large Platelets Giant Platelets Platelet Satelliting Plt Morphology Comment RBC Morphology Dimorphic RBCs Polychromasia Hypochromasia Poikilocytosis Anisocytosis Microcytosis Macrocytosis Spherocytes Pappenheimer Bodies Sickle Cells Target Cells Tear Drop Cells Ovalocytes Helmet Cells [place] Bodies [place] Rings Korina Cells Bite Cells Crenated Cell Elliptocytes Acanthocytes (Spur) Rouleaux Hemoglobin C Crystals Schistocytes Malaria parasites Brannon Bodies Hem Pathologist Commnt PT INR APTT Fibrinogen ABG pH ABG pCO2 ABG pO2 ABG HCO3 ABG O2 Saturation ABG O2 Content ABG Base Excess ABG Hemoglobin ABG Carboxyhemoglobin ABG Methemoglobin Oxyhemoglobin FiO2 Sodium 136 L D Potassium 6.7 H* D Chloride 93.3 L Carbon Dioxide 7 L* D Anion Gap 42 BUN 45 H Creatinine 2.8 H D Estimated GFR 18 BUN/Creatinine Ratio 16 Glucose 117 H POC Glucose Lactic Acid 23.10 H* Calcium 6.6 L Phosphorus Magnesium Total Bilirubin 1.50 H AST 76190 H ALT 06892 H Alkaline Phosphatase 45 Lactate Dehydrogenase Total Protein 3.8 L Albumin 2.1 L Albumin/Globulin Ratio 1.2 Urine Color Urine Turbidity Urine pH Ur Specific [place] Urine Protein Urine Glucose (UA) Urine Ketones Urine Blood Urine Nitrite Urine Bilirubin Urine Urobilinogen Ur Leukocyte Esterase Urine WBC (Auto) Urine RBC (Auto) U Epithel Cells (Auto) Urine Mucus Urine Creatinine Urine Sodium Blood Type Antibody Screen Crossmatch 05/26/21 05/26/21 05/26/21 17:40 17:55 20:32 WBC RBC Hgb Hct MCV MCH MCHC RDW Plt Count Add Manual Diff Total Counted Seg Neutrophils % Seg Neuts % (Manual) Band Neutrophils % Lymphocytes % (Manual) Monocytes % (Manual) Metamyelocytes % Nucleated RBC % Seg Neutrophils # Man Band Neutrophils # Lymphocytes # (Manual) Abs React Lymphs (Man) Monocytes # (Manual) Eosinophils # (Manual) Basophils # (Manual) Metamyelocytes # Myelocytes # Promyelocytes # Blast Cells # WBC Morphology Hypersegmented Neuts Hyposegmented Neuts Hypogranular Neuts Smudge Cells Toxic Granulation Toxic Vacuolation Dohle Bodies Pelger-Huet Anomaly Keiko Rods Platelet Estimate Clumped Platelets Plt Clumps, EDTA Large Platelets Giant Platelets Platelet Satelliting Plt Morphology Comment RBC Morphology Dimorphic RBCs Polychromasia Hypochromasia Poikilocytosis Anisocytosis Microcytosis Macrocytosis Spherocytes Pappenheimer Bodies Sickle Cells Target Cells Tear Drop Cells Ovalocytes Helmet Cells [place] Bodies [place] Rings Korina Cells Bite Cells Crenated Cell Elliptocytes Acanthocytes (Spur) Rouleaux Hemoglobin C Crystals Schistocytes Malaria parasites Brannon Bodies Hem Pathologist Commnt PT INR APTT Fibrinogen ABG pH 7.046 L* ABG pCO2 16.5 ABG pO2 316.3 H ABG HCO3 4.4 L ABG O2 Saturation 99.4 H ABG O2 Content 5.9 ABG Base Excess -23.7 L ABG Hemoglobin TNR ABG Carboxyhemoglobin 0.8 ABG Methemoglobin 0.6 Oxyhemoglobin 98.0 FiO2 80 Sodium Potassium Chloride Carbon Dioxide Anion Gap BUN Creatinine Estimated GFR BUN/Creatinine Ratio Glucose POC Glucose Lactic Acid 25.40 H* Calcium Phosphorus Magnesium Total Bilirubin AST ALT Alkaline Phosphatase Lactate Dehydrogenase Total Protein Albumin Albumin/Globulin Ratio Urine Color Urine Turbidity Urine pH Ur Specific [place] Urine Protein Urine Glucose (UA) Urine Ketones Urine Blood Urine Nitrite Urine Bilirubin Urine Urobilinogen Ur Leukocyte Esterase Urine WBC (Auto) Urine RBC (Auto) U Epithel Cells (Auto) Urine Mucus Urine Creatinine Urine Sodium Blood Type O POSITIVE Antibody Screen Negative Crossmatch See Detail 05/26/21 05/26/21 05/26/21 21:21 21:27 23:00 WBC RBC Hgb Hct MCV MCH MCHC RDW Plt Count Add Manual Diff Total Counted Seg Neutrophils % Seg Neuts % (Manual) Band Neutrophils % Lymphocytes % (Manual) Monocytes % (Manual) Metamyelocytes % Nucleated RBC % Seg Neutrophils # Man Band Neutrophils # Lymphocytes # (Manual) Abs React Lymphs (Man) Monocytes # (Manual) Eosinophils # (Manual) Basophils # (Manual) Metamyelocytes # Myelocytes # Promyelocytes # Blast Cells # WBC Morphology Hypersegmented Neuts Hyposegmented Neuts Hypogranular Neuts Smudge Cells Toxic Granulation Toxic Vacuolation Dohle Bodies Pelger-Huet Anomaly Keiko Rods Platelet Estimate Clumped Platelets Plt Clumps, EDTA Large Platelets Giant Platelets Platelet Satelliting Plt Morphology Comment RBC Morphology Dimorphic RBCs Polychromasia Hypochromasia Poikilocytosis Anisocytosis Microcytosis Macrocytosis Spherocytes Pappenheimer Bodies Sickle Cells Target Cells Tear Drop Cells Ovalocytes Helmet Cells [place] Bodies [place] Rings Bruno Cells Bite Cells Crenated Cell Elliptocytes Acanthocytes (Spur) Rouleaux Hemoglobin C Crystals Schistocytes Malaria parasites Brannon Bodies Hem Pathologist Commnt PT INR APTT Fibrinogen ABG pH 7.053 L* ABG pCO2 24.9 ABG pO2 253.0 H ABG HCO3 6.5 L ABG O2 Saturation 99.3 H ABG O2 Content 9.0 ABG Base Excess -22.3 L ABG Hemoglobin 6.0 L ABG Carboxyhemoglobin 1.0 ABG Methemoglobin 0.7 Oxyhemoglobin 97.6 FiO2 80 Sodium Potassium Chloride Carbon Dioxide Anion Gap BUN Creatinine Estimated GFR BUN/Creatinine Ratio Glucose POC Glucose 200 H Lactic Acid Calcium Phosphorus Magnesium Total Bilirubin AST ALT Alkaline Phosphatase Lactate Dehydrogenase Total Protein Albumin Albumin/Globulin Ratio Urine Color Urine Turbidity Urine pH Ur Specific [place] Urine Protein Urine Glucose (UA) Urine Ketones Urine Blood Urine Nitrite Urine Bilirubin Urine Urobilinogen Ur Leukocyte Esterase Urine WBC (Auto) Urine RBC (Auto) U Epithel Cells (Auto) Urine Mucus Urine Creatinine 229.2 H Urine Sodium 10 Blood Type Antibody Screen Crossmatch 05/27/21 05/27/21 05/27/21 04:30 04:30 04:30 WBC 57.6 H* RBC 2.46 L Hgb 6.9 L Hct 22.0 L D MCV 89 MCH 28 MCHC 32 RDW 13.2 Plt Count 68 L Add Manual Diff Complete Total Counted 200 Seg Neutrophils % [employer] Operator Seg Neuts % (Manual) 92.0 H Band Neutrophils % 5.0 Lymphocytes % (Manual) 1.5 L Monocytes % (Manual) 0.5 Metamyelocytes % 1.0 Nucleated RBC % Not Reportable Seg Neutrophils # Man 53.0 H Band Neutrophils # 2.9 Lymphocytes # (Manual) 0.9 L Abs React Lymphs (Man) 0.0 Monocytes # (Manual) 0.3 Eosinophils # (Manual) 0.0 Basophils # (Manual) 0.0 Metamyelocytes # 0.6 Myelocytes # 0.0 Promyelocytes # 0.0 Blast Cells # 0.0 WBC Morphology Not Reportable Hypersegmented Neuts Not Reportable Hyposegmented Neuts Not Reportable Hypogranular Neuts Not Reportable Smudge Cells Not Reportable Toxic Granulation Not Reportable Toxic Vacuolation Not Reportable Dohle Bodies Not Reportable Pelger-Huet Anomaly Not Reportable Keiko Rods Not Reportable Platelet Estimate Consistent w auto Clumped Platelets Not Reportable Plt Clumps, EDTA Not Reportable Large Platelets Few Giant Platelets Not Reportable Platelet Satelliting Not Reportable Plt Morphology Comment Not Reportable RBC Morphology Not Reportable Dimorphic RBCs Not Reportable Polychromasia Not Reportable Hypochromasia Not Reportable Poikilocytosis Not Reportable Anisocytosis 1+ Microcytosis Not Reportable Macrocytosis Not Reportable Spherocytes Not Reportable Pappenheimer Bodies Not Reportable Sickle Cells Not Reportable Target Cells Not Reportable Tear Drop Cells Not Reportable Ovalocytes Not Reportable Helmet Cells Not Reportable [place] Bodies Not Reportable [place] Rings Not Reportable Korina Cells Not Reportable Bite Cells Not Reportable Crenated Cell Not Reportable Elliptocytes Not Reportable Acanthocytes (Spur) Not Reportable Rouleaux Not Reportable Hemoglobin C Crystals Not Reportable Schistocytes Not Reportable Malaria parasites Not Reportable Brannon Bodies Not Reportable Hem Pathologist Commnt No PT INR APTT Fibrinogen ABG pH ABG pCO2 ABG pO2 ABG HCO3 ABG O2 Saturation ABG O2 Content ABG Base Excess ABG Hemoglobin ABG Carboxyhemoglobin ABG Methemoglobin Oxyhemoglobin FiO2 Sodium Potassium Chloride Carbon Dioxide Anion Gap BUN Creatinine Estimated GFR BUN/Creatinine Ratio Glucose POC Glucose Lactic Acid 18.20 H* Calcium Phosphorus Magnesium Total Bilirubin AST ALT Alkaline Phosphatase Lactate Dehydrogenase 1409 H Total Protein Albumin Albumin/Globulin Ratio Urine Color Urine Turbidity Urine pH Ur Specific [place] Urine Protein Urine Glucose (UA) Urine Ketones Urine Blood Urine Nitrite Urine Bilirubin Urine Urobilinogen Ur Leukocyte Esterase Urine WBC (Auto) Urine RBC (Auto) U Epithel Cells (Auto) Urine Mucus Urine Creatinine Urine Sodium Blood Type Antibody Screen Crossmatch 05/27/21 05/27/21 05/27/21 04:30 04:30 07:17 WBC RBC Hgb Hct MCV MCH MCHC RDW Plt Count Add Manual Diff Total Counted Seg Neutrophils % Seg Neuts % (Manual) Band Neutrophils % Lymphocytes % (Manual) Monocytes % (Manual) Metamyelocytes % Nucleated RBC % Seg Neutrophils # Man Band Neutrophils # Lymphocytes # (Manual) Abs React Lymphs (Man) Monocytes # (Manual) Eosinophils # (Manual) Basophils # (Manual) Metamyelocytes # Myelocytes # Promyelocytes # Blast Cells # WBC Morphology Hypersegmented Neuts Hyposegmented Neuts Hypogranular Neuts Smudge Cells Toxic Granulation Toxic Vacuolation Dohle Bodies Pelger-Huet Anomaly Keiko Rods Platelet Estimate Clumped Platelets Plt Clumps, EDTA Large Platelets Giant Platelets Platelet Satelliting Plt Morphology Comment RBC Morphology Dimorphic RBCs Polychromasia Hypochromasia Poikilocytosis Anisocytosis Microcytosis Macrocytosis Spherocytes Pappenheimer Bodies Sickle Cells Target Cells Tear Drop Cells Ovalocytes Helmet Cells [place] Bodies [place] Rings Korina Cells Bite Cells Crenated Cell Elliptocytes Acanthocytes (Spur) Rouleaux Hemoglobin C Crystals Schistocytes Malaria parasites Brannon Bodies Hem Pathologist Commnt PT 54.5 H INR 5.62 H* APTT 90.8 H* Fibrinogen 100 L* ABG pH ABG pCO2 ABG pO2 ABG HCO3 ABG O2 Saturation ABG O2 Content ABG Base Excess ABG Hemoglobin ABG Carboxyhemoglobin ABG Methemoglobin Oxyhemoglobin FiO2 Sodium 138 Potassium 6.1 H* Chloride 91.6 L Carbon Dioxide 12 L Anion Gap 41 BUN 48 H Creatinine 3.3 H Estimated GFR 15 BUN/Creatinine Ratio 15 Glucose 206 H POC Glucose 153 H Lactic Acid Calcium 6.9 L Phosphorus 11.30 H Magnesium 2.50 H Total Bilirubin 3.20 H AST 37496 H ALT 55864 H Alkaline Phosphatase 125 Lactate Dehydrogenase 77719 H Total Protein 4.1 L Albumin 2.4 L Albumin/Globulin Ratio 1.4 Urine Color Urine Turbidity Urine pH Ur Specific [place] Urine Protein Urine Glucose (UA) Urine Ketones Urine Blood Urine Nitrite Urine Bilirubin Urine Urobilinogen Ur Leukocyte Esterase Urine WBC (Auto) Urine RBC (Auto) U Epithel Cells (Auto) Urine Mucus Urine Creatinine Urine Sodium Blood Type Antibody Screen Crossmatch
[2021-05-27] MEDS ORDERED: PANTOPRAZOLE 40 MG INJ IV SCH (11:00)
--- NOTE | 2021-05-27 11:08 | Progress Note ---
Assessment and Plan 1. Acute kidney injury: Vasomotor PRICE in the setting of Cardiac arrest and shock. CT abdomen (05/23) was negative for hydro. Low FeNa. UA negative for blood. Continue bciarb drip. Monitor renal function. Renal prognosis is guarded. Avoid nephrotoxic agents. Meds dosage based on GFR. Monitor for PROVIDER EDUCATION SPECIALIST needs. Patient is not a candidate for hemodialysis at this time due to profound hypotension. 2. FEN: Hyperkalemia, s/p meds, bicarb drip, monitor. Anion-gap metabolic acidosis, 2/2 Lactic acidosis, Sod bicarb drip, monitor. Monitor lytes and volume status. 3. S/p Cardiac arrest. 4. Acute hypoxic resp failure: Intubated michel-arrest. Admitted with Covid-19 PNA. Followed by Pulmonary. 5. Profound shock: Patient currently on 3 pressors. S/p multiple IV fluid boluses. 6. Covid-19 PNA, POA: IV Solu-Medrol. Completed 5 days of Remdesivir. S/p Actemra on 05/13/2021. Follow inflammatory markers. 7. Severe Anemia: S/p PRBC. Monitor. 8. Severe Lactic acidosis. 9. Acute Metabolic Encephalopathy. 10. Elevated ALT and AST. 11. DM-2. Prognosis is very poor. Family is aware. Subjective: Patient was not examined today to limit exposure to Covid-19. However the examination findings from other providers noted. The current and previous medical records are reviewed in detail as are laboratory and imaging data reviewed when appropriate. Medications being given are also reviewed. In addition the case has been discussed with the attending hospitalist and the nurse when needed. New renal recommendations as above. Examination: Subjective Date of service: 05/27/21 Principal diagnosis: N/V, Constipation Objective - Vital Signs Vital signs: Vital Signs - 12hr 05/26/21 05/26/21 05/26/21 23:16 23:20 23:30 Temperature 96.6 F L Pulse Rate 106 H 106 H 105 H Respiratory 26 H 23 22 Rate Blood Pressure 56/15 116/32 56/15 O2 Sat by Pulse 96 94 88 Oximetry 05/26/21 05/26/21 05/26/21 23:42 23:46 23:51 Temperature 95.4 F L Pulse Rate 105 H 106 H Respiratory 21 15 Rate Blood Pressure O2 Sat by Pulse 92 96 Oximetry 05/27/21 05/27/21 05/27/21 00:00 00:16 00:18 Temperature 95.4 F L Pulse Rate 105 H 106 H 105 H Respiratory 17 20 22 Rate Blood Pressure 115/23 O2 Sat by Pulse 100 89 88 Oximetry 05/27/21 05/27/21 05/27/21 00:30 00:46 01:00 Temperature 97.7 F 97.7 F Pulse Rate 105 H 107 H 107 H Respiratory 25 H 21 27 H Rate Blood Pressure 110/33 105/37 O2 Sat by Pulse 100 100 100 Oximetry 05/27/21 05/27/21 05/27/21 01:16 01:30 01:46 Temperature 97.7 F Pulse Rate 109 H 109 H 110 H Respiratory 31 H 28 H 31 H Rate Blood Pressure 103/34 O2 Sat by Pulse 100 100 100 Oximetry 05/27/21 05/27/21 05/27/21 01:53 02:00 02:12 Temperature 97.7 F Pulse Rate 112 H 113 H 114 H Respiratory 24 20 Rate Blood Pressure 102/34 102/36 O2 Sat by Pulse 100 100 100 Oximetry 05/27/21 05/27/21 05/27/21 02:16 02:30 02:45 Temperature 98.8 F Pulse Rate 113 H 115 H 115 H Respiratory 22 27 H 28 H Rate Blood Pressure 80/35 O2 Sat by Pulse 100 100 100 Oximetry 05/27/21 05/27/21 05/27/21 02:46 03:00 03:12 Temperature 99.7 F H Pulse Rate 115 H 120 H Respiratory 28 H 29 H Rate Blood Pressure O2 Sat by Pulse 100 100 Oximetry 05/27/21 05/27/21 05/27/21 03:15 03:16 03:30 Temperature 99.0 F Pulse Rate 119 H 119 H 118 H Respiratory 19 19 37 H Rate Blood Pressure 69/33 O2 Sat by Pulse 100 100 100 Oximetry 05/27/21 05/27/21 05/27/21 03:45 03:46 04:00 Temperature 99.0 F 99.1 F Pulse Rate 120 H 120 H 123 H Respiratory 24 32 H 35 H Rate Blood Pressure 52/35 56/15 62/32 O2 Sat by Pulse 100 100 100 Oximetry 05/27/21 05/27/21 05/27/21 04:06 04:16 04:30 Temperature Pulse Rate 121 H 123 H 124 H Respiratory 36 H 21 Rate Blood Pressure 51/34 O2 Sat by Pulse 100 100 100 Oximetry 05/27/21 05/27/21 05/27/21 04:46 05:00 05:16 Temperature Pulse Rate 124 H 125 H 125 H Respiratory 28 H 35 H 24 Rate Blood Pressure O2 Sat by Pulse 100 100 100 Oximetry 05/27/21 05/27/21 05/27/21 05:30 05:46 06:00 Temperature Pulse Rate 126 H 126 H 125 H Respiratory 34 H 27 H 35 H Rate Blood Pressure O2 Sat by Pulse 100 100 100 Oximetry 05/27/21 05/27/21 07:25 08:00 Temperature 100.0 F H Pulse Rate 120 H Respiratory Rate Blood Pressure 116/41 O2 Sat by Pulse 100 Oximetry - Lab 05/27/21 18:33 05/27/21 13:30 Most recent lab results ABG pH 7.053 pH Units (7.350-7.450) L* 05/26/21 23:00 ABG pCO2 24.9 mm Hg 05/26/21 23:00 ABG pO2 253.0 mm Hg (80.0-90.0) H 05/26/21 23:00 ABG HCO3 6.5 mmol/L (20.0-26.0) L 05/26/21 23:00 ABG O2 Saturation 99.3 % (95.0-99.0) H 05/26/21 23:00 Calcium 6.9 mg/dL (8.4-10.2) L 05/27/21 04:30 Phosphorus 11.30 mg/dL (2.5-4.5) H 05/27/21 04:30 Magnesium 2.50 mg/dL (1.7-2.3) H 05/27/21 04:30 Urine Creatinine 229.2 mg/dL (0.1-20.0) H 05/26/21 21:27 Urine Sodium 10 mmol/L 05/26/21 21:27 Medications & Allergies - Medications Allergies/Adverse Reactions: Allergies acetaminophen [From Percocet] Allergy (Verified 05/25/21 09:09) Vomiting azithromycin Allergy (Verified 05/22/21 12:26) CHEST PAIN morphine Allergy (Verified 05/22/21 12:26) Angioedema oxycodone [From Percocet] Allergy (Verified 05/25/21 09:09) Vomiting Penicillins Allergy (Verified 05/22/21 12:26) Rash tetracycline Allergy (Verified 05/22/21 12:26) CHEST PAIN AND NAUSEA/VOMITING Home Medications: Home Medications Medication Instructions Recorded Confirmed Last Taken Type Hydrochlorothiazide 12.5 mg PO DAILY 05/16/21 05/16/21 05/11/21 09:00 History Losartan 25 mg PO DAILY 05/16/21 05/16/21 05/11/21 09:00 History Albuterol Mdi (or & Nicu Only) 1 puff IH PRN PRN 05/22/21 05/22/21 Unknown H istory [ProAir HFA Inhaler] Cyclobenzaprine [Flexeril] 10 mg PO PRN PRN 05/22/21 05/22/21 Unknown History Mv-Min/Iron/Folic/Calcium/Vitk 1 each PO QDAY 05/22/21 05/22/21 Unknown History [Women's Multivitamin Tablet] Tiotropium Myton [Spiriva] 1 puff IH BID 05/22/21 05/22/21 Unknown History Active Medications: Generic Name Dose Route Start Last Admin Trade Name Freq PRN Reason Stop Dose Admin Acetaminophen 650 mg 05/12/21 10:00 05/26/21 10:37 Acetaminophen 325 Mg Tab PO 650 mg Q4H PRN Administration Pain MILD(1-3)/Fever >100.5/LUX Alprazolam 0.5 mg 05/25/21 20:13 05/25/21 21:02 Alprazolam 0.5 Mg Tab PO 0.5 mg Q6HR PRN Administration Anxiety Ascorbic Acid 1,000 mg 05/12/21 22:00 05/27/21 09:48 Ascorbic Acid 500 Mg Tab PO 1,000 mg BID YOHANNES Administration Cholecalciferol 5,000 unit 05/12/21 14:00 05/27/21 09:48 Cholecalciferol (Vit D3) 5,000 Unit Tab PO 5,000 unit DAILY YOHANNES Administration Cyclobenzaprine HCl 10 mg 05/24/21 13:00 05/25/21 16:37 Cyclobenzaprine 10 Mg Tab PO 10 mg Q8H PRN Administration Muscle Spasm Dextrose 50 ml 05/12/21 09:30 Dextrose 50% In Water (25gm) 50 Ml Syringe IV Q30MIN PRN Hypoglycemia Protocol Fentanyl 50 mcg 05/27/21 09:11 Fentanyl 100 Mcg/2 Ml Inj IV Q15MIN PRN ANALGESIA Hydrophilic Ointment 1 applic 05/26/21 14:44 Lip Therapy Vaseline TP Q2H PRN Dry Lips Sodium Chloride 1,000 mls @ 75 mls/hr 05/26/21 12:00 Nacl 0.9% 1000 Ml IV DIRECT YOHANNES Vasopressin 20 unit/ Sodium 101 mls @ 9.09 mls/hr 05/26/21 16:00 05/27/21 09:00 Chloride IV 0.03 units/min TITR YOHANNES 9.09 mls/hr Administration Protocol 0.03 UNITS/MIN Sodium Chloride 500 mls @ 0 mls/hr 05/26/21 17:08 05/26/21 20:19 Nacl 0.9% 500 Ml IV 50 mls/hr ONCE YOHANNES Administration As Directed Sodium Chloride 500 mls @ 0 mls/hr 05/26/21 17:15 Nacl 0.9% 500 Ml IV ONCE YOHANNES As Directed Sodium Bicarbonate 150 meq/ 1,150 mls @ 125 mls/hr 05/26/21 19:30 05/27/21 03:44 Dextrose IV 125 mls/hr DIRECT YOHANNES Administration NORepinephrine/NS 8 MG-250 ML 8 mg in 250 mls @ 3.75 mls/hr 05/26/21 20:00 05/27/21 04:00 Norepinephrine/Ns 8 Mg-250 Ml (Double Conc) IV 30 mcg/min TITRATE YOHANNES 56.25 mls/hr Titration Protocol 2 MCG/MIN Phenylephrine HCl 100 mg/ 100 mls @ 3 mls/hr 05/27/21 04:00 05/27/21 04:45 Sodium Chloride IV 70 mcg/min TITR YOHANNES 4.2 mls/hr Titration Protocol 50 MCG/MIN Propofol 1,000 mg in 100 mls @ 3.39 mls/hr 05/27/21 10:00 05/27/21 09:45 Diprivan 10 Mg/Ml IV 5 mcg/kg/min TITR YOHANNES 3.39 mls/hr Administration Protocol 5 MCG/KG/MIN Fentanyl Citrate 2,000 mcg in 100 mls @ 5.65 mls/hr 05/27/21 10:00 05/27/21 09:44 Fentanyl Drip Premix IV 1 mcg/kg/hr TITR YOHANNES 5.65 mls/hr Administration Protocol 1 MCG/KG/HR Cefepime HCl 2 gm in 100 mls @ 200 mls/hr 05/27/21 18:00 Cefepime/Ns 2 Gm/100 Ml IV QPM [facility] Insulin Human Lispro 0 unit 05/12/21 11:30 05/26/21 21:30 Insulin Lispro 100 Unit/Ml [facility]Q [facility] Protocol Methylprednisolone Sodium Succinate 40 mg 05/26/21 14:00 05/27/21 05:15 Methylprednisolone Sod Succinate 40 Mg/1 Ml Inj IV 40 mg Q8HR YOHANNES Administration Metoclopramide HCl 5 mg 05/27/21 11:30 Metoclopramide 10 Mg/2 Ml Inj IV ACHS [facility] Multi-Ingred Cream/Lotion/Oil/Oint 1 applic 05/26/21 14:44 Mineral Oil/Petrolatum, White Ophth Oint 3.5 Gm OU Q4H PRN Dry Eye(s) Naloxone HCl 0.1 mg 05/12/21 09:00 Naloxone 0.4 Mg/1 Ml Inj IV Q2MIN PRN Res Rate </= 8 or 02 SAT < 92% Ondansetron HCl 4 mg 05/12/21 10:00 05/26/21 01:14 Ondansetron 4 Mg/2 Ml Inj IV 4 mg Q4H PRN Administration Nausea And Vomiting Pantoprazole Sodium 40 mg 05/27/21 10:00 05/27/21 09:47 Pantoprazole 40 Mg Inj IV 40 mg QDAY [facility] Administration Pseudoephedrine/Acetam/Chlorphenir 10 ml 05/15/21 14:03 05/25/21 12:37 Guaifenesin/Codeine 100-10mg Oral Liqd 5 Ml PO 10 ml Q4H PRN Administration Cough Senna 8.6 mg 05/12/21 10:00 05/26/21 21:52 Sennosides 8.6 Mg Tab PO 8.6 mg Q12HR YOHANNES Administration Sodium Chloride 10 ml 05/12/21 10:00 05/27/21 09:49 Sodium Chloride 0.9% 10 Ml Flush Syringe IV 10 ml BID YOHANNES Administration Sodium Chloride 10 ml 05/12/21 10:00 Sodium Chloride 0.9% 10 Ml Flush Syringe IV PRN PRN LINE FLUSH Sucralfate 1 gm 05/25/21 12:00 05/27/21 05:15 Sucralfate 1 Gm/10 Ml Oral Liqd PO 1 gm Q6HR YOHANNES Administration Zinc Sulfate 220 mg 05/12/21 14:00 05/26/21 10:37 Zinc Sulfate 220 Mg Cap PO 220 mg QDAY YOHANNES Administration
--- NOTE | 2021-05-27 11:29 | XRay Report ---
ABDOMEN 1 VIEW 05/27/2021 10:57 AM INDICATION / CLINICAL INFORMATION: NGT placement verification. COMPARISON: None available. FINDINGS: TUBES / LINES: Tip the nasogastric tube is at the level the body of the stomach. BOWEL GAS PATTERN: No significant abnormality. FREE AIR / EXTRALUMINAL GAS: None. ADDITIONAL FINDINGS: No significant additional findings. IMPRESSION: 1. Esophagogastric tube in expected position. Signer Name: Blair Sow MD Signed: 05/27/2021 11:24 AM Workstation Name: [id number]
[2021-05-27] MEDS: ACETAMINOPHEN 325 MG TAB PO PRN (11:45)
--- NOTE | 2021-05-27 13:13 | Progress Note ---
Assessment and Plan - Patient Problems (1) Nausea & vomiting Current Visit: Yes Status: Resolved (2) Acute hypoxemic respiratory failure Current Visit: Yes Status: Acute (3) Acute respiratory distress Current Visit: Yes Status: Acute (4) COVID-19 vaccination not done Current Visit: Yes Status: Acute (5) Constipation Current Visit: Yes Status: Chronic (6) Coronavirus infection Current Visit: Yes Status: Acute (7) Hypoxia Current Visit: Yes Status: Acute (8) Anemia Current Visit: Yes Status: Acute (9) Metabolic acidosis Current Visit: Yes Status: Acute (10) MOSF (multiple organ systems failure) Current Visit: Yes Status: Acute (11) Acute liver failure Current Visit: Yes Status: Acute Subjective Principal diagnosis: N/V, Constipation Interval history: sp transfusion Objective Vital Signs - 12hr 05/27/21 05/27/21 05/27/21 01:16 01:30 01:46 Temperature 97.7 F Pulse Rate 109 H 109 H 110 H Respiratory 31 H 28 H 31 H Rate Blood Pressure 103/34 O2 Sat by Pulse 100 100 100 Oximetry 05/27/21 05/27/21 05/27/21 01:53 02:00 02:12 Temperature 97.7 F Pulse Rate 112 H 113 H 114 H Respiratory 24 20 Rate Blood Pressure 102/34 102/36 O2 Sat by Pulse 100 100 100 Oximetry 05/27/21 05/27/21 05/27/21 02:16 02:30 02:45 Temperature 98.8 F Pulse Rate 113 H 115 H 115 H Respiratory 22 27 H 28 H Rate Blood Pressure 80/35 O2 Sat by Pulse 100 100 100 Oximetry 05/27/21 05/27/21 05/27/21 02:46 03:00 03:12 Temperature 99.7 F H Pulse Rate 115 H 120 H Respiratory 28 H 29 H Rate Blood Pressure O2 Sat by Pulse 100 100 Oximetry 05/27/21 05/27/21 05/27/21 03:15 03:16 03:30 Temperature 99.0 F Pulse Rate 119 H 119 H 118 H Respiratory 19 19 37 H Rate Blood Pressure 69/33 O2 Sat by Pulse 100 100 100 Oximetry 05/27/21 05/27/21 05/27/21 03:45 03:46 04:00 Temperature 99.0 F 99.1 F Pulse Rate 120 H 120 H 123 H Respiratory 24 32 H 35 H Rate Blood Pressure 52/35 56/15 62/32 O2 Sat by Pulse 100 100 100 Oximetry 05/27/21 05/27/21 05/27/21 04:06 04:16 04:30 Temperature Pulse Rate 121 H 123 H 124 H Respiratory 36 H 21 Rate Blood Pressure 51/34 O2 Sat by Pulse 100 100 100 Oximetry 05/27/21 05/27/21 05/27/21 04:46 05:00 05:16 Temperature Pulse Rate 124 H 125 H 125 H Respiratory 28 H 35 H 24 Rate Blood Pressure O2 Sat by Pulse 100 100 100 Oximetry 05/27/21 05/27/21 05/27/21 05:30 05:46 06:00 Temperature Pulse Rate 126 H 126 H 125 H Respiratory 34 H 27 H 35 H Rate Blood Pressure O2 Sat by Pulse 100 100 100 Oximetry 05/27/21 05/27/21 05/27/21 06:16 06:30 06:46 Temperature Pulse Rate 124 H 125 H 127 H Respiratory 32 H 35 H 22 Rate Blood Pressure 56/15 56/15 56/15 O2 Sat by Pulse 100 100 100 Oximetry 05/27/21 05/27/21 05/27/21 07:00 07:16 07:25 Temperature 100.0 F H Pulse Rate 130 H 128 H Respiratory 19 23 Rate Blood Pressure 56/15 56/15 O2 Sat by Pulse 100 84 Oximetry 05/27/21 05/27/21 05/27/21 07:30 07:46 08:00 Temperature Pulse Rate 122 H 119 H 123 H Respiratory 16 22 24 Rate Blood Pressure 56/15 56/15 56/15 O2 Sat by Pulse 88 100 100 Oximetry 05/27/21 05/27/21 05/27/21 08:16 08:30 08:46 Temperature Pulse Rate 124 H 133 H 126 H Respiratory 22 19 31 H Rate Blood Pressure 56/15 56/15 56/15 O2 Sat by Pulse 93 83 L 98 Oximetry 05/27/21 05/27/21 05/27/21 09:00 09:16 09:30 Temperature Pulse Rate 124 H 122 H 121 H Respiratory 19 24 21 Rate Blood Pressure 56/15 56/15 56/15 O2 Sat by Pulse 100 84 85 Oximetry 05/27/21 05/27/21 05/27/21 09:46 10:00 10:16 Temperature Pulse Rate 120 H 120 H 118 H Respiratory 29 H 19 20 Rate Blood Pressure 56/15 56/15 56/15 O2 Sat by Pulse 83 L 100 100 Oximetry 05/27/21 05/27/21 05/27/21 10:30 10:35 10:46 Temperature 99.1 F Pulse Rate 117 H 118 H 117 H Respiratory 32 H 19 26 H Rate Blood Pressure 56/15 114/40 56/15 O2 Sat by Pulse 90 Oximetry 05/27/21 05/27/21 05/27/21 10:50 11:00 11:05 Temperature 99 F 99.2 F Pulse Rate 117 H 119 H 119 H Respiratory 26 H 24 24 Rate Blood Pressure 115/44 56/15 117/41 O2 Sat by Pulse 88 88 Oximetry 05/27/21 05/27/21 05/27/21 11:16 11:20 11:30 Temperature 99.1 F 99.1 F Pulse Rate 120 H 120 H 118 H Respiratory 22 22 25 H Rate Blood Pressure 56/15 122/44 124/44 O2 Sat by Pulse 86 86 82 L Oximetry 05/27/21 05/27/21 11:44 12:00 Temperature 97.5 F L Pulse Rate 118 H Respiratory Rate Blood Pressure 122/47 O2 Sat by Pulse 100 Oximetry Constitutional: other (orally intubated on vent) Eyes: non-icteric ENT: oropharynx dry, other (intubated) Neck: supple, no JVD Effort: mildly labored Ascultation: Bilateral: rhonchi Cardiovascular: regular rate and rhythm Gastrointestinal: normoactive bowel sounds, soft, non-tender, other (Obese) Integumentary: normal Extremities: no cyanosis, no edema, pink and warm Neurologic: normal mental status, non-focal exam Psychiatric: mood appropriate CBC and BMP: 05/27/21 04:30 05/27/21 04:30 ABG, PT/INR, D-dimer: ABG ABG pH 7.053 pH Units (7.350-7.450) L* 05/26/21 23:00 ABG pCO2 24.9 mm Hg 05/26/21 23:00 ABG pO2 253.0 mm Hg (80.0-90.0) H 05/26/21 23:00 ABG O2 Saturation 99.3 % (95.0-99.0) H 05/26/21 23:00 PT/INR, D-dimer PT 54.5 Sec. (12.2-14.9) H 05/27/21 04:30 INR 5.62 (0.87-1.13) H* 05/27/21 04:30 D-Dimer 452.36 ng/mlDDU (0-234) H 05/16/21 05:00 Abnormal lab findings: Abnormal Labs 05/11/21 05/11/21 05/11/21 14:33 14:33 15:00 WBC RBC Hgb 14.8 H Hct MCHC 35 H RDW 12.9 L Plt Count Lymph % (Auto) 8.7 L Lymph # (Auto) 0.7 L [place] # (Auto) Seg Neutrophils % 83.7 H Seg Neuts % (Manual) Lymphocytes % (Manual) Monocytes % (Manual) Seg Neutrophils # Seg Neutrophils # Man Lymphocytes # (Manual) Monocytes # (Manual) PT INR APTT Fibrinogen D-Dimer 331.70 H ABG pH ABG pO2 ABG HCO3 ABG O2 Saturation ABG Base Excess ABG Hemoglobin Sodium Potassium 5.2 H Chloride 95.0 L Carbon Dioxide BUN Creatinine Glucose 125 H POC Glucose Lactic Acid Calcium Phosphorus Magnesium Ferritin Total Bilirubin AST ALT Lactate Dehydrogenase C-Reactive Protein Total Protein Albumin 3.3 L Urine Creatinine Coronavirus (PCR) Crossmatch 05/11/21 05/11/21 05/12/21 15:00 15:00 08:46 WBC RBC Hgb Hct MCHC RDW Plt Count Lymph % (Auto) Lymph # (Auto) [place] # (Auto) Seg Neutrophils % Seg Neuts % (Manual) Lymphocytes % (Manual) Monocytes % (Manual) Seg Neutrophils # Seg Neutrophils # Man Lymphocytes # (Manual) Monocytes # (Manual) PT INR APTT Fibrinogen D-Dimer 345.30 H ABG pH ABG pO2 ABG HCO3 ABG O2 Saturation ABG Base Excess ABG Hemoglobin Sodium Potassium Chloride Carbon Dioxide BUN Creatinine Glucose POC Glucose Lactic Acid Calcium Phosphorus Magnesium Ferritin 471.5 H Total Bilirubin AST ALT Lactate Dehydrogenase 579 H C-Reactive Protein 15.80 H Total Protein Albumin Urine Creatinine Coronavirus (PCR) Crossmatch 05/12/21 05/12/21 05/12/21 08:46 08:46 09:00 WBC RBC Hgb Hct MCHC RDW Plt Count Lymph % (Auto) Lymph # (Auto) [place] # (Auto) Seg Neutrophils % Seg Neuts % (Manual) Lymphocytes % (Manual) Monocytes % (Manual) Seg Neutrophils # Seg Neutrophils # Man Lymphocytes # (Manual) Monocytes # (Manual) PT INR APTT Fibrinogen D-Dimer ABG pH ABG pO2 ABG HCO3 ABG O2 Saturation ABG Base Excess ABG Hemoglobin Sodium Potassium Chloride Carbon Dioxide BUN Creatinine Glucose 149 H POC Glucose Lactic Acid Calcium Phosphorus Magnesium Ferritin 465.6 H Total Bilirubin AST ALT Lactate Dehydrogenase 574 H C-Reactive Protein 18.40 H Total Protein Albumin Urine Creatinine Coronavirus (PCR) Positive A Crossmatch 05/12/21 05/12/21 05/12/21 11:40 16:14 18:01 WBC RBC Hgb Hct MCHC RDW Plt Count Lymph % (Auto) Lymph # (Auto) [place] # (Auto) Seg Neutrophils % Seg Neuts % (Manual) Lymphocytes % (Manual) Monocytes % (Manual) Seg Neutrophils # Seg Neutrophils # Man Lymphocytes # (Manual) Monocytes # (Manual) PT INR APTT Fibrinogen D-Dimer ABG pH ABG pO2 ABG HCO3 ABG O2 Saturation ABG Base Excess ABG Hemoglobin Sodium Potassium Chloride Carbon Dioxide BUN Creatinine Glucose POC Glucose 141 H 140 H 159 H Lactic Acid Calcium Phosphorus Magnesium Ferritin Total Bilirubin AST ALT Lactate Dehydrogenase C-Reactive Protein Total Protein Albumin Urine Creatinine Coronavirus (PCR) Crossmatch 05/12/21 05/13/21 05/13/21 22:01 03:51 03:51 WBC 13.6 H RBC Hgb 14.6 H Hct MCHC RDW 12.9 L Plt Count Lymph % (Auto) 3.5 L Lymph # (Auto) 0.5 L [place] # (Auto) 0.9 H Seg Neutrophils % 89.4 H Seg Neuts % (Manual) Lymphocytes % (Manual) Monocytes % (Manual) Seg Neutrophils # 12.1 H Seg Neutrophils # Man Lymphocytes # (Manual) Monocytes # (Manual) PT INR APTT Fibrinogen D-Dimer ABG pH ABG pO2 ABG HCO3 ABG O2 Saturation ABG Base Excess ABG Hemoglobin Sodium Potassium Chloride Carbon Dioxide BUN 31 H Creatinine Glucose 152 H POC Glucose 152 H Lactic Acid Calcium Phosphorus Magnesium Ferritin Total Bilirubin AST ALT Lactate Dehydrogenase C-Reactive Protein Total Protein Albumin 3.2 L Urine Creatinine Coronavirus (PCR) Crossmatch 05/13/21 05/13/21 05/13/21 07:32 16:04 22:48 WBC RBC Hgb Hct MCHC RDW Plt Count Lymph % (Auto) Lymph # (Auto) [place] # (Auto) Seg Neutrophils % Seg Neuts % (Manual) Lymphocytes % (Manual) Monocytes % (Manual) Seg Neutrophils # Seg Neutrophils # Man Lymphocytes # (Manual) Monocytes # (Manual) PT INR APTT Fibrinogen D-Dimer ABG pH ABG pO2 ABG HCO3 ABG O2 Saturation ABG Base Excess ABG Hemoglobin Sodium Potassium Chloride Carbon Dioxide BUN Creatinine Glucose POC Glucose 160 H 146 H 175 H Lactic Acid Calcium Phosphorus Magnesium Ferritin Total Bilirubin AST ALT Lactate Dehydrogenase C-Reactive Protein Total Protein Albumin Urine Creatinine Coronavirus (PCR) Crossmatch 05/14/21 05/14/21 05/14/21 04:49 07:18 13:24 WBC RBC Hgb Hct MCHC RDW Plt Count Lymph % (Auto) Lymph # (Auto) [place] # (Auto) Seg Neutrophils % Seg Neuts % (Manual) Lymphocytes % (Manual) Monocytes % (Manual) Seg Neutrophils # Seg Neutrophils # Man Lymphocytes # (Manual) Monocytes # (Manual) PT INR APTT Fibrinogen D-Dimer ABG pH ABG pO2 ABG HCO3 ABG O2 Saturation ABG Base Excess ABG Hemoglobin Sodium Potassium Chloride Carbon Dioxide BUN 41 H Creatinine Glucose 169 H POC Glucose 160 H 146 H Lactic Acid Calcium Phosphorus Magnesium Ferritin Total Bilirubin AST ALT Lactate Dehydrogenase C-Reactive Protein Total Protein Albumin 3.4 L Urine Creatinine Coronavirus (PCR) Crossmatch 05/14/21 05/14/21 05/15/21 17:36 21:54 04:05 WBC RBC Hgb Hct MCHC RDW Plt Count Lymph % (Auto) Lymph # (Auto) [place] # (Auto) Seg Neutrophils % Seg Neuts % (Manual) Lymphocytes % (Manual) Monocytes % (Manual) Seg Neutrophils # Seg Neutrophils # Man Lymphocytes # (Manual) Monocytes # (Manual) PT INR APTT Fibrinogen D-Dimer ABG pH ABG pO2 ABG HCO3 ABG O2 Saturation ABG Base Excess ABG Hemoglobin Sodium Potassium Chloride Carbon Dioxide 33 H BUN 45 H Creatinine Glucose 177 H POC Glucose 181 H 169 H Lactic Acid Calcium Phosphorus Magnesium Ferritin Total Bilirubin AST ALT Lactate Dehydrogenase C-Reactive Protein Total Protein Albumin 3.3 L Urine Creatinine Coronavirus (PCR) Crossmatch 05/15/21 05/15/21 05/15/21 07:18 12:09 17:16 WBC RBC Hgb Hct MCHC RDW Plt Count Lymph % (Auto) Lymph # (Auto) [place] # (Auto) Seg Neutrophils % Seg Neuts % (Manual) Lymphocytes % (Manual) Monocytes % (Manual) Seg Neutrophils # Seg Neutrophils # Man Lymphocytes # (Manual) Monocytes # (Manual) PT INR APTT Fibrinogen D-Dimer ABG pH ABG pO2 ABG HCO3 ABG O2 Saturation ABG Base Excess ABG Hemoglobin Sodium Potassium Chloride Carbon Dioxide BUN Creatinine Glucose POC Glucose 166 H 160 H 127 H Lactic Acid Calcium Phosphorus Magnesium Ferritin Total Bilirubin AST ALT Lactate Dehydrogenase C-Reactive Protein Total Protein Albumin Urine Creatinine Coronavirus (PCR) Crossmatch 05/15/21 05/16/21 05/16/21 21:17 01:17 05:00 WBC RBC Hgb Hct MCHC RDW Plt Count Lymph % (Auto) Lymph # (Auto) [place] # (Auto) Seg Neutrophils % Seg Neuts % (Manual) Lymphocytes % (Manual) Monocytes % (Manual) Seg Neutrophils # Seg Neutrophils # Man Lymphocytes # (Manual) Monocytes # (Manual) PT INR APTT Fibrinogen D-Dimer 452.36 H ABG pH ABG pO2 ABG HCO3 ABG O2 Saturation ABG Base Excess ABG Hemoglobin Sodium Potassium Chloride Carbon Dioxide BUN Creatinine Glucose POC Glucose 161 H 161 H Lactic Acid Calcium Phosphorus Magnesium Ferritin Total Bilirubin AST ALT Lactate Dehydrogenase C-Reactive Protein Total Protein Albumin Urine Creatinine Coronavirus (PCR) Crossmatch 05/16/21 05/16/21 05/16/21 05:00 08:06 11:40 WBC 12.5 H RBC 5.39 H Hgb 14.9 H Hct 47.4 H MCHC RDW 12.7 L Plt Count Lymph % (Auto) 3.8 L Lymph # (Auto) 0.5 L [place] # (Auto) Seg Neutrophils % 89.4 H Seg Neuts % (Manual) Lymphocytes % (Manual) Monocytes % (Manual) Seg Neutrophils # 11.2 H Seg Neutrophils # Man Lymphocytes # (Manual) Monocytes # (Manual) PT INR APTT Fibrinogen D-Dimer ABG pH ABG pO2 ABG HCO3 ABG O2 Saturation ABG Base Excess ABG Hemoglobin Sodium Potassium Chloride Carbon Dioxide BUN Creatinine Glucose POC Glucose 140 H 148 H Lactic Acid Calcium Phosphorus Magnesium Ferritin Total Bilirubin AST ALT Lactate Dehydrogenase C-Reactive Protein Total Protein Albumin Urine Creatinine Coronavirus (PCR) Crossmatch 05/16/21 05/16/21 05/17/21 15:44 21:38 07:08 WBC RBC Hgb Hct MCHC RDW Plt Count Lymph % (Auto) Lymph # (Auto) [place] # (Auto) Seg Neutrophils % Seg Neuts % (Manual) Lymphocytes % (Manual) Monocytes % (Manual) Seg Neutrophils # Seg Neutrophils # Man Lymphocytes # (Manual) Monocytes # (Manual) PT INR APTT Fibrinogen D-Dimer ABG pH ABG pO2 ABG HCO3 ABG O2 Saturation ABG Base Excess ABG Hemoglobin Sodium Potassium Chloride Carbon Dioxide BUN Creatinine Glucose POC Glucose 127 H 176 H 166 H Lactic Acid Calcium Phosphorus Magnesium Ferritin Total Bilirubin AST ALT Lactate Dehydrogenase C-Reactive Protein Total Protein Albumin Urine Creatinine Coronavirus (PCR) Crossmatch 05/17/21 05/17/21 05/17/21 11:48 16:29 21:12 WBC RBC Hgb Hct MCHC RDW Plt Count Lymph % (Auto) Lymph # (Auto) [place] # (Auto) Seg Neutrophils % Seg Neuts % (Manual) Lymphocytes % (Manual) Monocytes % (Manual) Seg Neutrophils # Seg Neutrophils # Man Lymphocytes # (Manual) Monocytes # (Manual) PT INR APTT Fibrinogen D-Dimer ABG pH ABG pO2 ABG HCO3 ABG O2 Saturation ABG Base Excess ABG Hemoglobin Sodium Potassium Chloride Carbon Dioxide BUN Creatinine Glucose POC Glucose 138 H 149 H 178 H Lactic Acid Calcium Phosphorus Magnesium Ferritin Total Bilirubin AST ALT Lactate Dehydrogenase C-Reactive Protein Total Protein Albumin Urine Creatinine Coronavirus (PCR) Crossmatch 05/18/21 05/18/21 05/18/21 07:49 11:48 17:26 WBC RBC Hgb Hct MCHC RDW Plt Count Lymph % (Auto) Lymph # (Auto) [place] # (Auto) Seg Neutrophils % Seg Neuts % (Manual) Lymphocytes % (Manual) Monocytes % (Manual) Seg Neutrophils # Seg Neutrophils # Man Lymphocytes # (Manual) Monocytes # (Manual) PT INR APTT Fibrinogen D-Dimer ABG pH ABG pO2 ABG HCO3 ABG O2 Saturation ABG Base Excess ABG Hemoglobin Sodium Potassium Chloride Carbon Dioxide BUN Creatinine Glucose POC Glucose 176 H 144 H 151 H Lactic Acid Calcium Phosphorus Magnesium Ferritin Total Bilirubin AST ALT Lactate Dehydrogenase C-Reactive Protein Total Protein Albumin Urine Creatinine Coronavirus (PCR) Crossmatch 05/18/21 05/19/21 05/19/21 22:54 06:50 06:50 WBC 15.6 H RBC 5.09 H Hgb 14.7 H Hct 43.6 H MCHC RDW 12.5 L Plt Count Lymph % (Auto) Lymph # (Auto) [place] # (Auto) Seg Neutrophils % Seg Neuts % (Manual) Lymphocytes % (Manual) Monocytes % (Manual) Seg Neutrophils # Seg Neutrophils # Man Lymphocytes # (Manual) Monocytes # (Manual) PT INR APTT Fibrinogen D-Dimer ABG pH ABG pO2 ABG HCO3 ABG O2 Saturation ABG Base Excess ABG Hemoglobin Sodium 135 L D Potassium Chloride Carbon Dioxide BUN 31 H Creatinine Glucose 179 H POC Glucose 212 H Lactic Acid Calcium Phosphorus Magnesium Ferritin Total Bilirubin AST ALT Lactate Dehydrogenase C-Reactive Protein Total Protein Albumin Urine Creatinine Coronavirus (PCR) Crossmatch 05/19/21 05/19/21 05/19/21 07:39 11:35 15:59 WBC RBC Hgb Hct MCHC RDW Plt Count Lymph % (Auto) Lymph # (Auto) [place] # (Auto) Seg Neutrophils % Seg Neuts % (Manual) Lymphocytes % (Manual) Monocytes % (Manual) Seg Neutrophils # Seg Neutrophils # Man Lymphocytes # (Manual) Monocytes # (Manual) PT INR APTT Fibrinogen D-Dimer ABG pH ABG pO2 ABG HCO3 ABG O2 Saturation ABG Base Excess ABG Hemoglobin Sodium Potassium Chloride Carbon Dioxide BUN Creatinine Glucose POC Glucose 203 H 177 H 135 H Lactic Acid Calcium Phosphorus Magnesium Ferritin Total Bilirubin AST ALT Lactate Dehydrogenase C-Reactive Protein Total Protein Albumin Urine Creatinine Coronavirus (PCR) Crossmatch 05/19/21 05/20/21 05/20/21 21:23 05:00 07:33 WBC RBC Hgb Hct MCHC RDW Plt Count Lymph % (Auto) Lymph # (Auto) [place] # (Auto) Seg Neutrophils % Seg Neuts % (Manual) Lymphocytes % (Manual) Monocytes % (Manual) Seg Neutrophils # Seg Neutrophils # Man Lymphocytes # (Manual) Monocytes # (Manual) PT INR APTT Fibrinogen D-Dimer ABG pH ABG pO2 ABG HCO3 ABG O2 Saturation ABG Base Excess ABG Hemoglobin Sodium 134 L Potassium Chloride Carbon Dioxide BUN 27 H Creatinine Glucose 181 H POC Glucose 143 H 145 H Lactic Acid Calcium Phosphorus Magnesium Ferritin Total Bilirubin AST ALT Lactate Dehydrogenase C-Reactive Protein Total Protein Albumin Urine Creatinine Coronavirus (PCR) Crossmatch 05/20/21 05/20/21 05/20/21 11:16 15:09 16:28 WBC RBC Hgb Hct MCHC RDW Plt Count Lymph % (Auto) Lymph # (Auto) [place] # (Auto) Seg Neutrophils % Seg Neuts % (Manual) Lymphocytes % (Manual) Monocytes % (Manual) Seg Neutrophils # Seg Neutrophils # Man Lymphocytes # (Manual) Monocytes # (Manual) PT INR APTT Fibrinogen D-Dimer ABG pH ABG pO2 ABG HCO3 ABG O2 Saturation ABG Base Excess ABG Hemoglobin Sodium Potassium Chloride Carbon Dioxide BUN Creatinine Glucose POC Glucose 186 H 130 H 139 H Lactic Acid Calcium Phosphorus Magnesium Ferritin Total Bilirubin AST ALT Lactate Dehydrogenase C-Reactive Protein Total Protein Albumin Urine Creatinine Coronavirus (PCR) Crossmatch 05/20/21 05/21/21 05/21/21 22:40 07:14 07:14 WBC 17.9 H RBC 5.29 H Hgb 15.2 H Hct 45.2 H MCHC RDW 12.7 L Plt Count Lymph % (Auto) Lymph # (Auto) [place] # (Auto) Seg Neutrophils % Seg Neuts % (Manual) Lymphocytes % (Manual) Monocytes % (Manual) Seg Neutrophils # Seg Neutrophils # Man Lymphocytes # (Manual) Monocytes # (Manual) PT INR APTT Fibrinogen D-Dimer ABG pH ABG pO2 ABG HCO3 ABG O2 Saturation ABG Base Excess ABG Hemoglobin Sodium 136 L Potassium Chloride Carbon Dioxide BUN 27 H Creatinine Glucose 185 H POC Glucose 151 H Lactic Acid Calcium Phosphorus Magnesium Ferritin Total Bilirubin AST ALT Lactate Dehydrogenase C-Reactive Protein Total Protein Albumin Urine Creatinine Coronavirus (PCR) Crossmatch 05/21/21 05/21/21 05/21/21 11:38 16:05 22:21 WBC RBC Hgb Hct MCHC RDW Plt Count Lymph % (Auto) Lymph # (Auto) [place] # (Auto) Seg Neutrophils % Seg Neuts % (Manual) Lymphocytes % (Manual) Monocytes % (Manual) Seg Neutrophils # Seg Neutrophils # Man Lymphocytes # (Manual) Monocytes # (Manual) PT INR APTT Fibrinogen D-Dimer ABG pH ABG pO2 ABG HCO3 ABG O2 Saturation ABG Base Excess ABG Hemoglobin Sodium Potassium Chloride Carbon Dioxide BUN Creatinine Glucose POC Glucose 142 H 179 H 133 H Lactic Acid Calcium Phosphorus Magnesium Ferritin Total Bilirubin AST ALT Lactate Dehydrogenase C-Reactive Protein Total Protein Albumin Urine Creatinine Coronavirus (PCR) Crossmatch 05/22/21 05/22/21 05/22/21 05:59 06:45 06:45 WBC 15.5 H RBC Hgb Hct MCHC RDW 12.7 L Plt Count Lymph % (Auto) Lymph # (Auto) [place] # (Auto) Seg Neutrophils % Seg Neuts % (Manual) Lymphocytes % (Manual) Monocytes % (Manual) Seg Neutrophils # Seg Neutrophils # Man Lymphocytes # (Manual) Monocytes # (Manual) PT INR APTT Fibrinogen D-Dimer ABG pH ABG pO2 ABG HCO3 ABG O2 Saturation ABG Base Excess ABG Hemoglobin Sodium Potassium Chloride Carbon Dioxide BUN 32 H Creatinine Glucose 167 H POC Glucose 159 H Lactic Acid Calcium Phosphorus Magnesium Ferritin Total Bilirubin AST ALT Lactate Dehydrogenase C-Reactive Protein Total Protein Albumin Urine Creatinine Coronavirus (PCR) Crossmatch 05/22/21 05/22/21 05/22/21 07:56 11:34 15:26 WBC RBC Hgb Hct MCHC RDW Plt Count Lymph % (Auto) Lymph # (Auto) [place] # (Auto) Seg Neutrophils % Seg Neuts % (Manual) Lymphocytes % (Manual) Monocytes % (Manual) Seg Neutrophils # Seg Neutrophils # Man Lymphocytes # (Manual) Monocytes # (Manual) PT INR APTT Fibrinogen D-Dimer ABG pH ABG pO2 ABG HCO3 ABG O2 Saturation ABG Base Excess ABG Hemoglobin Sodium Potassium Chloride Carbon Dioxide BUN Creatinine Glucose POC Glucose 155 H 174 H 175 H Lactic Acid Calcium Phosphorus Magnesium Ferritin Total Bilirubin AST ALT Lactate Dehydrogenase C-Reactive Protein Total Protein Albumin Urine Creatinine Coronavirus (PCR) Crossmatch 05/22/21 05/23/21 05/23/21 21:57 08:02 11:49 WBC RBC Hgb Hct MCHC RDW Plt Count Lymph % (Auto) Lymph # (Auto) [place] # (Auto) Seg Neutrophils % Seg Neuts % (Manual) Lymphocytes % (Manual) Monocytes % (Manual) Seg Neutrophils # Seg Neutrophils # Man Lymphocytes # (Manual) Monocytes # (Manual) PT INR APTT Fibrinogen D-Dimer ABG pH ABG pO2 ABG HCO3 ABG O2 Saturation ABG Base Excess ABG Hemoglobin Sodium Potassium Chloride Carbon Dioxide BUN Creatinine Glucose POC Glucose 172 H 152 H 176 H Lactic Acid Calcium Phosphorus Magnesium Ferritin Total Bilirubin AST ALT Lactate Dehydrogenase C-Reactive Protein Total Protein Albumin Urine Creatinine Coronavirus (PCR) Crossmatch 05/23/21 05/24/21 05/24/21 16:48 11:02 15:56 WBC RBC Hgb Hct MCHC RDW Plt Count Lymph % (Auto) Lymph # (Auto) [place] # (Auto) Seg Neutrophils % Seg Neuts % (Manual) Lymphocytes % (Manual) Monocytes % (Manual) Seg Neutrophils # Seg Neutrophils # Man Lymphocytes # (Manual) Monocytes # (Manual) PT INR APTT Fibrinogen D-Dimer ABG pH ABG pO2 ABG HCO3 ABG O2 Saturation ABG Base Excess ABG Hemoglobin Sodium Potassium Chloride Carbon Dioxide BUN Creatinine Glucose POC Glucose 139 H 185 H 124 H Lactic Acid Calcium Phosphorus Magnesium Ferritin Total Bilirubin AST ALT Lactate Dehydrogenase C-Reactive Protein Total Protein Albumin Urine Creatinine Coronavirus (PCR) Crossmatch 05/24/21 05/25/21 05/25/21 22:24 07:23 09:18 WBC 12.9 H RBC 3.37 L Hgb 9.8 L Hct 29.0 L MCHC RDW 12.8 L Plt Count Lymph % (Auto) Lymph # (Auto) [place] # (Auto) Seg Neutrophils % Seg Neuts % (Manual) Lymphocytes % (Manual) Monocytes % (Manual) Seg Neutrophils # Seg Neutrophils # Man Lymphocytes # (Manual) Monocytes # (Manual) PT INR APTT Fibrinogen D-Dimer ABG pH ABG pO2 ABG HCO3 ABG O2 Saturation ABG Base Excess ABG Hemoglobin Sodium Potassium Chloride Carbon Dioxide BUN Creatinine Glucose POC Glucose 124 H 176 H Lactic Acid Calcium Phosphorus Magnesium Ferritin Total Bilirubin AST ALT Lactate Dehydrogenase C-Reactive Protein Total Protein Albumin Urine Creatinine Coronavirus (PCR) Crossmatch 05/25/21 05/25/21 05/25/21 09:18 10:48 15:36 WBC RBC Hgb Hct MCHC RDW Plt Count Lymph % (Auto) Lymph # (Auto) [place] # (Auto) Seg Neutrophils % Seg Neuts % (Manual) Lymphocytes % (Manual) Monocytes % (Manual) Seg Neutrophils # Seg Neutrophils # Man Lymphocytes # (Manual) Monocytes # (Manual) PT INR APTT Fibrinogen D-Dimer ABG pH ABG pO2 ABG HCO3 ABG O2 Saturation ABG Base Excess ABG Hemoglobin Sodium 129 L D Potassium Chloride 96.2 L Carbon Dioxide BUN 36 H Creatinine Glucose 129 H POC Glucose 126 H 122 H Lactic Acid Calcium 7.7 L Phosphorus Magnesium Ferritin Total Bilirubin AST ALT Lactate Dehydrogenase C-Reactive Protein Total Protein Albumin Urine Creatinine Coronavirus (PCR) Crossmatch 05/25/21 05/26/21 05/26/21 20:34 05:27 07:42 WBC RBC Hgb Hct MCHC RDW Plt Count Lymph % (Auto) Lymph # (Auto) [place] # (Auto) Seg Neutrophils % Seg Neuts % (Manual) Lymphocytes % (Manual) Monocytes % (Manual) Seg Neutrophils # Seg Neutrophils # Man Lymphocytes # (Manual) Monocytes # (Manual) PT INR APTT Fibrinogen D-Dimer ABG pH ABG pO2 ABG HCO3 ABG O2 Saturation ABG Base Excess ABG Hemoglobin Sodium Potassium Chloride Carbon Dioxide BUN Creatinine Glucose POC Glucose 286 H 220 H 166 H Lactic Acid Calcium Phosphorus Magnesium Ferritin Total Bilirubin AST ALT Lactate Dehydrogenase C-Reactive Protein Total Protein Albumin Urine Creatinine Coronavirus (PCR) Crossmatch 05/26/21 05/26/21 05/26/21 11:07 13:24 14:03 WBC RBC Hgb Hct MCHC RDW Plt Count Lymph % (Auto) Lymph # (Auto) [place] # (Auto) Seg Neutrophils % Seg Neuts % (Manual) Lymphocytes % (Manual) Monocytes % (Manual) Seg Neutrophils # Seg Neutrophils # Man Lymphocytes # (Manual) Monocytes # (Manual) PT INR APTT Fibrinogen D-Dimer ABG pH 7.086 L* ABG pO2 359.3 H ABG HCO3 9.0 L ABG O2 Saturation 99.5 H ABG Base Excess -19.0 L ABG Hemoglobin Sodium Potassium Chloride Carbon Dioxide BUN Creatinine Glucose POC Glucose 171 H 138 H Lactic Acid Calcium Phosphorus Magnesium Ferritin Total Bilirubin AST ALT Lactate Dehydrogenase C-Reactive Protein Total Protein Albumin Urine Creatinine Coronavirus (PCR) Crossmatch 05/26/21 05/26/21 05/26/21 15:50 15:50 15:50 WBC 49.8 H* RBC 1.46 L Hgb 4.2 L* D Hct 13.5 L* D MCHC RDW 12.8 L Plt Count 123 L Lymph % (Auto) Lymph # (Auto) [place] # (Auto) Seg Neutrophils % Seg Neuts % (Manual) 85.0 H Lymphocytes % (Manual) 3.0 L Monocytes % (Manual) 10.0 H Seg Neutrophils # Seg Neutrophils # Man 42.3 H Lymphocytes # (Manual) Monocytes # (Manual) 5.0 H PT 63.3 H INR 6.70 H* APTT 76.8 H* Fibrinogen D-Dimer ABG pH ABG pO2 ABG HCO3 ABG O2 Saturation ABG Base Excess ABG Hemoglobin Sodium 136 L D Potassium 6.7 H* D Chloride 93.3 L Carbon Dioxide 7 L* D BUN 45 H Creatinine 2.8 H D Glucose 117 H POC Glucose Lactic Acid Calcium 6.6 L Phosphorus Magnesium Ferritin Total Bilirubin 1.50 H AST 64223 H ALT 31186 H Lactate Dehydrogenase C-Reactive Protein Total Protein 3.8 L Albumin 2.1 L Urine Creatinine Coronavirus (PCR) Crossmatch 05/26/21 05/26/21 05/26/21 15:50 17:40 17:55 WBC RBC Hgb Hct MCHC RDW Plt Count Lymph % (Auto) Lymph # (Auto) [place] # (Auto) Seg Neutrophils % Seg Neuts % (Manual) Lymphocytes % (Manual) Monocytes % (Manual) Seg Neutrophils # Seg Neutrophils # Man Lymphocytes # (Manual) Monocytes # (Manual) PT INR APTT Fibrinogen D-Dimer ABG pH 7.046 L* ABG pO2 316.3 H ABG HCO3 4.4 L ABG O2 Saturation 99.4 H ABG Base Excess -23.7 L ABG Hemoglobin Sodium Potassium Chloride Carbon Dioxide BUN Creatinine Glucose POC Glucose Lactic Acid 23.10 H* Calcium Phosphorus Magnesium Ferritin Total Bilirubin AST ALT Lactate Dehydrogenase C-Reactive Protein Total Protein Albumin Urine Creatinine Coronavirus (PCR) Crossmatch See Detail 05/26/21 05/26/21 05/26/21 20:32 21:21 21:27 WBC RBC Hgb Hct MCHC RDW Plt Count Lymph % (Auto) Lymph # (Auto) [place] # (Auto) Seg Neutrophils % Seg Neuts % (Manual) Lymphocytes % (Manual) Monocytes % (Manual) Seg Neutrophils # Seg Neutrophils # Man Lymphocytes # (Manual) Monocytes # (Manual) PT INR APTT Fibrinogen D-Dimer ABG pH ABG pO2 ABG HCO3 ABG O2 Saturation ABG Base Excess ABG Hemoglobin Sodium Potassium Chloride Carbon Dioxide BUN Creatinine Glucose POC Glucose 200 H Lactic Acid 25.40 H* Calcium Phosphorus Magnesium Ferritin Total Bilirubin AST ALT Lactate Dehydrogenase C-Reactive Protein Total Protein Albumin Urine Creatinine 229.2 H Coronavirus (PCR) Crossmatch 05/26/21 05/27/21 05/27/21 23:00 04:30 04:30 WBC RBC Hgb Hct MCHC RDW Plt Count Lymph % (Auto) Lymph # (Auto) [place] # (Auto) Seg Neutrophils % Seg Neuts % (Manual) Lymphocytes % (Manual) Monocytes % (Manual) Seg Neutrophils # Seg Neutrophils # Man Lymphocytes # (Manual) Monocytes # (Manual) PT INR APTT Fibrinogen D-Dimer ABG pH 7.053 L* ABG pO2 253.0 H ABG HCO3 6.5 L ABG O2 Saturation 99.3 H ABG Base Excess -22.3 L ABG Hemoglobin 6.0 L Sodium Potassium Chloride Carbon Dioxide BUN Creatinine Glucose POC Glucose Lactic Acid 18.20 H* Calcium Phosphorus Magnesium Ferritin Total Bilirubin AST ALT Lactate Dehydrogenase 1409 H C-Reactive Protein Total Protein Albumin Urine Creatinine Coronavirus (PCR) Crossmatch 05/27/21 05/27/21 05/27/21 04:30 04:30 04:30 WBC 57.6 H* RBC 2.46 L Hgb 6.9 L Hct 22.0 L D MCHC RDW Plt Count 68 L Lymph % (Auto) Lymph # (Auto) [place] # (Auto) Seg Neutrophils % Seg Neuts % (Manual) 92.0 H Lymphocytes % (Manual) 1.5 L Monocytes % (Manual) Seg Neutrophils # Seg Neutrophils # Man 53.0 H Lymphocytes # (Manual) 0.9 L Monocytes # (Manual) PT 54.5 H INR 5.62 H* APTT 90.8 H* Fibrinogen 100 L* D-Dimer ABG pH ABG pO2 ABG HCO3 ABG O2 Saturation ABG Base Excess ABG Hemoglobin Sodium Potassium 6.1 H* Chloride 91.6 L Carbon Dioxide 12 L BUN 48 H Creatinine 3.3 H Glucose 206 H POC Glucose Lactic Acid Calcium 6.9 L Phosphorus 11.30 H Magnesium 2.50 H Ferritin Total Bilirubin 3.20 H AST 29451 H ALT 18426 H Lactate Dehydrogenase 41415 H C-Reactive Protein Total Protein 4.1 L Albumin 2.4 L Urine Creatinine Coronavirus (PCR) Crossmatch 05/27/21 05/27/21 07:17 11:13 WBC RBC Hgb Hct MCHC RDW Plt Count Lymph % (Auto) Lymph # (Auto) [place] # (Auto) Seg Neutrophils % Seg Neuts % (Manual) Lymphocytes % (Manual) Monocytes % (Manual) Seg Neutrophils # Seg Neutrophils # Man Lymphocytes # (Manual) Monocytes # (Manual) PT INR APTT Fibrinogen D-Dimer ABG pH ABG pO2 ABG HCO3 ABG O2 Saturation ABG Base Excess ABG Hemoglobin Sodium Potassium Chloride Carbon Dioxide BUN Creatinine Glucose POC Glucose 153 H 144 H Lactic Acid Calcium Phosphorus Magnesium Ferritin Total Bilirubin AST ALT Lactate Dehydrogenase C-Reactive Protein Total Protein Albumin Urine Creatinine Coronavirus (PCR) Crossmatch
[2021-05-27 13:49] LABS: Hemoglobin 7.1 gm/dl (10.1-14.3)
[2021-05-27 13:58] LABS: INR 4.33 (0.87-1.13)
[2021-05-27] MEDS: SENNOSIDES 8.6 MG TAB PO SCH ×2 (14:38→22:59)
[2021-05-27 14:39] LABS: ABG Base Excess -9.6 mmol/L (-2.0-3.0); ABG HCO3 17.7 mmol/L (20.0-26.0); ABG Methemoglobin 0.6 % (0.0-1.5); ABG Oxygen Saturation 97.4 % (95.0-99.0); ABG PH 7.202 pH Units (7.350-7.450); ABG PO2 112.7 mm Hg (80.0-90.0)
--- NOTE | 2021-05-27 16:38 | Progress Note ---
Assessment and Plan Assessment and plan: This is a 55- years- old female with a past medical history of HTN, mild intermittent asthma, and obesity hypoventilation syndrome who was initially admitted for acute respiratory failure 2/2 COVID PNA requiring HHFL NC. Patient was transferred from the floor yesterday for altered mental status. Patient subsequently coded after being transferred in the ICU. Patient was found to be in be in hypovolemic shock, hemoglobin was 4.2 with no source of any active bleeding. Patient was aggressively resuscitated with blood products and IVF. Patient remains on ventilatory support. Hospitals Course to Date: 05/27/21- Patient is s/p cardiac arrest with ROSC, remains intubated. Very a gitated this am, pupils are reactive, moving all extremities, but is not following commands, sedation was added. Remains on pressors. Patient is s/p 2 units of PRBCs and 2 units of FFP, H&H improved but still low, additional products ordered. Will do serial H&H and coags Q6hrs. Today's abnormal labs noted, GI is already on the case c/f for possible acute infarcted bowel, CT abd/pelvis pending. Severe hyperkalemia and lactic acidosis, received treatment this for high K this am, repeat lab ordered. Continue bcarb gtt. Will continue to trend LFTs, lactic, H&H, and electrolytes. Assessment and Plan #Acute Metabolic Encephalopathy #Agitation - Patient with increased agitation this am - Sedation added - Titrate sedation for a RASS goal of 0 to -2 - CT head is pending - Daily SAT and SBT per CCM - Avoid benzodiazepine's, reduce the possibility of delirium - Prn analgesia for CPOT greater than 3 - Maintenance of sleep-wake cycle #S/p Cardiac Arrest with ROSC #Hypovelemic Shock vs Septis Shock #Tachycardia - Patient remains ST on the monitor - 12 Lead EKG with Sinus Tach, no ST changes noted - On pressors Levo and Vaso - S/p 2 units of PRBCs and 2 Units of FFP - Additional blood products ordered - Maintain adequate perfusion - Continue Bcarb gtt - Continue blood pressure monitor per protocol - Maintain MAP above 65 - 2D Echo pending - SCDs for VTE proph #Acute Hypoxemic Respiratory Failure s/p cardiac arrest #COVID PNA - Was initially on HHFL - Was intubated post code on 04/29 - Vent setting: CMV- 100%, 10,20,450 - This am ABG noted - CCM consulted, appreciate recommendations - VAP bundle - Daily SBT and SAT trials as tolerated - Daily ABG and CXR - Continue SPO2 monitoring for SPO2 goal above 92% #Severe Transaminitis - etiology unclear - LFTs were normal in admit - severely elevated after the code - GI on consult - c/f for possible acute infarcted bowel - CT Abd/Pelvis pending - Will continue to trend LFTs - Keep Pt. NPO for now - Continue BR - Continue PPI- Protonix #: ARF most likely vasomotor Nephropathy due to shock #Hypovolemic vs Septis Shock #Hyperkalemia - Cr. was 0.8 on 05/25 - As high as 3.3 today - Spann in placed - Only 200 UPOp in last 24hrs - High K treated, kay[place], IV insulin, Bcarb, and Ca., & D50w, repeat BMP this afternoon - Continue Bcarb gtt - Continue to trend Cr - Strict intake and output - electrolytes urine pending - Avoid nephrotoxic medications, Renally dose medications - Follow and replace electrolytes as needed - Nephrology on consult #Severe Anemia #Elevated INR #Thrombocytopenia - Etiology unclear - Hbg as low as 4.2--> 6.9 this am - Plt dropped to 68 this am - INR as high as 6-->4.2 today - AC on hold - No active bleeding - S/p 2 units of PRBcs and 2 units of FFP - Additional blood products ordered - Will continue to trend H&H and coags - Monitor for s/s of active bleeding - AC on hold #Leukemoid Reation #Septic Shock #Severe Metabolic Acidosis #Lactic Acidosis - WBCs as high as 57.6 - Lactic as high as 25.4---> 18 this am - TMAx 99.7 - B.cultureX2 and urine culture is pending - c/f for possible acute infarcted bowel - CT Abd/Pelvis pending - Continue emperic Abx - Continue to trend WBCs and lactic - Continue to F/U on B.cult - Daily CBC monitor - ID signed off - Consider ID reconsult if febrile and leukocytosis does not improve #Endo:Hyperglycemia - On steroids - Continue SSI Q6hrs - While critically ill target blood glucose of 140-180 - Avoid hypoglycemia The high probability of a clinically significant, sudden or life threatening deterioration of the [multiple] system(s) required my full and direct attention, intervention and personal management. The aggregate critical care time was [60] minutes. This time is in addition to time spent performing reported procedures but includes the following: [x] Data Review and interpretation [x] Patient assessment and monitoring of vital signs [x] Documentation [x] Medication orders and management Disposition Plan: ICU Total Time Spent with Patient (Minutes): 60 History Interval history: Patient seen and examined at the bedside. Very agitated this morning, pulled out NGT and pulling in ETT. Bilateral wrist restraints was initiated for safety and sedation was started. Remains on pressors overnight, s/p 2units of PRBCs and 2 units of FFPs. Hospitalist Physical - Constitutional Vitals: Temp Pulse Resp BP Pulse Ox 98.3 F 117 H 15 133/50 100 05/27/21 16:13 05/27/21 15:26 05/27/21 15:26 05/27/21 15:26 05/27/21 15:26 General appearance: Present: no acute distress, severe distress, obese, other (Agitated, confused, not followwing commands) - EENT Eyes: Present: PERRL ENT: clear oral mucosa - Respiratory Respiratory effort: labored Respiratory: bilateral: diminished - Cardiovascular Rhythm: regular Heart Sounds: Present: S1 & S2 - Extremities Extremities: no ischemia, pulses intact, pulses symmetrical Extremity abnormal: edema - Peripheral Assessment Generalized Edema Type: Non-pitting Edema Degree: 1+ Capillary Refill: < 3 seconds Skin Temperature: Warm Peripheral Pulses: within normal limits - Abdominal General gastrointestinal: soft, non-tender, hypoactive bowel sounds - Integumentary Integumentary: Present: clear, warm, dry - Psychiatric Psychiatric: agitated - Neurologic Neurologic: moves all extremities, other (Confused, pupils are reactive, but is not following commands) Results - Labs CBC & Chem 7: 05/27/21 13:30 05/27/21 13:30 Labs: Laboratory Last Values WBC 57.6 K/mm3 (4.5-11.0) H* 05/27/21 04:30 RBC 2.46 M/mm3 (3.65-5.03) L 05/27/21 04:30 Hgb 7.1 gm/dl (10.1-14.3) L 05/27/21 13:30 Hct 22.0 % (30.3-42.9) L 05/27/21 13:30 MCV 89 fl (79-97) 05/27/21 04:30 MCH 28 pg (28-32) 05/27/21 04:30 MCHC 32 % (30-34) 05/27/21 04:30 RDW 13.2 % (13.2-15.2) 05/27/21 04:30 Plt Count 68 K/mm3 (140-440) L 05/27/21 04:30 Lymph % (Auto) 3.8 % (13.4-35.0) L 05/16/21 05:00 [place] % (Auto) 6.4 % (0.0-7.3) 05/16/21 05:00 Eos % (Auto) 0.0 % (0.0-4.3) 05/16/21 05:00 Baso % (Auto) 0.4 % (0.0-1.8) 05/16/21 05:00 Lymph # (Auto) 0.5 K/mm3 (1.2-5.4) L 05/16/21 05:00 [place] # (Auto) 0.8 K/mm3 (0.0-0.8) 05/16/21 05:00 Eos # (Auto) 0.0 K/mm3 (0.0-0.4) 05/16/21 05:00 Baso # (Auto) 0.1 K/mm3 (0.0-0.1) 05/16/21 05:00 Add Manual Diff Complete 05/27/21 04:30 Total Counted 200 05/27/21 04:30 Seg Neutrophils % Backfiller 05/27/21 04:30 Seg Neuts % (Manual) 92.0 % (40.0-70.0) H 05/27/21 04:30 Band Neutrophils % 5.0 % 05/27/21 04:30 Lymphocytes % (Manual) 1.5 % (13.4-35.0) L 05/27/21 04:30 Monocytes % (Manual) 0.5 % (0.0-7.3) 05/27/21 04:30 Metamyelocytes % 1.0 % 05/27/21 04:30 Nucleated RBC % Not Reportable 05/27/21 04:30 Seg Neutrophils # 11.2 K/mm3 (1.8-7.7) H 05/16/21 05:00 Seg Neutrophils # Man 53.0 K/mm3 (1.8-7.7) H 05/27/21 04:30 Band Neutrophils # 2.9 K/mm3 05/27/21 04:30 Lymphocytes # (Manual) 0.9 K/mm3 (1.2-5.4) L 05/27/21 04:30 Abs React Lymphs (Man) 0.0 K/mm3 05/27/21 04:30 Monocytes # (Manual) 0.3 K/mm3 (0.0-0.8) 05/27/21 04:30 Eosinophils # (Manual) 0.0 K/mm3 (0.0-0.4) 05/27/21 04:30 Basophils # (Manual) 0.0 K/mm3 (0.0-0.1) 05/27/21 04:30 Metamyelocytes # 0.6 K/mm3 05/27/21 04:30 Myelocytes # 0.0 K/mm3 05/27/21 04:30 Promyelocytes # 0.0 K/mm3 05/27/21 04:30 Blast Cells # 0.0 K/mm3 05/27/21 04:30 WBC Morphology Not Reportable 05/27/21 04:30 Hypersegmented Neuts Not Reportable 05/27/21 04:30 Hyposegmented Neuts Not Reportable 05/27/21 04:30 Hypogranular Neuts Not Reportable 05/27/21 04:30 Smudge Cells Not Reportable 05/27/21 04:30 Toxic Granulation Not Reportable 05/27/21 04:30 Toxic Vacuolation Not Reportable 05/27/21 04:30 Dohle Bodies Not Reportable 05/27/21 04:30 Pelger-Huet Anomaly Not Reportable 05/27/21 04:30 Keiko Rods Not Reportable 05/27/21 04:30 Platelet Estimate Consistent w auto 05/27/21 04:30 Clumped Platelets Not Reportable 05/27/21 04:30 Plt Clumps, EDTA Not Reportable 05/27/21 04:30 Large Platelets Few 05/27/21 04:30 Giant Platelets Not Reportable 05/27/21 04:30 Platelet Satelliting Not Reportable 05/27/21 04:30 Plt Morphology Comment Not Reportable 05/27/21 04:30 RBC Morphology Not Reportable 05/27/21 04:30 Dimorphic RBCs Not Reportable 05/27/21 04:30 Polychromasia Not Reportable 05/27/21 04:30 Hypochromasia Not Reportable 05/27/21 04:30 Poikilocytosis Not Reportable 05/27/21 04:30 Anisocytosis 1+ 05/27/21 04:30 Microcytosis Not Reportable 05/27/21 04:30 Macrocytosis Not Reportable 05/27/21 04:30 Spherocytes Not Reportable 05/27/21 04:30 Pappenheimer Bodies Not Reportable 05/27/21 04:30 Sickle Cells Not Reportable 05/27/21 04:30 Target Cells Not Reportable 05/27/21 04:30 Tear Drop Cells Not Reportable 05/27/21 04:30 Ovalocytes Not Reportable 05/27/21 04:30 Helmet Cells Not Reportable 05/27/21 04:30 [place] Bodies Not Reportable 05/27/21 04:30 [place] Rings Not Reportable 05/27/21 04:30 [place] Cells Not Reportable 05/27/21 04:30 Bite Cells Not Reportable 05/27/21 04:30 Crenated Cell Not Reportable 05/27/21 04:30 Elliptocytes Not Reportable 05/27/21 04:30 Acanthocytes (Spur) Not Reportable 05/27/21 04:30 Rouleaux Not Reportable 05/27/21 04:30 Hemoglobin C Crystals Not Reportable 05/27/21 04:30 Schistocytes Not Reportable 05/27/21 04:30 Malaria parasites Not Reportable 05/27/21 04:30 [place]annon Bodies Not Reportable 05/27/21 04:30 Hem Pathologist Commnt No 05/27/21 04:30 PT 44.5 Sec. (12.2-14.9) H 05/27/21 13:30 INR 4.33 (0.87-1.13) H 05/27/21 13:30 APTT 90.8 Sec. (24.2-36.6) H* 05/27/21 04:30 Fibrinogen 120 mg/dl (211-480) L* 05/27/21 13:30 D-Dimer 452.36 ng/mlDDU (0-234) H 05/16/21 05:00 ABG pH 7.202 pH Units (7.350-7.450) L 05/27/21 14:05 ABG pCO2 46.0 mm Hg 05/27/21 14:05 ABG pO2 112.7 mm Hg (80.0-90.0) H 05/27/21 14:05 ABG HCO3 17.7 mmol/L (20.0-26.0) L 05/27/21 14:05 ABG O2 Saturation 97.4 % (95.0-99.0) 05/27/21 14:05 ABG O2 Content 10.2 (0.0-44) 05/27/21 14:05 ABG Base Excess -9.6 mmol/L (-2.0-3.0) L 05/27/21 14:05 ABG Hemoglobin 7.4 gm/dl (12.0-16.0) L 05/27/21 14:05 ABG Carboxyhemoglobin 0.9 % (0.0-5.0) 05/27/21 14:05 ABG Methemoglobin 0.6 % (0.0-1.5) 05/27/21 14:05 Oxyhemoglobin 95.9 % (95.0-99.0) 05/27/21 14:05 FiO2 100 % 05/27/21 14:05 Sodium 142 mmol/L (137-145) 05/27/21 13:30 Potassium 5.4 mmol/L (3.6-5.0) H 05/27/21 13:30 Chloride 92.1 mmol/L (98-107) L 05/27/21 13:30 Carbon Dioxide 22 mmol/L (22-30) D 05/27/21 13:30 Anion Gap 33 mmol/L 05/27/21 13:30 BUN 46 mg/dL (7-17) H 05/27/21 13:30 Creatinine 3.9 mg/dL (0.6-1.2) H 05/27/21 13:30 Estimated GFR 12 ml/min 05/27/21 13:30 BUN/Creatinine Ratio 12 % 05/27/21 13:30 Glucose 365 mg/dL (65-100) H 05/27/21 13:30 POC Glucose 141 mg/dL (70-105) H 05/27/21 15:52 Lactic Acid 13.30 mmol/L (0.7-2.0) H* 05/27/21 13:30 Calcium 6.0 mg/dL (8.4-10.2) L 05/27/21 13:30 Phosphorus 11.30 mg/dL (2.5-4.5) H 05/27/21 04:30 Magnesium 2.50 mg/dL (1.7-2.3) H 05/27/21 04:30 Ferritin 465.6 ng/mL (10.0-200.0) H 05/12/21 08:46 Total Bilirubin 3.20 mg/dL (0.1-1.2) H 05/27/21 04:30 AST 69074 units/L (5-40) H 05/27/21 04:30 ALT 63273 units/L (7-56) H 05/27/21 04:30 Alkaline Phosphatase 125 units/L (35-129) 05/27/21 04:30 Lactate Dehydrogenase 1409 units/L (91-180) H 05/27/21 04:30 Lactate Dehydrogenase 30491 units/L (91-180) H 05/27/21 04:30 C-Reactive Protein 0.90 mg/dL (0.00-1.30) 05/16/21 05:00 Total Protein 4.1 g/dL (6.3-8.2) L 05/27/21 04:30 Albumin 2.4 g/dL (3.9-5) L 05/27/21 04:30 Albumin/Globulin Ratio 1.4 % 05/27/21 04:30 Procalcitonin 1.57 ng/mL (<0.15) 05/26/21 04:30 Urine Color [place]elle (Yellow) 05/26/21 14:30 Urine Turbidity Clear (Clear) 05/26/21 14:30 Urine pH 5.0 (5.0-7.0) 05/26/21 14:30 Ur Specific [place] 1.017 (1.003-1.030) 05/26/21 14:30 Urine Protein 100 mg/dl mg/dL (Negative) 05/26/21 14:30 Urine Glucose (UA) 50 mg/dL (Negative) 05/26/21 14:30 Urine Ketones Neg mg/dL (Negative) 05/26/21 14:30 Urine Blood Neg (Negative) 05/26/21 14:30 Urine Nitrite Neg (Negative) 05/26/21 14:30 Urine Bilirubin Neg (Negative) 05/26/21 14:30 Urine Urobilinogen 4.0 mg/dL (<2.0) 05/26/21 14:30 Ur Leukocyte Esterase Neg (Negative) 05/26/21 14:30 Urine WBC (Auto) < 1.0 /HPF (0.0-6.0) 05/26/21 14:30 Urine RBC (Auto) < 1.0 /HPF (0.0-6.0) 05/26/21 14:30 U Epithel Cells (Auto) < 1.0 /HPF (0-13.0) 05/26/21 14:30 Urine Mucus Few /HPF 05/26/21 14:30 Urine Creatinine 229.2 mg/dL (0.1-20.0) H 05/26/21 21:27 Urine Sodium 10 mmol/L 05/26/21 21:27 Coronavirus (PCR) Positive (Negative) A 05/12/21 09:00 Blood Type O POSITIVE 05/26/21 17:40 Antibody Screen Negative 05/26/21 17:40 Crossmatch See Detail 05/26/21 17:40 Microbiology: Microbiology 05/26/21 20:32 Peripheral/Venous Blood Culture - Preliminary Culture in Progress Spann/IV: Voiding Method Indwelling Catheter Active Medications - Current Medications Current Medications: Generic Name Dose Route Start Last Admin Trade Name Shaneq PRN Reason Stop Dose Admin Acetaminophen 650 mg 05/12/21 10:00 05/27/21 11:45 Acetaminophen 325 Mg Tab PO 650 mg Q4H PRN Administration Pain MILD(1-3)/Fever >100.5/LUX Alprazolam 0.5 mg 05/25/21 20:13 05/25/21 21:02 Alprazolam 0.5 Mg Tab PO 0.5 mg Q6HR PRN Administration Anxiety Ascorbic Acid 1,000 mg 05/12/21 22:00 05/27/21 09:48 Ascorbic Acid 500 Mg Tab PO 1,000 mg BID YOHANNES Administration Cholecalciferol 5,000 unit 05/12/21 14:00 05/27/21 09:48 Cholecalciferol (Vit D3) 5,000 Unit Tab PO 5,000 unit DAILY YOHANNES Administration Cyclobenzaprine HCl 10 mg 05/24/21 13:00 05/25/21 16:37 Cyclobenzaprine 10 Mg Tab PO 10 mg Q8H PRN Administration Muscle Spasm Dextrose 50 ml 05/12/21 09:30 Dextrose 50% In Water (25gm) 50 Ml Syringe IV Q30MIN PRN Hypoglycemia Protocol Fentanyl 50 mcg 05/27/21 09:11 Fentanyl 100 Mcg/2 Ml Inj IV Q15MIN PRN ANALGESIA Hydrophilic Ointment 1 applic 05/26/21 14:44 Lip Therapy Vaseline TP Q2H PRN Dry Lips Sodium Chloride 1,000 mls @ 75 mls/hr 05/26/21 12:00 Nacl 0.9% 1000 Ml IV DIRECT YOHANNES Vasopressin 20 unit/ Sodium 101 mls @ 9.09 mls/hr 05/26/21 16:00 05/27/21 09:00 Chloride IV 0.03 units/min TITR YOHANNES 9.09 mls/hr Administration Protocol 0.03 UNITS/MIN Sodium Chloride 500 mls @ 0 mls/hr 05/26/21 17:08 05/26/21 20:19 Nacl 0.9% 500 Ml IV 50 mls/hr ONCE YOHANNES Administration As Directed Sodium Chloride 500 mls @ 0 mls/hr 05/26/21 17:15 Nacl 0.9% 500 Ml IV ONCE YOHANNES As Directed Sodium Bicarbonate 150 meq/ 1,150 mls @ 125 mls/hr 05/26/21 19:30 05/27/21 15:42 Dextrose IV 125 mls/hr DIRECT YOHANNES Administration NORepinephrine/NS 8 MG-250 ML 8 mg in 250 mls @ 3.75 mls/hr 05/26/21 20:00 05/27/21 04:00 Norepinephrine/Ns 8 Mg-250 Ml (Double Conc) IV 30 mcg/min TITRATE YOHANNES 56.25 mls/hr Titration Protocol 2 MCG/MIN Phenylephrine HCl 100 mg/ 100 mls @ 3 mls/hr 05/27/21 04:00 05/27/21 15:43 Sodium Chloride IV 70 mcg/min TITR YOHANNES 4.2 mls/hr Administration Protocol 50 MCG/MIN Propofol 1,000 mg in 100 mls @ 3.39 mls/hr 05/27/21 10:00 05/27/21 09:45 Diprivan 10 Mg/Ml IV 5 mcg/kg/min TITR YOHANNES 3.39 mls/hr Administration Protocol 5 MCG/KG/MIN Fentanyl Citrate 2,000 mcg in 100 mls @ 5.65 mls/hr 05/27/21 10:00 05/27/21 1 5:45 Fentanyl Drip Premix IV Infused TITR [facility] Titration Protocol 1 MCG/KG/HR Cefepime HCl 2 gm in 100 mls @ 200 mls/hr 05/27/21 18:00 Cefepime/Ns 2 Gm/100 Ml IV QPM [facility] Insulin Human Lispro 0 unit 05/12/21 11:30 05/27/21 11:30 Insulin Lispro 100 Unit/Ml SUB-Q Not Given [facility] Protocol Methylprednisolone Sodium Succinate 40 mg 05/26/21 14:00 05/27/21 15:39 Methylprednisolone Sod Succinate 40 Mg/1 Ml Inj IV Not Given Q8HR [facility] Metoclopramide HCl 5 mg 05/27/21 11:30 05/27/21 15:29 Metoclopramide 10 Mg/2 Ml Inj IV 5 mg ACHS [facility] Administration Multi-Ingred Cream/Lotion/Oil/Oint 1 applic 05/26/21 14:44 Mineral Oil/Petrolatum, White Ophth Oint 3.5 Gm OU Q4H PRN Dry Eye(s) Naloxone HCl 0.1 mg 05/12/21 09:00 Naloxone 0.4 Mg/1 Ml Inj IV Q2MIN PRN Res Rate </= 8 or 02 SAT < 92% Ondansetron HCl 4 mg 05/12/21 10:00 05/26/21 01:14 Ondansetron 4 Mg/2 Ml Inj IV 4 mg Q4H PRN Administration Nausea And Vomiting Pantoprazole Sodium 40 mg 05/27/21 10:00 05/27/21 09:47 Pantoprazole 40 Mg Inj IV 40 mg QDAY [facility] Administration Pseudoephedrine/Acetam/Chlorphenir 10 ml 05/15/21 14:03 05/25/21 12:37 Guaifenesin/Codeine 100-10mg Oral Liqd 5 Ml PO 10 ml Q4H PRN Administration Cough Senna 8.6 mg 05/12/21 10:00 05/27/21 14:38 Sennosides 8.6 Mg Tab PO Not Given Q12HR YOHANNES Sodium Chloride 10 ml 05/12/21 10:00 05/27/21 09:49 Sodium Chloride 0.9% 10 Ml Flush Syringe IV 10 ml BID YOHANNES Administration Sodium Chloride 10 ml 05/12/21 10:00 Sodium Chloride 0.9% 10 Ml Flush Syringe IV PRN PRN LINE FLUSH Sucralfate 1 gm 05/25/21 12:00 05/27/21 12:58 Sucralfate 1 Gm/10 Ml Oral Liqd PO 1 gm Q6HR YOHANNES Administration Zinc Sulfate 220 mg 05/12/21 14:00 05/27/21 09:38 Zinc Sulfate 220 Mg Cap PO 220 mg QDAY YOHANNES Administration Nutrition/Malnutrition Assess - Dietary Evaluation Nutrition/Malnutrition Findings: Nutrition Notes Start: 05/12/21 11:38 Freq: Status: Active Protocol: Document 05/24/21 11:41 JIE (Rec: 05/24/21 12:04 JIE [id number]) Nutrition Notes Need for Assessment generated from: MD Order Initial or Follow up Reassessment Current Diagnosis Hypertension,Respiratory Failure Other Pertinent Diagnosis COVID-19 (+), pneu Current Diet Consistent CHO (L 05/12), Dietary Suppl (L 05/24). Labs/Tests 05/22: BUN 32, glucose 167. Pertinent Medications 05/24: Vit C, Vit D3, D5 (PRN) , Zn Sulfate Height 5 ft 8 in Weight 113 kg [place] Body Weight (kg) 63.63 BMI 37.8 Weight change and time frame 05/11: 99.79kg 05/16: 113kg change of +13.21kg for +13.2% gain possibly r/t IV fluids 05/24: no new weights: unable to update/assess weight change Weight Status Obese Subjective/Other Information RD consult for Review Order of Dietary Supplements. Percent of energy/protein needs met: With current PO intake 100% EEN met Burn Absent Trauma Absent GI Symptoms None Food Allergy No Skin Integrity/Comment No skin complications reported Current % PO Good (75-100%) Minimum of two criteria No #1 Nutrition Diagnosis No nutrition diagnosis at this time Comments: PO intake of meals is Good ( 75-100%) Recommend adjusting nutritional supplement beverage once daily. Diagnosis Progress(for reassessment Resolved documentation) Is patient on ventilator? No Is Patient Ambulatory and/or Out of Bed Yes REE-([place] Jeor-ambulatory/OOB) [ 2318.550 [id number]] Kcal/Kg value to use for calculation 17 Approximate Energy Requirements Using 1921 kcal/Kg Calculation Used for Recommendations Kcal/kg Additional Notes Protein 0.8-1g/kg @ 113k- 113g Fluids: 1ml/kcal or per MD Nutrition Intervention Change Diet Order: continue consistent carbohydrate Nutrition Support: n/a Add Supplement/Snack (indicate name/kcal ensure enlive once daily /protein ) Provides kCal: 350 Provides Protein (gm) 20 Goal #1 Maintain body weight within +/ -3% of current BWt during LOS. Goal #2 Reach and maintain acceptable chemistry lab values during LOS. Follow-Up By: 05/30/21 Additional Comments Continue monitoring food tolerance, %PO intake of meals , Hydration, and BM.
[2021-05-27] MEDS: CEFEPIME/NS 2 GM/100 ML 2 GM/100 ML BAG IV SCH (18:08)
[2021-05-27 18:43] LABS: Hematocrit 21.2 % (30.3-42.9)
[2021-05-27 18:54] LABS: INR 2.88 (0.87-1.13)
[2021-05-28] MEDS: fentaNYL DRIP Premix 2,000 MCG/100 ML BAG IV SCH ×2 (00:56→08:52)
[2021-05-28] MEDS: SUCRALFATE 1 GM/10 ML ORAL LIQD PO SCH ×3 (00:56→12:11)
[2021-05-28 01:05] LABS: Hematocrit 23.9 % (30.3-42.9); Hemoglobin 7.8 gm/dl (10.1-14.3)
[2021-05-28] MEDS: NORepinephrine/NS 8 MG-250 ML 8 MG/250 ML INFUS..BTL IV SCH ×4 (01:20→17:12)
[2021-05-28 01:30] LABS: INR 2.68 (0.87-1.13)
[2021-05-28 05:21] LABS: ABG Base Excess -6.9 mmol/L (-2.0-3.0); ABG HCO3 20.3 mmol/L (20.0-26.0); ABG Methemoglobin 0.1 % (0.0-1.5); ABG Oxygen Saturation 98.3 % (95.0-99.0); ABG PCO2 49.7 mm Hg; ABG PH 7.229 pH Units (7.350-7.450); ABG PO2 147.8 mm Hg (80.0-90.0)
[2021-05-28 05:44] LABS: Hematocrit 23.7 % (30.3-42.9); Hemoglobin 7.7 gm/dl (10.1-14.3); Mean Corpuscular HGB Conc 32 % (30-34); Mean Corpuscular Volume 92 fl (79-97); Red Blood Count 2.59 M/mm3 (3.65-5.03); Red Cell Distribution Width 13.6 % (13.2-15.2)
[2021-05-28 05:55] LABS: INR 2.74 (0.87-1.13)
[2021-05-28 06:01] LABS: Partial Thromboplastin Time 64.5 Sec. (24.2-36.6)
[2021-05-28 06:02] LABS: Platelet Count 38 K/mm3 (140-440)
[2021-05-28 06:08] LABS: Albumin 2.3 g/dL (3.9-5)
[2021-05-28] MEDS: methylPREDNISolone Sod Succinate 40 MG/1 ML INJ IV SCH ×2 (06:19→13:21)
[2021-05-28 06:21] LABS: Calcium 5.9 mg/dL (8.4-10.2)
[2021-05-28] MEDS ORDERED: ALBUTEROL 2.5 MG/3 ML NEBU IH ONE (06:43)
[2021-05-28] MEDS ORDERED: SODIUM BICARB 8.4% 50 MEQ/50 ML SYRINGE IV ONE ×4 (06:45→20:00)
[2021-05-28] MEDS ORDERED: CALCIUM GLUCONATE 2,000 MG in SODIUM CHLORIDE 0.9% 100 ML IV ONE ×2 (06:45→19:00)
[2021-05-28] MEDS ORDERED: INSULIN REGULAR, HUMAN 100 UNITS/1 ML IV ONE ×2 (06:45→20:00)
[2021-05-28] MEDS ORDERED: DEXTROSE 50% IN WATER (25GM) 50 ML SYRINGE IV ONE ×2 (06:45→19:00)
[2021-05-28] MEDS ORDERED: SODIUM POLYSTYRENE 15 GM/60 ML ORAL LIQD PO ONE (06:45)
[2021-05-28] MEDS: VASOPRESSIN 20 UNIT in SODIUM CHLORIDE 0.9% 100 ML IV SCH ×2 (07:16→17:22)
[2021-05-28] MEDS: SODIUM BICARBONATE 150 MEQ in DEXTROSE 5% IN WATER 1,000 ML IV SCH ×2 (08:02→16:36)
[2021-05-28] MEDS: METOPROLOL TARTRATE 5 MG/5 ML INJ IV SCH ×2 (08:22→08:40)
[2021-05-28] MEDS ORDERED: AMIODARONE 150 MG in DEXTROSE 5% IN WATER 97 ML IV SCH (08:45)
[2021-05-28] MEDS ORDERED: AMIODARONE 900 MG in DEXTROSE 5% IN WATER 482 ML IV SCH (09:00)
[2021-05-28] MEDS ORDERED: dilTIAZem/D5W 100 MG/100 ML BAG IV SCH (09:00)
[2021-05-28] MEDS: PANTOPRAZOLE 40 MG INJ IV SCH (09:19)
--- NOTE | 2021-05-28 10:05 | Gastroenterology Progress Note ---
Assessment and Plan - Patient Problems (1) Coronavirus infection Current Visit: Yes Status: Acute (2) Septic shock Current Visit: Yes Status: Acute Plan to address problem: - The markedly abnormal labs (WBC, lactic acid, transaminases, LDH) may indicate acute infarcted bowel (?clot from COVID, but patient was anticoagulated). - CT of A/P has been ordered but too unstable to transport; since lactic acid improving, abd exam benign, and no worsening of labs, less concerned about in farct of bowel; the elevated enzymes may just be from acute ischemia during code. - Continue broad spectrum abx. - Patient transfused for severe anemia, but stool is brown (?hemolysis from Gram negative rafael sepsis) for the last 48 hours. Will continue protonix IV. - Supportive care, but prognosis very grave. Subjective Date of service: 05/28/21 Principal diagnosis: Shock, Abnl Enzymes Interval history: The patient remains too unstable for CT scan. She is on triple pressors with tenuous BP, and now on meds for rate control of AF with RVR. She had one BM last night that was non-bloody, and no gross blood in the NG tube. Objective - Constitutional Vitals: Temp Pulse Resp BP Pulse Ox 99 F 166 H 16 95/52 98 05/28/21 08:00 05/28/21 09:01 05/28/21 09:01 05/28/21 08:40 05/28/21 09:01 General appearance: other (Sedated/Vent/Pressors/Critically Ill) - EENT Eyes: PERRL - Neck Neck: supple, normal ROM - Respiratory Respiratory effort: normal Respiratory: bilateral: CTA (Vent) - Cardiovascular Heart Rate: 150 Rhythm: irregularly irregular Heart Sounds: Present: S1 & S2, systolic murmur - Gastrointestinal General gastrointestinal: Present: soft, non-tender, non-distended - Integumentary Integumentary: Present: clear (No gross ecchymoses) - Neurologic Neurological: other (Minimal sedation; some responses overnight) - Labs CBC & Chem 7: 05/28/21 05:05 05/28/21 05:05 Labs: Laboratory Results - last 24 hr 05/26/21 05/26/21 05/27/21 04:30 17:40 11:13 WBC RBC Hgb Hct MCV MCH MCHC RDW Plt Count PT INR APTT Fibrinogen ABG pH ABG pCO2 ABG pO2 ABG HCO3 ABG O2 Saturation ABG O2 Content ABG Base Excess ABG Hemoglobin ABG Carboxyhemoglobin ABG Methemoglobin Oxyhemoglobin FiO2 Sodium Potassium Chloride Carbon Dioxide Anion Gap BUN Creatinine Estimated GFR BUN/Creatinine Ratio Glucose POC Glucose 144 H Lactic Acid Calcium Total Bilirubin AST ALT Alkaline Phosphatase Total Protein Albumin Albumin/Globulin Ratio Procalcitonin 1.57 Random Vancomycin Blood Type O POSITIVE Antibody Screen Negative Crossmatch See Detail 05/27/21 05/27/21 05/27/21 13:30 13:30 13:30 WBC RBC Hgb 7.1 L Hct 22.0 L MCV MCH MCHC RDW Plt Count PT INR APTT Fibrinogen ABG pH ABG pCO2 ABG pO2 ABG HCO3 ABG O2 Saturation ABG O2 Content ABG Base Excess ABG Hemoglobin ABG Carboxyhemoglobin ABG Methemoglobin Oxyhemoglobin FiO2 Sodium 142 Potassium 5.4 H Chloride 92.1 L Carbon Dioxide 22 D Anion Gap 33 BUN 46 H Creatinine 3.9 H Estimated GFR 12 BUN/Creatinine Ratio 12 Glucose 365 H POC Glucose Lactic Acid 13.30 H* Calcium 6.0 L Total Bilirubin AST ALT Alkaline Phosphatase Total Protein Albumin Albumin/Globulin Ratio Procalcitonin Random Vancomycin Blood Type Antibody Screen Crossmatch 05/27/21 05/27/21 05/27/21 13:30 14:05 15:52 WBC RBC Hgb Hct MCV MCH MCHC RDW Plt Count PT 44.5 H INR 4.33 H APTT Fibrinogen 120 L* ABG pH 7.202 L ABG pCO2 46.0 ABG pO2 112.7 H ABG HCO3 17.7 L ABG O2 Saturation 97.4 ABG O2 Content 10.2 ABG Base Excess -9.6 L ABG Hemoglobin 7.4 L ABG Carboxyhemoglobin 0.9 ABG Methemoglobin 0.6 Oxyhemoglobin 95.9 FiO2 100 Sodium Potassium Chloride Carbon Dioxide Anion Gap BUN Creatinine Estimated GFR BUN/Creatinine Ratio Glucose POC Glucose 141 H Lactic Acid Calcium Total Bilirubin AST ALT Alkaline Phosphatase Total Protein Albumin Albumin/Globulin Ratio Procalcitonin Random Vancomycin Blood Type Antibody Screen Crossmatch 05/27/21 05/27/21 05/27/21 18:33 18:33 21:25 WBC RBC Hgb 7.0 L Hct 21.2 L MCV MCH MCHC RDW Plt Count PT 32.5 H INR 2.88 H APTT 70.0 H* Fibrinogen 165 L ABG pH ABG pCO2 ABG pO2 ABG HCO3 ABG O2 Saturation ABG O2 Content ABG Base Excess ABG Hemoglobin ABG Carboxyhemoglobin ABG Methemoglobin Oxyhemoglobin FiO2 Sodium Potassium Chloride Carbon Dioxide Anion Gap BUN Creatinine Estimated GFR BUN/Creatinine Ratio Glucose POC Glucose 118 H Lactic Acid Calcium Total Bilirubin AST ALT Alkaline Phosphatase Total Protein Albumin Albumin/Globulin Ratio Procalcitonin Random Vancomycin Blood Type Antibody Screen Crossmatch 05/27/21 05/28/21 05/28/21 22:54 00:49 00:49 WBC RBC Hgb 7.8 L Hct 23.9 L MCV MCH MCHC RDW Plt Count PT 30.7 H INR 2.68 H APTT 66.0 H* Fibrinogen 198 L ABG pH ABG pCO2 ABG pO2 ABG HCO3 ABG O2 Saturation ABG O2 Content ABG Base Excess ABG Hemoglobin ABG Carboxyhemoglobin ABG Methemoglobin Oxyhemoglobin FiO2 Sodium Potassium Chloride Carbon Dioxide Anion Gap BUN Creatinine Estimated GFR BUN/Creatinine Ratio Glucose POC Glucose Lactic Acid 11.20 H* Calcium Total Bilirubin AST ALT Alkaline Phosphatase Total Protein Albumin Albumin/Globulin Ratio Procalcitonin Random Vancomycin Blood Type Antibody Screen Crossmatch 05/28/21 05/28/21 05/28/21 04:05 05:05 05:05 WBC 49.4 H* RBC 2.59 L Hgb 7.7 L Hct 23.7 L MCV 92 MCH 30 MCHC 32 RDW 13.6 Plt Count 38 L PT INR APTT Fibrinogen ABG pH 7.229 L ABG pCO2 49.7 ABG pO2 147.8 H ABG HCO3 20.3 ABG O2 Saturation 98.3 ABG O2 Content ABG Base Excess -6.9 L ABG Hemoglobin 7.8 L ABG Carboxyhemoglobin 0.3 ABG Methemoglobin 0.1 Oxyhemoglobin 97.9 FiO2 95.0 Sodium Potassium Chloride Carbon Dioxide Anion Gap BUN Creatinine Estimated GFR BUN/Creatinine Ratio Glucose POC Glucose Lactic Acid Calcium Total Bilirubin AST ALT Alkaline Phosphatase Total Protein Albumin Albumin/Globulin Ratio Procalcitonin Random Vancomycin 13.6 Blood Type Antibody Screen Crossmatch 05/28/21 05/28/21 05/28/21 05:05 05:05 07:56 WBC RBC Hgb Hct MCV MCH MCHC RDW Plt Count PT 31.2 H INR 2.74 H APTT 64.5 H* Fibrinogen 197 L ABG pH ABG pCO2 ABG pO2 ABG HCO3 ABG O2 Saturation ABG O2 Content ABG Base Excess ABG Hemoglobin ABG Carboxyhemoglobin ABG Methemoglobin Oxyhemoglobin FiO2 Sodium 141 Potassium 6.9 H* D Chloride 91.7 L Carbon Dioxide 19 L Anion Gap 37 BUN 58 H Creatinine 5.3 H Estimated GFR 8 BUN/Creatinine Ratio 11 Glucose 128 H POC Glucose 110 H Lactic Acid Calcium 5.9 L* Total Bilirubin 4.30 H AST 15761 H ALT 61477 H Alkaline Phosphatase 229 H Total Protein 3.9 L Albumin 2.3 L Albumin/Globulin Ratio 1.4 Procalcitonin Random Vancomycin Blood Type Antibody Screen Crossmatch
[2021-05-28] MEDS: PHENYLEPHRINE 100 MG in SODIUM CHLORIDE 0.9% 90 ML IV SCH (10:45)
--- NOTE | 2021-05-28 11:29 | Consultation ---
History of Present Illness Consult date: 05/28/21 Requesting physician: MICKEY FREEMAN Consult reason: atrial fibrillation (afib w/rvr) History of present illness: Patient is a 55-year-old female with a past medical history of hypertension asthma obesity hypoventilation syndrome and COVID-19 infection who is admitted to the hospital on 05/11/2021 for complaint of difficulty breathing x1. History is taken from the chart due to patient being intubated at time of interview. Per documentation patient was admitted for acute respiratory failure secondary to Covid pneumonia. Yesterday patient was admitted to the ICU for altered mental status. In the ICU patient coded patient was found to be in hypovolemic shock with hemoglobin of 4.4 however no source of active bleeding was seen. Patient was resuscitated and on ventilatory support. Patient received 2 units of PRBCs and 2 units of FFP. Patient was also found to be severely hyperkalemic and have that lactic acidosis. Patient also had a run of A. fib with RVR with rates into 180s . Patient is previously unknown to our practice. Cardiology is consulted for A. fib with RVR Past History Past Medical History: COPD (Quit smoking in 2005), hypertension, liver disease (Fatty liver), other (Possible autoimmune disorder) Past Surgical History: Other (R hemicolectomy - 2005, for a large polyp. Last colonoscopy ~ 2010.) Social history: single. denies: smoking, alcohol abuse, prescription drug abuse Family history: hypertension Medications and Allergies Allergies Allergy/AdvReac Type Severity Reaction Status Date / Time acetaminophen [From Percocet] Allergy Vomiting Verified 05/25/21 09:09 azithromycin Allergy CHEST PAIN Verified 05/22/21 12:26 morphine Allergy Angioedema Verified 05/22/21 12:26 oxycodone [From Percocet] Allergy Vomiting Verified 05/25/21 09:09 Penicillins Allergy Rash Verified 05/22/21 12:26 tetracycline Allergy CHEST PAIN Verified 05/22/21 12:26 AND NAUSEA/VOMITING Home Medications Medication Instructions Recorded Confirmed Last Taken Type Hydrochlorothiazide 12.5 mg PO DAILY 05/16/21 05/16/21 05/11/21 09:00 History Losartan 25 mg PO DAILY 05/16/21 05/16/21 05/11/21 09:00 History Albuterol Mdi (or & Nicu Only) 1 puff IH PRN PRN 05/22/21 05/22/21 Unknown History [ProAir HFA Inhaler] Cyclobenzaprine [Flexeril] 10 mg PO PRN PRN 05/22/21 05/22/21 Unknown History Mv-Min/Iron/Folic/Calcium/Vitk 1 each PO QDAY 05/22/21 05/22/21 Unknown History [Women's Multivitamin Tablet] Tiotropium [place] [Spiriva] 1 puff IH BID 05/22/21 05/22/21 Unknown History Active Meds: Active Medications Acetaminophen (Acetaminophen 325 Mg Tab) 650 mg PO Q4H PRN PRN Reason: Pain MILD(1-3)/Fever >100.5/LUX Last Admin: 05/27/21 11:45 Dose: 650 mg Documented by: Ascorbic Acid (Ascorbic Acid 500 Mg Tab) 1,000 mg PO BID YOHANNES Last Admin: 05/27/21 22:58 Dose: 1,000 mg Documented by: Cholecalciferol (Cholecalciferol (Vit D3) 5,000 Unit Tab) 5,000 unit PO DAILY YOHANNES Last Admin: 05/27/21 09:48 Dose: 5,000 unit Documented by: Dextrose (Dextrose 50% In Water (25gm) 50 Ml Syringe) 50 ml IV Q30MIN PRN; Protocol PRN Reason: Hypoglycemia Fentanyl (Fentanyl 100 Mcg/2 Ml Inj) 50 mcg IV Q15MIN PRN PRN Reason: ANALGESIA Hydrophilic Ointment (Lip Therapy Vaseline) 1 applic TP Q2H PRN PRN Reason: Dry Lips Vasopressin 20 unit/ Sodium (Chloride) 101 mls @ 9.09 mls/hr IV TITR YOHANNES; Protocol Last Admin: 05/28/21 07:16 Dose: 0.03 units/min, 9.09 mls/hr Documented by: Sodium Bicarbonate 150 meq/ (Dextrose) 1,150 mls @ 200 mls/hr IV DIRECT YOHANNES Last Admin: 05/28/21 08:02 Dose: 125 mls/hr Documented by: NORepinephrine/NS 8 MG-250 ML (Norepinephrine/Ns 8 Mg-250 Ml (Double Conc)) 8 mg in 250 mls @ 3.75 mls/hr IV TITRATE YOHANNES; Protocol Last Titration: 05/28/21 08:28 Dose: 30 mcg/min, 56.25 mls/hr Documented by: Phenylephrine HCl 100 mg/ (Sodium Chloride) 100 mls @ 3 mls/hr IV TITR YOHANNES; Protocol Last Admin: 05/28/21 10:45 Dose: 150 mcg/min, 9 mls/hr Documented by: Propofol (Diprivan 10 Mg/Ml) 1,000 mg in 100 mls @ 3.39 mls/hr IV TITR YOHANNES; Protocol Last Admin: 05/28/21 08:07 Dose: 5 mcg/kg/min, 3.39 mls/hr Documented by: Fentanyl Citrate (Fentanyl Drip Premix) 2,000 mcg in 100 mls @ 5.65 mls/hr IV TITR YOHANNES; Protocol Last Admin: 05/28/21 08:52 Dose: 1 mcg/kg/hr, 5.65 mls/hr Documented by: Cefepime HCl (Cefepime/Ns 2 Gm/100 Ml) 2 gm in 100 mls @ 200 mls/hr IV QPM YOHANNES Last Admin: 05/27/21 18:08 Dose: 200 mls/hr Documented by: Diltiazem HCl (Cardizem/D5w 100mg/100ml) 100 mg in 100 mls @ 5 mls/hr IV TITR YOHANNES; Protocol Last Titration: 05/28/21 09:05 Dose: 15 mg/hr, 15 mls/hr Documented by: Insulin Human Lispro (Insulin Lispro 100 Unit/Ml) 0 unit SUB-Q Q6HR YOHANNES; Protocol Methylprednisolone Sodium Succinate (Methylprednisolone Sod Succinate 40 Mg/1 Ml Inj) 40 mg IV Q8HR YOHANNES Last Admin: 05/28/21 06:19 Dose: 40 mg Documented by: Metoclopramide HCl (Metoclopramide 10 Mg/2 Ml Inj) 5 mg IV Q6HR YOHANNES Metoprolol Tartrate (Metoprolol Tartrate 5 Mg/5 Ml Inj) 2.5 mg IV Q30MIN [facility] Stop: 05/29/21 09:01 Last Admin: 05/28/21 08:40 Dose: 2.5 mg Documented by: Multi-Ingred Cream/Lotion/Oil/Oint (Mineral Oil/Petrolatum, White Ophth Oint 3.5 Gm) 1 applic OU Q4H PRN PRN Reason: Dry Eye(s) Naloxone HCl (Naloxone 0.4 Mg/1 Ml Inj) 0.1 mg IV Q2MIN PRN PRN Reason: Res Rate </= 8 or 02 SAT < 92% Ondansetron HCl (Ondansetron 4 Mg/2 Ml Inj) 4 mg IV Q4H PRN PRN Reason: Nausea And Vomiting Last Admin: 05/26/21 01:14 Dose: 4 mg Documented by: Pantoprazole Sodium (Pantoprazole 40 Mg Inj) 40 mg IV QDAY [facility] Last Admin: 05/28/21 09:19 Dose: 40 mg Documented by: Senna (Sennosides 8.6 Mg Tab) 8.6 mg PO Q12HR [facility] Last Admin: 05/27/21 22:59 Dose: Not Given Documented by: Sodium Chloride (Sodium Chloride 0.9% 10 Ml Flush Syringe) 10 ml IV BID [facility] Last Admin: 05/27/21 22:58 Dose: 10 ml Documented by: Sodium Chloride (Sodium Chloride 0.9% 10 Ml Flush Syringe) 10 ml IV PRN PRN PRN Reason: LINE FLUSH Sucralfate (Sucralfate 1 Gm/10 Ml Oral Liqd) 1 gm PO Q6HR [facility] Last Admin: 05/28/21 06:19 Dose: 1 gm Documented by: Zinc Sulfate (Zinc Sulfate 220 Mg Cap) 220 mg PO QDAY [facility] Last Admin: 05/27/21 09:38 Dose: 220 mg Documented by: Review of Systems ROS unobtainable: due to endotracheal tube, due to mental status Physical Examination Vital Signs Temp Pulse Resp BP Pulse Ox 98 F 104 H 16 137/81 65 L 05/11/21 13:40 05/11/21 13:40 05/11/21 13:40 05/11/21 13:40 05/11/21 13:40 General appearance: other (intubated and sedated) HEENT: Positive: Other (intuabted and sedated) Neck: Positive: trachea midline Cardiac: Positive: irregularly irregular Lungs: Positive: Ventilated Respirations Neuro: Positive: Other (unabel to assess) Abdomen: Positive: Soft Skin: Negative: Rash, Suspicious Lesions, Ulceration Extremities: Present: upper extr. pulses, edema, Cool Results 05/28/21 05:05 05/28/21 05:05 Cardiac Enzymes 05/28/21 Range/Units 05:05 AST 20255 H (5-40) units/L Coagulation 05/27/21 05/27/21 05/28/21 Range/Units 13:30 18:33 00:49 PT 44.5 H 32.5 H 30.7 H (12.2-14.9) Sec. INR 4.33 H 2.88 H 2.68 H (0.87-1.13) APTT 70.0 H* 66.0 H* (24.2-36.6) Sec. 05/28/21 Range/Units 05:05 PT 31.2 H (12.2-14.9) Sec. INR 2.74 H (0.87-1.13) APTT 64.5 H* (24.2-36.6) Sec. CBC 05/27/21 05/27/21 05/28/21 Range/Units 13:30 18:33 00:49 WBC (4.5-11.0) K/mm3 RBC (3.65-5.03) M/mm3 Hgb 7.1 L 7.0 L 7.8 L (10.1-14.3) gm/dl Hct 22.0 L 21.2 L 23.9 L (30.3-42.9) % Plt Count (140-440) K/mm3 05/28/21 Range/Units 05:05 WBC 49.4 H* (4.5-11.0) K/mm3 RBC 2.59 L (3.65-5.03) M/mm3 Hgb 7.7 L (10.1-14.3) gm/dl Hct 23.7 L (30.3-42.9) % Plt Count 38 L (140-440) K/mm3 Comprehensive Metabolic Panel 05/27/21 05/28/21 Range/Units 13:30 05:05 Sodium 142 141 (137-145) mmol/L Potassium 5.4 H 6.9 H* D (3.6-5.0) mmol/L Chloride 92.1 L 91.7 L (98-107) mmol/L Carbon Dioxide 22 D 19 L (22-30) mmol/L BUN 46 H 58 H (7-17) mg/dL Creatinine 3.9 H 5.3 H (0.6-1.2) mg/dL Glucose 365 H 128 H (65-100) mg/dL Calcium 6.0 L 5.9 L* (8.4-10.2) mg/dL AST 03526 H (5-40) units/L ALT 19856 H (7-56) units/L Alkaline Phosphatase 229 H (35-129) units/L Total Protein 3.9 L (6.3-8.2) g/dL Albumin 2.3 L (3.9-5) g/dL - Imaging and Cardiology Echo: pending EKG interpretations - Telemetry EKG Rhythm: Atrial Fibrillation - EKG Supraventricular dysrhythmia: atrial fibrillation Assessment and Plan Patient is a 55-year-old female with a past medical history of hypertension asthma obesity hypoventilation syndrome and COVID-19 infection who is admitted to the hospital on 05/11/2021 for complaint of difficulty breathing x1 Sepsis COVID-19 PNA Acute hypoxic respiratory failure Anemia Thrombocytopenia s/p Cardiac arrest Afib w/ RVR Hyperkalemia Plan: Echo pending Patient currently intubated, sedated, and requiring multiple pressors Agree with Cardizem drip for rate control Recommend holding anticoagulation due to severe anemia and thrombocytopenia Patient has very poor prognosis Patient seen in conjunction with Dr. Vega who agrees with this plan of care. We will continue to follow - Patient Problems (1) Atrial fibrillation with RVR Current Visit: Yes Status: Acute (2) Hyperkalemia Current Visit: Yes Status: Acute (3) Acute hypoxemic respiratory failure Current Visit: Yes Status: Acute (4) Acute liver failure Current Visit: Yes Status: Acute (5) Anemia Current Visit: Yes Status: Acute (6) Coronavirus infection Current Visit: Yes Status: Acute (7) Metabolic acidosis Current Visit: Yes Status: Acute (8) Obesity hypoventilation syndrome Current Visit: Yes Status: Acute (9) Pneumonia Current Visit: Yes Status: Acute (10) Septic shock Current Visit: Yes Status: Acute
--- NOTE | 2021-05-28 11:57 | Progress Note ---
Assessment and Plan 55 y/o female, obese, with acute respiratory failure secondary to COVID pneumonia 05/28/21: Given acute clinical decompensation/decline, prognosis now is very poor given multisystem organ failure (lungs, cardiac and renal) and patient is now not a candidate for dialysis given cardiac instability. Discussed on rounds this am and will arrange for in person family meeting tomorrow to discuss goals of care with family. The likelihood of recovery with this type of failure is none. Patient has a high risk of cardiac arrest in the next 12-48 hours. Continue supportive care. CCt 31 minutes. 05/25/21: Attempt to wean further again today. Hold on diuretic therapy. Continue steroids. Please encourage patient to prone. 05/24/21: Suggest attempting salter today. Continue to wean aggressively. Continue steroids. All others per primary team. 05/23/21: No new recs for today. Finished remdesivir. Continue steroids. 05/22/21: Prone. Wean FiO2 for sats >88%. Continue steroids. 05/21/21: Continue to wean FiO2 as tolerated for sats >88%. Continue steroids. Will give lasix today. 05/20/21: No new recs for today, please see below 05/19/21: Prone as much as possible. More lasix again today. Continue steroids. Finished Remdesivir. Guarded Prognosis. 05/18/21: Continue to prone at night and during the day as tolerated if possible. Will give some lasix today. Continue steroids and remdesivir 05/17/21: Prone. Continue steroids and remdesivir. No lasix today. Guarded prognosis. Consider floor transfer. 05/16/21: Will give lasix today. needs to prone more. Remdesivir and steroids. Guarded prognosis. 05/15/21: Hold on lasix today. Continue remdesivir and high dose steroids. Prone as tolerated for as long as possible. Guarded prognosis. 1. lasix 40mg IV today 2. Remedsivir 3. Agree with High dose steroids 4. Prone 5. Guarded prognosis. Subjective Date of service: 05/28/21 Principal diagnosis: Shock, Abnl Enzymes Interval history: Acute decompensation over the weekend, required intubation, now on pressors, metabolic acidosis and recently has gone into afib with RVR. Objective Vital Signs - 12hr 05/28/21 05/28/21 05/28/21 00:00 00:16 00:30 Temperature 98.6 F Pulse Rate 114 H 111 H 114 H Pulse Rate [ From Monitor] Respiratory 11 L 11 L 10 L Rate Blood Pressure 124/57 O2 Sat by Pulse 100 100 Oximetry 05/28/21 05/28/21 05/28/21 00:46 01:00 01:16 Temperature Pulse Rate 113 H 115 H 115 H Pulse Rate [ From Monitor] Respiratory 10 L 12 18 Rate Blood Pressure O2 Sat by Pulse 100 100 100 Oximetry 05/28/21 05/28/21 05/28/21 01:30 01:46 02:00 Temperature Pulse Rate 115 H 114 H 115 H Pulse Rate [ From Monitor] Respiratory 11 L 9 L 16 Rate Blood Pressure O2 Sat by Pulse 99 100 100 Oximetry 05/28/21 05/28/21 05/28/21 02:16 02:31 02:45 Temperature Pulse Rate 115 H 115 H 115 H Pulse Rate [ From Monitor] Respiratory 14 18 16 Rate Blood Pressure O2 Sat by Pulse 100 100 100 Oximetry 05/28/21 05/28/21 05/28/21 03:01 03:15 03:31 Temperature Pulse Rate 115 H 114 H 115 H Pulse Rate [ From Monitor] Respiratory 15 10 L 16 Rate Blood Pressure O2 Sat by Pulse 100 100 100 Oximetry 05/28/21 05/28/21 05/28/21 03:45 04:00 04:01 Temperature 99.1 F Pulse Rate 112 H 113 H Pulse Rate [ From Monitor] Respiratory 12 12 Rate Blood Pressure O2 Sat by Pulse 100 100 99 Oximetry 05/28/21 05/28/21 05/28/21 04:15 04:31 04:45 Temperature Pulse Rate 114 H 114 H 114 H Pulse Rate [ From Monitor] Respiratory 10 L 13 11 L Rate Blood Pressure O2 Sat by Pulse 100 98 99 Oximetry 05/28/21 05/28/21 05/28/21 04:49 05:01 05:15 Temperature Pulse Rate 115 H 114 H 114 H Pulse Rate [ From Monitor] Respiratory 19 10 L Rate Blood Pressure 122/56 O2 Sat by Pulse 100 100 100 Oximetry 05/28/21 05/28/21 05/28/21 05:31 05:45 06:01 Temperature Pulse Rate 114 H 112 H 111 H Pulse Rate [ From Monitor] Respiratory 13 16 12 Rate Blood Pressure O2 Sat by Pulse 100 100 100 Oximetry 05/28/21 05/28/21 05/28/21 06:15 06:31 06:45 Temperature Pulse Rate 113 H 112 H 113 H Pulse Rate [ From Monitor] Respiratory 16 12 14 Rate Blood Pressure O2 Sat by Pulse 100 100 Oximetry 05/28/21 05/28/21 05/28/21 07:01 07:15 07:31 Temperature Pulse Rate 110 H 112 H 113 H Pulse Rate [ From Monitor] Respiratory 14 11 L 11 L Rate Blood Pressure O2 Sat by Pulse 100 Oximetry 05/28/21 05/28/21 05/28/21 07:39 07:45 08:00 Temperature 99 F Pulse Rate 111 H 109 H Pulse Rate [ 180 H From Monitor] Respiratory 10 L 18 Rate Blood Pressure 120/55 O2 Sat by Pulse 100 100 99 Oximetry 05/28/21 05/28/21 05/28/21 08:01 08:15 08:22 Temperature Pulse Rate 110 H 173 H 178 H Pulse Rate [ From Monitor] Respiratory 11 L 16 Rate Blood Pressure 89/43 O2 Sat by Pulse 100 Oximetry 05/28/21 05/28/21 05/28/21 08:31 08:40 08:45 Temperature Pulse Rate 159 H 174 H 155 H Pulse Rate [ From Monitor] Respiratory 11 L 11 L Rate Blood Pressure 95/52 O2 Sat by Pulse 99 Oximetry 05/28/21 05/28/21 05/28/21 09:01 09:15 09:31 Temperature Pulse Rate 166 H 153 H 148 H Pulse Rate [ From Monitor] Respiratory 16 17 11 L Rate Blood Pressure O2 Sat by Pulse 98 Oximetry 05/28/21 05/28/21 05/28/21 09:45 10:01 10:15 Temperature Pulse Rate 133 H 137 H 124 H Pulse Rate [ From Monitor] Respiratory 16 15 20 Rate Blood Pressure O2 Sat by Pulse Oximetry 05/28/21 05/28/21 05/28/21 10:31 10:45 11:01 Temperature Pulse Rate 124 H 118 H 113 H Pulse Rate [ From Monitor] Respiratory 16 21 23 Rate Blood Pressure O2 Sat by Pulse Oximetry 05/28/21 05/28/21 05/28/21 11:15 11:29 11:31 Temperature Pulse Rate 116 H 118 H 107 H Pulse Rate [ From Monitor] Respiratory 19 18 Rate Blood Pressure O2 Sat by Pulse 0 L Oximetry 05/28/21 11:45 Temperature Pulse Rate 120 H Pulse Rate [ From Monitor] Respiratory 15 Rate Blood Pressure O2 Sat by Pulse Oximetry Constitutional: other (orally intubated on vent) Eyes: non-icteric ENT: oropharynx dry, other (intubated) Neck: supple, no JVD Effort: mildly labored Ascultation: Bilateral: rhonchi Cardiovascular: regular rate and rhythm Gastrointestinal: normoactive bowel sounds, soft, non-tender, other (Obese) Integumentary: normal Extremities: no cyanosis, no edema, pink and warm Neurologic: normal mental status, non-focal exam Psychiatric: mood appropriate CBC and BMP: 05/28/21 05:05 05/28/21 05:05 ABG, PT/INR, D-dimer: ABG ABG pH 7.229 pH Units (7.350-7.450) L 05/28/21 04:05 ABG pCO2 49.7 mm Hg 05/28/21 04:05 ABG pO2 147.8 mm Hg (80.0-90.0) H 05/28/21 04:05 ABG O2 Saturation 98.3 % (95.0-99.0) 05/28/21 04:05 PT/INR, D-dimer PT 31.2 Sec. (12.2-14.9) H 05/28/21 05:05 INR 2.74 (0.87-1.13) H 05/28/21 05:05 D-Dimer 452.36 ng/mlDDU (0-234) H 05/16/21 05:00 Abnormal lab findings: Abnormal Labs 05/11/21 05/11/21 05/11/21 14:33 14:33 15:00 WBC RBC Hgb 14.8 H Hct MCHC 35 H RDW 12.9 L Plt Count Lymph % (Auto) 8.7 L Lymph # (Auto) 0.7 L [place] # (Auto) Seg Neutrophils % 83.7 H Seg Neuts % (Manual) Lymphocytes % (Manual) Monocytes % (Manual) Seg Neutrophils # Seg Neutrophils # Man Lymphocytes # (Manual) Monocytes # (Manual) PT INR APTT Fibrinogen D-Dimer 331.70 H ABG pH ABG pO2 ABG HCO3 ABG O2 Saturation ABG Base Excess ABG Hemoglobin Sodium Potassium 5.2 H Chloride 95.0 L Carbon Dioxide BUN Creatinine Glucose 125 H POC Glucose Lactic Acid Calcium Phosphorus Magnesium Ferritin Total Bilirubin AST ALT Alkaline Phosphatase Lactate Dehydrogenase C-Reactive Protein Total Protein Albumin 3.3 L Urine Creatinine Coronavirus (PCR) Crossmatch 05/11/21 05/11/21 05/12/21 15:00 15:00 08:46 WBC RBC Hgb Hct MCHC RDW Plt Count Lymph % (Auto) Lymph # (Auto) [place] # (Auto) Seg Neutrophils % Seg Neuts % (Manual) Lymphocytes % (Manual) Monocytes % (Manual) Seg Neutrophils # Seg Neutrophils # Man Lymphocytes # (Manual) Monocytes # (Manual) PT INR APTT Fibrinogen D-Dimer 345.30 H ABG pH ABG pO2 ABG HCO3 ABG O2 Saturation ABG Base Excess ABG Hemoglobin Sodium Potassium Chloride Carbon Dioxide BUN Creatinine Glucose POC Glucose Lactic Acid Calcium Phosphorus Magnesium Ferritin 471.5 H Total Bilirubin AST ALT Alkaline Phosphatase Lactate Dehydrogenase 579 H C-Reactive Protein 15.80 H Total Protein Albumin Urine Creatinine Coronavirus (PCR) Crossmatch 05/12/21 05/12/21 05/12/21 08:46 08:46 09:00 WBC RBC Hgb Hct MCHC RDW Plt Count Lymph % (Auto) Lymph # (Auto) [place] # (Auto) Seg Neutrophils % Seg Neuts % (Manual) Lymphocytes % (Manual) Monocytes % (Manual) Seg Neutrophils # Seg Neutrophils # Man Lymphocytes # (Manual) Monocytes # (Manual) PT INR APTT Fibrinogen D-Dimer ABG pH ABG pO2 ABG HCO3 ABG O2 Saturation ABG Base Excess ABG Hemoglobin Sodium Potassium Chloride Carbon Dioxide BUN Creatinine Glucose 149 H POC Glucose Lactic Acid Calcium Phosphorus Magnesium Ferritin 465.6 H Total Bilirubin AST ALT Alkaline Phosphatase Lactate Dehydrogenase 574 H C-Reactive Protein 18.40 H Total Protein Albumin Urine Creatinine Coronavirus (PCR) Positive A Crossmatch 05/12/21 05/12/21 05/12/21 11:40 16:14 18:01 WBC RBC Hgb Hct MCHC RDW Plt Count Lymph % (Auto) Lymph # (Auto) [place] # (Auto) Seg Neutrophils % Seg Neuts % (Manual) Lymphocytes % (Manual) Monocytes % (Manual) Seg Neutrophils # Seg Neutrophils # Man Lymphocytes # (Manual) Monocytes # (Manual) PT INR APTT Fibrinogen D-Dimer ABG pH ABG pO2 ABG HCO3 ABG O2 Saturation ABG Base Excess ABG Hemoglobin Sodium Potassium Chloride Carbon Dioxide BUN Creatinine Glucose POC Glucose 141 H 140 H 159 H Lactic Acid Calcium Phosphorus Magnesium Ferritin Total Bilirubin AST ALT Alkaline Phosphatase Lactate Dehydrogenase C-Reactive Protein Total Protein Albumin Urine Creatinine Coronavirus (PCR) Crossmatch 05/12/21 05/13/21 05/13/21 22:01 03:51 03:51 WBC 13.6 H RBC Hgb 14.6 H Hct MCHC RDW 12.9 L Plt Count Lymph % (Auto) 3.5 L Lymph # (Auto) 0.5 L [place] # (Auto) 0.9 H Seg Neutrophils % 89.4 H Seg Neuts % (Manual) Lymphocytes % (Manual) Monocytes % (Manual) Seg Neutrophils # 12.1 H Seg Neutrophils # Man Lymphocytes # (Manual) Monocytes # (Manual) PT INR APTT Fibrinogen D-Dimer ABG pH ABG pO2 ABG HCO3 ABG O2 Saturation ABG Base Excess ABG Hemoglobin Sodium Potassium Chloride Carbon Dioxide BUN 31 H Creatinine Glucose 152 H POC Glucose 152 H Lactic Acid Calcium Phosphorus Magnesium Ferritin Total Bilirubin AST ALT Alkaline Phosphatase Lactate Dehydrogenase C-Reactive Protein Total Protein Albumin 3.2 L Urine Creatinine Coronavirus (PCR) Crossmatch 05/13/21 05/13/21 05/13/21 07:32 16:04 22:48 WBC RBC Hgb Hct MCHC RDW Plt Count Lymph % (Auto) Lymph # (Auto) [place] # (Auto) Seg Neutrophils % Seg Neuts % (Manual) Lymphocytes % (Manual) Monocytes % (Manual) Seg Neutrophils # Seg Neutrophils # Man Lymphocytes # (Manual) Monocytes # (Manual) PT INR APTT Fibrinogen D-Dimer ABG pH ABG pO2 ABG HCO3 ABG O2 Saturation ABG Base Excess ABG Hemoglobin Sodium Potassium Chloride Carbon Dioxide BUN Creatinine Glucose POC Glucose 160 H 146 H 175 H Lactic Acid Calcium Phosphorus Magnesium Ferritin Total Bilirubin AST ALT Alkaline Phosphatase Lactate Dehydrogenase C-Reactive Protein Total Protein Albumin Urine Creatinine Coronavirus (PCR) Crossmatch 05/14/21 05/14/21 05/14/21 04:49 07:18 13:24 WBC RBC Hgb Hct MCHC RDW Plt Count Lymph % (Auto) Lymph # (Auto) [place] # (Auto) Seg Neutrophils % Seg Neuts % (Manual) Lymphocytes % (Manual) Monocytes % (Manual) Seg Neutrophils # Seg Neutrophils # Man Lymphocytes # (Manual) Monocytes # (Manual) PT INR APTT Fibrinogen D-Dimer ABG pH ABG pO2 ABG HCO3 ABG O2 Saturation ABG Base Excess ABG Hemoglobin Sodium Potassium Chloride Carbon Dioxide BUN 41 H Creatinine Glucose 169 H POC Glucose 160 H 146 H Lactic Acid Calcium Phosphorus Magnesium Ferritin Total Bilirubin AST ALT Alkaline Phosphatase Lactate Dehydrogenase C-Reactive Protein Total Protein Albumin 3.4 L Urine Creatinine Coronavirus (PCR) Crossmatch 05/14/21 05/14/21 05/15/21 17:36 21:54 04:05 WBC RBC Hgb Hct MCHC RDW Plt Count Lymph % (Auto) Lymph # (Auto) [place] # (Auto) Seg Neutrophils % Seg Neuts % (Manual) Lymphocytes % (Manual) Monocytes % (Manual) Seg Neutrophils # Seg Neutrophils # Man Lymphocytes # (Manual) Monocytes # (Manual) PT INR APTT Fibrinogen D-Dimer ABG pH ABG pO2 ABG HCO3 ABG O2 Saturation ABG Base Excess ABG Hemoglobin Sodium Potassium Chloride Carbon Dioxide 33 H BUN 45 H Creatinine Glucose 177 H POC Glucose 181 H 169 H Lactic Acid Calcium Phosphorus Magnesium Ferritin Total Bilirubin AST ALT Alkaline Phosphatase Lactate Dehydrogenase C-Reactive Protein Total Protein Albumin 3.3 L Urine Creatinine Coronavirus (PCR) Crossmatch 05/15/21 05/15/21 05/15/21 07:18 12:09 17:16 WBC RBC Hgb Hct MCHC RDW Plt Count Lymph % (Auto) Lymph # (Auto) [place] # (Auto) Seg Neutrophils % Seg Neuts % (Manual) Lymphocytes % (Manual) Monocytes % (Manual) Seg Neutrophils # Seg Neutrophils # Man Lymphocytes # (Manual) Monocytes # (Manual) PT INR APTT Fibrinogen D-Dimer ABG pH ABG pO2 ABG HCO3 ABG O2 Saturation ABG Base Excess ABG Hemoglobin Sodium Potassium Chloride Carbon Dioxide BUN Creatinine Glucose POC Glucose 166 H 160 H 127 H Lactic Acid Calcium Phosphorus Magnesium Ferritin Total Bilirubin AST ALT Alkaline Phosphatase Lactate Dehydrogenase C-Reactive Protein Total Protein Albumin Urine Creatinine Coronavirus (PCR) Crossmatch 05/15/21 05/16/21 05/16/21 21:17 01:17 05:00 WBC RBC Hgb Hct MCHC RDW Plt Count Lymph % (Auto) Lymph # (Auto) [place] # (Auto) Seg Neutrophils % Seg Neuts % (Manual) Lymphocytes % (Manual) Monocytes % (Manual) Seg Neutrophils # Seg Neutrophils # Man Lymphocytes # (Manual) Monocytes # (Manual) PT INR APTT Fibrinogen D-Dimer 452.36 H ABG pH ABG pO2 ABG HCO3 ABG O2 Saturation ABG Base Excess ABG Hemoglobin Sodium Potassium Chloride Carbon Dioxide BUN Creatinine Glucose POC Glucose 161 H 161 H Lactic Acid Calcium Phosphorus Magnesium Ferritin Total Bilirubin AST ALT Alkaline Phosphatase Lactate Dehydrogenase C-Reactive Protein Total Protein Albumin Urine Creatinine Coronavirus (PCR) Crossmatch 05/16/21 05/16/21 05/16/21 05:00 08:06 11:40 WBC 12.5 H RBC 5.39 H Hgb 14.9 H Hct 47.4 H MCHC RDW 12.7 L Plt Count Lymph % (Auto) 3.8 L Lymph # (Auto) 0.5 L [place] # (Auto) Seg Neutrophils % 89.4 H Seg Neuts % (Manual) Lymphocytes % (Manual) Monocytes % (Manual) Seg Neutrophils # 11.2 H Seg Neutrophils # Man Lymphocytes # (Manual) Monocytes # (Manual) PT INR APTT Fibrinogen D-Dimer ABG pH ABG pO2 ABG HCO3 ABG O2 Saturation ABG Base Excess ABG Hemoglobin Sodium Potassium Chloride Carbon Dioxide BUN Creatinine Glucose POC Glucose 140 H 148 H Lactic Acid Calcium Phosphorus Magnesium Ferritin Total Bilirubin AST ALT Alkaline Phosphatase Lactate Dehydrogenase C-Reactive Protein Total Protein Albumin Urine Creatinine Coronavirus (PCR) Crossmatch 05/16/21 05/16/21 05/17/21 15:44 21:38 07:08 WBC RBC Hgb Hct MCHC RDW Plt Count Lymph % (Auto) Lymph # (Auto) [place] # (Auto) Seg Neutrophils % Seg Neuts % (Manual) Lymphocytes % (Manual) Monocytes % (Manual) Seg Neutrophils # Seg Neutrophils # Man Lymphocytes # (Manual) Monocytes # (Manual) PT INR APTT Fibrinogen D-Dimer ABG pH ABG pO2 ABG HCO3 ABG O2 Saturation ABG Base Excess ABG Hemoglobin Sodium Potassium Chloride Carbon Dioxide BUN Creatinine Glucose POC Glucose 127 H 176 H 166 H Lactic Acid Calcium Phosphorus Magnesium Ferritin Total Bilirubin AST ALT Alkaline Phosphatase Lactate Dehydrogenase C-Reactive Protein Total Protein Albumin Urine Creatinine Coronavirus (PCR) Crossmatch 05/17/21 05/17/21 05/17/21 11:48 16:29 21:12 WBC RBC Hgb Hct MCHC RDW Plt Count Lymph % (Auto) Lymph # (Auto) [place] # (Auto) Seg Neutrophils % Seg Neuts % (Manual) Lymphocytes % (Manual) Monocytes % (Manual) Seg Neutrophils # Seg Neutrophils # Man Lymphocytes # (Manual) Monocytes # (Manual) PT INR APTT Fibrinogen D-Dimer ABG pH ABG pO2 ABG HCO3 ABG O2 Saturation ABG Base Excess ABG Hemoglobin Sodium Potassium Chloride Carbon Dioxide BUN Creatinine Glucose POC Glucose 138 H 149 H 178 H Lactic Acid Calcium Phosphorus Magnesium Ferritin Total Bilirubin AST ALT Alkaline Phosphatase Lactate Dehydrogenase C-Reactive Protein Total Protein Albumin Urine Creatinine Coronavirus (PCR) Crossmatch 05/18/21 05/18/21 05/18/21 07:49 11:48 17:26 WBC RBC Hgb Hct MCHC RDW Plt Count Lymph % (Auto) Lymph # (Auto) [place] # (Auto) Seg Neutrophils % Seg Neuts % (Manual) Lymphocytes % (Manual) Monocytes % (Manual) Seg Neutrophils # Seg Neutrophils # Man Lymphocytes # (Manual) Monocytes # (Manual) PT INR APTT Fibrinogen D-Dimer ABG pH ABG pO2 ABG HCO3 ABG O2 Saturation ABG Base Excess ABG Hemoglobin Sodium Potassium Chloride Carbon Dioxide BUN Creatinine Glucose POC Glucose 176 H 144 H 151 H Lactic Acid Calcium Phosphorus Magnesium Ferritin Total Bilirubin AST ALT Alkaline Phosphatase Lactate Dehydrogenase C-Reactive Protein Total Protein Albumin Urine Creatinine Coronavirus (PCR) Crossmatch 05/18/21 05/19/21 05/19/21 22:54 06:50 06:50 WBC 15.6 H RBC 5.09 H Hgb 14.7 H Hct 43.6 H MCHC RDW 12.5 L Plt Count Lymph % (Auto) Lymph # (Auto) [place] # (Auto) Seg Neutrophils % Seg Neuts % (Manual) Lymphocytes % (Manual) Monocytes % (Manual) Seg Neutrophils # Seg Neutrophils # Man Lymphocytes # (Manual) Monocytes # (Manual) PT INR APTT Fibrinogen D-Dimer ABG pH ABG pO2 ABG HCO3 ABG O2 Saturation ABG Base Excess ABG Hemoglobin Sodium 135 L D Potassium Chloride Carbon Dioxide BUN 31 H Creatinine Glucose 179 H POC Glucose 212 H Lactic Acid Calcium Phosphorus Magnesium Ferritin Total Bilirubin AST ALT Alkaline Phosphatase Lactate Dehydrogenase C-Reactive Protein Total Protein Albumin Urine Creatinine Coronavirus (PCR) Crossmatch 05/19/21 05/19/21 05/19/21 07:39 11:35 15:59 WBC RBC Hgb Hct MCHC RDW Plt Count Lymph % (Auto) Lymph # (Auto) [place] # (Auto) Seg Neutrophils % Seg Neuts % (Manual) Lymphocytes % (Manual) Monocytes % (Manual) Seg Neutrophils # Seg Neutrophils # Man Lymphocytes # (Manual) Monocytes # (Manual) PT INR APTT Fibrinogen D-Dimer ABG pH ABG pO2 ABG HCO3 ABG O2 Saturation ABG Base Excess ABG Hemoglobin Sodium Potassium Chloride Carbon Dioxide BUN Creatinine Glucose POC Glucose 203 H 177 H 135 H Lactic Acid Calcium Phosphorus Magnesium Ferritin Total Bilirubin AST ALT Alkaline Phosphatase Lactate Dehydrogenase C-Reactive Protein Total Protein Albumin Urine Creatinine Coronavirus (PCR) Crossmatch 05/19/21 05/20/21 05/20/21 21:23 05:00 07:33 WBC RBC Hgb Hct MCHC RDW Plt Count Lymph % (Auto) Lymph # (Auto) [place] # (Auto) Seg Neutrophils % Seg Neuts % (Manual) Lymphocytes % (Manual) Monocytes % (Manual) Seg Neutrophils # Seg Neutrophils # Man Lymphocytes # (Manual) Monocytes # (Manual) PT INR APTT Fibrinogen D-Dimer ABG pH ABG pO2 ABG HCO3 ABG O2 Saturation ABG Base Excess ABG Hemoglobin Sodium 134 L Potassium Chloride Carbon Dioxide BUN 27 H Creatinine Glucose 181 H POC Glucose 143 H 145 H Lactic Acid Calcium Phosphorus Magnesium Ferritin Total Bilirubin AST ALT Alkaline Phosphatase Lactate Dehydrogenase C-Reactive Protein Total Protein Albumin Urine Creatinine Coronavirus (PCR) Crossmatch 05/20/21 05/20/21 05/20/21 11:16 15:09 16:28 WBC RBC Hgb Hct MCHC RDW Plt Count Lymph % (Auto) Lymph # (Auto) [place] # (Auto) Seg Neutrophils % Seg Neuts % (Manual) Lymphocytes % (Manual) Monocytes % (Manual) Seg Neutrophils # Seg Neutrophils # Man Lymphocytes # (Manual) Monocytes # (Manual) PT INR APTT Fibrinogen D-Dimer ABG pH ABG pO2 ABG HCO3 ABG O2 Saturation ABG Base Excess ABG Hemoglobin Sodium Potassium Chloride Carbon Dioxide BUN Creatinine Glucose POC Glucose 186 H 130 H 139 H Lactic Acid Calcium Phosphorus Magnesium Ferritin Total Bilirubin AST ALT Alkaline Phosphatase Lactate Dehydrogenase C-Reactive Protein Total Protein Albumin Urine Creatinine Coronavirus (PCR) Crossmatch 05/20/21 05/21/21 05/21/21 22:40 07:14 07:14 WBC 17.9 H RBC 5.29 H Hgb 15.2 H Hct 45.2 H MCHC RDW 12.7 L Plt Count Lymph % (Auto) Lymph # (Auto) [place] # (Auto) Seg Neutrophils % Seg Neuts % (Manual) Lymphocytes % (Manual) Monocytes % (Manual) Seg Neutrophils # Seg Neutrophils # Man Lymphocytes # (Manual) Monocytes # (Manual) PT INR APTT Fibrinogen D-Dimer ABG pH ABG pO2 ABG HCO3 ABG O2 Saturation ABG Base Excess ABG Hemoglobin Sodium 136 L Potassium Chloride Carbon Dioxide BUN 27 H Creatinine Glucose 185 H POC Glucose 151 H Lactic Acid Calcium Phosphorus Magnesium Ferritin Total Bilirubin AST ALT Alkaline Phosphatase Lactate Dehydrogenase C-Reactive Protein Total Protein Albumin Urine Creatinine Coronavirus (PCR) Crossmatch 05/21/21 05/21/21 05/21/21 11:38 16:05 22:21 WBC RBC Hgb Hct MCHC RDW Plt Count Lymph % (Auto) Lymph # (Auto) [place] # (Auto) Seg Neutrophils % Seg Neuts % (Manual) Lymphocytes % (Manual) Monocytes % (Manual) Seg Neutrophils # Seg Neutrophils # Man Lymphocytes # (Manual) Monocytes # (Manual) PT INR APTT Fibrinogen D-Dimer ABG pH ABG pO2 ABG HCO3 ABG O2 Saturation ABG Base Excess ABG Hemoglobin Sodium Potassium Chloride Carbon Dioxide BUN Creatinine Glucose POC Glucose 142 H 179 H 133 H Lactic Acid Calcium Phosphorus Magnesium Ferritin Total Bilirubin AST ALT Alkaline Phosphatase Lactate Dehydrogenase C-Reactive Protein Total Protein Albumin Urine Creatinine Coronavirus (PCR) Crossmatch 05/22/21 05/22/21 05/22/21 05:59 06:45 06:45 WBC 15.5 H RBC Hgb Hct MCHC RDW 12.7 L Plt Count Lymph % (Auto) Lymph # (Auto) [place] # (Auto) Seg Neutrophils % Seg Neuts % (Manual) Lymphocytes % (Manual) Monocytes % (Manual) Seg Neutrophils # Seg Neutrophils # Man Lymphocytes # (Manual) Monocytes # (Manual) PT INR APTT Fibrinogen D-Dimer ABG pH ABG pO2 ABG HCO3 ABG O2 Saturation ABG Base Excess ABG Hemoglobin Sodium Potassium Chloride Carbon Dioxide BUN 32 H Creatinine Glucose 167 H POC Glucose 159 H Lactic Acid Calcium Phosphorus Magnesium Ferritin Total Bilirubin AST ALT Alkaline Phosphatase Lactate Dehydrogenase C-Reactive Protein Total Protein Albumin Urine Creatinine Coronavirus (PCR) Crossmatch 05/22/21 05/22/21 05/22/21 07:56 11:34 15:26 WBC RBC Hgb Hct MCHC RDW Plt Count Lymph % (Auto) Lymph # (Auto) [place] # (Auto) Seg Neutrophils % Seg Neuts % (Manual) Lymphocytes % (Manual) Monocytes % (Manual) Seg Neutrophils # Seg Neutrophils # Man Lymphocytes # (Manual) Monocytes # (Manual) PT INR APTT Fibrinogen D-Dimer ABG pH ABG pO2 ABG HCO3 ABG O2 Saturation ABG Base Excess ABG Hemoglobin Sodium Potassium Chloride Carbon Dioxide BUN Creatinine Glucose POC Glucose 155 H 174 H 175 H Lactic Acid Calcium Phosphorus Magnesium Ferritin Total Bilirubin AST ALT Alkaline Phosphatase Lactate Dehydrogenase C-Reactive Protein Total Protein Albumin Urine Creatinine Coronavirus (PCR) Crossmatch 05/22/21 05/23/21 05/23/21 21:57 08:02 11:49 WBC RBC Hgb Hct MCHC RDW Plt Count Lymph % (Auto) Lymph # (Auto) [place] # (Auto) Seg Neutrophils % Seg Neuts % (Manual) Lymphocytes % (Manual) Monocytes % (Manual) Seg Neutrophils # Seg Neutrophils # Man Lymphocytes # (Manual) Monocytes # (Manual) PT INR APTT Fibrinogen D-Dimer ABG pH ABG pO2 ABG HCO3 ABG O2 Saturation ABG Base Excess ABG Hemoglobin Sodium Potassium Chloride Carbon Dioxide BUN Creatinine Glucose POC Glucose 172 H 152 H 176 H Lactic Acid Calcium Phosphorus Magnesium Ferritin Total Bilirubin AST ALT Alkaline Phosphatase Lactate Dehydrogenase C-Reactive Protein Total Protein Albumin Urine Creatinine Coronavirus (PCR) Crossmatch 05/23/21 05/24/21 05/24/21 16:48 11:02 15:56 WBC RBC Hgb Hct MCHC RDW Plt Count Lymph % (Auto) Lymph # (Auto) [place] # (Auto) Seg Neutrophils % Seg Neuts % (Manual) Lymphocytes % (Manual) Monocytes % (Manual) Seg Neutrophils # Seg Neutrophils # Man Lymphocytes # (Manual) Monocytes # (Manual) PT INR APTT Fibrinogen D-Dimer ABG pH ABG pO2 ABG HCO3 ABG O2 Saturation ABG Base Excess ABG Hemoglobin Sodium Potassium Chloride Carbon Dioxide BUN Creatinine Glucose POC Glucose 139 H 185 H 124 H Lactic Acid Calcium Phosphorus Magnesium Ferritin Total Bilirubin AST ALT Alkaline Phosphatase Lactate Dehydrogenase C-Reactive Protein Total Protein Albumin Urine Creatinine Coronavirus (PCR) Crossmatch 05/24/21 05/25/21 05/25/21 22:24 07:23 09:18 WBC 12.9 H RBC 3.37 L Hgb 9.8 L Hct 29.0 L MCHC RDW 12.8 L Plt Count Lymph % (Auto) Lymph # (Auto) [place] # (Auto) Seg Neutrophils % Seg Neuts % (Manual) Lymphocytes % (Manual) Monocytes % (Manual) Seg Neutrophils # Seg Neutrophils # Man Lymphocytes # (Manual) Monocytes # (Manual) PT INR APTT Fibrinogen D-Dimer ABG pH ABG pO2 ABG HCO3 ABG O2 Saturation ABG Base Excess ABG Hemoglobin Sodium Potassium Chloride Carbon Dioxide BUN Creatinine Glucose POC Glucose 124 H 176 H Lactic Acid Calcium Phosphorus Magnesium Ferritin Total Bilirubin AST ALT Alkaline Phosphatase Lactate Dehydrogenase C-Reactive Protein Total Protein Albumin Urine Creatinine Coronavirus (PCR) Crossmatch 05/25/21 05/25/21 05/25/21 09:18 10:48 15:36 WBC RBC Hgb Hct MCHC RDW Plt Count Lymph % (Auto) Lymph # (Auto) [place] # (Auto) Seg Neutrophils % Seg Neuts % (Manual) Lymphocytes % (Manual) Monocytes % (Manual) Seg Neutrophils # Seg Neutrophils # Man Lymphocytes # (Manual) Monocytes # (Manual) PT INR APTT Fibrinogen D-Dimer ABG pH ABG pO2 ABG HCO3 ABG O2 Saturation ABG Base Excess ABG Hemoglobin Sodium 129 L D Potassium Chloride 96.2 L Carbon Dioxide BUN 36 H Creatinine Glucose 129 H POC Glucose 126 H 122 H Lactic Acid Calcium 7.7 L Phosphorus Magnesium Ferritin Total Bilirubin AST ALT Alkaline Phosphatase Lactate Dehydrogenase C-Reactive Protein Total Protein Albumin Urine Creatinine Coronavirus (PCR) Crossmatch 05/25/21 05/26/21 05/26/21 20:34 05:27 07:42 WBC RBC Hgb Hct MCHC RDW Plt Count Lymph % (Auto) Lymph # (Auto) [place] # (Auto) Seg Neutrophils % Seg Neuts % (Manual) Lymphocytes % (Manual) Monocytes % (Manual) Seg Neutrophils # Seg Neutrophils # Man Lymphocytes # (Manual) Monocytes # (Manual) PT INR APTT Fibrinogen D-Dimer ABG pH ABG pO2 ABG HCO3 ABG O2 Saturation ABG Base Excess ABG Hemoglobin Sodium Potassium Chloride Carbon Dioxide BUN Creatinine Glucose POC Glucose 286 H 220 H 166 H Lactic Acid Calcium Phosphorus Magnesium Ferritin Total Bilirubin AST ALT Alkaline Phosphatase Lactate Dehydrogenase C-Reactive Protein Total Protein Albumin Urine Creatinine Coronavirus (PCR) Crossmatch 05/26/21 05/26/21 05/26/21 11:07 13:24 14:03 WBC RBC Hgb Hct MCHC RDW Plt Count Lymph % (Auto) Lymph # (Auto) [place] # (Auto) Seg Neutrophils % Seg Neuts % (Manual) Lymphocytes % (Manual) Monocytes % (Manual) Seg Neutrophils # Seg Neutrophils # Man Lymphocytes # (Manual) Monocytes # (Manual) PT INR APTT Fibrinogen D-Dimer ABG pH 7.086 L* ABG pO2 359.3 H ABG HCO3 9.0 L ABG O2 Saturation 99.5 H ABG Base Excess -19.0 L ABG Hemoglobin Sodium Potassium Chloride Carbon Dioxide BUN Creatinine Glucose POC Glucose 171 H 138 H Lactic Acid Calcium Phosphorus Magnesium Ferritin Total Bilirubin AST ALT Alkaline Phosphatase Lactate Dehydrogenase C-Reactive Protein Total Protein Albumin Urine Creatinine Coronavirus (PCR) Crossmatch 05/26/21 05/26/21 05/26/21 15:50 15:50 15:50 WBC 49.8 H* RBC 1.46 L Hgb 4.2 L* D Hct 13.5 L* D MCHC RDW 12.8 L Plt Count 123 L Lymph % (Auto) Lymph # (Auto) [place] # (Auto) Seg Neutrophils % Seg Neuts % (Manual) 85.0 H Lymphocytes % (Manual) 3.0 L Monocytes % (Manual) 10.0 H Seg Neutrophils # Seg Neutrophils # Man 42.3 H Lymphocytes # (Manual) Monocytes # (Manual) 5.0 H PT 63.3 H INR 6.70 H* APTT 76.8 H* Fibrinogen D-Dimer ABG pH ABG pO2 ABG HCO3 ABG O2 Saturation ABG Base Excess ABG Hemoglobin Sodium 136 L D Potassium 6.7 H* D Chloride 93.3 L Carbon Dioxide 7 L* D BUN 45 H Creatinine 2.8 H D Glucose 117 H POC Glucose Lactic Acid Calcium 6.6 L Phosphorus Magnesium Ferritin Total Bilirubin 1.50 H AST 99465 H ALT 43607 H Alkaline Phosphatase Lactate Dehydrogenase C-Reactive Protein Total Protein 3.8 L Albumin 2.1 L Urine Creatinine Coronavirus (PCR) Crossmatch 05/26/21 05/26/21 05/26/21 15:50 17:40 17:55 WBC RBC Hgb Hct MCHC RDW Plt Count Lymph % (Auto) Lymph # (Auto) [place] # (Auto) Seg Neutrophils % Seg Neuts % (Manual) Lymphocytes % (Manual) Monocytes % (Manual) Seg Neutrophils # Seg Neutrophils # Man Lymphocytes # (Manual) Monocytes # (Manual) PT INR APTT Fibrinogen D-Dimer ABG pH 7.046 L* ABG pO2 316.3 H ABG HCO3 4.4 L ABG O2 Saturation 99.4 H ABG Base Excess -23.7 L ABG Hemoglobin Sodium Potassium Chloride Carbon Dioxide BUN Creatinine Glucose POC Glucose Lactic Acid 23.10 H* Calcium Phosphorus Magnesium Ferritin Total Bilirubin AST ALT Alkaline Phosphatase Lactate Dehydrogenase C-Reactive Protein Total Protein Albumin Urine Creatinine Coronavirus (PCR) Crossmatch See Detail 05/26/21 05/26/21 05/26/21 20:32 21:21 21:27 WBC RBC Hgb Hct MCHC RDW Plt Count Lymph % (Auto) Lymph # (Auto) [place] # (Auto) Seg Neutrophils % Seg Neuts % (Manual) Lymphocytes % (Manual) Monocytes % (Manual) Seg Neutrophils # Seg Neutrophils # Man Lymphocytes # (Manual) Monocytes # (Manual) PT INR APTT Fibrinogen D-Dimer ABG pH ABG pO2 ABG HCO3 ABG O2 Saturation ABG Base Excess ABG Hemoglobin Sodium Potassium Chloride Carbon Dioxide BUN Creatinine Glucose POC Glucose 200 H Lactic Acid 25.40 H* Calcium Phosphorus Magnesium Ferritin Total Bilirubin AST ALT Alkaline Phosphatase Lactate Dehydrogenase C-Reactive Protein Total Protein Albumin Urine Creatinine 229.2 H Coronavirus (PCR) Crossmatch 05/26/21 05/27/21 05/27/21 23:00 04:30 04:30 WBC RBC Hgb Hct MCHC RDW Plt Count Lymph % (Auto) Lymph # (Auto) [place] # (Auto) Seg Neutrophils % Seg Neuts % (Manual) Lymphocytes % (Manual) Monocytes % (Manual) Seg Neutrophils # Seg Neutrophils # Man Lymphocytes # (Manual) Monocytes # (Manual) PT INR APTT Fibrinogen D-Dimer ABG pH 7.053 L* ABG pO2 253.0 H ABG HCO3 6.5 L ABG O2 Saturation 99.3 H ABG Base Excess -22.3 L ABG Hemoglobin 6.0 L Sodium Potassium Chloride Carbon Dioxide BUN Creatinine Glucose POC Glucose Lactic Acid 18.20 H* Calcium Phosphorus Magnesium Ferritin Total Bilirubin AST ALT Alkaline Phosphatase Lactate Dehydrogenase 1409 H C-Reactive Protein Total Protein Albumin Urine Creatinine Coronavirus (PCR) Crossmatch 05/27/21 05/27/21 05/27/21 04:30 04:30 04:30 WBC 57.6 H* RBC 2.46 L Hgb 6.9 L Hct 22.0 L D MCHC RDW Plt Count 68 L Lymph % (Auto) Lymph # (Auto) [place] # (Auto) Seg Neutrophils % Seg Neuts % (Manual) 92.0 H Lymphocytes % (Manual) 1.5 L Monocytes % (Manual) Seg Neutrophils # Seg Neutrophils # Man 53.0 H Lymphocytes # (Manual) 0.9 L Monocytes # (Manual) PT 54.5 H INR 5.62 H* APTT 90.8 H* Fibrinogen 100 L* D-Dimer ABG pH ABG pO2 ABG HCO3 ABG O2 Saturation ABG Base Excess ABG Hemoglobin Sodium Potassium 6.1 H* Chloride 91.6 L Carbon Dioxide 12 L BUN 48 H Creatinine 3.3 H Glucose 206 H POC Glucose Lactic Acid Calcium 6.9 L Phosphorus 11.30 H Magnesium 2.50 H Ferritin Total Bilirubin 3.20 H AST 11813 H ALT 50735 H Alkaline Phosphatase Lactate Dehydrogenase 18425 H C-Reactive Protein Total Protein 4.1 L Albumin 2.4 L Urine Creatinine Coronavirus (PCR) Crossmatch 05/27/21 05/27/21 05/27/21 07:17 11:13 13:30 WBC RBC Hgb 7.1 L Hct 22.0 L MCHC RDW Plt Count Lymph % (Auto) Lymph # (Auto) [place] # (Auto) Seg Neutrophils % Seg Neuts % (Manual) Lymphocytes % (Manual) Monocytes % (Manual) Seg Neutrophils # Seg Neutrophils # Man Lymphocytes # (Manual) Monocytes # (Manual) PT INR APTT Fibrinogen D-Dimer ABG pH ABG pO2 ABG HCO3 ABG O2 Saturation ABG Base Excess ABG Hemoglobin Sodium Potassium Chloride Carbon Dioxide BUN Creatinine Glucose POC Glucose 153 H 144 H Lactic Acid Calcium Phosphorus Magnesium Ferritin Total Bilirubin AST ALT Alkaline Phosphatase Lactate Dehydrogenase C-Reactive Protein Total Protein Albumin Urine Creatinine Coronavirus (PCR) Crossmatch 05/27/21 05/27/21 05/27/21 13:30 13:30 13:30 WBC RBC Hgb Hct MCHC RDW Plt Count Lymph % (Auto) Lymph # (Auto) [place] # (Auto) Seg Neutrophils % Seg Neuts % (Manual) Lymphocytes % (Manual) Monocytes % (Manual) Seg Neutrophils # Seg Neutrophils # Man Lymphocytes # (Manual) Monocytes # (Manual) PT 44.5 H INR 4.33 H APTT Fibrinogen 120 L* D-Dimer ABG pH ABG pO2 ABG HCO3 ABG O2 Saturation ABG Base Excess ABG Hemoglobin Sodium Potassium 5.4 H Chloride 92.1 L Carbon Dioxide BUN 46 H Creatinine 3.9 H Glucose 365 H POC Glucose Lactic Acid 13.30 H* Calcium 6.0 L Phosphorus Magnesium Ferritin Total Bilirubin AST ALT Alkaline Phosphatase Lactate Dehydrogenase C-Reactive Protein Total Protein Albumin Urine Creatinine Coronavirus (PCR) Crossmatch 05/27/21 05/27/21 05/27/21 14:05 15:52 18:33 WBC RBC Hgb 7.0 L Hct 21.2 L MCHC RDW Plt Count Lymph % (Auto) Lymph # (Auto) [place] # (Auto) Seg Neutrophils % Seg Neuts % (Manual) Lymphocytes % (Manual) Monocytes % (Manual) Seg Neutrophils # Seg Neutrophils # Man Lymphocytes # (Manual) Monocytes # (Manual) PT INR APTT Fibrinogen D-Dimer ABG pH 7.202 L ABG pO2 112.7 H ABG HCO3 17.7 L ABG O2 Saturation ABG Base Excess -9.6 L ABG Hemoglobin 7.4 L Sodium Potassium Chloride Carbon Dioxide BUN Creatinine Glucose POC Glucose 141 H Lactic Acid Calcium Phosphorus Magnesium Ferritin Total Bilirubin AST ALT Alkaline Phosphatase Lactate Dehydrogenase C-Reactive Protein Total Protein Albumin Urine Creatinine Coronavirus (PCR) Crossmatch 05/27/21 05/27/21 05/27/21 18:33 21:25 22:54 WBC RBC Hgb Hct MCHC RDW Plt Count Lymph % (Auto) Lymph # (Auto) [place] # (Auto) Seg Neutrophils % Seg Neuts % (Manual) Lymphocytes % (Manual) Monocytes % (Manual) Seg Neutrophils # Seg Neutrophils # Man Lymphocytes # (Manual) Monocytes # (Manual) PT 32.5 H INR 2.88 H APTT 70.0 H* Fibrinogen 165 L D-Dimer ABG pH ABG pO2 ABG HCO3 ABG O2 Saturation ABG Base Excess ABG Hemoglobin Sodium Potassium Chloride Carbon Dioxide BUN Creatinine Glucose POC Glucose 118 H Lactic Acid 11.20 H* Calcium Phosphorus Magnesium Ferritin Total Bilirubin AST ALT Alkaline Phosphatase Lactate Dehydrogenase C-Reactive Protein Total Protein Albumin Urine Creatinine Coronavirus (PCR) Crossmatch 05/28/21 05/28/21 05/28/21 00:49 00:49 04:05 WBC RBC Hgb 7.8 L Hct 23.9 L MCHC RDW Plt Count Lymph % (Auto) Lymph # (Auto) [place] # (Auto) Seg Neutrophils % Seg Neuts % (Manual) Lymphocytes % (Manual) Monocytes % (Manual) Seg Neutrophils # Seg Neutrophils # Man Lymphocytes # (Manual) Monocytes # (Manual) PT 30.7 H INR 2.68 H APTT 66.0 H* Fibrinogen 198 L D-Dimer ABG pH 7.229 L ABG pO2 147.8 H ABG HCO3 ABG O2 Saturation ABG Base Excess -6.9 L ABG Hemoglobin 7.8 L Sodium Potassium Chloride Carbon Dioxide BUN Creatinine Glucose POC Glucose Lactic Acid Calcium Phosphorus Magnesium Ferritin Total Bilirubin AST ALT Alkaline Phosphatase Lactate Dehydrogenase C-Reactive Protein Total Protein Albumin Urine Creatinine Coronavirus (PCR) Crossmatch 05/28/21 05/28/21 05/28/21 05:05 05:05 05:05 WBC 49.4 H* RBC 2.59 L Hgb 7.7 L Hct 23.7 L MCHC RDW Plt Count 38 L Lymph % (Auto) Lymph # (Auto) [place] # (Auto) Seg Neutrophils % Seg Neuts % (Manual) Lymphocytes % (Manual) Monocytes % (Manual) Seg Neutrophils # Seg Neutrophils # Man Lymphocytes # (Manual) Monocytes # (Manual) PT 31.2 H INR 2.74 H APTT 64.5 H* Fibrinogen 197 L D-Dimer ABG pH ABG pO2 ABG HCO3 ABG O2 Saturation ABG Base Excess ABG Hemoglobin Sodium Potassium 6.9 H* D Chloride 91.7 L Carbon Dioxide 19 L BUN 58 H Creatinine 5.3 H Glucose 128 H POC Glucose Lactic Acid Calcium 5.9 L* Phosphorus Magnesium Ferritin Total Bilirubin 4.30 H AST 37032 H ALT 34707 H Alkaline Phosphatase 229 H Lactate Dehydrogenase C-Reactive Protein Total Protein 3.9 L Albumin 2.3 L Urine Creatinine Coronavirus (PCR) Crossmatch 05/28/21 05/28/21 07:56 10:53 WBC RBC Hgb Hct MCHC RDW Plt Count Lymph % (Auto) Lymph # (Auto) [place] # (Auto) Seg Neutrophils % Seg Neuts % (Manual) Lymphocytes % (Manual) Monocytes % (Manual) Seg Neutrophils # Seg Neutrophils # Man Lymphocytes # (Manual) Monocytes # (Manual) PT INR APTT Fibrinogen D-Dimer ABG pH ABG pO2 ABG HCO3 ABG O2 Saturation ABG Base Excess ABG Hemoglobin Sodium Potassium Chloride Carbon Dioxide BUN Creatinine Glucose POC Glucose 110 H 127 H Lactic Acid Calcium Phosphorus Magnesium Ferritin Total Bilirubin AST ALT Alkaline Phosphatase Lactate Dehydrogenase C-Reactive Protein Total Protein Albumin Urine Creatinine Coronavirus (PCR) Crossmatch
[2021-05-28] MEDS ORDERED: INSULIN LISPRO 100 UNIT/ML SUB-Q SCH (12:00)
[2021-05-28] MEDS: METOCLOPRAMIDE 10 MG/2 ML INJ IV SCH ×2 (12:03→17:15)
[2021-05-28] MEDS: CHOLECALCIFEROL (VIT D3) 5,000 UNIT TAB PO SCH (12:11)
[2021-05-28] MEDS: SENNOSIDES 8.6 MG TAB PO SCH (12:11)
[2021-05-28] MEDS: ZINC SULFATE 220 MG CAP PO SCH (12:11)
[2021-05-28] MEDS: ASCORBIC ACID 500 MG TAB PO SCH (12:11)
--- NOTE | 2021-05-28 13:06 | Progress Note ---
Assessment and Plan 1. Acute kidney injury: Vasomotor PRICE in the setting of Cardiac arrest and shock. CT abdomen (05/23) was negative for hydro. Low FeNa. UA negative for blood. Continue bciarb drip. Monitor renal function. Renal prognosis is guarded. Avoid nephrotoxic agents. Meds dosage based on GFR. Monitor for [employer] needs. Patient is not a candidate for hemodialysis at this time due to profound hypotension. 2. FEN: Hyperkalemia, s/p meds, bicarb drip, monitor. Anion-gap metabolic acidosis, 2/2 Lactic acidosis, Sod bicarb drip, monitor. Replete Calcium. Monitor lytes and volume status. 3. S/p Cardiac arrest. 4. Acute hypoxic resp failure: Intubated michel-arrest. Admitted with Covid-19 PNA. Followed by Pulmonary. 5. Profound shock: Patient currently on 3 pressors. S/p multiple IV fluid boluses. Cefepime. 6. Covid-19 PNA, POA: IV Solu-Medrol. Completed 5 days of Remdesivir. S/p Actemra on 05/13/2021. Follow inflammatory markers. 7. Severe Anemia: S/p PRBC. Monitor. 8. Severe Lactic acidosis. 9. Acute Metabolic Encephalopathy. 10. Elevated ALT and AST. 11. DM-2. Prognosis is very poor. Family is aware. Subjective: Patient was seen and examined at the bedside. Examination: General appearance: well-developed, obese, appears stated age, intubated, on vent HEENT: atraumatic Eyes: Pupils equal Neck: trachea midline Respiratory: coarse breath sounds Heart: S1S2, no murmur Abdomen: soft, obese, bowel sounds heard, NT Integumentary: no obvious rash Neurologic: not responding Ext: trace LE edema Subjective Date of service: 05/28/21 Principal diagnosis: Shock, Abnl Enzymes Objective - Vital Signs Vital signs: Vital Signs - 12hr 05/28/21 05/28/21 05/28/21 01:16 01:30 01:46 Temperature Pulse Rate 115 H 115 H 114 H Pulse Rate [ From Monitor] Respiratory 18 11 L 9 L Rate Blood Pressure O2 Sat by Pulse 100 99 100 Oximetry 05/28/21 05/28/21 05/28/21 02:00 02:16 02:31 Temperature Pulse Rate 115 H 115 H 115 H Pulse Rate [ From Monitor] Respiratory 16 14 18 Rate Blood Pressure O2 Sat by Pulse 100 100 100 Oximetry 05/28/21 05/28/21 05/28/21 02:45 03:01 03:15 Temperature Pulse Rate 115 H 115 H 114 H Pulse Rate [ From Monitor] Respiratory 16 15 10 L Rate Blood Pressure O2 Sat by Pulse 100 100 100 Oximetry 05/28/21 05/28/21 05/28/21 03:31 03:45 04:00 Temperature 99.1 F Pulse Rate 115 H 112 H Pulse Rate [ From Monitor] Respiratory 16 12 Rate Blood Pressure O2 Sat by Pulse 100 100 100 Oximetry 05/28/21 05/28/21 05/28/21 04:01 04:15 04:31 Temperature Pulse Rate 113 H 114 H 114 H Pulse Rate [ From Monitor] Respiratory 12 10 L 13 Rate Blood Pressure O2 Sat by Pulse 99 100 98 Oximetry 05/28/21 05/28/21 05/28/21 04:45 04:49 05:01 Temperature Pulse Rate 114 H 115 H 114 H Pulse Rate [ From Monitor] Respiratory 11 L 19 Rate Blood Pressure 122/56 O2 Sat by Pulse 99 100 100 Oximetry 05/28/21 05/28/21 05/28/21 05:15 05:31 05:45 Temperature Pulse Rate 114 H 114 H 112 H Pulse Rate [ From Monitor] Respiratory 10 L 13 16 Rate Blood Pressure O2 Sat by Pulse 100 100 100 Oximetry 05/28/21 05/28/21 05/28/21 06:01 06:15 06:31 Temperature Pulse Rate 111 H 113 H 112 H Pulse Rate [ From Monitor] Respiratory 12 16 12 Rate Blood Pressure O2 Sat by Pulse 100 100 100 Oximetry 05/28/21 05/28/21 05/28/21 06:45 07:01 07:15 Temperature Pulse Rate 113 H 110 H 112 H Pulse Rate [ From Monitor] Respiratory 14 14 11 L Rate Blood Pressure O2 Sat by Pulse 100 Oximetry 05/28/21 05/28/21 05/28/21 07:31 07:39 07:45 Temperature Pulse Rate 113 H 111 H 109 H Pulse Rate [ From Monitor] Respiratory 11 L 10 L Rate Blood Pressure 120/55 O2 Sat by Pulse 100 100 Oximetry 05/28/21 05/28/21 05/28/21 08:00 08:01 08:15 Temperature 99 F Pulse Rate 110 H 173 H Pulse Rate [ 180 H From Monitor] Respiratory 18 11 L 16 Rate Blood Pressure O2 Sat by Pulse 99 100 Oximetry 05/28/21 05/28/21 05/28/21 08:22 08:31 08:40 Temperature Pulse Rate 178 H 159 H 174 H Pulse Rate [ From Monitor] Respiratory 11 L Rate Blood Pressure 89/43 95/52 O2 Sat by Pulse 99 Oximetry 05/28/21 05/28/21 05/28/21 08:45 09:01 09:15 Temperature Pulse Rate 155 H 166 H 153 H Pulse Rate [ From Monitor] Respiratory 11 L 16 17 Rate Blood Pressure O2 Sat by Pulse 98 Oximetry 05/28/21 05/28/21 05/28/21 09:31 09:45 10:00 Temperature Pulse Rate 148 H 133 H 112 H Pulse Rate [ From Monitor] Respiratory 11 L 16 Rate Blood Pressure O2 Sat by Pulse Oximetry 05/28/21 05/28/21 05/28/21 10:01 10:15 10:31 Temperature Pulse Rate 137 H 124 H 124 H Pulse Rate [ From Monitor] Respiratory 15 20 16 Rate Blood Pressure O2 Sat by Pulse Oximetry 05/28/21 05/28/21 05/28/21 10:45 11:01 11:15 Temperature Pulse Rate 118 H 113 H 116 H Pulse Rate [ From Monitor] Respiratory 21 23 19 Rate Blood Pressure O2 Sat by Pulse Oximetry 05/28/21 05/28/21 05/28/21 11:29 11:31 11:45 Temperature Pulse Rate 118 H 107 H 120 H Pulse Rate [ From Monitor] Respiratory 18 15 Rate Blood Pressure O2 Sat by Pulse 0 L Oximetry 05/28/21 05/28/21 12:00 12:01 Temperature 98.8 F Pulse Rate 97 H Pulse Rate [ From Monitor] Respiratory 15 Rate Blood Pressure O2 Sat by Pulse Oximetry - Lab 05/28/21 05:05 05/28/21 05:05 Most recent lab results ABG pH 7.229 pH Units (7.350-7.450) L 05/28/21 04:05 ABG pCO2 49.7 mm Hg 05/28/21 04:05 ABG pO2 147.8 mm Hg (80.0-90.0) H 05/28/21 04:05 ABG HCO3 20.3 mmol/L (20.0-26.0) 05/28/21 04:05 ABG O2 Saturation 98.3 % (95.0-99.0) 05/28/21 04:05 Calcium 5.9 mg/dL (8.4-10.2) L* 05/28/21 05:05 Phosphorus 11.30 mg/dL (2.5-4.5) H 05/27/21 04:30 Magnesium 2.50 mg/dL (1.7-2.3) H 05/27/21 04:30 Urine Creatinine 229.2 mg/dL (0.1-20.0) H 05/26/21 21:27 Urine Sodium 10 mmol/L 05/26/21 21:27 Medications & Allergies - Medications Allergies/Adverse Reactions: Allergies acetaminophen [From Percocet] Allergy (Verified 05/25/21 09:09) Vomiting azithromycin Allergy (Verified 05/22/21 12:26) CHEST PAIN morphine Allergy (Verified 05/22/21 12:26) Angioedema oxycodone [From Percocet] Allergy (Verified 05/25/21 09:09) Vomiting Penicillins Allergy (Verified 05/22/21 12:26) Rash tetracycline Allergy (Verified 05/22/21 12:26) CHEST PAIN AND NAUSEA/VOMITING Home Medications: Home Medications Medication Instructions Recorded Confirmed Last Taken Type Hydrochlorothiazide 12.5 mg PO DAILY 05/16/21 05/16/21 05/11/21 09:00 History Losartan 25 mg PO DAILY 05/16/21 05/16/21 05/11/21 09:00 History Albuterol Mdi (or & Nicu Only) 1 puff IH PRN PRN 05/22/21 05/22/21 Unknown History [ProAir HFA Inhaler] Cyclobenzaprine [Flexeril] 10 mg PO PRN PRN 05/22/21 05/22/21 Unknown History Mv-Min/Iron/Folic/Calcium/Vitk 1 each PO QDAY 05/22/21 05/22/21 Unknown History [Women's Multivitamin Tablet] Tiotropium Estelline [Spiriva] 1 puff IH BID 05/22/21 05/22/21 Unknown History Active Medications: Generic Name Dose Route Start Last Admin Trade Name Freq PRN Reason Stop Dose Admin Acetaminophen 650 mg 05/12/21 10:00 05/27/21 11:45 Acetaminophen 325 Mg Tab PO 650 mg Q4H PRN Administration Pain MILD(1-3)/Fever >100.5/LUX Ascorbic Acid 1,000 mg 05/12/21 22:00 05/28/21 12:11 Ascorbic Acid 500 Mg Tab PO Not Given BID YOHANNES Cholecalciferol 5,000 unit 05/12/21 14:00 05/28/21 12:11 Cholecalciferol (Vit D3) 5,000 Unit Tab PO Not Given DAILY YOHANNES Dextrose 50 ml 05/12/21 09:30 Dextrose 50% In Water (25gm) 50 Ml Syringe IV Q30MIN PRN Hypoglycemia Protocol Fentanyl 50 mcg 05/27/21 09:11 Fentanyl 100 Mcg/2 Ml Inj IV Q15MIN PRN ANALGESIA Hydrophilic Ointment 1 applic 05/26/21 14:44 Lip Therapy Vaseline TP Q2H PRN Dry Lips Vasopressin 20 unit/ Sodium 101 mls @ 9.09 mls/hr 05/26/21 16:00 05/28/21 07:16 Chloride IV 0.03 units/min TITR YOHANNES 9.09 mls/hr Administration Protocol 0.03 UNITS/MIN Sodium Bicarbonate 150 meq/ 1,150 mls @ 200 mls/hr 05/26/21 19:30 05/28/21 08:02 Dextrose IV 125 mls/hr DIRECT YOHANNES Administration NORepinephrine/NS 8 MG-250 ML 8 mg in 250 mls @ 3.75 mls/hr 05/26/21 20:00 05/28/21 12:06 Norepinephrine/Ns 8 Mg-250 Ml (Double Conc) IV 30 mcg/min TITRATE YOHANNES 56.25 mls/hr Administration Protocol 2 MCG/MIN Phenylephrine HCl 100 mg/ 100 mls @ 3 mls/hr 05/27/21 04:00 05/28/21 10:45 Sodium Chloride IV 150 mcg/min TITR YOHANNES 9 mls/hr Administration Protocol 50 MCG/MIN Propofol 1,000 mg in 100 mls @ 3.39 mls/hr 05/27/21 10:00 05/28/21 08:07 Diprivan 10 Mg/Ml IV 5 mcg/kg/min TITR YOHANNES 3.39 mls/hr Administration Protocol 5 MCG/KG/MIN Fentanyl Citrate 2,000 mcg in 100 mls @ 5.65 mls/hr 05/27/21 10:00 05/28/21 08:52 Fentanyl Drip Premix IV 1 mcg/kg/hr TITR YOHANNES 5.65 mls/hr Administration Protocol 1 MCG/KG/HR Cefepime HCl 2 gm in 100 mls @ 200 mls/hr 05/27/21 18:00 05/27/21 18:08 Cefepime/Ns 2 Gm/100 Ml IV 200 mls/hr QPM YOHANNES Administration Diltiazem HCl 100 mg in 100 mls @ 5 mls/hr 05/28/21 09:00 05/28/21 12:09 Cardizem/D5w 100mg/100ml IV 5 mg/hr TITR YOHANNES 5 mls/hr Titration Protocol 5 MG/HR Insulin Human Lispro 0 unit 05/28/21 12:00 Insulin Lispro 100 Unit/Ml SUB-Q Q6HR YOHANNES Protocol Methylprednisolone Sodium Succinate 40 mg 05/26/21 14:00 05/28/21 06:19 Methylprednisolone Sod Succinate 40 Mg/1 Ml Inj IV 40 mg Q8HR YOHANNES Administration Metoclopramide HCl 5 mg 05/28/21 12:00 05/28/21 12:03 Metoclopramide 10 Mg/2 Ml Inj IV 5 mg Q6HR YOHANNES Administration Metoprolol Tartrate 2.5 mg 05/28/21 09:00 05/28/21 08:40 Metoprolol Tartrate 5 Mg/5 Ml Inj IV 05/29/21 09:01 2.5 mg Q30MIN YOHANNES Administration Multi-Ingred Cream/Lotion/Oil/Oint 1 applic 05/26/21 14:44 Mineral Oil/Petrolatum, White Ophth Oint 3.5 Gm OU Q4H PRN Dry Eye(s) Naloxone HCl 0.1 mg 05/12/21 09:00 Naloxone 0.4 Mg/1 Ml Inj IV Q2MIN PRN Res Rate </= 8 or 02 SAT < 92% Ondansetron HCl 4 mg 05/12/21 10:00 05/26/21 01:14 Ondansetron 4 Mg/2 Ml Inj IV 4 mg Q4H PRN Administration Nausea And Vomiting Pantoprazole Sodium 40 mg 05/27/21 10:00 05/28/21 09:19 Pantoprazole 40 Mg Inj IV 40 mg QDAY YOHANNES Administration Senna 8.6 mg 05/12/21 10:00 05/28/21 12:11 Sennosides 8.6 Mg Tab PO Not Given Q12HR YOHANNES Sodium Chloride 10 ml 05/12/21 10:00 05/28/21 10:45 Sodium Chloride 0.9% 10 Ml Flush Syringe IV 10 ml BID YOHANNES Administration Sodium Chloride 10 ml 05/12/21 10:00 Sodium Chloride 0.9% 10 Ml Flush Syringe IV PRN PRN LINE FLUSH Sucralfate 1 gm 05/25/21 12:00 05/28/21 12:11 Sucralfate 1 Gm/10 Ml Oral Liqd PO Not Given Q6HR [facility] Zinc Sulfate 220 mg 05/12/21 14:00 05/28/21 12:11 Zinc Sulfate 220 Mg Cap PO Not Given QDAY YOHANNES
--- NOTE | 2021-05-28 13:16 | Progress Note ---
Assessment and Plan Cultures: Blood culture no growth COVID-19 PCR: Positive 05/26/2021 blood culture: No growth 05/26/2021 urine culture: No growth A/P: 55-year-old female past medical history obesity admitted with COVID-19 pne umonia #Shock with multiorgan failure #Leukemoid reaction: Likely secondary to hemorrhagic shock. #Shock liver/hepatic failure #Acute renal failure #Severe COVID-19 pneumonia: Completed Remdesivir, steroids and Actemra #Acute hypoxemic respiratory failure: on the vent. #Obesity Recommendations: -continue Cefepime, renally dosed for now -Extremely poor prognosis, goals of care discussion. Recommend DNR and comfort measures. Phan Bianchi MD, FACP [facility] ([facility] O: [phone] F: [phone] Subjective Date of service: 05/28/21 Principal diagnosis: Shock, Abnl Enzymes Interval history: ID reconsulted due to significant decline in clinical function. Was transferred from the floor yesterday for altered mental status, subsequently coded, found to be in hemorrhagic shock, hemoglobin was down to 4.2 requiring blood transfusion, aggressive resuscitation. She was intubated. Remains in shock. No fever. Objective - Exam Narrative Exam: Physical Exam (reviewed in chart to minimize risk of transmission) Constitutional: deferred Head, Ears, Nose: deferred Eyes: deferred Neck: deferred Oral: deferred Cardiovascular: deferred Respiratory: deferred GI: deferred Musculoskeletal: deferred Skin: deferred Hem/Lymphatic: deferred Psych: deferred Neurological: deferred - Constitutional Vitals: Vital Signs Temp Pulse Resp BP Pulse Ox 98.8 F 97 H 15 95/52 0 L 05/28/21 12:00 05/28/21 12:01 05/28/21 12:01 05/28/21 08:40 05/28/21 11:29 Temperature -Last 24 Hours Temperature 98.8 F Temperature 99 F Temperature 99.1 F Temperature 98.6 F Temperature 98.0 F Temperature 99.6 F Temperature 99.6 F Temperature 99.7 F Temperature 98.3 F Temperature 99.5 F Temperature 99.6 F Temperature 99.3 F Temperature 99.4 F - Labs CBC & Chem 7: 05/28/21 05:05 05/28/21 05:05 Labs: Abnormal lab results 10/30/21 10/31/21 10/31/21 Range/Units 17:40 13:30 13:30 WBC (4.5-11.0) K/mm3 RBC (3.65-5.03) M/mm3 Hgb 7.1 L (10.1-14.3) gm/dl Hct 22.0 L (30.3-42.9) % Plt Count (140-440) K/mm3 PT (12.2-14.9) Sec. INR (0.87-1.13) APTT (24.2-36.6) Sec. Fibrinogen (211-480) mg/dl ABG pH (7.350-7.450) pH Units ABG pO2 (80.0-90.0) mm Hg ABG HCO3 (20.0-26.0) mmol/L ABG Base Excess (-2.0-3.0) mmol/L ABG Hemoglobin (12.0-16.0) gm/dl Potassium (3.6-5.0) mmol/L Chloride (98-107) mmol/L Carbon Dioxide (22-30) mmol/L BUN (7-17) mg/dL Creatinine (0.6-1.2) mg/dL Glucose (65-100) mg/dL POC Glucose (70-105) mg/dL Lactic Acid 13.30 H* (0.7-2.0) mmol/L Calcium (8.4-10.2) mg/dL Total Bilirubin (0.1-1.2) mg/dL AST (5-40) units/L ALT (7-56) units/L Alkaline Phosphatase (35-129) units/L Total Protein (6.3-8.2) g/dL Albumin (3.9-5) g/dL Crossmatch See Detail 05/27/21 05/27/21 05/27/21 Range/Units 13:30 13:30 14:05 WBC (4.5-11.0) K/mm3 RBC (3.65-5.03) M/mm3 Hgb (10.1-14.3) gm/dl Hct (30.3-42.9) % Plt Count (140-440) K/mm3 PT 44.5 H (12.2-14.9) Sec. INR 4.33 H (0.87-1.13) APTT (24.2-36.6) Sec. Fibrinogen 120 L* (211-480) mg/dl ABG pH 7.202 L (7.350-7.450) pH Units ABG pO2 112.7 H (80.0-90.0) mm Hg ABG HCO3 17.7 L (20.0-26.0) mmol/L ABG Base Excess -9.6 L (-2.0-3.0) mmol/L ABG Hemoglobin 7.4 L (12.0-16.0) gm/dl Potassium 5.4 H (3.6-5.0) mmol/L Chloride 92.1 L (98-107) mmol/L Carbon Dioxide (22-30) mmol/L BUN 46 H (7-17) mg/dL Creatinine 3.9 H (0.6-1.2) mg/dL Glucose 365 H (65-100) mg/dL POC Glucose (70-105) mg/dL Lactic Acid (0.7-2.0) mmol/L Calcium 6.0 L (8.4-10.2) mg/dL Total Bilirubin (0.1-1.2) mg/dL AST (5-40) units/L ALT (7-56) units/L Alkaline Phosphatase (35-129) units/L Total Protein (6.3-8.2) g/dL Albumin (3.9-5) g/dL Crossmatch 05/27/21 05/27/21 05/27/21 Range/Units 15:52 18:33 18:33 WBC (4.5-11.0) K/mm3 RBC (3.65-5.03) M/mm3 Hgb 7.0 L (10.1-14.3) gm/dl Hct 21.2 L (30.3-42.9) % Plt Count (140-440) K/mm3 PT 32.5 H (12.2-14.9) Sec. INR 2.88 H (0.87-1.13) APTT 70.0 H* (24.2-36.6) Sec. Fibrinogen 165 L (211-480) mg/dl ABG pH (7.350-7.450) pH Units ABG pO2 (80.0-90.0) mm Hg ABG HCO3 (20.0-26.0) mmol/L ABG Base Excess (-2.0-3.0) mmol/L ABG Hemoglobin (12.0-16.0) gm/dl Potassium (3.6-5.0) mmol/L Chloride (98-107) mmol/L Carbon Dioxide (22-30) mmol/L BUN (7-17) mg/dL Creatinine (0.6-1.2) mg/dL Glucose (65-100) mg/dL POC Glucose 141 H (70-105) mg/dL Lactic Acid (0.7-2.0) mmol/L Calcium (8.4-10.2) mg/dL Total Bilirubin (0.1-1.2) mg/dL AST (5-40) units/L ALT (7-56) units/L Alkaline Phosphatase (35-129) units/L Total Protein (6.3-8.2) g/dL Albumin (3.9-5) g/dL Crossmatch 05/27/21 05/27/21 05/28/21 Range/Units 21:25 22:54 00:49 WBC (4.5-11.0) K/mm3 RBC (3.65-5.03) M/mm3 Hgb 7.8 L (10.1-14.3) gm/dl Hct 23.9 L (30.3-42.9) % Plt Count (140-440) K/mm3 PT (12.2-14.9) Sec. INR (0.87-1.13) APTT (24.2-36.6) Sec. Fibrinogen (211-480) mg/dl ABG pH (7.350-7.450) pH Units ABG pO2 (80.0-90.0) mm Hg ABG HCO3 (20.0-26.0) mmol/L ABG Base Excess (-2.0-3.0) mmol/L ABG Hemoglobin (12.0-16.0) gm/dl Potassium (3.6-5.0) mmol/L Chloride (98-107) mmol/L Carbon Dioxide (22-30) mmol/L BUN (7-17) mg/dL Creatinine (0.6-1.2) mg/dL Glucose (65-100) mg/dL POC Glucose 118 H (70-105) mg/dL Lactic Acid 11.20 H* (0.7-2.0) mmol/L Calcium (8.4-10.2) mg/dL Total Bilirubin (0.1-1.2) mg/dL AST (5-40) units/L ALT (7-56) units/L Alkaline Phosphatase (35-129) units/L Total Protein (6.3-8.2) g/dL Albumin (3.9-5) g/dL Crossmatch 05/28/21 05/28/21 05/28/21 Range/Units 00:49 04:05 05:05 WBC 49.4 H* (4.5-11.0) K/mm3 RBC 2.59 L (3.65-5.03) M/mm3 Hgb 7.7 L (10.1-14.3) gm/dl Hct 23.7 L (30.3-42.9) % Plt Count 38 L (140-440) K/mm3 PT 30.7 H (12.2-14.9) Sec. INR 2.68 H (0.87-1.13) APTT 66.0 H* (24.2-36.6) Sec. Fibrinogen 198 L (211-480) mg/dl ABG pH 7.229 L (7.350-7.450) pH Units ABG pO2 147.8 H (80.0-90.0) mm Hg ABG HCO3 (20.0-26.0) mmol/L ABG Base Excess -6.9 L (-2.0-3.0) mmol/L ABG Hemoglobin 7.8 L (12.0-16.0) gm/dl Potassium (3.6-5.0) mmol/L Chloride (98-107) mmol/L Carbon Dioxide (22-30) mmol/L BUN (7-17) mg/dL Creatinine (0.6-1.2) mg/dL Glucose (65-100) mg/dL POC Glucose (70-105) mg/dL Lactic Acid (0.7-2.0) mmol/L Calcium (8.4-10.2) mg/dL Total Bilirubin (0.1-1.2) mg/dL AST (5-40) units/L ALT (7-56) units/L Alkaline Phosphatase (35-129) units/L Total Protein (6.3-8.2) g/dL Albumin (3.9-5) g/dL Crossmatch 05/28/21 05/28/21 05/28/21 Range/Units 05:05 05:05 07:56 WBC (4.5-11.0) K/mm3 RBC (3.65-5.03) M/mm3 Hgb (10.1-14.3) gm/dl Hct (30.3-42.9) % Plt Count (140-440) K/mm3 PT 31.2 H (12.2-14.9) Sec. INR 2.74 H (0.87-1.13) APTT 64.5 H* (24.2-36.6) Sec. Fibrinogen 197 L (211-480) mg/dl ABG pH (7.350-7.450) pH Units ABG pO2 (80.0-90.0) mm Hg ABG HCO3 (20.0-26.0) mmol/L ABG Base Excess (-2.0-3.0) mmol/L ABG Hemoglobin (12.0-16.0) gm/dl Potassium 6.9 H* D (3.6-5.0) mmol/L Chloride 91.7 L (98-107) mmol/L Carbon Dioxide 19 L (22-30) mmol/L BUN 58 H (7-17) mg/dL Creatinine 5.3 H (0.6-1.2) mg/dL Glucose 128 H (65-100) mg/dL POC Glucose 110 H (70-105) mg/dL Lactic Acid (0.7-2.0) mmol/L Calcium 5.9 L* (8.4-10.2) mg/dL Total Bilirubin 4.30 H (0.1-1.2) mg/dL AST 82757 H (5-40) units/L ALT 83791 H (7-56) units/L Alkaline Phosphatase 229 H (35-129) units/L Total Protein 3.9 L (6.3-8.2) g/dL Albumin 2.3 L (3.9-5) g/dL Crossmatch 05/28/21 Range/Units 10:53 WBC (4.5-11.0) K/mm3 RBC (3.65-5.03) M/mm3 Hgb (10.1-14.3) gm/dl Hct (30.3-42.9) % Plt Count (140-440) K/mm3 PT (12.2-14.9) Sec. INR (0.87-1.13) APTT (24.2-36.6) Sec. Fibrinogen (211-480) mg/dl ABG pH (7.350-7.450) pH Units ABG pO2 (80.0-90.0) mm Hg ABG HCO3 (20.0-26.0) mmol/L ABG Base Excess (-2.0-3.0) mmol/L ABG Hemoglobin (12.0-16.0) gm/dl Potassium (3.6-5.0) mmol/L Chloride (98-107) mmol/L Carbon Dioxide (22-30) mmol/L BUN (7-17) mg/dL Creatinine (0.6-1.2) mg/dL Glucose (65-100) mg/dL POC Glucose 127 H (70-105) mg/dL Lactic Acid (0.7-2.0) mmol/L Calcium (8.4-10.2) mg/dL Total Bilirubin (0.1-1.2) mg/dL AST (5-40) units/L ALT (7-56) units/L Alkaline Phosphatase (35-129) units/L Total Protein (6.3-8.2) g/dL Albumin (3.9-5) g/dL Crossmatch
[2021-05-28] MEDS ORDERED: CALCIUM GLUCONATE 2,000 MG in SODIUM CHLORIDE 0.9% 100 ML IV SCH (14:30)
[2021-05-28 15:15] VITALS: BP 108/45
[2021-05-28 16:05] LABS: INR 3.68 (0.87-1.13)
[2021-05-28 16:45] LABS: Partial Thromboplastin Time 67.4 Sec. (24.2-36.6)
[2021-05-28] MEDS: CEFEPIME/NS 2 GM/100 ML 2 GM/100 ML BAG IV SCH (17:15)
[2021-05-28 18:52] LABS: Calcium 5.8 mg/dL (8.4-10.2)
[2021-05-28] MEDS ORDERED: SODIUM BICARBONATE 2 MEQ/2 ML SYRINGE IV ONE (19:00)
[2021-05-28] MEDS ORDERED: EPINEPHrine 1 MG/10 ML SYRINGE ONE (19:00)
--- NOTE | 2021-05-28 19:42 | Death Summary ---
Summary - Providers Date of service: 05/28/21 Consults: 05/12/21 08:23 Consult to Physician [CONS] Routine Comment: Consulting Provider: LOURDES HUTCHINSON Physician Instructions: Reason For Exam: severe lobar pneumonia possible COVID Consult to Physician [CONS] Routine Comment: Consulting Provider: JENNIFER SUAZO Physician Instructions: Reason For Exam: ACUTE HYPOXIC RESPIRATORY FAILURE 05/12/21 08:26 Consult to Dietitian/Nutrition [CONS] Routine Physician Instructions: Reason For Exam: Reason for Consult: Diet education 05/26/21 13:39 PICC Line Insertion [Consult to PICC Line RN] [CONS] Stat Reason For Exam: need pressor support Type Line:: PICC 05/26/21 18:46 Consult to Physician [CONS] Routine Comment: Consulting Provider: RUBY GREWAL Physician Instructions: Reason For Exam: vanessa 05/28/21 08:24 Consult to Physician [CONS] Routine Comment: Consulting Provider: YE PAREDES Physician Instructions: Reason For Exam: afib rvr 05/28/21 09:59 Consult to Physician [CONS] Routine Comment: spoke to Shakira/noman Consulting Provider: JENNIFER TERRELL Physician Instructions: Reason For Exam: covid/sepsis/reconsult Attending: FARNCA SOTELO - summary Date of admission: 05/12/21 08:23 Date of : 05/28/21 Significant findings: This is a 55- years- old female with HTN, mild intermittent asthma, and obesity hypoventilation syndrome who was initially admitted for acute respiratory failure 2/2 COVID PNA requiring OptiFlow. Patient was transferred from the floor to icu for altered mental status on 05/26. Patient subsequently coded after being transferred in the ICU. Patient was found to be in be in hypovolemic shock, hemoglobin was 4.2 with no source of any active bleeding. Patient was aggressively resuscitated with blood products and IVF. Patient was also intubated. GI, nephrology and CCM were consulted. Today patient was found to be hyperkalemic which was medically treated. Family meeting was scheduled for tomorrow morning. Patient was noted to be hyperkalemic this evening and orders were placed to medically treat it. However before treatment was received by the patient patient had a cardiac arrest. Dr. Beasley was at bedside for ACLS. Unfortunately ROSC was unable to be achieved. Patient at 1906. Dr. Beasley called time of . He also updated patient's family current events. Dr. Sotelo and Dr. Suazo are aware. Acute metabolic encephalopathy S/p cardiac arrest with ROSC on 05/26 Hypovolemic shock Septic shock Acute hypoxic respiratory failure COVID-19 pneumonia Severe transaminitis Acute renal failure likely secondary to vasomotor nephropathy due to cardiopulmonary arrest/hypovolemic shock/septic shock Hyperkalemia Severe anemia Coagulopathy Thrombocytopenia Acidemia Leukocytosis Lactic acidosis Hypoglycemia non cct 60 min - Final diagnosis (1) Cardiac arrest Note: Final diagnosis: (2) Acute hypoxemic respiratory failure Note: Final diagnosis: (3) Septic shock Note: Final diagnosis: (4) Coronavirus infection Note: Final diagnosis: (5) Acute liver failure Note: Final diagnosis: (6) Anemia Note: Final diagnosis: (7) Hyperkalemia Note: Final diagnosis: (8) Metabolic acidosis Note: Final diagnosis:
--- NOTE | 2021-05-28 20:08 | Event Note ---
Date: 05/28/21 JAXON KRAUSE was called at 1859 hrs. ACLS protocol was initiated chest compressions and 3 rounds of epinephrine and 3 rounds of sodium bicarbonate were given. Patient could not be revived patient was in asystole whenever the compressions were stopped. Patient was pronounced at 1906 hrs. Time of expiration [address] Inocencia Fisher Certifying physician Dr. Edge
--- NOTE | 2021-05-29 09:08 | Electrocardiograph Report ---
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
--- NOTE | 2021-05-29 18:49 | Electrocardiograph Report ---
[facility] Test Date: 2021-05-26 Test Time: 14:18:26 Pat Name: JESSIKA NOVOA Department: Room: A255 1 Gender: F Clinical Quality Rn: RASHEED : 1965 Requested By: FRANCA SOTELO Order Number: [id number] Reading MD: Nessa Florence Measurements Intervals [place] Rate: 108 P: 11 MO: 145 QRS: -67 QRSD: 136 T: 44 QT: 367 QTc: 492 Interpretive Statements Sinus tachycardia RBBB and LAFB Prominent T waves consider hyperkalemia No previous ECG available for comparison Electronically Signed On 05-29-2021 18:49:32 EDT by Nessa Florence
--- NOTE | 2021-05-29 19:00 | Electrocardiograph Report ---
[facility] Test Date: 2021-05-27 Test Time: 08:34:35 Pat Name: JESSIKA NOVOA Department: Room: A255 1 Gender: F Channel Worker: RASHEED : 1965 Requested By: FRANCA SOTELO Order Number: [id number] Reading MD: Nessa Florence Measurements Intervals [place] Rate: 126 P: 24 [place]: 137 QRS: 0 QRSD: 84 T: 41 QT: 283 QTc: 410 Interpretive Statements Sinus tachycardia Low voltage, extremity and precordial leads ST depression consider inferolateral ischemia Compared to ECG 05/26/2021 14:18:26 Intraventricular conduction delay no longer evident Hyperacute T waves are no longer evident Electronically Signed On 05-29-2021 19:00:06 EDT by Nessa Florence
--- NOTE | 2021-05-30 17:16 | Ultrasound Report ---
ULTRASOUND RENAL INDICATION / CLINICAL INFORMATION: Acute renal failure.. COMPARISON: CT abdomen/pelvis without contrast 05/23/2021. FINDINGS: Technically limited exam. RIGHT KIDNEY: Length = 12.0 cm. - Echogenicity: Normal. - Cortical Thickness: Normal. - Hydronephrosis: None. - Cyst / Mass: None. - Stones: None seen. LEFT KIDNEY: Length = 9.4 cm. - Echogenicity: Normal. - Cortical Thickness: Normal. - Hydronephrosis: None. - Cyst / Mass: None. - Stones: None seen. URINARY BLADDER: Collapsed around a Spann catheter. FREE FLUID: None. ADDITIONAL FINDINGS: None. IMPRESSION: 1. Technically limited exam due to body habitus and patient inability to cooperate throughout exam. 2. No sonographic abnormality. Scribed by: Fe Thomas RDMS, RVT Scribed: 05/30/2021 3:31 PM I have reviewed the images, agree with this report, and edited this report as needed. Signer Name: Blair Sow MD Signed: 05/30/2021 5:12 PM Workstation Name: [id number]
== END 2021-05-28 22:51 | DRG 871 ==
LOC: ED 13:05 → IMCU 05-12 08:23 → UNDOADMIN 05-12 08:52 → IMCU 05-12 08:52 → 3A 05-17 21:05 → CC1 05-26 13:56
PROVIDERS: ADMIT Internal Medicine; ATTEND Internal Medicine
PROC: 5A0955A Assistance with Respiratory Ventilation, Greater than 96 Consecutive Hours, High Flow/Velocity Cannula (ICD-10-PCS; 2021-05-11)
PROC: XW033E5 Introduction of Remdesivir Anti-infective into Peripheral Vein, Percutaneous Approach, New Technology Group 5 (ICD-10-PCS; 2021-05-12)
PROC: XW033H5 Introduction of Tocilizumab into Peripheral Vein, Percutaneous Approach, New Technology Group 5 (ICD-10-PCS; 2021-05-13)
PROC: 5A1945Z Respiratory Ventilation, 24-96 Consecutive Hours (ICD-10-PCS; principal; 2021-05-26)
PROC: 0BH17EZ Insertion of Endotracheal Airway into Trachea, Via Natural or Artificial Opening (ICD-10-PCS; 2021-05-26)
PROC: 30233N1 Transfusion of Nonautologous Red Blood Cells into Peripheral Vein, Percutaneous Approach (ICD-10-PCS; 2021-05-26)
PROC: 04HK33Z Insertion of Infusion Device into Right Femoral Artery, Percutaneous Approach (ICD-10-PCS; 2021-05-26)
PROC: B44LZZZ Ultrasonography of Femoral Artery (ICD-10-PCS; 2021-05-26)
PROC: 30233K1 Transfusion of Nonautologous Frozen Plasma into Peripheral Vein, Percutaneous Approach (ICD-10-PCS; 2021-05-27)
PROC: 30233M1 Transfusion of Nonautologous Plasma Cryoprecipitate into Peripheral Vein, Percutaneous Approach (ICD-10-PCS; 2021-05-27)
DX: A41.9 Sepsis, unspecified organism (principal); U07.1 COVID-19; J96.01 Acute respiratory failure with hypoxia; J12.82 Pneumonia due to coronavirus disease 2019; R65.21 Severe sepsis with septic shock; G93.41 Metabolic encephalopathy; N17.0 Acute kidney failure with tubular necrosis; K72.00 Acute and subacute hepatic failure without coma; E66.2 Morbid (severe) obesity with alveolar hypoventilation; E44.0 Moderate protein-calorie malnutrition; D68.9 Coagulation defect, unspecified; Z68.33 Body mass index [BMI] 33.0-33.9, adult; I10 Essential (primary) hypertension; J45.909 Unspecified asthma, uncomplicated; I46.9 Cardiac arrest, cause unspecified; D64.9 Anemia, unspecified; R57.1 Hypovolemic shock; E87.5 Hyperkalemia; D69.6 Thrombocytopenia, unspecified; E11.649 Type 2 diabetes mellitus with hypoglycemia without coma; Z82.49 Family history of ischemic heart disease and other diseases of the circulatory system
CPT/HCPCS: 36415; 71045; 72100; 74018; 74176; 76770; 80048; 80053; 80202; 81001; 82140; 82330; 82570; 82728; 82803; 82947; 82962; 83615; 83735; 84100; 84145; 84300; 85007; 85014; 85018; 85025; 85027; 85379; 85384; 85610; 85730; 86140; 86850; 86900; 86901; 86920; 86965; 87040; 87086; 93005; 93306; 93970; 94002; 94003; 94760; G0378; C9113; J0171; J0610; J0692; J1100; J1170; J1650; J1815; J1940; J2370; J2405; J2704; J2765; J2920; J2930; J3010; J3262; J3370; J7030; J7040; J7050; J7070; P9012; P9016; P9017; U0003